=== PATIENT | male | born 1950 | race Caucasian/White ===

== ENCOUNTER 2019-01-17 16:29 | Inpatient (IN) | payer BC, MEDICARE ==
--- NOTE | 2019-01-17 16:54 | ED ---
General Adult HPI - General Chief complaint: Shortness of Breath Stated complaint: TAMARA, INFECTION LEFT LUNG Time Seen by Provider: 01/17/19 16:31 Source: patient, RN notes reviewed, old records reviewed Mode of arrival: ambulatory Limitations: no limitations - History of Present Illness Initial comments: 68-year-old male presents for evaluation of cough, dyspnea, fatigue. Patient has past medical history of diabetes, otherwise no respiratory issues, no coronary artery disease. The patient presenting from an outside hospital with concern for pneumonia and pleural effusion. Patient states he has not been feeling well for approximately one month. His has worsened over the past one week. He was seen at an outside hospital and had chest x-ray showing effusion and subsequently had a CAT scan, these results are not available at the time of my initial evaluation. Denies central chest pain. Denies lower extremity edema. He does report a productive cough. No fever or chills. No vomiting. - Related Data Home Medications Medication Instructions Recorded Confirmed Aspirin EC [Ecotrin Low Dose] 81 mg PO DAILY 01/17/19 01/17/19 FLUoxetine HCL [PROzac] 20 mg PO DAILY 01/17/19 01/17/19 Hydrochlorothiazide 25 mg PO DAILY 01/17/19 01/17/19 Lisinopril 40 mg PO DAILY 01/17/19 01/17/19 amLODIPine [Norvasc] 10 mg PO DAILY 01/17/19 01/17/19 metFORMIN HCL 1,000 mg PO BID 01/17/19 01/17/19 Allergies Allergy/AdvReac Type Severity Reaction Status Date / Time chlorzoxazone Allergy Unknown Verified 01/17/19 17:01 [From [facility]] Review of Systems ROS Statement: Those systems with pertinent positive or pertinent negative responses have been documented in the HPI. ROS Other: All systems not noted in ROS Statement are negative. Past Medical History Past Medical History: No Reported History History of Any Multi-Drug Resistant Organisms: None Reported Past Surgical History: No Surgical Hx Reported Past Psychological History: No Psychological Hx Reported Smoking Status: Never smoker Past Alcohol Use History: None Reported Past Drug Use History: None Reported General Exam Limitations: no limitations General appearance: alert, in no apparent distress Head exam: Present: atraumatic, normocephalic Eye exam: Present: normal appearance, PERRL Neck exam: Present: normal inspection. Absent: tenderness, meningismus Respiratory exam: Present: rhonchi, decreased breath sounds (No significant air movement on the left.). Absent: respiratory distress, wheezes Cardiovascular Exam: Present: regular rate, normal rhythm GI/Abdominal exam: Present: soft. Absent: distended, tenderness, guarding Extremities exam: Present: normal capillary refill. Absent: pedal edema, calf tenderness Neurological exam: Present: alert, oriented X3, CN II-XII intact. Absent: motor sensory deficit Psychiatric exam: Present: normal affect, normal mood Skin exam: Present: warm, dry, intact. Absent: cyanosis, diaphoretic Course Vital Signs 01/17/19 01/17/19 16:35 17:29 Temperature 98.4 F Pulse Rate 102 H Respiratory 18 18 Rate Blood Pressure 148/75 O2 Sat by Pulse 96 Oximetry - Reevaluation(s) Reevaluation #1: 01/17/19 17:48 Records will be obtained from [facility] including recent computed tomography scan chest. EKG Findings - EKG Comments: EKG Findings:: Sinus tachycardia, left atrial enlargement, right bundle branch block, left anterior fascicular block, rate of 109, NM interval 152, QRS duration 142, QTC [address] segment elevation. Medical Decision Making - Medical Decision Making 68 male presenting with dyspnea, cough, fatigue been ongoing for approximately one month, maybe longer. Sent from [facility] for evaluation of large left- sided pleural effusion. X-ray reviewed, does show pneumonia with adjacent effusion and concern for abscess. CT was performed today, these results will be obtained. Patient has leukocytosis with a white blood cell count 27,000, hemoglobin is 10, he is reactive platelets at 692. His electrolyte abnormal ities including hyponatremia and hyperglycemia. He started on IV fluids, initiated on IV antibiotics. He will be admitted with pulmonology on consult. - Lab Data Result diagrams: 01/17/19 17:00 01/17/19 17:00 Lab Results 01/17/19 01/17/19 01/17/19 Range/Units 17:00 17:00 17:00 WBC 27.9 H (3.8-10.6) k/uL RBC 3.36 L (4.30-5.90) m/uL Hgb 10.1 L (13.0-17.5) gm/dL Hct 32.0 L (39.0-53.0) % MCV 95.1 (80.0-100.0) fL MCH 30.0 (25.0-35.0) pg MCHC 31.6 (31.0-37.0) g/dL RDW 14.3 (11.5-15.5) % Plt Count 692 H (150-450) k/uL Neutrophils % (Manual) 90 % Band Neutrophils % 2 % Lymphocytes % (Manual) 5 % Monocytes % (Manual) 3 % Neutrophils # (Manual) 25.60 H (1.3-7.7) k/uL Lymphocytes # (Manual) 1.40 (1.0-4.8) k/uL Monocytes # (Manual) 0.84 (0-1.0) k/uL Nucleated RBCs 0 (0-0) /100 WBC Manual Slide Review Performed RBC Morphology Normal PT (9.0-12.0) sec INR (<1.2) APTT (22.0-30.0) sec Sodium 129 L (137-145) mmol/L Potassium 3.5 (3.5-5.1) mmol/L Chloride 88 L (98-107) mmol/L Carbon Dioxide 26 (22-30) mmol/L Anion Gap 15 mmol/L BUN 32 H (9-20) mg/dL Creatinine 0.91 (0.66-1.25) mg/dL Est GFR (CKD-EPI)AfAm >90 (>60 ml/min/1.73 sqM) Est GFR (CKD-EPI)NonAf 88 (>60 ml/min/1.73 sqM) Glucose 549 H* (74-99) mg/dL Calcium 8.4 (8.4-10.2) mg/dL Magnesium 1.4 L (1.6-2.3) mg/dL Total Bilirubin 0.3 (0.2-1.3) mg/dL AST 22 (17-59) U/L ALT 27 (21-72) U/L Alkaline Phosphatase 297 H (38-126) U/L Troponin I (0.000-0.034) ng/mL NT-Pro-B Natriuret Pep 901 pg/mL Total Protein 5.6 L (6.3-8.2) g/dL Albumin 2.7 L (3.5-5.0) g/dL 01/17/19 01/17/19 Range/Units 17:00 17:00 WBC (3.8-10.6) k/uL RBC (4.30-5.90) m/uL Hgb (13.0-17.5) gm/dL Hct (39.0-53.0) % MCV (80.0-100.0) fL MCH (25.0-35.0) pg MCHC (31.0-37.0) g/dL RDW (11.5-15.5) % Plt Count (150-450) k/uL Neutrophils % (Manual) % Band Neutrophils % % Lymphocytes % (Manual) % Monocytes % (Manual) % Neutrophils # (Manual) (1.3-7.7) k/uL Lymphocytes # (Manual) (1.0-4.8) k/uL Monocytes # (Manual) (0-1.0) k/uL Nucleated RBCs (0-0) /100 WBC Manual Slide Review RBC Morphology PT 9.9 (9.0-12.0) sec INR 0.9 (<1.2) APTT 24.6 (22.0-30.0) sec Sodium (137-145) mmol/L Potassium (3.5-5.1) mmol/L Chloride (98-107) mmol/L Carbon Dioxide (22-30) mmol/L Anion Gap mmol/L BUN (9-20) mg/dL Creatinine (0.66-1.25) mg/dL Est GFR (CKD-EPI)AfAm (>60 ml/min/1.73 sqM) Est GFR (CKD-EPI)NonAf (>60 ml/min/1.73 sqM) Glucose (74-99) mg/dL Calcium (8.4-10.2) mg/dL Magnesium (1.6-2.3) mg/dL Total Bilirubin (0.2-1.3) mg/dL AST (17-59) U/L ALT (21-72) U/L Alkaline Phosphatase (38-126) U/L Troponin I <0.012 (0.000-0.034) ng/mL NT-Pro-B Natriuret Pep pg/mL Total Protein (6.3-8.2) g/dL Albumin (3.5-5.0) g/dL Critical Care Time Critical Care Time: Yes Total Critical Care Time: 35 Disposition Clinical Impression: Pleural effusion, CAP (community acquired pneumonia) Disposition: ADMITTED IP TO [facility] Condition: Stable Is patient prescribed a controlled substance at d/c from ED?: No Referrals: Ayanna Chan MD [Primary Care Provider] - 1-2 days Decision to Admit Reason: Admit from EC Decision Date: 01/17/19 Decision Time: 18:42
--- NOTE | 2019-01-17 17:17 | XR ---
EXAMINATION TYPE: XR chest 2V DATE OF EXAM: 01/17/2019 COMPARISON: NONE HISTORY: Short of breath TECHNIQUE: Frontal and lateral views of the chest are obtained. FINDINGS: There is left pleural effusion. There is fluid level in the left upper lung field. Right l sonu is clear. There are chest leads. There is no heart failure. IMPRESSION: Large left pleural effusion. Fluid level could relate to lung abscess. No heart failure seen. There is probably left pulmonary consolidation.
[2019-01-17 17:29] LABS: HGB 10.1 gm/dL (13.0-17.5); MCHC 31.6 g/dL (31.0-37.0); MCV 95.1 fL (80.0-100.0); Mean Platelet Volume 7.2; Platelet Count 692 k/uL (150-450); RBC 3.36 m/uL (4.30-5.90); RDW 14.3 % (11.5-15.5); WBC 27.9 k/uL (3.8-10.6)
[2019-01-17] MEDS ORDERED: AZITHROMYCIN 500 MG in SODIUM CHLORIDE 0.9% 250 ML IVPB STA (17:43)
[2019-01-17] MEDS ORDERED: cefTRIAXone IN SWFI 1,000 MG/10 ML SYRINGE IVP STA (17:43)
[2019-01-17 17:44] LABS: ALT 27 U/L (21-72); AST 22 U/L (17-59); African American GFR (CKD) >90 (>60 ml/min/1.73 sqM); Albumin 2.7 g/dL (3.5-5.0); Alkaline Phosphatase 297 U/L (38-126); Anion Gap 15 mmol/L; Blood Urea Nitrogen 32 mg/dL (9-20); Calcium 8.4 mg/dL (8.4-10.2); Carbon Dioxide 26 mmol/L (22-30); Chloride 88 mmol/L (98-107); Magnesium 1.4 mg/dL (1.6-2.3); Potassium 3.5 mmol/L (3.5-5.1); Sodium 129 mmol/L (137-145); Total Bilirubin 0.3 mg/dL (0.2-1.3); Total Protein 5.6 g/dL (6.3-8.2)
[2019-01-17] MEDS ORDERED: VANCOMYCIN IV PER PHARMACY 1 EACH MISC MISCELLANE PRN (17:45)
[2019-01-17 17:53] LABS: INR 0.9 (<1.2); Partial Thromboplastin Time 24.6 sec (22.0-30.0); Prothrombin Time 9.9 sec (9.0-12.0)
[2019-01-17 17:56] LABS: Glucose 549 mg/dL (74-99)
[2019-01-17 18:00] LABS: Band Neutrophils % 2 %; Monocytes # (M) 0.84 k/uL (0-1.0); Neutrophils % (M) 90 %; Nucleated Red Blood Cells 0 /100 WBC (0-0); Total Cells Counted 100
[2019-01-17] MEDS ORDERED: VANCOMYCIN 1,250 MG in SODIUM CHLORIDE 0.9% 250 ML IVPB ONE (18:00)
[2019-01-17] MEDS ORDERED: SODIUM CHLORIDE 0.9% 500 ML 500 ML IV ONE (18:26)
[2019-01-17] MEDS ORDERED: INSULIN REGULAR 100 UNIT/ML VIAL IV ONE (18:27)
[2019-01-17] MEDS: SODIUM CHLORIDE 0.9% 1,000 ML IV SCH (18:31)
[2019-01-17] MEDS ORDERED: NALOXONE 0.4 MG/ML 1 ML VIAL IV PRN (18:39)
[2019-01-17 19:20] LABS: Glucose,Whole Blood 568 mg/dL (75-99)
[2019-01-17 20:42] LABS: Glucose,Whole Blood 500 mg/dL (75-99)
[2019-01-17] MEDS ORDERED: INSULIN REGULAR 100 UNIT in SODIUM CHLORIDE 0.9% 100 ML IV SCH (21:45)
[2019-01-17 22:36] LABS: Glucose,Whole Blood 498 mg/dL (75-99)
[2019-01-17 23:38] LABS: Glucose,Whole Blood 496 mg/dL (75-99)
[2019-01-18 00:11] LABS: Glucose,Whole Blood 432 mg/dL (75-99)
[2019-01-18 00:37] LABS: Glucose,Whole Blood 418 mg/dL (75-99)
[2019-01-18] MEDS: MAGNESIUM SULFATE-D5W PMX 1 GM in DEXTROSE/WATER 1 100ML.BAG IVPB SCH ×2 (00:38→02:21)
[2019-01-18 01:07] LABS: Glucose,Whole Blood 340 mg/dL (75-99)
[2019-01-18 01:44] LABS: ALT 21 U/L (21-72); AST 18 U/L (17-59); African American GFR (CKD) >90 (>60 ml/min/1.73 sqM); Albumin 2.3 g/dL (3.5-5.0); Alkaline Phosphatase 212 U/L (38-126); Anion Gap 9 mmol/L; Blood Urea Nitrogen 28 mg/dL (9-20); Calcium 7.9 mg/dL (8.4-10.2); Carbon Dioxide 29 mmol/L (22-30); Chloride 93 mmol/L (98-107); Glucose 323 mg/dL (74-99); MCH 29.8 pg (25.0-35.0); MCHC 31.6 g/dL (31.0-37.0); MCV 94.2 fL (80.0-100.0); Magnesium 1.7 mg/dL (1.6-2.3); Mean Platelet Volume 6.8; Platelet Count 598 k/uL (150-450); RBC 2.87 m/uL (4.30-5.90); RDW 14.3 % (11.5-15.5); Sodium 131 mmol/L (137-145); Total Bilirubin <0.1 mg/dL (0.2-1.3); Total Protein 4.8 g/dL (6.3-8.2); WBC 24.4 k/uL (3.8-10.6)
[2019-01-18 01:45] LABS: HGB 8.6 gm/dL (13.0-17.5)
[2019-01-18 01:57] LABS: Glucose,Whole Blood 309 mg/dL (75-99)
[2019-01-18 02:06] LABS: Lymphocytes # (M) 0.49 k/uL (1.0-4.8); Monocytes # (M) 0.73 k/uL (0-1.0); Neutrophils # (M) 23.18 k/uL (1.3-7.7); Neutrophils % (M) 95 %; Nucleated Red Blood Cells 0 /100 WBC (0-0); Total Cells Counted 100
[2019-01-18 02:21] LABS: Glucose,Whole Blood 271 mg/dL (75-99)
[2019-01-18 03:58] LABS: Glucose,Whole Blood 139 mg/dL (75-99)
[2019-01-18 04:51] LABS: Glucose,Whole Blood 125 mg/dL (75-99)
[2019-01-18 05:53] LABS: Glucose,Whole Blood 151 mg/dL (75-99)
[2019-01-18 07:02] LABS: Glucose,Whole Blood 230 mg/dL (75-99)
[2019-01-18] MEDS: LISINOPRIL 20 MG TAB PO SCH (07:18)
[2019-01-18] MEDS: amLODIPine 10 MG TAB PO SCH (07:18)
[2019-01-18] MEDS: FLUoxetine HCL 20 MG CAP PO SCH (07:18)
[2019-01-18] MEDS: ASPIRIN 81 MG PO SCH (07:18)
[2019-01-18] MEDS: INSULIN ASPART (NovoLOG) 100 UNIT/ML VIAL SQ SCH ×4 (07:20→21:07)
[2019-01-18] MEDS: SODIUM CHLORIDE 0.9% 1,000 ML IV SCH ×2 (07:24→21:11)
[2019-01-18] MEDS ORDERED: INSULIN ASPART (NovoLOG) 100 UNIT/ML VIAL SQ SCH ×2 (07:30)
[2019-01-18] MEDS: INSULIN DETEMIR (LEVEMIR) 100 UNIT/ML SYR SQ SCH (08:07)
[2019-01-18] MEDS: VANCOMYCIN 1,000 MG in SODIUM CHLORIDE 0.9% 250 ML IVPB SCH ×2 (10:34→22:31)
[2019-01-18 11:59] LABS: Glucose,Whole Blood 271 mg/dL (75-99)
[2019-01-18] MEDS ORDERED: PIPERACILLIN-TAZOBACTAM 3.375 GM in SODIUM CHLORIDE 0.9% 100 ML IVPB SCH (12:00)
--- NOTE | 2019-01-18 12:06 | XR ---
EXAMINATION TYPE: XR chest 1V portable DATE OF EXAM: 01/18/2019 COMPARISON: 7 12/22/2019 HISTORY: Difficulty breathing TECHNIQUE: Single frontal view of the chest is obtained. FINDINGS: Left-sided consolidation pleural effusion noted. Fluid level noted in the prior exam is ob scured likely related to increasing consolidation. Right lung clear. Heart size stable. Arthropathy o f the shoulders. IMPRESSION: 1. Large area of consolidation involving the left lung may been the basis of pleural effusion and con solidative pneumonia or compressive atelectasis. Endobronchial lesion or neoplasm not excluded. 2. Fluid level noted on the prior exam is not seen on today's exam and may be related opacification. As previously noted loculated pneumothorax or pulmonary abscess in the differential diagnosis.
[2019-01-18 13:18] LABS: Appearance,BF Cloudy; Color,BF Yellow
--- NOTE | 2019-01-18 13:42 | P.CNPUL ---
History of Present Illness Consult date: 01/18/19 Reason for consult: pneumonia History of present illness: A 68-year-old male patient who was transferred from [facility] of shortness of breath. The patient started approximately week ago to have pleuritic left-sided chest pain. He was also having increased cough and congestion and low-grade fever. He was seen by his primary care physician and apparently a chest x-ray was done and he was told to have pneumonia and was given oral erythromycin-based antibiotic. The patient's condition got worse. His appetite has been poor. He has been losing weight. He came in to [facility] emergency department with a chest x-ray was done that showed a left lung opacity and following that a CAT scan of the chest was done that showed a large loculated left-sided pleural effusion along with gas within the pleural space and the finding was very highly suspicious for empyema. The patient got transferred to us. I reviewed the CAT scan of the chest from [facility]. The findings is consistent with empyema. The patient's white cell count was 27.9 at time of admission. Sodium level was at 129. His sugar level was also elevated and the patient is diabetic. Is a lifetime nonsmoker. I performed a bedside thoracentesis and I drained approximately 6 50 mL of pus from the left pleural space. Subsequent chest x-ray showed no evidence of any pneumothorax. The patient tolerated the procedure well. The fluid that was seen on the earlier chest x-ray was removed. Fluid analysis still pending for now. The patient was started on a combination of Zosyn and vancomycin. We'll put an interventional radiology consultation for a pigtail catheter insertion the drained residual loculated pleural effusion on the CAT scan guidance. This will be done tomorrow. Family was updated. May need a thoracic surgery con sultation at a later stage depending on our success of breathing this empyema percutaneously. Review of Systems Constitutional: Reports fatigue, Reports fever, Reports weakness, Reports weight loss Eyes: denies as per HPI, denies blurred vision, denies bulging eye, denies decreased vision, denies diplopia, denies discharge, denies dry eye, denies irritation, denies itching, denies pain, denies photophobia, denies loss of peripheral vision, denies loss of vision, denies tunnel vision/blind spots Ears: deny: decreased hearing, ear discharge, earache, tinnitus Ears, nose, mouth and throat: Denies headache, Denies sore throat Cardiovascular: Reports decreased exercise tolerance, Reports dyspnea on exertion Respiratory: Reports cough, Reports dyspnea Gastrointestinal: Reports as per HPI Genitourinary: Reports as per HPI Musculoskeletal: Reports as per HPI Musculoskeletal: absent: ankle pain, ankle stiffness, ankle swelling, as per HPI, elbow pain, elbow stiffness, elbow swelling, foot pain, foot stiffness, foot swelling, hand pain, hand stiffness, hand swelling, hip pain, hip stiffness, hip swelling, knee pain, knee stiffness, knee swelling, shoulder pain, shoulder stiffness, shoulder swelling, wrist pain, wrist stiffness, wrist swelling Integumentary: Reports as per HPI Neurological: Reports as per HPI, Reports weakness Psychiatric: Reports as per HPI Endocrine: Reports as per HPI, Reports excessive sweating, Reports excessive thirst, Reports fatigue, Reports high blood sugars Hematologic/Lymphatic: Reports as per HPI Allergic/Immunologic: Reports allergic rhinitis Past Medical History Past Medical History: Diabetes Mellitus, GERD/Reflux, Hypertension History of Any Multi-Drug Resistant Organisms: None Reported Past Surgical History: No Surgical Hx Reported Additional Past Surgical History / Comment(s): 86 GI bleed from ulcer Past Psychological History: No Psychological Hx Reported Smoking Status: Never smoker Past Alcohol Use History: None Reported Past Drug Use History: None Reported - Past Family History Father Family Medical History: Cancer Mother Family Medical History: Cancer, Dementia Medications and Allergies Home Medications Medication Instructions Recorded Confirmed Type Aspirin EC [Ecotrin Low Dose] 81 mg PO DAILY 01/17/19 01/17/19 History FLUoxetine HCL [PROzac] 20 mg PO DAILY 01/17/19 01/17/19 History Hydrochlorothiazide 25 mg PO DAILY 01/17/19 01/17/19 History Lisinopril 40 mg PO DAILY 01/17/19 01/17/19 History amLODIPine [Norvasc] 10 mg PO DAILY 01/17/19 01/17/19 History metFORMIN HCL 1,000 mg PO BID 01/17/19 01/17/19 History Allergies Allergy/AdvReac Type Severity Reaction Status Date / Time chlorzoxazone Allergy Unknown Verified 01/17/19 17:01 [From [facility]] Physical Exam Vitals: Vital Signs Temp Pulse Pulse Pulse Resp BP BP 01/18/19 07:10 19 01/18/19 07:00 97.9 F 105 H 19 174/84 01/18/19 01:42 98.3 F 102 H 14 159/78 01/17/19 20:40 97.3 F L 105 H 20 169/83 01/17/19 19:35 106 H 01/17/19 19:24 100 20 163/82 01/17/19 17:29 18 01/17/19 16:35 98.4 F 102 H 18 148/75 Pulse Ox 01/18/19 07:10 01/18/19 07:00 95 01/18/19 01:42 94 L 01/17/19 20:40 90 L 01/17/19 19:35 01/17/19 19:24 97 01/17/19 17:29 01/17/19 16:35 96 Intake and Output 01/17/19 01/18/19 01/18/19 22:59 06:59 14:59 Intake Total 49.658 236 Output Total 250 775 Balance -250 -725.342 236 Intake: Intake, IV Titration 49.658 Amount Insulin Regular 100 unit 49.658 In Sodium Chloride 0.9% 100 ml @ Titrate IV .Q0M [facility] Rx#:[id number] Oral 236 Output: Urine 250 775 Other: Voiding Method Toilet Toilet Urinal Urinal # Voids 1 Weight 58.513 kg 56.1 kg 56.1 kg Gen. appearance, comfortable likely distress Head exam was generally normal. There was no scleral icterus or corneal arcus. Mucous membranes were moist. Neck was supple and without jugular venous distension, thyromegaly, or carotid bruits. Carotids were easily palpable bilaterally. There was no adenopathy. Lungs sounds are diminished in the left along with dullness to percussion Cardiac exam revealed the PMI to be normally situated and sized. The rhythm was regular and no extrasystoles were noted during several minutes of auscultation. The first and second heart sounds were normal and physiologic splitting of the second heart sound was noted. There were no murmurs, rubs, clicks, or gallops. Abdominal exam revealed normal bowel sounds. The abdomen was soft, non-tender, and without masses, organomegaly, or appreciable enlargement of the abdominal aorta. Examination of the extremities revealed easily palpable radial, femoral and pedal pulses. There was no cyanosis, clubbing or edema. Examination of the skin revealed no evidence of significant rashes, suspicious appearing nevi or other concerning lesions. Neurologically he is awake and alert and there is no focal neurological defici ts. Results - Laboratory Findings CBC and BMP: 01/18/19 01:21 01/18/19 01:21 PT/INR, D-dimer PT 9.9 sec (9.0-12.0) 01/17/19 17:00 INR 0.9 (<1.2) 01/17/19 17:00 Abnormal lab findings: Abnormal Labs 01/17/19 01/17/19 01/17/19 17:00 17:00 19:17 WBC 27.9 H RBC 3.36 L Hgb 10.1 L Hct 32.0 L Plt Count 692 H Neutrophils # (Manual) 25.60 H Lymphocytes # (Manual) Sodium 129 L Potassium Chloride 88 L BUN 32 H Glucose 549 H* POC Glucose (mg/dL) 568 H Calcium Magnesium 1.4 L Total Bilirubin Alkaline Phosphatase 297 H Total Protein 5.6 L Albumin 2.7 L 01/17/19 01/17/19 01/17/19 20:40 22:33 23:35 WBC RBC Hgb Hct Plt Count Neutrophils # (Manual) Lymphocytes # (Manual) Sodium Potassium Chloride BUN Glucose POC Glucose (mg/dL) 500 H 498 H 496 H Calcium Magnesium Total Bilirubin Alkaline Phosphatase Total Protein Albumin 01/18/19 01/18/19 01/18/19 00:02 00:32 01:01 WBC RBC Hgb Hct Plt Count Neutrophils # (Manual) Lymphocytes # (Manual) Sodium Potassium Chloride BUN Glucose POC Glucose (mg/dL) 432 H 418 H 340 H Calcium Magnesium Total Bilirubin Alkaline Phosphatase Total Protein Albumin 01/18/19 01/18/19 01/18/19 01:21 01:21 01:42 WBC 24.4 H RBC 2.87 L Hgb 8.6 L D Hct 27.0 L Plt Count 598 H Neutrophils # (Manual) 23.18 H Lymphocytes # (Manual) 0.49 L Sodium 131 L Potassium 3.0 L Chloride 93 L BUN 28 H Glucose 323 H POC Glucose (mg/dL) 309 H Calcium 7.9 L Magnesium Total Bilirubin <0.1 L Alkaline Phosphatase 212 H Total Protein 4.8 L Albumin 2.3 L 07/07/19 07/07/19 07/07/19 02:15 03:49 04:49 WBC RBC Hgb Hct Plt Count Neutrophils # (Manual) Lymphocytes # (Manual) Sodium Potassium Chloride BUN Glucose POC Glucose (mg/dL) 271 H 139 H 125 H Calcium Magnesium Total Bilirubin Alkaline Phosphatase Total Protein Albumin 01/18/19 01/18/19 01/18/19 05:50 06:23 06:51 WBC RBC Hgb Hct Plt Count Neutrophils # (Manual) Lymphocytes # (Manual) Sodium Potassium Chloride BUN Glucose POC Glucose (mg/dL) 151 H 230 H Calcium Magnesium Total Bilirubin Alkaline Phosphatase Total Protein 5.0 L Albumin 01/18/19 11:58 WBC RBC Hgb Hct Plt Count Neutrophils # (Manual) Lymphocytes # (Manual) Sodium Potassium Chloride BUN Glucose POC Glucose (mg/dL) 271 H Calcium Magnesium Total Bilirubin Alkaline Phosphatase Total Protein Albumin - Diagnostic Findings Chest x-ray: image reviewed Assessment and Plan Plan: 1 Empyema involving the left lung, post diagnostic and therapeutic thoracentesis with evacuation of 6 50 mL of pus from the left lung. Awaiting Gram stain and culture. 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 I think this needs to be followed up by another intervention which will be a pigtail catheter insertion by interventional radiology evacuated the residual loculated pockets of pleural fluid from the left lung. He may benefit from TPA administration to breakdown the loculations. He'll be covered with broad- spectrum antibiotics. Awaiting culture results. Consult ID. He may ultimately benefit from a thoracoscopic evaluation/decortication if the above-mentioned interventions fail to clear the empyema. Tighter blood sugar control. The pawel ent was placed on Levemir insulin 20 units along with ascites care coverage. Replace potassium level. Continue Zosyn and vancomycin. We'll continue to follow.
--- NOTE | 2019-01-18 13:44 | P.PCN ---
Date of Procedure: 01/18/19 Preoperative Diagnosis: Empyema Postoperative Diagnosis: Empyema Procedure(s) Performed: Thoracentesis Anesthesia: local Surgeon: Shayne Lui Estimated Blood Loss (ml): 0 Pathology: other Condition: stable Disposition: floor Operative Findings: A timeout was completed verifying correct patient and procedure and site. No ultrasound was used during the procedure. She was positioned and prepped and draped in the usual fashion. Lidocaine was applied to anesthetize the area. A thoracentesis catheter was inserted into the left pleural space and total of 6 50 mL of purulent material/pus brown in color viscus was drained from the left hemithorax without any major difficulties. The patient tolerated the procedure well. No blood loss. Follow-up chest x-ray shows no evidence of pneumothorax.
[2019-01-18] MEDS ORDERED: VANCOMYCIN 1,000 MG in SODIUM CHLORIDE 0.9% 250 ML IVPB SCH (14:00)
[2019-01-18 14:51] LABS: Nucleated Cells, Body Fluid 160000 /uL; RBC, Body Fluid 0 /uL
[2019-01-18] MEDS ORDERED: Potassium Replacement Protocol 1 EACH MISC MISCELLANE PRN (15:27)
[2019-01-18] MEDS: POTASSIUM CHLORIDE ER 20 MEQ TAB.ER PO SCH ×2 (16:00→16:56)
--- NOTE | 2019-01-18 16:03 | P.HPIM ---
History of Present Illness Chief Complaint: Shortness of breath This very pleasant 68-year-old gentleman with a past paresis significant for diabetes, hypertension is transferred from [facility] for further management and treatment of his shortness of breath due to possible empyema on the left side. The patient says that he's been having shortness of breath for the past 1 week. He went to his primary care doctor who did a chest x-ray and found that he's having pneumonia. He was put on Z-Brien. The plan was to get an a CAT scan as an outpatient Which was not done. Patient was worsening and was becoming more short of breath so he went to [facility] yesterday. He had a CT of the chest done which showed collapse of the left lower lobe large lesion on the left side measuring 17-7 cm with punctate and alejo undglass attenuation within the pleural-based fluid raising the possibility of possible empyema. Patient was transferred over here for further evaluation and management. At the time of my examination the patient already had thoracentesis done by pulmonology and 650 mL of pus was drained from the left pleural space. The specimen was sent for fluid analysis. Patient was started on Vanco and Zosy n. Interventional radiology was also consulted for a pigtail catheter insertion for drainage of the residual pleural effusion which will be done tomorrow. Patient at this time says that his breathing has improved and is able to take more deep breaths. He says he feels sore at the site of the chest tube insertion were otherwise does not have any chest pain, does not have any racing heart, he still coughing, no abdominal pain, no nausea and vomiting, or diarrhea constipation, no tingling numbness of his extremities, no itch or rash The workup in the ER showed temperature of 98.9 pulse 99 respiration 20 blood pressure 158/74. Labwork done yesterday showed WBC of 24.4 hemoglobin 8.6 platelets 598 sodium 131 potassium 3.0 B1 28 creatinine 0.88. Patient was thus admitted to the hospitalist service a further evaluation and management Review of Systems All systems: negative Past Medical History Past Medical History: Diabetes Mellitus, GERD/Reflux, Hypertension History of Any Multi-Drug Resistant Organisms: None Reported Past Surgical History: No Surgical Hx Reported Additional Past Surgical History / Comment(s): 86 GI bleed from ulcer Past Psychological History: No Psychological Hx Reported Smoking Status: Never smoker Past Alcohol Use History: None Reported Past Drug Use History: None Reported - Past Family History Father Family Medical History: Cancer Mother Family Medical History: Cancer, Dementia Medications and Allergies Home Medications Medication Instructions Recorded Confirmed Type Aspirin EC [Ecotrin Low Dose] 81 mg PO DAILY 01/17/19 01/17/19 History FLUoxetine HCL [PROzac] 20 mg PO DAILY 01/17/19 01/17/19 History Hydrochlorothiazide 25 mg PO DAILY 01/17/19 01/17/19 History Lisinopril 40 mg PO DAILY 01/17/19 01/17/19 History amLODIPine [Norvasc] 10 mg PO DAILY 01/17/19 01/17/19 History metFORMIN HCL 1,000 mg PO BID 01/17/19 01/17/19 History Allergies Allergy/AdvReac Type Severity Reaction Status Date / Time chlorzoxazone Allergy Unknown Verified 01/17/19 17:01 [From [facility]] Physical Exam Vitals: Vital Signs Temp Pulse Pulse Pulse Resp BP BP 01/18/19 14:28 98.9 F 99 20 158/74 01/18/19 07:10 19 01/18/19 07:00 97.9 F 105 H 19 174/84 01/18/19 01:42 98.3 F 102 H 14 159/78 01/17/19 20:40 97.3 F L 105 H 20 169/83 01/17/19 19:35 106 H 01/17/19 19:24 100 20 163/82 01/17/19 17:29 18 01/17/19 16:35 98.4 F 102 H 18 148/75 Pulse Ox 01/18/19 14:28 95 01/18/19 07:10 01/18/19 07:00 95 01/18/19 01:42 94 L 01/17/19 20:40 90 L 01/17/19 19:35 01/17/19 19:24 97 01/17/19 17:29 01/17/19 16:35 96 Intake and Output 01/18/19 01/18/19 01/18/19 06:59 14:59 22:59 Intake Total 49.658 236 Output Total 775 Balance -725.342 236 Intake: Intake, IV Titration 49.658 Amount Insulin Regular 100 unit 49.658 In Sodium Chloride 0.9% 100 ml @ Titrate IV .Q0M [facility] Rx#:[id number] Oral 236 Output: Urine 775 Other: Voiding Method Toilet Urinal # Voids 3 Weight 56.1 kg 56.1 kg On exam, alert and oriented x3. HEENT: Conjunctivae normal. eyes normal. NECK: No JVD. No thyroid enlargement. No LNs CARDIOVASCULAR: S1-S2 positive RESPIRATION: Patient has liver diminished breath sounds of the left side. He has a Band-Aid applied on the posterior part of the left lung status post thoracentesis. ABDOMEN: Soft, nontender . No guarding. no masses palpable. No ascites, No hepatosplenomegaly.Bowel sounds heard. LEGS: No edema. no swelling NERVOUS SYSTEM: Cranial N 2-12 grossly normal. Moves all 4 limbs. No focal deficits. No sensory deficit. No signs of cerebellar dysfucntion. Skin: no ulcer no rash Results CBC & Chem 7: 01/18/19 01:21 01/18/19 01:21 Labs: Abnormal Lab Results - Last 24 Hours (Table) 01/17/19 01/17/19 01/17/19 Range/Units 17:00 17:00 19:17 WBC 27.9 H (3.8-10.6) k/uL RBC 3.36 L (4.30-5.90) m/uL Hgb 10.1 L (13.0-17.5) gm/dL Hct 32.0 L (39.0-53.0) % Plt Count 692 H (150-450) k/uL Neutrophils # (Manual) 25.60 H (1.3-7.7) k/uL Lymphocytes # (Manual) (1.0-4.8) k/uL Sodium 129 L (137-145) mmol/L Potassium (3.5-5.1) mmol/L Chloride 88 L (98-107) mmol/L BUN 32 H (9-20) mg/dL Glucose 549 H* (74-99) mg/dL POC Glucose (mg/dL) 568 H (75-99) mg/dL Calcium (8.4-10.2) mg/dL Magnesium 1.4 L (1.6-2.3) mg/dL Total Bilirubin (0.2-1.3) mg/dL Alkaline Phosphatase 297 H (38-126) U/L Total Protein 5.6 L (6.3-8.2) g/dL Albumin 2.7 L (3.5-5.0) g/dL 01/17/19 01/17/19 01/17/19 Range/Units 20:40 22:33 23:35 WBC (3.8-10.6) k/uL RBC (4.30-5.90) m/uL Hgb (13.0-17.5) gm/dL Hct (39.0-53.0) % Plt Count (150-450) k/uL Neutrophils # (Manual) (1.3-7.7) k/uL Lymphocytes # (Manual) (1.0-4.8) k/uL Sodium (137-145) mmol/L Potassium (3.5-5.1) mmol/L Chloride (98-107) mmol/L BUN (9-20) mg/dL Glucose (74-99) mg/dL POC Glucose (mg/dL) 500 H 498 H 496 H (75-99) mg/dL Calcium (8.4-10.2) mg/dL Magnesium (1.6-2.3) mg/dL Total Bilirubin (0.2-1.3) mg/dL Alkaline Phosphatase (38-126) U/L Total Protein (6.3-8.2) g/dL Albumin (3.5-5.0) g/dL 01/18/19 01/18/19 01/18/19 Range/Units 00:02 00:32 01:01 WBC (3.8-10.6) k/uL RBC (4.30-5.90) m/uL Hgb (13.0-17.5) gm/dL Hct (39.0-53.0) % Plt Count (150-450) k/uL Neutrophils # (Manual) (1.3-7.7) k/uL Lymphocytes # (Manual) (1.0-4.8) k/uL Sodium (137-145) mmol/L Potassium (3.5-5.1) mmol/L Chloride (98-107) mmol/L BUN (9-20) mg/dL Glucose (74-99) mg/dL POC Glucose (mg/dL) 432 H 418 H 340 H (75-99) mg/dL Calcium (8.4-10.2) mg/dL Magnesium (1.6-2.3) mg/dL Total Bilirubin (0.2-1.3) mg/dL Alkaline Phosphatase (38-126) U/L Total Protein (6.3-8.2) g/dL Albumin (3.5-5.0) g/dL 01/18/19 01/18/19 01/18/19 Range/Units 01:21 01:21 01:42 WBC 24.4 H (3.8-10.6) k/uL RBC 2.87 L (4.30-5.90) m/uL Hgb 8.6 L D (13.0-17.5) gm/dL Hct 27.0 L (39.0-53.0) % Plt Count 598 H (150-450) k/uL Neutrophils # (Manual) 23.18 H (1.3-7.7) k/uL Lymphocytes # (Manual) 0.49 L (1.0-4.8) k/uL Sodium 131 L (137-145) mmol/L Potassium 3.0 L (3.5-5.1) mmol/L Chloride 93 L (98-107) mmol/L BUN 28 H (9-20) mg/dL Glucose 323 H (74-99) mg/dL POC Glucose (mg/dL) 309 H (75-99) mg/dL Calcium 7.9 L (8.4-10.2) mg/dL Magnesium (1.6-2.3) mg/dL Total Bilirubin <0.1 L (0.2-1.3) mg/dL Alkaline Phosphatase 212 H (38-126) U/L Total Protein 4.8 L (6.3-8.2) g/dL Albumin 2.3 L (3.5-5.0) g/dL 01/18/19 01/18/19 01/18/19 Range/Units 02:15 03:49 04:49 WBC (3.8-10.6) k/uL RBC (4.30-5.90) m/uL Hgb (13.0-17.5) gm/dL Hct (39.0-53.0) % Plt Count (150-450) k/uL Neutrophils # (Manual) (1.3-7.7) k/uL Lymphocytes # (Manual) (1.0-4.8) k/uL Sodium (137-145) mmol/L Potassium (3.5-5.1) mmol/L Chloride (98-107) mmol/L BUN (9-20) mg/dL Glucose (74-99) mg/dL POC Glucose (mg/dL) 271 H 139 H 125 H (75-99) mg/dL Calcium (8.4-10.2) mg/dL Magnesium (1.6-2.3) mg/dL Total Bilirubin (0.2-1.3) mg/dL Alkaline Phosphatase (38-126) U/L Total Protein (6.3-8.2) g/dL Albumin (3.5-5.0) g/dL 01/18/19 01/18/19 01/18/19 Range/Units 05:50 06:23 06:51 WBC (3.8-10.6) k/uL RBC (4.30-5.90) m/uL Hgb (13.0-17.5) gm/dL Hct (39.0-53.0) % Plt Count (150-450) k/uL Neutrophils # (Manual) (1.3-7.7) k/uL Lymphocytes # (Manual) (1.0-4.8) k/uL Sodium (137-145) mmol/L Potassium (3.5-5.1) mmol/L Chloride (98-107) mmol/L BUN (9-20) mg/dL Glucose (74-99) mg/dL POC Glucose (mg/dL) 151 H 230 H (75-99) mg/dL Calcium (8.4-10.2) mg/dL Magnesium (1.6-2.3) mg/dL Total Bilirubin (0.2-1.3) mg/dL Alkaline Phosphatase (38-126) U/L Total Protein 5.0 L (6.3-8.2) g/dL Albumin (3.5-5.0) g/dL 01/18/19 Range/Units 11:58 WBC (3.8-10.6) k/uL RBC (4.30-5.90) m/uL Hgb (13.0-17.5) gm/dL Hct (39.0-53.0) % Plt Count (150-450) k/uL Neutrophils # (Manual) (1.3-7.7) k/uL Lymphocytes # (Manual) (1.0-4.8) k/uL Sodium (137-145) mmol/L Potassium (3.5-5.1) mmol/L Chloride (98-107) mmol/L BUN (9-20) mg/dL Glucose (74-99) mg/dL POC Glucose (mg/dL) 271 H (75-99) mg/dL Calcium (8.4-10.2) mg/dL Magnesium (1.6-2.3) mg/dL Total Bilirubin (0.2-1.3) mg/dL Alkaline Phosphatase (38-126) U/L Total Protein (6.3-8.2) g/dL Albumin (3.5-5.0) g/dL Thrombosis Risk Factor Assmnt - Choose All That Apply Any of the Below Risk Factors Present?: No Other Risk Factors: Yes Each Risk Factor Represents 2 Points: Age 61-74 years Other congenital or acquired thrombophilia - If yes, enter type in comment: No Thrombosis Risk Factor Assessment Total Risk Factor Score: 2 Thrombosis Risk Factor Assessment Level: Low Risk Assessment and Plan Assessment: - Acute respiratory failure - Empyema of the left lung - Hyponatremia - Hypertension - Diabetes mellitus - Anemia - HypO kalemia Plan - We'll admit the patient to [facility] with telemetry - Patient will be continueD on vancomycin and Zosyn - We'll continue breathing treatments - We'll order for Tylenol for fever - Pulmonology is consulted. Appreciate the recommendations. Patient already had thoracentesis done with removal of 650 mL of pus from the left lung. - ID consulted for further antibiotic recommendations - We'll order for breathing treatments - We will continue rest of the patient's home medications - DVT and GI prophylaxis - We'll order for lab work in the morning - Expected length of stay more than 2 midnights - Patient is full code
[2019-01-18 16:26] LABS: Glucose,Whole Blood 265 mg/dL (75-99)
[2019-01-18 20:32] LABS: Glucose,Whole Blood 247 mg/dL (75-99)
[2019-01-18] MEDS: CEFEPIME 2 GM in SODIUM CHLORIDE 0.9% 100 ML IVPB SCH (21:07)
[2019-01-19 06:54] LABS: Glucose,Whole Blood 131 mg/dL (75-99)
--- NOTE | 2019-01-19 07:05 | P.CONS ---
History of Present Illness - Reason for Consult Consult date: 01/18/19 Left-sided empyema Requesting physician: James Diza - Chief Complaint Left-sided chest pain and cough 1 week - History of Present Illness Patient is 68-year-old male who initially presented to [facility] with chief complaints of increasing left-sided chest pain and cough patient's symptom has been going on for more than a week And he has been ev aluated by his primary care physician in outpatient setting which was suggestive of left-sided pneumonia the patient be treated with an oral antibiotic however the patient not very clear about the name of that antibiotic subsequently patient's symptom persisted but has slight worsening with pain on the left side of his chest more of a dull aching pain with some sharp characteristics worse with taking a deep breath intensity is about 5-6 out of 10 and no radiation patient also have a cough which has been mild to moderate intensity with occasional sputum production but no hemoptysis patient did have some chills denies high-grade fever with the symptoms the patient was evaluated at outside facility the patient had chest x-ray followed by CT of the chest that has been suggestive of left-sided loculated pleural fluid subsequently the patient be transferred to [facility] for further management patient has been evaluated by pulmonary is status post thoracocentesis on the left side with removal of 650 mL of purulent fluid which has been sent for cultures patient has been empirically started on vancomycin and Zosyn and infectious disease was consulted today for further recommendation regarding antibiotic therapy Review of Systems CONSTITUTIONAL: Positive for weakness. Low-grade Fever EYES: No complaint. ENT:No complaint. RESPIRATORY: As per history of present illness CARDIOVASCULAR: No complaint. GENITOURINARY: No complaint. GASTROINTESTINAL: No complaint. MUSCULOSKELETAL: No complaint. INTEGUMENTARY: No complaint. PSYCHOLOGICAL: No complaint. ENDOCRINE: No complaint. NEUROLOGIC: No complaint. Past Medical History Past Medical History: Diabetes Mellitus, GERD/Reflux, Hypertension History of Any Multi-Drug Resistant Organisms: None Reported Past Surgical History: No Surgical Hx Reported Additional Past Surgical History / Comment(s): 86 GI bleed from ulcer Past Psychological History: No Psychological Hx Reported Smoking Status: Never smoker Past Alcohol Use History: None Reported Past Drug Use History: None Reported - Past Family History Father Family Medical History: Cancer Mother Family Medical History: Cancer, Dementia Medications and Allergies Home Medications Medication Instructions Recorded Confirmed Type Aspirin EC [Ecotrin Low Dose] 81 mg PO DAILY 01/17/19 01/17/19 History FLUoxetine HCL [PROzac] 20 mg PO DAILY 01/17/19 01/17/19 History Hydrochlorothiazide 25 mg PO DAILY 01/17/19 01/17/19 History Lisinopril 40 mg PO DAILY 01/17/19 01/17/19 History amLODIPine [Norvasc] 10 mg PO DAILY 01/17/19 01/17/19 History metFORMIN HCL 1,000 mg PO BID 01/17/19 01/17/19 History Allergies Allergy/AdvReac Type Severity Reaction Status Date / Time chlorzoxazone Allergy Unknown Verified 01/17/19 17:01 [From [facility]] Physical Exam Vitals: Vital Signs Temp Pulse Pulse Pulse Resp BP BP 01/18/19 14:28 98.9 F 99 20 158/74 01/18/19 07:10 19 01/18/19 07:00 97.9 F 105 H 19 174/84 01/18/19 01:42 98.3 F 102 H 14 159/78 01/17/19 20:40 97.3 F L 105 H 20 169/83 01/17/19 19:35 106 H 01/17/19 19:24 100 20 163/82 01/17/19 17:29 18 Pulse Ox 01/18/19 14:28 95 01/18/19 07:10 01/18/19 07:00 95 01/18/19 01:42 94 L 01/17/19 20:40 90 L 01/17/19 19:35 01/17/19 19:24 97 01/17/19 17:29 Intake and Output 01/18/19 01/18/19 01/18/19 06:59 14:59 22:59 Intake Total 49.658 236 Output Total 775 Balance -725.342 236 Intake: Intake, IV Titration 49.658 Amount Insulin Regular 100 unit 49.658 In Sodium Chloride 0.9% 100 ml @ Titrate IV .Q0M [facility] Rx#:[id number] Oral 236 Output: Urine 775 Other: Voiding Method Toilet Urinal # Voids 3 Weight 56.1 kg 56.1 kg GENERAL DESCRIPTION: Elderly male lying in bed, no distress. No tachypnea or accessory muscle of respiration use. HEENT: Shows Pallor , no scleral icterus. Oral mucous membrane is dry. No pharyngeal erythema or thrush NECK: Trachea central, no thyromegaly. LUNGS: Unlabored breathing. Decreased breath sound at the base No wheeze or crackle. HEART: S1, S2, regular rate and rhythm. No loud murmur ABDOMEN: Soft, no tenderness , guarding or rigidity, no organomegaly EXTREMITIES: No edema of feet. SKIN: No rash, no masses palpable. NEUROLOGICAL: The patient is awake, alert, oriented x3, mood and affect normal Results CBC & Chem 7: 01/18/19 01:21 01/18/19 18:58 Labs: Abnormal Lab Results - Last 24 Hours (Table) 01/17/19 01/17/19 01/17/19 Range/Units 17:00 17:00 19:17 WBC 27.9 H (3.8-10.6) k/uL RBC 3.36 L (4.30-5.90) m/uL Hgb 10.1 L (13.0-17.5) gm/dL Hct 32.0 L (39.0-53.0) % Plt Count 692 H (150-450) k/uL Neutrophils # (Manual) 25.60 H (1.3-7.7) k/uL Lymphocytes # (Manual) (1.0-4.8) k/uL Sodium 129 L (137-145) mmol/L Potassium (3.5-5.1) mmol/L Chloride 88 L (98-107) mmol/L BUN 32 H (9-20) mg/dL Glucose 549 H* (74-99) mg/dL POC Glucose (mg/dL) 568 H (75-99) mg/dL Calcium (8.4-10.2) mg/dL Magnesium 1.4 L (1.6-2.3) mg/dL Total Bilirubin (0.2-1.3) mg/dL Alkaline Phosphatase 297 H (38-126) U/L Total Protein 5.6 L (6.3-8.2) g/dL Albumin 2.7 L (3.5-5.0) g/dL 01/17/19 01/17/19 01/17/19 Range/Units 20:40 22:33 23:35 WBC (3.8-10.6) k/uL RBC (4.30-5.90) m/uL Hgb (13.0-17.5) gm/dL Hct (39.0-53.0) % Plt Count (150-450) k/uL Neutrophils # (Manual) (1.3-7.7) k/uL Lymphocytes # (Manual) (1.0-4.8) k/uL Sodium (137-145) mmol/L Potassium (3.5-5.1) mmol/L Chloride (98-107) mmol/L BUN (9-20) mg/dL Glucose (74-99) mg/dL POC Glucose (mg/dL) 500 H 498 H 496 H (75-99) mg/dL Calcium (8.4-10.2) mg/dL Magnesium (1.6-2.3) mg/dL Total Bilirubin (0.2-1.3) mg/dL Alkaline Phosphatase (38-126) U/L Total Protein (6.3-8.2) g/dL Albumin (3.5-5.0) g/dL 01/18/19 01/18/19 01/18/19 Range/Units 00:02 00:32 01:01 WBC (3.8-10.6) k/uL RBC (4.30-5.90) m/uL Hgb (13.0-17.5) gm/dL Hct (39.0-53.0) % Plt Count (150-450) k/uL Neutrophils # (Manual) (1.3-7.7) k/uL Lymphocytes # (Manual) (1.0-4.8) k/uL Sodium (137-145) mmol/L Potassium (3.5-5.1) mmol/L Chloride (98-107) mmol/L BUN (9-20) mg/dL Glucose (74-99) mg/dL POC Glucose (mg/dL) 432 H 418 H 340 H (75-99) mg/dL Calcium (8.4-10.2) mg/dL Magnesium (1.6-2.3) mg/dL Total Bilirubin (0.2-1.3) mg/dL Alkaline Phosphatase (38-126) U/L Total Protein (6.3-8.2) g/dL Albumin (3.5-5.0) g/dL 01/18/19 01/18/19 01/18/19 Range/Units 01:21 01:21 01:42 WBC 24.4 H (3.8-10.6) k/uL RBC 2.87 L (4.30-5.90) m/uL Hgb 8.6 L D (13.0-17.5) gm/dL Hct 27.0 L (39.0-53.0) % Plt Count 598 H (150-450) k/uL Neutrophils # (Manual) 23.18 H (1.3-7.7) k/uL Lymphocytes # (Manual) 0.49 L (1.0-4.8) k/uL Sodium 131 L (137-145) mmol/L Potassium 3.0 L (3.5-5.1) mmol/L Chloride 93 L (98-107) mmol/L BUN 28 H (9-20) mg/dL Glucose 323 H (74-99) mg/dL POC Glucose (mg/dL) 309 H (75-99) mg/dL Calcium 7.9 L (8.4-10.2) mg/dL Magnesium (1.6-2.3) mg/dL Total Bilirubin <0.1 L (0.2-1.3) mg/dL Alkaline Phosphatase 212 H (38-126) U/L Total Protein 4.8 L (6.3-8.2) g/dL Albumin 2.3 L (3.5-5.0) g/dL 01/18/19 01/18/19 01/18/19 Range/Units 02:15 03:49 04:49 WBC (3.8-10.6) k/uL RBC (4.30-5.90) m/uL Hgb (13.0-17.5) gm/dL Hct (39.0-53.0) % Plt Count (150-450) k/uL Neutrophils # (Manual) (1.3-7.7) k/uL Lymphocytes # (Manual) (1.0-4.8) k/uL Sodium (137-145) mmol/L Potassium (3.5-5.1) mmol/L Chloride (98-107) mmol/L BUN (9-20) mg/dL Glucose (74-99) mg/dL POC Glucose (mg/dL) 271 H 139 H 125 H (75-99) mg/dL Calcium (8.4-10.2) mg/dL Magnesium (1.6-2.3) mg/dL Total Bilirubin (0.2-1.3) mg/dL Alkaline Phosphatase (38-126) U/L Total Protein (6.3-8.2) g/dL Albumin (3.5-5.0) g/dL 01/18/19 01/18/19 01/18/19 Range/Units 05:50 06:23 06:51 WBC (3.8-10.6) k/uL RBC (4.30-5.90) m/uL Hgb (13.0-17.5) gm/dL Hct (39.0-53.0) % Plt Count (150-450) k/uL Neutrophils # (Manual) (1.3-7.7) k/uL Lymphocytes # (Manual) (1.0-4.8) k/uL Sodium (137-145) mmol/L Potassium (3.5-5.1) mmol/L Chloride (98-107) mmol/L BUN (9-20) mg/dL Glucose (74-99) mg/dL POC Glucose (mg/dL) 151 H 230 H (75-99) mg/dL Calcium (8.4-10.2) mg/dL Magnesium (1.6-2.3) mg/dL Total Bilirubin (0.2-1.3) mg/dL Alkaline Phosphatase (38-126) U/L Total Protein 5.0 L (6.3-8.2) g/dL Albumin (3.5-5.0) g/dL 01/18/19 01/18/19 Range/Units 11:58 16:24 WBC (3.8-10.6) k/uL RBC (4.30-5.90) m/uL Hgb (13.0-17.5) gm/dL Hct (39.0-53.0) % Plt Count (150-450) k/uL Neutrophils # (Manual) (1.3-7.7) k/uL Lymphocytes # (Manual) (1.0-4.8) k/uL Sodium (137-145) mmol/L Potassium (3.5-5.1) mmol/L Chloride (98-107) mmol/L BUN (9-20) mg/dL Glucose (74-99) mg/dL POC Glucose (mg/dL) 271 H 265 H (75-99) mg/dL Calcium (8.4-10.2) mg/dL Magnesium (1.6-2.3) mg/dL Total Bilirubin (0.2-1.3) mg/dL Alkaline Phosphatase (38-126) U/L Total Protein (6.3-8.2) g/dL Albumin (3.5-5.0) g/dL Assessment and Plan Assessment: 1-patient being admitted to hospital with left-sided pneumonia with a parapneumonic effusion/empyema status post thoracocentesis with significant purulent fluid or fluid with the cultures currently pending, failing outpatient oral antibiotic therapy we will need to cover for resistant gram-positive as well as gram-negative pathogen while waiting for the cultures to finalize the patient may need Wyss procedure because of loculated pleural fluid Plan: 1-the patient will be treated with vancomycin pharmacy to dose target trough of 15 for watching his kidney function and vancomycin trough closely 2-discontinue Zosyn and cefepime 2 g every 12hr to cover for gram-negative pathogen 3-gentle IV fluid we will follow up on clinical condition and cultures to further adjust medication if needed Thank you for this consultation will follow this patient along with you Time with Patient: Greater than 30
[2019-01-19] MEDS: INSULIN ASPART (NovoLOG) 100 UNIT/ML VIAL SQ SCH ×4 (07:41→21:26)
[2019-01-19] MEDS: LISINOPRIL 20 MG TAB PO SCH (07:41)
[2019-01-19] MEDS: ASPIRIN 81 MG PO SCH (07:41)
[2019-01-19] MEDS: amLODIPine 10 MG TAB PO SCH (07:41)
[2019-01-19] MEDS: FLUoxetine HCL 20 MG CAP PO SCH (07:41)
[2019-01-19] MEDS: CEFEPIME 2 GM in SODIUM CHLORIDE 0.9% 100 ML IVPB SCH ×2 (07:42→21:25)
[2019-01-19] MEDS: INSULIN DETEMIR (LEVEMIR) 100 UNIT/ML SYR SQ SCH (08:58)
[2019-01-19 09:33] LABS: Basophils # (A) 0.1 k/uL (0-0.2); Basophils % (A) 0 %; Eosinophils # (A) 0.1 k/uL (0-0.7); Eosinophils % (A) 0 %; HCT 31.9 % (39.0-53.0); HGB 10.1 gm/dL (13.0-17.5); Hypochromasia Moderate; Lymphocytes # (A) 0.4 k/uL (1.0-4.8); Lymphocytes % (A) 2 %; MCH 30.1 pg (25.0-35.0); MCHC 31.7 g/dL (31.0-37.0); MCV 95.2 fL (80.0-100.0); Mean Platelet Volume 7.5; Monocytes # (A) 0.6 k/uL (0-1.0); Monocytes % (A) 2 %; Neutrophils # (A) 23.1 k/uL (1.3-7.7); Neutrophils % (A) 95 %; Platelet Count 715 k/uL (150-450); Poikilocytosis Slight; RBC 3.35 m/uL (4.30-5.90); RDW 14.1 % (11.5-15.5); WBC 24.4 k/uL (3.8-10.6)
[2019-01-19 09:48] LABS: African American GFR (CKD) >90 (>60 ml/min/1.73 sqM); Anion Gap 9 mmol/L; Blood Urea Nitrogen 23 mg/dL (9-20); Calcium 8.1 mg/dL (8.4-10.2); Carbon Dioxide 25 mmol/L (22-30); Chloride 100 mmol/L (98-107); Glucose 279 mg/dL (74-99); LDH 514 U/L (313-618); Magnesium 1.4 mg/dL (1.6-2.3); Potassium 3.4 mmol/L (3.5-5.1); Sodium 134 mmol/L (137-145); Total Protein 5.1 g/dL (6.3-8.2)
--- NOTE | 2019-01-19 10:31 | CT ---
EXAMINATION TYPE: CT chest tube insertion DATE OF EXAM: 01/19/2019 COMPARISON: 01/18/2019 HISTORY: Pneumonia, pleural effusion CT DLP: 748 mGycm The procedure is discussed with the patient, the risks, complications, benefits and alternatives, wer e discussed and any questions were answered. Informed consent was obtained. The patient is placed p adriano on the CT table, prepped and draped in the usual sterile fashion. Utilizing a 22-gauge Chiba needle access into the left pleural space was achieved and there is conver lily to an O.035 system. Serial dilation 8 Thai and placement 8 Thai drainage catheter. Repeat im aging demonstrated ideal placement catheter. Pathology confirmed adequate sample. All elements of m aximal barrier technique were utilized. The patient remained stable throughout the procedure with no immediate postprocedural complication. IMPRESSION: 1. Successful CT guided left chest tube insertion
[2019-01-19] MEDS: SODIUM CHLORIDE 0.9% 1,000 ML IV SCH ×2 (10:37→15:45)
[2019-01-19] MEDS: POTASSIUM CHLORIDE ER 20 MEQ TAB.ER PO SCH ×2 (11:19→12:10)
[2019-01-19] MEDS: VANCOMYCIN 1,000 MG in SODIUM CHLORIDE 0.9% 250 ML IVPB SCH ×2 (11:21→22:36)
[2019-01-19 11:41] LABS: Glucose,Whole Blood 228 mg/dL (75-99)
--- NOTE | 2019-01-19 12:19 | P.PN ---
Subjective 68-year-old male was admitted for Left-sided pneumonia but pneumonic effusion, empyema patient was really has a chest tube patient underwent thoracocentesis with removal of 6 50 mL of pus. Patient is presently on broad-spectrum antibiotics with vancomycin and cefepime ,cultures are pending. Patient is presently on 2 L of oxygen denied any chest pain shortness of breath. Constitutional: Denied any fatigue denied any fever. Cardio vascular: denied any chest pain, palpitations Gastrointestinal denied any nausea vomiting Pulmonary: Denied any shortness of breath cough Neurologic denied any new focal deficits All inpatient medications were reviewed and appropriate changes in these medications as dictated in the interval history and assessment and plan. Objective - Vital Signs Vital signs: Vital Signs Temp 98.0 F 01/19/19 06:52 Pulse 97 01/19/19 09:50 Resp 20 01/19/19 09:50 BP 142/94 01/19/19 09:50 Pulse Ox 92 L 01/19/19 09:50 Intake & Output 01/18/19 01/19/19 01/19/19 18:59 06:59 18:59 Intake Total 680 420 Balance 680 420 Weight 56.1 kg Intake: Oral 680 420 Other: Voiding Method Toilet Urinal Urinal # Voids 3 0 # Bowel Movements 2 - Exam PHYSICAL EXAMINATION: GENERAL: The patient is alert and oriented x3, not in any acute distress. Well developed, well nourished. HEENT: Pupils are round and equally reacting to light. EOMI. No scleral icterus. No conjunctival pallor. Normocephalic, atraumatic. No pharyngeal erythema. No thyromegaly. CARDIOVASCULAR: S1 and S2 present. No murmurs, rubs, or gallops. PULMONARY: Chest is clear to auscultation, no wheezing or crackles. patient has a left-sided chest tube with significant drainage from the chest tube since placement. ABDOMEN: Soft, nontender, nondistended, normoactive bowel sounds. No palpable organomegaly. MUSCULOSKELETAL: No joint swelling or deformity. EXTREMITIES: No cyanosis, clubbing, or pedal edema. NEUROLOGICAL: Gross neurological examination did not reveal any focal deficits. SKIN: No rashes. - Labs CBC & Chem 7: 01/19/19 08:56 01/19/19 08:56 Labs: Abnormal Lab Results - Last 24 Hours (Table) 01/18/19 01/18/19 01/18/19 Range/Units 06:23 16:24 18:58 WBC (3.8-10.6) k/uL RBC (4.30-5.90) m/uL Hgb (13.0-17.5) gm/dL Hct (39.0-53.0) % Plt Count (150-450) k/uL Neutrophils # (1.3-7.7) k/uL Lymphocytes # (1.0-4.8) k/uL Sodium (137-145) mmol/L Potassium 3.4 L (3.5-5.1) mmol/L BUN (9-20) mg/dL Glucose (74-99) mg/dL POC Glucose (mg/dL) 265 H (75-99) mg/dL Hemoglobin A1c 11.0 H (4.0-6.0) % Calcium (8.4-10.2) mg/dL Magnesium (1.6-2.3) mg/dL Total Protein (6.3-8.2) g/dL 01/18/19 01/19/19 01/19/19 Range/Units 20:30 06:52 08:56 WBC 24.4 H (3.8-10.6) k/uL RBC 3.35 L (4.30-5.90) m/uL Hgb 10.1 L (13.0-17.5) gm/dL Hct 31.9 L (39.0-53.0) % Plt Count 715 H (150-450) k/uL Neutrophils # 23.1 H (1.3-7.7) k/uL Lymphocytes # 0.4 L (1.0-4.8) k/uL Sodium (137-145) mmol/L Potassium (3.5-5.1) mmol/L BUN (9-20) mg/dL Glucose (74-99) mg/dL POC Glucose (mg/dL) 247 H 131 H (75-99) mg/dL Hemoglobin A1c (4.0-6.0) % Calcium (8.4-10.2) mg/dL Magnesium (1.6-2.3) mg/dL Total Protein (6.3-8.2) g/dL 01/19/19 01/19/19 Range/Units 08:56 11:40 WBC (3.8-10.6) k/uL RBC (4.30-5.90) m/uL Hgb (13.0-17.5) gm/dL Hct (39.0-53.0) % Plt Count (150-450) k/uL Neutrophils # (1.3-7.7) k/uL Lymphocytes # (1.0-4.8) k/uL Sodium 134 L (137-145) mmol/L Potassium 3.4 L (3.5-5.1) mmol/L BUN 23 H (9-20) mg/dL Glucose 279 H (74-99) mg/dL POC Glucose (mg/dL) 228 H (75-99) mg/dL Hemoglobin A1c (4.0-6.0) % Calcium 8.1 L (8.4-10.2) mg/dL Magnesium 1.4 L (1.6-2.3) mg/dL Total Protein 5.1 L (6.3-8.2) g/dL Microbiology - Last 24 Hours (Table) 01/18/19 11:30 Gram Stain - Preliminary Pleural Fluid Body Fluid Culture - Preliminary 01/17/19 17:00 Blood Culture - Preliminary Blood No Growth after 24 hours 01/18/19 11:30 Anaerobic Culture - Preliminary Pleural Fluid 01/18/19 11:30 Acid Fast Bacilli Culture - Preliminary Pleural Fluid 01/18/19 11:30 Fungal Culture - Preliminary Pleural Fluid Assessment and Plan Plan: -acute hypoxicrespiratory failure: Left-sided pneumonia andand parapneumonic effusion is contributing to that and patient is feeling better now patient has left sided chest tube as mentioned above -Empyema status post drainage of 6 50 mL of fluid from the left lung followed by chest tube placement with significant drainage today -hypovolemic hyponatremia improving continue with IV fluids -hypokalemia: Secondary to natriuresis and hypomagnesemia magnesium will bereplaced as well as potassium. -sepsis secondary to pneumonia parapneumonic effusion as mentioned above -hypertension - type 2 diabetes mellitus
[2019-01-19] MEDS: MAGNESIUM SULFATE-D5W PMX 1 GM in DEXTROSE/WATER 1 100ML.BAG IVPB SCH ×3 (13:42→17:38)
[2019-01-19 13:51] LABS: Total Protein, Body Fluid 2100 mg/dL
--- NOTE | 2019-01-19 14:25 | P.PN ---
Subjective Progress Note Date: 01/19/19 Principal diagnosis: Empyema involving the left lung post diagnostic and therapeutic thoracentesis, and placement of the pigtail catheter A 68-year-old male patient who was transferred from [facility] of shortness of breath. The patient started approximately week ago to have pleuritic left-sided chest pain. He was also having increased cough and congestion and low-grade fever. He was seen by his primary care physician and apparently a chest x-ray was done and he was told to have pneumonia and was given oral erythromycin-based antibiotic. The patient's condition got worse. His appetite has been poor. He has been losing weight. He came in to [facility] emergency department with a chest x-ray was done that showed a left lung opacity and following that a CAT scan of the chest was done that showed a large loculated left-sided pleural effusion along with gas within the pleural space and the finding was very highly suspicious for empyema. The patient got transferred to us. I reviewed the CAT scan of the chest from [facility]. The findings is consistent with empyema. The patient's white cell count was 27.9 at time of admission. Sodium level was at 129. His sugar level was also elevated and the patient is diabetic. Is a lifetime nonsmoker. I performed a bedside thoracentesis and I drained approximately 6 50 mL of pus from the left pleural space. Subsequent chest x-ray showed no evidence of any pneumothorax. The patient tolerated the procedure well. The fluid that was seen on the earlier chest x-ray was removed. Fluid analysis still pending for now. The patient was started on a combination of Zosyn and vancomycin. We'll put an interventional radiology consultation for a pigtail catheter insertion the drained residual loculated pleural effusion on the CAT scan guidance. This will be done tomorrow. Family was updated. May need a thoracic surgery consultation at a later stage depending on our success of breathing this empyema percutaneously. On 01/19/2019 patient seen in follow-up on medical surgical floor. He had a left posterior back pigtail chest tube inserted today by interventional radiology, and at the time of my evaluation patient has 120 mL of purulent blood-tinged drainage in the Pleur-evac. The Pleur-evac is to water seal, no air leak noted, pleural fluid cultures from yesterday's thoracentesis are pending at this time, preliminary Gram stain did not show any organisms after 24 hours. Patient is fairly comfortable, room air pulse ox is 92%, afebrile, hemodynamically stable, he sitting up in the recliner, lung sounds are diminished breath sounds over lower base. Cytology is pending. Patient is on a combination of Zosyn and vancomycin, Zosyn has been switched to cefepime per ID service recommendations. Awaiting results of the final cultures, will consult CT surgery Objective - Vital Signs Vital signs: Vital Signs Temp 98.0 F 01/19/19 06:52 Pulse 97 01/19/19 09:50 Resp 20 01/19/19 09:50 BP 142/94 01/19/19 09:50 Pulse Ox 92 L 01/19/19 09:50 Intake & Output 01/18/19 01/19/19 01/19/19 18:59 06:59 18:59 Intake Total 680 840 Balance 680 840 Weight 56.1 kg Intake: Oral 680 840 Other: Voiding Method Toilet Urinal Urinal # Voids 3 0 1 # Bowel Movements 2 1 - Exam GENERAL EXAM: Alert, pleasant 68-year-old white male, room air pulse ox of 92%, comfortable in no apparent distress. HEAD: Normocephalic/atraumatic. EYES: Normal reaction of pupils, equal size. Conjunctiva pink, sclera white. NOSE: Clear with pink turbinates. THROAT: No erythema or exudates. NECK: No masses, no JVD, no thyroid enlargement, no adenopathy. CHEST: No chest wall deformity. Symmetrical expansion. left posterior chest pigtail chest tube is present connected to a Pleur-evac, with 120 mL of purulent blood-tinged material in the Pleur-evac, which is to water seal, with no evidence of air leak LUNGS: Equal air entry with diminished breath sounds over left lower base CVS: Regular rate and rhythm, normal S1 and S2, no gallops, no murmurs, no rubs ABDOMEN: Soft, nontender. No hepatosplenomegaly, normal bowel sounds, no guarding or rigidity. EXTREMITIES: No clubbing, no edema, no cyanosis, 2+ pulses and upper and lower extremities. MUSCULOSKELETAL: Muscle strength and tone normal. SPINE: No scoliosis or deformity SKIN: No rashes CENTRAL NERVOUS SYSTEM: Alert and oriented -3. No focal deficits, tone is normal in all 4 extremities. PSYCHIATRIC: Alert and oriented -3. Appropriate affect. Intact judgment and insight. - Labs CBC & Chem 7: 01/19/19 08:56 01/19/19 08:56 Labs: Abnormal Lab Results - Last 24 Hours (Table) 01/18/19 01/18/19 01/18/19 Range/Units 06:23 16:24 18:58 WBC (3.8-10.6) k/uL RBC (4.30-5.90) m/uL Hgb (13.0-17.5) gm/dL Hct (39.0-53.0) % Plt Count (150-450) k/uL Neutrophils # (1.3-7.7) k/uL Lymphocytes # (1.0-4.8) k/uL Sodium (137-145) mmol/L Potassium 3.4 L (3.5-5.1) mmol/L BUN (9-20) mg/dL Glucose (74-99) mg/dL POC Glucose (mg/dL) 265 H (75-99) mg/dL Hemoglobin A1c 11.0 H (4.0-6.0) % Calcium (8.4-10.2) mg/dL Magnesium (1.6-2.3) mg/dL Total Protein (6.3-8.2) g/dL 01/18/19 01/19/19 01/19/19 Range/Units 20:30 06:52 08:56 WBC 24.4 H (3.8-10.6) k/uL RBC 3.35 L (4.30-5.90) m/uL Hgb 10.1 L (13.0-17.5) gm/dL Hct 31.9 L (39.0-53.0) % Plt Count 715 H (150-450) k/uL Neutrophils # 23.1 H (1.3-7.7) k/uL Lymphocytes # 0.4 L (1.0-4.8) k/uL Sodium (137-145) mmol/L Potassium (3.5-5.1) mmol/L BUN (9-20) mg/dL Glucose (74-99) mg/dL POC Glucose (mg/dL) 247 H 131 H (75-99) mg/dL Hemoglobin A1c (4.0-6.0) % Calcium (8.4-10.2) mg/dL Magnesium (1.6-2.3) mg/dL Total Protein (6.3-8.2) g/dL 01/19/19 01/19/19 Range/Units 08:56 11:40 WBC (3.8-10.6) k/uL RBC (4.30-5.90) m/uL Hgb (13.0-17.5) gm/dL Hct (39.0-53.0) % Plt Count (150-450) k/uL Neutrophils # (1.3-7.7) k/uL Lymphocytes # (1.0-4.8) k/uL Sodium 134 L (137-145) mmol/L Potassium 3.4 L (3.5-5.1) mmol/L BUN 23 H (9-20) mg/dL Glucose 279 H (74-99) mg/dL POC Glucose (mg/dL) 228 H (75-99) mg/dL Hemoglobin A1c (4.0-6.0) % Calcium 8.1 L (8.4-10.2) mg/dL Magnesium 1.4 L (1.6-2.3) mg/dL Total Protein 5.1 L (6.3-8.2) g/dL Microbiology - Last 24 Hours (Table) 01/18/19 11:30 Gram Stain - Preliminary Pleural Fluid Body Fluid Culture - Preliminary 01/17/19 17:00 Blood Culture - Preliminary Blood No Growth after 24 hours 01/18/19 11:30 Anaerobic Culture - Preliminary Pleural Fluid 01/18/19 11:30 Acid Fast Bacilli Culture - Preliminary Pleural Fluid 01/18/19 11:30 Fungal Culture - Preliminary Pleural Fluid Assessment and Plan Plan: 1 Empyema involving the left lung, post diagnostic and therapeutic thoracentesis with evacuation of 6 50 mL of pus from the left lung. Awaiting Gram stain and culture. The patient is covered with broad-spectrum antibiotics. 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 critical patient is doing well, no complaints of shortness of breath, no chest pain, no cough or congestion. No hemoptysis, but it sounds are stable. I performed a history & physical examination of the patient and discussed their management with my nurse practitioner, Nicole Wang. I reviewed the nurse practitioner's note and agree with the documented findings and plan of care. Lung sounds are positive for diminished breath sounds over left lower base. The findings and the impression was discussed with the patient. I attest to the documentation by the nurse practitioner. Time with Patient: Less than 30
[2019-01-19 15:01] LABS: Color,BF Yellow
[2019-01-19 15:02] LABS: Appearance,BF Cloudy; RBC, Body Fluid 16500 /uL
[2019-01-19 15:28] LABS: Nucleated Cells, Body Fluid 183500 /uL
--- NOTE | 2019-01-19 15:54 | P.GSCN ---
History of Present Illness Consult date: 01/19/19 Reason for Consult: Left empyema Requesting physician: Daphney Heck History of present illness: This is 68-year-old gentleman who is followed by Dr. Chan. The patient has past medical history significant for uncontrolled diabetes mellitus type 2, hypertension, remote history of pneumonia 1 year ago, is a lifetime nonsmoker and depression. The patient has had complaints of a nonproductive cough left- sided chest pain progressive shortness of breath, nausea and decreased appetite and an overall feeling of lethargy for the past 1-2 weeks. The patient denies any complaints of vomiting, diarrhea, constipation, hemoptysis, recent trauma or syncope. He presented to his primary care office with the above-mentioned complaints and he reports a chest x-ray was completed. The chest x-ray is unavailable for review but the patient reports that he was told that he has pneumonia and was started on oral antibiotic treatment and was referred for a computed tomography scan of his chest for further evaluation. Despite the antibiotic treatment history symptoms progressed and he presented to the emergency department at [facility]. A computed tomography scan of his chest was completed which apparently showed a loculated left pleural effusion suspicious for empyema. He was subsequently transferred to [facility] for further workup and evaluation. On admission a 12-lead EKG was completed which showed sinus tachycardia with a right bundle branch block heart rate 109. A chest x-ray was completed which demonstrated a large left pleural effusion. Due to the patient's presenting symptoms and chest x-ray results Dr. Lui from pulmonary medicine was consulted for further rosalva luation and treatment recommendations. Subsequently yesterday 01/18/2018 the patient underwent a thoracentesis performed by Dr. Lui with 650 mL of purulent fluid drained consistent with empyema. Today 01/19/2018 the patient underwent a CT-guided basement of a pigtail catheter performed by interventional radiology. The pigtail catheter is connected to an Dovray Pleur-evac system on continuous wall suction draining purulent sanguinous colored drainage with 300 mL output since the pigtail catheter was placed. Due to the empyema Dr. Dejan Sanchez from cardiothoracic surgery was asked to evaluate the patient and give further treatment recommendations. Review of Systems A 14 point review systems was completed was negative except as mentioned in HPI. Past Medical History Past Medical History: Diabetes Mellitus, GERD/Reflux, Hypertension, Pneumonia History of Any Multi-Drug Resistant Organisms: None Reported Past Surgical History: Hernia Repair (Bilateral inguinal) Additional Past Surgical History / Comment(s): 1983 GI bleed from ulcer Past Psychological History: Depression Smoking Status: Never smoker Past Alcohol Use History: None Reported Past Drug Use History: None Reported - Past Family History Father Family Medical History: Cancer Mother Family Medical History: Cancer, Dementia Medications and Allergies Home Medications Medication Instructions Recorded Confirmed Type Aspirin EC [Ecotrin Low Dose] 81 mg PO DAILY 01/17/19 01/17/19 History FLUoxetine HCL [PROzac] 20 mg PO DAILY 01/17/19 01/17/19 History Hydrochlorothiazide 25 mg PO DAILY 01/17/19 01/17/19 History Lisinopril 40 mg PO DAILY 01/17/19 01/17/19 History amLODIPine [Norvasc] 10 mg PO DAILY 01/17/19 01/17/19 History metFORMIN HCL 1,000 mg PO BID 01/17/19 01/17/19 History Allergies Allergy/AdvReac Type Severity Reaction Status Date / Time chlorzoxazone Allergy Unknown Verified 01/17/19 17:01 [From [facility]] Surgical - Exam Vital Signs Temp Pulse Resp BP Pulse Ox 98.4 F 102 H 18 148/75 96 01/17/19 16:35 01/17/19 16:35 01/17/19 16:35 01/17/19 16:35 01/17/19 16:35 - General well developed, well nourished, no distress, no pain, cachectic - Eyes No scleral icterus PERRL, normal ocular movement - ENT normal pinna, normal nares, normal mucosa, no hearing loss, no congestion, poor senior care - Neck No thyroidomegaly, neck is supple. no masses, no bruits, trachea midline, no venous distension - Respiratory Lungs sounds essentially clear throughout, diminished to his left lower lobe with few scattered crackles. Respirations are symmetrical and nonlabored. Left pleural pigtail catheter in place and secured. No air leak is present. Draining purulent sanguinous drainage. - Cardiovascular Regular rhythm and tachycardic rate. S1 and S2 present, negative for S3, gallop or murmur. No edema present. - Abdomen Abdomen is soft, nontender and nondistended. Active bowel sounds all 4 abdominal quadrants. No guarding or rigidity. No organomegaly. - Genitourinary Deferred - Rectum Deferred - Integumentary No rash or abnormal pigmentation is present. Skin is warm and dry. No clubbing or cyanosis is present. - Neurologic Awake, alert and oriented 3. No focal neurological deficits - Musculoskeletal Generalized weakness. normal gait, normal posture - Psychiatric oriented to time, oriented to person, oriented to place, speech is normal, memory intact Results - Labs 01/19/19 08:56 01/19/19 13:13 Abnormal Lab Results - Last 24 Hours (Table) 01/18/19 01/18/19 01/18/19 Range/Units 06:23 16:24 18:58 WBC (3.8-10.6) k/uL RBC (4.30-5.90) m/uL Hgb (13.0-17.5) gm/dL Hct (39.0-53.0) % Plt Count (150-450) k/uL Neutrophils # (1.3-7.7) k/uL Lymphocytes # (1.0-4.8) k/uL Sodium (137-145) mmol/L Potassium 3.4 L (3.5-5.1) mmol/L BUN (9-20) mg/dL Glucose (74-99) mg/dL POC Glucose (mg/dL) 265 H (75-99) mg/dL Hemoglobin A1c 11.0 H (4.0-6.0) % Calcium (8.4-10.2) mg/dL Magnesium (1.6-2.3) mg/dL Total Protein (6.3-8.2) g/dL 01/18/19 01/19/19 01/19/19 Range/Units 20:30 06:52 08:56 WBC 24.4 H (3.8-10.6) k/uL RBC 3.35 L (4.30-5.90) m/uL Hgb 10.1 L (13.0-17.5) gm/dL Hct 31.9 L (39.0-53.0) % Plt Count 715 H (150-450) k/uL Neutrophils # 23.1 H (1.3-7.7) k/uL Lymphocytes # 0.4 L (1.0-4.8) k/uL Sodium (137-145) mmol/L Potassium (3.5-5.1) mmol/L BUN (9-20) mg/dL Glucose (74-99) mg/dL POC Glucose (mg/dL) 247 H 131 H (75-99) mg/dL Hemoglobin A1c (4.0-6.0) % Calcium (8.4-10.2) mg/dL Magnesium (1.6-2.3) mg/dL Total Protein (6.3-8.2) g/dL 01/19/19 01/19/19 Range/Units 08:56 11:40 WBC (3.8-10.6) k/uL RBC (4.30-5.90) m/uL Hgb (13.0-17.5) gm/dL Hct (39.0-53.0) % Plt Count (150-450) k/uL Neutrophils # (1.3-7.7) k/uL Lymphocytes # (1.0-4.8) k/uL Sodium 134 L (137-145) mmol/L Potassium 3.4 L (3.5-5.1) mmol/L BUN 23 H (9-20) mg/dL Glucose 279 H (74-99) mg/dL POC Glucose (mg/dL) 228 H (75-99) mg/dL Hemoglobin A1c (4.0-6.0) % Calcium 8.1 L (8.4-10.2) mg/dL Magnesium 1.4 L (1.6-2.3) mg/dL Total Protein 5.1 L (6.3-8.2) g/dL Microbiology - Last 24 Hours (Table) 01/18/19 11:30 Gram Stain - Preliminary Pleural Fluid Body Fluid Culture - Preliminary 01/17/19 17:00 Blood Culture - Preliminary Blood No Growth after 24 hours 01/18/19 11:30 Anaerobic Culture - Preliminary Pleural Fluid 01/18/19 11:30 Acid Fast Bacilli Culture - Preliminary Pleural Fluid 01/18/19 11:30 Fungal Culture - Preliminary Pleural Fluid Diabetes panel 01/18/19 01/18/19 01/19/19 Range/Units 06:23 18:58 08:56 Sodium 134 L (137-145) mmol/L Potassium 3.4 L 3.4 L (3.5-5.1) mmol/L Chloride 100 (98-107) mmol/L Carbon Dioxide 25 (22-30) mmol/L BUN 23 H (9-20) mg/dL Creatinine 0.94 (0.66-1.25) mg/dL Glucose 279 H (74-99) mg/dL Hemoglobin A1c 11.0 H (4.0-6.0) % Calcium 8.1 L (8.4-10.2) mg/dL Total Protein 5.1 L (6.3-8.2) g/dL Calcium panel 01/19/19 Range/Units 08:56 Calcium 8.1 L (8.4-10.2) mg/dL Pituitary panel 01/18/19 01/19/19 Range/Units 18:58 08:56 Sodium 134 L (137-145) mmol/L Potassium 3.4 L 3.4 L (3.5-5.1) mmol/L Chloride 100 (98-107) mmol/L Carbon Dioxide 25 (22-30) mmol/L BUN 23 H (9-20) mg/dL Creatinine 0.94 (0.66-1.25) mg/dL Glucose 279 H (74-99) mg/dL Calcium 8.1 L (8.4-10.2) mg/dL Adrenal panel 01/18/19 01/19/19 Range/Units 18:58 08:56 Sodium 134 L (137-145) mmol/L Potassium 3.4 L 3.4 L (3.5-5.1) mmol/L Chloride 100 (98-107) mmol/L Carbon Dioxide 25 (22-30) mmol/L BUN 23 H (9-20) mg/dL Creatinine 0.94 (0.66-1.25) mg/dL Glucose 279 H (74-99) mg/dL Calcium 8.1 L (8.4-10.2) mg/dL Total Protein 5.1 L (6.3-8.2) g/dL - Imaging Chest x-ray: report reviewed, image reviewed Assessment and Plan Assessment: 1. Empyema involving the left lung, status post left chest pigtail catheter placement 2. Dyspnea to empyema 3. History of hypertension 4. Diabetes mellitus type 2 5. History of depression Plan: The patient was seen and examined. His chart and diagnostics were reviewed. This case was discussed with Dr. Dejan Sanchez from cardiothoracic surgery. At this time we recommend instilling alteplase 10 mg/100 mL per his left pleural pigtail catheter starting tomorrow. We will repeat a CAT scan of his chest on for further evaluation. If there is no improvement recommendations for possible left video-assisted thorascopic procedure/possible thoracotomy with decortication may be warranted. We will order in incentive spirometry and encourage use every hour while awake. Keep his left pleural pigtail catheter to low continuous wall suction -20 cm H2O. Medical management per primary care service recommendations. Antibiotic management per infectious disease recommendations. Pleural fluid cytology remains pending. Thank you Dr. Heck for this consult and we look forward to working with him in the care of your patient. Time with Patient: Greater than 30
[2019-01-19 16:47] LABS: Glucose,Whole Blood 313 mg/dL (75-99)
--- NOTE | 2019-01-19 19:39 | PN ---
PROGRESS NOTE DATE OF SERVICE: 01/19/2019. REASON FOR FOLLOWUP: Empyema. INTERVAL HISTORY: The patient is currently afebrile. Patient is status post chest tube placement by intervention Radiology. Patient tolerated the procedure. The patient currently denies having any worsening chest pain. Did have significantly secretions through the chest tube. Breathing is currently comfortably. No nausea, vomiting. No abdominal pain or any diarrhea. PHYSICAL EXAMINATION: Blood pressure 132/76, pulse of 87, temperature 98.2. He is 91% on room air. General description is an elderly male, up in the bed in no distress. Respiratory system: Unlabored breathing, decreased breath sounds at the bases. No wheeze. HEART: S1, S2. Regular rate and rhythm. ABDOMEN: Soft, no tenderness. EXTREMITIES: No edema of the feet. LABS: Hemoglobin 10.1, white count 24.4, BUN of 23, creatinine 0.94. Cultures currently pending. DIAGNOSTIC IMPRESSION AND PLAN: Patient with left-sided pneumonia with empyema status post chest tube placement. Currently waiting for the culture to finalize. Keep the patient on vancomycin and cefepime adjusting antibiotic further based on culture report. Patient likely need a PICC line for outpatient IV antibiotic therapy in view of extensive infection. Continue supportive care. MMODL / IJN: [id number] /
[2019-01-19 19:47] LABS: Total Protein, Body Fluid 3100 mg/dL
[2019-01-19 21:25] LABS: Glucose,Whole Blood 266 mg/dL (75-99)
[2019-01-19] MEDS ORDERED: POTASSIUM CHLORIDE ER 20 MEQ TAB.ER PO STA (22:22)
[2019-01-20] MEDS: CEFEPIME 2 GM in SODIUM CHLORIDE 0.9% 100 ML IVPB SCH ×2 (07:15→20:25)
[2019-01-20 07:42] LABS: Glucose,Whole Blood 363 mg/dL (75-99)
--- NOTE | 2019-01-20 08:00 | XR ---
EXAMINATION TYPE: XR chest 1V portable DATE OF EXAM: 01/20/2019 COMPARISON: 01/18/2019 HISTORY: Empyema TECHNIQUE: Single frontal view of the chest is obtained. FINDINGS: Pleural-parenchymal changes on the left are stable. Chest tube is noted. Right lung demons trates no significant consolidation. Calcified granuloma right upper lobe suspected. Heart size stabl e. IMPRESSION: Left-sided consolidation and pleural effusion are stable.
[2019-01-20] MEDS: ASPIRIN 81 MG PO SCH (08:38)
[2019-01-20] MEDS: LISINOPRIL 20 MG TAB PO SCH (08:38)
[2019-01-20] MEDS: ENOXAPARIN 40 MG/0.4 ML SYRINGE SQ SCH (08:39)
[2019-01-20] MEDS: INSULIN DETEMIR (LEVEMIR) 100 UNIT/ML SYR SQ SCH (08:39)
[2019-01-20] MEDS: INSULIN ASPART (NovoLOG) 100 UNIT/ML VIAL SQ SCH ×4 (08:39→21:58)
[2019-01-20] MEDS: amLODIPine 10 MG TAB PO SCH (08:39)
[2019-01-20] MEDS: FLUoxetine HCL 20 MG CAP PO SCH (08:39)
[2019-01-20] MEDS ORDERED: VANCOMYCIN TROUGH DUE 1 EACH MISC MISCELLANE ONE (09:00)
[2019-01-20] MEDS ORDERED: ALTEPLASE 10 MG in SODIUM CHLORIDE 0.9% 100 ML IRRIGATION ONE (09:00)
[2019-01-20] MEDS: VANCOMYCIN 1,000 MG in SODIUM CHLORIDE 0.9% 250 ML IVPB SCH ×2 (09:34→21:58)
[2019-01-20 09:38] LABS: HGB 8.8 gm/dL (13.0-17.5); Hypochromasia Moderate; MCH 29.6 pg (25.0-35.0); MCHC 31.3 g/dL (31.0-37.0); MCV 94.4 fL (80.0-100.0); Mean Platelet Volume 7.7; Platelet Count 653 k/uL (150-450); Poikilocytosis Slight; RBC 2.96 m/uL (4.30-5.90); RDW 14.1 % (11.5-15.5); WBC 20.5 k/uL (3.8-10.6)
[2019-01-20 09:56] LABS: African American GFR (CKD) >90 (>60 ml/min/1.73 sqM); Anion Gap 8 mmol/L; Blood Urea Nitrogen 21 mg/dL (9-20); Calcium 7.9 mg/dL (8.4-10.2); Carbon Dioxide 22 mmol/L (22-30); Chloride 103 mmol/L (98-107); Glucose 329 mg/dL (74-99); Magnesium 1.6 mg/dL (1.6-2.3); Potassium 3.7 mmol/L (3.5-5.1); Sodium 133 mmol/L (137-145)
[2019-01-20 11:30] LABS: Glucose,Whole Blood 322 mg/dL (75-99)
--- NOTE | 2019-01-20 13:25 | P.PN ---
Subjective Progress Note Date: 01/20/19 Principal diagnosis: Left-sided empyema, dyspnea secondary to empyema. Previous medical history of uncontrolled type diet 2 diabetes mellitus, hypertension, pneumonia, depression, GERD, GI bleed. POD #1 left-sided pigtail catheter placement by interventional radiology The patient is currently sitting up in the chair in no acute distress. Does state that he feels much better since having fluid removed. Denies shortness of breath, states he has minimal pain which is controlled on current medication regimen. Pigtail catheter placed yesterday, 700 mL total output in the atrium. No new complaints. Objective - Vital Signs Vital signs: Vital Signs Temp 97.8 F 01/20/19 07:10 Pulse 101 H 01/20/19 10:54 Resp 20 01/20/19 10:54 BP 176/86 01/20/19 07:10 Pulse Ox 94 L 01/20/19 07:10 Intake & Output 01/19/19 01/20/19 01/20/19 18:59 06:59 18:59 Intake Total 1314 Output Total 715 295 90 Balance 599 -295 -90 Intake: Oral 1314 Output: Chest Tube Drainage 440 295 Left Pleural/Mediastinal 440 295 Urine 275 Stool 90 Other: Voiding Method Urinal Toilet Bedpan Urinal # Voids 1 2 # Bowel Movements 1 1 - Constitutional General appearance: Present: cooperative, no acute distress - Respiratory Details: Lungs sounds diminished bilaterally, left greater than right. Respirations even, nonlabored. Currently on room air with oxygen saturation 94%. Able to achieve 1000 mL on his incentive spirometry. Left pleural pigtail catheter present, connected to atrium, 195 mL cloudy fluid drained overnight, 700 mL total in atrium since pigtail placement. - Cardiovascular Details: S1, S2 present. Regular rate and rhythm. Palpable peripheral pulses bilaterally. No edema present. No calf pain or tenderness noted. - Gastrointestinal Gastrointestinal Comment(s): Abdomen soft, nontender, nondistended. Active bowel sounds present 4 quadrant s. Tolerating diet. - Genitourinary Genitourinary Comment(s): Continues to void clear, yellow urine. - Integumentary Integumentary Comment(s): Skin is warm and dry with evidence of good perfusion. Pigtail catheter site covered with dry intact dressing. - Neurologic Neurologic: Present: CNII-XII intact - Musculoskeletal Musculoskeletal: Present: gait normal, strength equal bilaterally - Psychiatric Psychiatric: Present: A&O x's 3, appropriate affect, intact judgment & insight - Allied health notes Allied health notes reviewed: nursing - Labs CBC & Chem 7: 01/20/19 09:17 01/20/19 09:17 Labs: Abnormal Lab Results - Last 24 Hours (Table) 01/19/19 01/19/19 01/20/19 Range/Units 16:45 21:21 07:40 WBC (3.8-10.6) k/uL RBC (4.30-5.90) m/uL Hgb (13.0-17.5) gm/dL Hct (39.0-53.0) % Plt Count (150-450) k/uL Sodium (137-145) mmol/L BUN (9-20) mg/dL Glucose (74-99) mg/dL POC Glucose (mg/dL) 313 H 266 H 363 H (75-99) mg/dL Calcium (8.4-10.2) mg/dL 01/20/19 01/20/19 01/20/19 Range/Units 09:17 09:17 11:29 WBC 20.5 H (3.8-10.6) k/uL RBC 2.96 L (4.30-5.90) m/uL Hgb 8.8 L (13.0-17.5) gm/dL Hct 28.0 L (39.0-53.0) % Plt Count 653 H (150-450) k/uL Sodium 133 L (137-145) mmol/L BUN 21 H (9-20) mg/dL Glucose 329 H (74-99) mg/dL POC Glucose (mg/dL) 322 H (75-99) mg/dL Calcium 7.9 L (8.4-10.2) mg/dL Microbiology - Last 24 Hours (Table) 01/18/19 11:30 Gram Stain - Preliminary Pleural Fluid Body Fluid Culture - Preliminary Alpha Hemolytic Streptococcus 01/19/19 10:05 Gram Stain - Preliminary Pleural Fluid Body Fluid Culture - Preliminary 01/17/19 17:00 Blood Culture - Preliminary Blood No Growth after 48 hours 01/18/19 11:30 Acid Fast Bacilli Smear - Final Pleural Fluid Acid Fast Bacilli Culture - Preliminary 01/19/19 10:05 Anaerobic Culture - Preliminary Pleural Fluid - Imaging and Cardiology Chest x-ray: report reviewed, image reviewed Assessment and Plan Assessment: 1. Empyema involving the left lung, status post left chest pigtail catheter placement 2. Dyspnea to empyema 3. History of hypertension 4. Diabetes mellitus type 2 5. History of depression Plan: 1. Alteplase instilled to 2 pigtail catheter today, clamped for 1 hour. Will monitor output. 2. Will repeat computed tomography scan of the chest on . If no improvement recommendations will be made for possible left video-assisted thoracoscopic procedure/possible thoracotomy with decortication. 3. Encourage incentive spirometry use 10 times every hour while awake. 4. Increase activity, ambulate as tolerated. 5. Pain control with current medication regimen 6. Medical management of other comorbid conditions per primary care service. 7. Antibiotic management per infectious disease. 8. More recommendations to follow. Time with Patient: Greater than 30
--- NOTE | 2019-01-20 13:54 | P.PN ---
Subjective Progress Note Date: 01/20/19 Principal diagnosis: Empyema involving the left lung post diagnostic and therapeutic thoracentesis, and placement of the pigtail catheter A 68-year-old male patient who was transferred from [facility] of shortness of breath. The patient started approximately week ago to have pleuritic left-sided chest pain. He was also having increased cough and congestion and low-grade fever. He was seen by his primary care physician and apparently a chest x-ray was done and he was told to have pneumonia and was given oral erythromycin-based antibiotic. The patient's condition got worse. His appetite has been poor. He has been losing weight. He came in to [facility] emergency department with a chest x-ray was done that showed a left lung opacity and following that a CAT scan of the chest was done that showed a large loculated left-sided pleural effusion along with gas within the pleural space and the finding was very highly suspicious for empyema. The patient got transferred to us. I reviewed the CAT scan of the chest from [facility]. The findings is consistent with empyema. The patient's white cell count was 27.9 at time of admission. Sodium level was at 129. His sugar level was also elevated and the patient is diabetic. Is a lifetime nonsmoker. I performed a bedside thoracentesis and I drained approximately 6 50 mL of pus from the left pleural space. Subsequent chest x-ray showed no evidence of any pneumothorax. The patient tolerated the procedure well. The fluid that was seen on the earlier chest x-ray was removed. Fluid analysis still pending for now. The patient was started on a combination of Zosyn and vancomycin. We'll put an interventional radiology consultation for a pigtail catheter insertion the drained residual loculated pleural effusion on the CAT scan guidance. This will be done tomorrow. Family was updated. May need a thoracic surgery consultation at a later stage depending on our success of breathing this empyema percutaneously. On 01/19/2019 patient seen in follow-up on medical surgical floor. He had a left posterior back pigtail chest tube inserted today by interventional radiology, and at the time of my evaluation patient has 120 mL of purulent blood-tinged drainage in the Pleur-evac. The Pleur-evac is to water seal, no air leak noted, pleural fluid cultures from yesterday's thoracentesis are pending at this time, preliminary Gram stain did not show any organisms after 24 hours. Patient is fairly comfortable, room air pulse ox is 92%, afebrile, hemodynamically stable, he sitting up in the recliner, lung sounds are diminished breath sounds over lower base. Cytology is pending. Patient is on a combination of Zosyn and vancomycin, Zosyn has been switched to cefepime per ID service recommendations. Awaiting results of the final cultures, will consult CT surgery On 01/20/2019 patient seen in follow-up on medical surgical floor. He sitting up in the recliner, in no acute distress, and it has been a total of 650 mL of purulent material in the Pleur-evac system insertion of the left-sided pigtail chest tube. Pleur-evac is to water seal, no evidence of air leak, today's chest x-ray has been reviewed showing left-sided consolidation and pleural effusion appears to be stable in appearance. Diminished breath sounds over left lower base, sodium is 133, potassium is 3.7, chloride is 103, CO2 is 22, BUN is 21 creatinine 0.90. C. diff was negative. Pleural fluid analysis showed exudative fluid, and pleural fluid cultures are positive for alphahemolytic streptococcus Objective - Vital Signs Vital signs: Vital Signs Temp 97.8 F 01/20/19 07:10 Pulse 101 H 01/20/19 10:54 Resp 20 01/20/19 10:54 BP 176/86 01/20/19 07:10 Pulse Ox 94 L 01/20/19 07:10 Intake & Output 01/19/19 01/20/19 01/20/19 18:59 06:59 18:59 Intake Total 1314 Output Total 715 295 90 Balance 599 -295 -90 Intake: Oral 1314 Output: Chest Tube Drainage 440 295 Left Pleural/Mediastinal 440 295 Urine 275 Stool 90 Other: Voiding Method Urinal Toilet Bedpan Urinal # Voids 1 2 # Bowel Movements 1 1 - Exam GENERAL EXAM: Alert, pleasant 68-year-old white male, room air pulse ox of 94%, comfortable in no apparent distress. HEAD: Normocephalic/atraumatic. EYES: Normal reaction of pupils, equal size. Conjunctiva pink, sclera white. NOSE: Clear with pink turbinates. THROAT: No erythema or exudates. NECK: No masses, no JVD, no thyroid enlargement, no adenopathy. CHEST: No chest wall deformity. Symmetrical expansion. left posterior chest pigtail chest tube is present connected to a Pleur-evac, with 650 mL of purulent blood-tinged material in the Pleur-evac, which is to water seal, with no evidence of air leak LUNGS: Equal air entry with diminished breath sounds over left lower base CVS: Regular rate and rhythm, normal S1 and S2, no gallops, no murmurs, no rubs ABDOMEN: Soft, nontender. No hepatosplenomegaly, normal bowel sounds, no guarding or rigidity. EXTREMITIES: No clubbing, no edema, no cyanosis, 2+ pulses and upper and lower extremities. MUSCULOSKELETAL: Muscle strength and tone normal. SPINE: No scoliosis or deformity SKIN: No rashes CENTRAL NERVOUS SYSTEM: Alert and oriented -3. No focal deficits, tone is normal in all 4 extremities. PSYCHIATRIC: Alert and oriented -3. Appropriate affect. Intact judgment and insight. - Labs CBC & Chem 7: 01/20/19 09:17 01/20/19 09:17 Labs: Abnormal Lab Results - Last 24 Hours (Table) 01/19/19 01/19/19 01/20/19 Range/Units 16:45 21:21 07:40 WBC (3.8-10.6) k/uL RBC (4.30-5.90) m/uL Hgb (13.0-17.5) gm/dL Hct (39.0-53.0) % Plt Count (150-450) k/uL Sodium (137-145) mmol/L BUN (9-20) mg/dL Glucose (74-99) mg/dL POC Glucose (mg/dL) 313 H 266 H 363 H (75-99) mg/dL Calcium (8.4-10.2) mg/dL 01/20/19 01/20/19 01/20/19 Range/Units 09:17 09:17 11:29 WBC 20.5 H (3.8-10.6) k/uL RBC 2.96 L (4.30-5.90) m/uL Hgb 8.8 L (13.0-17.5) gm/dL Hct 28.0 L (39.0-53.0) % Plt Count 653 H (150-450) k/uL Sodium 133 L (137-145) mmol/L BUN 21 H (9-20) mg/dL Glucose 329 H (74-99) mg/dL POC Glucose (mg/dL) 322 H (75-99) mg/dL Calcium 7.9 L (8.4-10.2) mg/dL Microbiology - Last 24 Hours (Table) 01/18/19 11:30 Gram Stain - Preliminary Pleural Fluid Body Fluid Culture - Preliminary Alpha Hemolytic Streptococcus 01/19/19 10:05 Gram Stain - Preliminary Pleural Fluid Body Fluid Culture - Preliminary 01/17/19 17:00 Blood Culture - Preliminary Blood No Growth after 48 hours 01/18/19 11:30 Acid Fast Bacilli Smear - Final Pleural Fluid Acid Fast Bacilli Culture - Preliminary 01/19/19 10:05 Anaerobic Culture - Preliminary Pleural Fluid Assessment and Plan Plan: 1 Empyema involving the left lung, post diagnostic and therapeutic thoracentesis with evacuation of 650 mL of pus from the left lung. Awaiting Gra m stain and culture. The patient is covered with broad-spectrum antibiotics. On 01/19/2019 patient data left-sided pigtail catheter put in, with additional drainage of purulent blood-tinged material, pleural fluid cultures are positive for alphahemolytic streptococcus 2 shortness of breath secondary to above, improved 3 fever secondary to above, resolved 4 mild hyponatremia, likely infection-induced SIADH, improved 5 normocytic anemia 6 diabetes mellitus with infection-induced hyperglycemia 7 hypokalemia 8 hypertension Plan: Continue current medical treatment, CT surgery is following, and is planning on alteplase infusion in the left pigtail chest tube. Chest x-ray has been revi ewed, showing stable left sided consolidation and pleural effusion. Patient is afebrile, hemodynamically stable, encourage deep breathing and coughing, incentive spirometry use. I performed a history & physical examination of the patient and discussed their management with my nurse practitioner, Nicole Wang. I reviewed the nurse practitioner's note and agree with the documented findings and plan of care. Lung sounds are positive for diminished breath sounds over left lower base. The findings and the impression was discussed with the patient. I attest to the documentation by the nurse practitioner. Time with Patient: Less than 30
--- NOTE | 2019-01-20 14:53 | P.PN ---
Subjective 68-year-old male was admitted for Left-sided pneumonia but pneumonic effusion, empyema patient was really has a chest tube patient underwent thoracocentesis with removal of 6 50 mL of pus. Patient is presently on broad-spectrum antibiotics with vancomycin and cefepime ,cultures are pending. Patient is presently on 2 L of oxygen denied any chest pain shortness of breath. 01/20/2019 Patient still has intermittent drainage from the chest tube patient blood sugars are significantly high increasing the dose of insulin. Continue antibiotic continue chest tube drainage patient received alteplase as well. Pleural fluid cultures are positive for alpha hemolytic streptococci. Infectious disease is managing antibiotics and patient is presently on vancomycin and cefepime probably can be tapered it down to Rocephin Constitutional: Denied any fatigue denied any fever. Cardio vascular: denied any chest pain, palpitations Gastrointestinal denied any nausea vomiting Pulmonary: Denied any shortness of breath cough Neurologic denied any new focal deficits All inpatient medications were reviewed and appropriate changes in these medications as dictated in the interval history and assessment and plan. Objective - Vital Signs Vital signs: Vital Signs Temp 98 F 01/20/19 14:02 Pulse 92 01/20/19 14:02 Resp 16 01/20/19 14:02 BP 133/75 01/20/19 14:02 Pulse Ox 97 01/20/19 14:02 Intake & Output 01/19/19 01/20/19 01/20/19 18:59 06:59 18:59 Intake Total 1314 Output Total 715 295 90 Balance 599 -295 -90 Intake: Oral 1314 Output: Chest Tube Drainage 440 295 Left Pleural/Mediastinal 440 295 Urine 275 Stool 90 Other: Voiding Method Urinal Toilet Bedpan Urinal # Voids 1 2 # Bowel Movements 1 1 - Exam PHYSICAL EXAMINATION: GENERAL: The patient is alert and oriented x3, not in any acute distress. Well developed, well nourished. HEENT: Pupils are round and equally reacting to light. EOMI. No scleral icterus. No conjunctival pallor. Normocephalic, atraumatic. No pharyngeal erythema. No thyromegaly. CARDIOVASCULAR: S1 and S2 present. No murmurs, rubs, or gallops. PULMONARY: Chest is clear to auscultation, no wheezing or crackles. patient has a left-sided chest tube with significant drainage from the chest tube since placement. ABDOMEN: Soft, nontender, nondistended, normoactive bowel sounds. No palpable organomegaly. MUSCULOSKELETAL: No joint swelling or deformity. EXTREMITIES: No cyanosis, clubbing, or pedal edema. NEUROLOGICAL: Gross neurological examination did not reveal any focal deficits. SKIN: No rashes. - Labs CBC & Chem 7: 01/20/19 09:17 01/20/19 09:17 Labs: Abnormal Lab Results - Last 24 Hours (Table) 01/19/19 01/19/19 01/20/19 Range/Units 16:45 21:21 07:40 WBC (3.8-10.6) k/uL RBC (4.30-5.90) m/uL Hgb (13.0-17.5) gm/dL Hct (39.0-53.0) % Plt Count (150-450) k/uL Sodium (137-145) mmol/L BUN (9-20) mg/dL Glucose (74-99) mg/dL POC Glucose (mg/dL) 313 H 266 H 363 H (75-99) mg/dL Calcium (8.4-10.2) mg/dL 01/20/19 01/20/19 01/20/19 Range/Units 09:17 09:17 11:29 WBC 20.5 H (3.8-10.6) k/uL RBC 2.96 L (4.30-5.90) m/uL Hgb 8.8 L (13.0-17.5) gm/dL Hct 28.0 L (39.0-53.0) % Plt Count 653 H (150-450) k/uL Sodium 133 L (137-145) mmol/L BUN 21 H (9-20) mg/dL Glucose 329 H (74-99) mg/dL POC Glucose (mg/dL) 322 H (75-99) mg/dL Calcium 7.9 L (8.4-10.2) mg/dL Microbiology - Last 24 Hours (Table) 01/18/19 11:30 Gram Stain - Preliminary Pleural Fluid Body Fluid Culture - Preliminary Alpha Hemolytic Streptococcus 01/19/19 10:05 Gram Stain - Preliminary Pleural Fluid Body Fluid Culture - Preliminary 01/17/19 17:00 Blood Culture - Preliminary Blood No Growth after 48 hours 01/18/19 11:30 Acid Fast Bacilli Smear - Final Pleural Fluid Acid Fast Bacilli Culture - Preliminary 01/19/19 10:05 Anaerobic Culture - Preliminary Pleural Fluid Assessment and Plan Plan: -acute hypoxicrespiratory failure: Left-sided pneumonia andand parapneumonic effusion is contributing to that and patient is feeling better now patient has left sided chest tube as mentioned above -Empyema status post drainage of 6 50 mL of fluid from the left lung followed by chest tube placement with significant drainage today patient has all primary hemolytic strep ataxia patient is on cefepime and vancomycin can probably taper down to ceftriaxone 2 g daily will discuss with infectious disease -hypovolemic hyponatremia improving continue with IV fluids -hypokalemia: Secondary to natriuresis and hypomagnesemia will be replaced as needed -sepsis secondary to pneumonia parapneumonic effusion as mentioned above -hypertension - type 2 diabetes mellitus: Uncontrolled elevated blood sugars decreasing the dose of long-acting insulin to 28 units
[2019-01-20] MEDS: SODIUM CHLORIDE 0.9% 1,000 ML IV SCH (16:36)
[2019-01-20 17:01] LABS: Glucose,Whole Blood 209 mg/dL (75-99)
[2019-01-20 21:31] LABS: Glucose,Whole Blood 148 mg/dL (75-99)
--- NOTE | 2019-01-20 23:46 | PN ---
PROGRESS NOTE DATE OF SERVICE: 01/20/2019 REASON FOR FOLLOWUP: Left-sided pneumonia and empyema. INTERVAL HISTORY: The patient is currently afebrile. The patient has been breathing comfortably. The patient denies having any chest pain, shortness of breath or cough. No nausea, vomiting. No abdominal pain. No diarrhea. PHYSICAL EXAMINATION: Blood pressure 133/75 with a pulse of 92, temperature 98. He is 97% on room air. General description is an elderly male up in the bed in no distress. RESPIRATORY SYSTEM: Unlabored breathing with decreased breath sounds at the base. No wheeze. HEART: S1, S2. Regular rate and rhythm. ABDOMEN: Soft. No tenderness. LABS: The pleural fluid culture is currently showing alpha hemolytic streptococcus. DIAGNOSTIC IMPRESSION AND PLAN: Patient with left-sided pneumonia with parapneumonic effusion/empyema. The patient at this time is covered with cefepime and vancomycin; to continue while waiting for the culture to finalize. Continue supportive care. MMODL / IJN: [id number] /
[2019-01-21] MEDS: SODIUM CHLORIDE 0.9% 1,000 ML IV SCH ×2 (03:55→20:18)
[2019-01-21 06:52] LABS: Glucose,Whole Blood 160 mg/dL (75-99)
[2019-01-21] MEDS: INSULIN ASPART (NovoLOG) 100 UNIT/ML VIAL SQ SCH ×4 (07:10→20:09)
[2019-01-21] MEDS ORDERED: ALTEPLASE 10 MG in SODIUM CHLORIDE 0.9% 100 ML IRRIGATION ONE (07:37)
--- NOTE | 2019-01-21 07:58 | XR ---
EXAMINATION TYPE: XR chest 2V DATE OF EXAM: 01/21/2019 COMPARISON: 01/30/2018 TECHNIQUE: PA and lateral views submitted. HISTORY: Empyema FINDINGS: Diffuse pleural-parenchymal changes are noted with suspected hydropneumothorax on the left. Chest tub e noted in position. Small right effusion and basilar consolidation noted. Underlying COPD noted. Hea rt size stable. IMPRESSION: 1. There is now a fluid air level on the left suggestive hydropneumothorax. Chest tube is noted in po sition. 2. Small right pleural effusion
--- NOTE | 2019-01-21 08:01 | P.PN ---
Subjective Progress Note Date: 01/21/19 Principal diagnosis: Left-sided empyema, dyspnea secondary to empyema. Previous medical history of uncontrolled type diet 2 diabetes mellitus, hypertension, pneumonia, depression, GERD, GI bleed. POD #2 left-sided pigtail catheter placement by interventional radiology The patient is currently sitting up in the chair in no acute distress. Does state that he feels much better. Denies shortness of breath, states he has minimal pain which is controlled on current medication regimen. Pigtail catheter placed with first dose of alteplase instilled yesterday. No new complaints. Objective - Vital Signs Vital signs: Vital Signs Temp 98.3 F 01/21/19 07:05 Pulse 101 H 01/21/19 07:05 Resp 18 01/21/19 07:05 BP 163/86 01/21/19 07:05 Pulse Ox 95 01/21/19 07:05 Intake & Output 01/20/19 01/21/19 01/21/19 18:59 06:59 18:59 Output Total 90 1100 175 Balance -90 -1100 -175 Output: Chest Tube Drainage 100 Left Pleural/Mediastinal 100 Urine 1000 175 Stool 90 Other: Voiding Method Toilet Toilet Bedpan Urinal Urinal # Voids 1 # Bowel Movements 1 - Constitutional General appearance: Present: cooperative, no acute distress - Respiratory Details: Lungs sounds diminished bilaterally, left greater than right. Respirations even, nonlabored. Currently on room air with oxygen saturation 100%. Able to achieve 1000 mL on his incentive spirometry. Left pleural pigtail catheter present, connected to atrium, 100 mL cloudy fluid drained overnight, 500 mL drainage in the last 24 hours. - Cardiovascular Details: S1, S2 present. Regular rate and rhythm. Palpable peripheral pulses bilaterally. No edema present. No calf pain or tenderness noted. - Gastrointestinal Gastrointestinal Comment(s): Abdomen soft, nontender, nondistended. Active bowel sounds present 4 quadrants. Tolerating diet. - Genitourinary Genitourinary Comment(s): Continues to void clear, yellow urine. - Integumentary Integumentary Comment(s): Skin is warm and dry with evidence of good perfusion. Pigtail catheter site covered with dry intact dressing. - Neurologic Neurologic: Present: CNII-XII intact - Musculoskeletal Musculoskeletal: Present: gait normal, strength equal bilaterally - Psychiatric Psychiatric: Present: A&O x's 3, appropriate affect, intact judgment & insight - Allied health notes Allied health notes reviewed: nursing - Labs CBC & Chem 7: 01/20/19 09:17 01/20/19 09:17 Labs: Abnormal Lab Results - Last 24 Hours (Table) 01/20/19 01/20/19 01/20/19 Range/Units 09:17 09:17 11:29 WBC 20.5 H (3.8-10.6) k/uL RBC 2.96 L (4.30-5.90) m/uL Hgb 8.8 L (13.0-17.5) gm/dL Hct 28.0 L (39.0-53.0) % Plt Count 653 H (150-450) k/uL Sodium 133 L (137-145) mmol/L BUN 21 H (9-20) mg/dL Glucose 329 H (74-99) mg/dL POC Glucose (mg/dL) 322 H (75-99) mg/dL Calcium 7.9 L (8.4-10.2) mg/dL 01/20/19 01/20/19 01/21/19 Range/Units 16:59 21:30 06:49 WBC (3.8-10.6) k/uL RBC (4.30-5.90) m/uL Hgb (13.0-17.5) gm/dL Hct (39.0-53.0) % Plt Count (150-450) k/uL Sodium (137-145) mmol/L BUN (9-20) mg/dL Glucose (74-99) mg/dL POC Glucose (mg/dL) 209 H 148 H 160 H (75-99) mg/dL Calcium (8.4-10.2) mg/dL Microbiology - Last 24 Hours (Table) 01/17/19 17:00 Blood Culture - Preliminary Blood No Growth after 72 hours 01/18/19 11:30 Anaerobic Culture - Preliminary Pleural Fluid 01/18/19 11:30 Gram Stain - Preliminary Pleural Fluid Body Fluid Culture - Preliminary Alpha Hemolytic Streptococcus 01/19/19 10:05 Gram Stain - Preliminary Pleural Fluid Body Fluid Culture - Preliminary - Imaging and Cardiology Chest x-ray: image reviewed Assessment and Plan Assessment: 1. Empyema involving the left lung, status post left chest pigtail catheter placement 2. Dyspnea to empyema 3. History of hypertension 4. Diabetes mellitus type 2, uncontrolled with HgbA1c 11% 5. History of depression Plan: 1. Alteplase to be instilled to pigtail catheter again today, clamped for 1 hour. Will monitor output. 2. Will repeat computed tomography scan of the chest on . If no improvement recommendations will be made for possible left video-assisted th oracoscopic procedure/possible thoracotomy with decortication. 3. Encourage incentive spirometry use 10 times every hour while awake. 4. Increase activity, ambulate as tolerated. 5. Pain control with current medication regimen 6. Medical management of other comorbid conditions per primary care service. 7. Antibiotic management per infectious disease. 8. More recommendations to follow. Time with Patient: Greater than 30
[2019-01-21] MEDS: ENOXAPARIN 40 MG/0.4 ML SYRINGE SQ SCH (08:33)
[2019-01-21] MEDS: CEFEPIME 2 GM in SODIUM CHLORIDE 0.9% 100 ML IVPB SCH ×2 (08:33→20:09)
[2019-01-21] MEDS: INSULIN DETEMIR (LEVEMIR) 100 UNIT/ML SYR SQ SCH (08:33)
[2019-01-21] MEDS: FLUoxetine HCL 20 MG CAP PO SCH (08:33)
[2019-01-21] MEDS: LISINOPRIL 20 MG TAB PO SCH (08:33)
[2019-01-21] MEDS: amLODIPine 10 MG TAB PO SCH (08:33)
[2019-01-21] MEDS: ASPIRIN 81 MG PO SCH (08:33)
[2019-01-21 09:03] LABS: Basophils % (A) 0 %; Eosinophils # (A) 0.1 k/uL (0-0.7); Eosinophils % (A) 0 %; HCT 30.5 % (39.0-53.0); HGB 9.4 gm/dL (13.0-17.5); Hypochromasia Slight; Lymphocytes # (A) 0.6 k/uL (1.0-4.8); Lymphocytes % (A) 3 %; MCH 29.5 pg (25.0-35.0); MCHC 30.9 g/dL (31.0-37.0); MCV 95.5 fL (80.0-100.0); Mean Platelet Volume 7.1; Monocytes # (A) 0.6 k/uL (0-1.0); Monocytes % (A) 3 %; Neutrophils # (A) 19.8 k/uL (1.3-7.7); Neutrophils % (A) 93 %; Platelet Count 775 k/uL (150-450); RBC 3.19 m/uL (4.30-5.90); RDW 14.5 % (11.5-15.5); WBC 21.4 k/uL (3.8-10.6)
[2019-01-21 09:19] LABS: African American GFR (CKD) >90 (>60 ml/min/1.73 sqM); Anion Gap 11 mmol/L; Blood Urea Nitrogen 18 mg/dL (9-20); Calcium 7.8 mg/dL (8.4-10.2); Carbon Dioxide 19 mmol/L (22-30); Chloride 104 mmol/L (98-107); Glucose 184 mg/dL (74-99); Magnesium 1.5 mg/dL (1.6-2.3); Potassium 3.8 mmol/L (3.5-5.1); Sodium 134 mmol/L (137-145)
[2019-01-21] MEDS ORDERED: Magnesium Replacement Protocol 1 EACH MISC MISCELLANE PRN (09:51)
[2019-01-21] MEDS ORDERED: POTASSIUM CHLORIDE ER 20 MEQ TAB.ER PO ONE (10:00)
[2019-01-21 11:15] LABS: Glucose,Whole Blood 332 mg/dL (75-99)
[2019-01-21 11:19] LABS: Glucose,Whole Blood 336 mg/dL (75-99)
[2019-01-21] MEDS: VANCOMYCIN 1,000 MG in SODIUM CHLORIDE 0.9% 250 ML IVPB SCH ×2 (11:27→23:01)
--- NOTE | 2019-01-21 11:46 | P.PN ---
Subjective Progress Note Date: 01/21/19 Principal diagnosis: Empyema involving the left lung post diagnostic and therapeutic thoracentesis, and placement of the pigtail catheter A 68-year-old male patient who was transferred from [facility] of shortness of breath. The patient started approximately week ago to have pleuritic left-sided chest pain. He was also having increased cough and congestion and low-grade fever. He was seen by his primary care physician and apparently a chest x-ray was done and he was told to have pneumonia and was given oral erythromycin-based antibiotic. The patient's condition got worse. His appetite has been poor. He has been losing weight. He came in to [facility] emergency department with a chest x-ray was done that showed a left lung opacity and following that a CAT scan of the chest was done that showed a large loculated left-sided pleural effusion along with gas within the pleural space and the finding was very highly suspicious for empyema. The patient got transferred to us. I reviewed the CAT scan of the chest from [facility]. The findings is consistent with empyema. The patient's white cell count was 27.9 at time of admission. Sodium level was at 129. His sugar level was also elevated and the patient is diabetic. Is a lifetime nonsmoker. I performed a bedside thoracentesis and I drained approximately 6 50 mL of pus from the left pleural space. Subsequent chest x-ray showed no evidence of any pneumothorax. The patient tolerated the procedure well. The fluid that was seen on the earlier chest x-ray was removed. Fluid analysis still pending for now. The patient was started on a combination of Zosyn and vancomycin. We'll put an interventional radiology consultation for a pigtail catheter insertion the drained residual loculated pleural effusion on the CAT scan guidance. This will be done tomorrow. Family was updated. May need a thoracic surgery consultation at a later stage depending on our success of breathing this empyema percutaneously. On 01/19/2019 patient seen in follow-up on medical surgical floor. He had a left posterior back pigtail chest tube inserted today by interventional radiology, and at the time of my evaluation patient has 120 mL of purulent blood-tinged drainage in the Pleur-evac. The Pleur-evac is to water seal, no air leak noted, pleural fluid cultures from yesterday's thoracentesis are pending at this time, preliminary Gram stain did not show any organisms after 24 hours. Patient is fairly comfortable, room air pulse ox is 92%, afebrile, hemodynamically stable, he sitting up in the recliner, lung sounds are diminished breath sounds over lower base. Cytology is pending. Patient is on a combination of Zosyn and vancomycin, Zosyn has been switched to cefepime per ID service recommendations. Awaiting results of the final cultures, will consult CT surgery On 01/20/2019 patient seen in follow-up on medical surgical floor. He sitting up in the recliner, in no acute distress, and it has been a total of 650 mL of purulent material in the Pleur-evac system insertion of the left-sided pigtail chest tube. Pleur-evac is to water seal, no evidence of air leak, today's chest x-ray has been reviewed showing left-sided consolidation and pleural effusion appears to be stable in appearance. Diminished breath sounds over left lower base, sodium is 133, potassium is 3.7, chloride is 103, CO2 is 22, BUN is 21 creatinine 0.90. C. diff was negative. Pleural fluid analysis showed exudative fluid, and pleural fluid cultures are positive for alphahemolytic streptococcus. On 01/21/2019 patient seen in follow-up on medical surgical floor. She is resting in the recliner, in no acute distress, there has been additional 500 mL of purulent material from the left-sided pigtail chest tube catheter over the last 24 hours, 100 mL after TPA infusion yesterday, patient will receive another TPA infusion per CT surgery, today's chest x-ray has been reviewed showing fluid air level on the left suggestive of hydropneumothorax and small right pleural effusion. Antibiotic coverage in the form of cefepime and vancomycin, with pleural fluid cultures positive for alphahemolytic streptococcus. His labs have been reviewed showing white blood cell count of 21.4, hemoglobin of 9.4, sodium of 134, potassium is 3.8, chloride is 104, CO2 is 19, B1 of 18 creatinine 0.85. Vital signs are stable, room air pulse ox is 95%, patient is afebrile. Denies any pain, or shortness of breath, his been ambulating, working on his incentive spirometer, chewing 1750 on the today. Objective - Vital Signs Vital signs: Vital Signs Temp 98.3 F 01/21/19 07:05 Pulse 101 H 01/21/19 08:10 Resp 18 01/21/19 08:10 BP 163/86 01/21/19 07:05 Pulse Ox 95 01/21/19 07:05 Intake & Output 01/20/19 01/21/19 01/21/19 18:59 06:59 18:59 Intake Total 500 Output Total 90 1100 295 Balance -90 -1100 205 Weight 56.1 kg Intake: Oral 500 Output: Chest Tube Drainage 100 120 Left Pleural/Mediastinal 100 120 Urine 1000 175 Stool 90 Other: Voiding Method Toilet Toilet Toilet Bedpan Urinal Urinal Urinal # Voids 1 # Bowel Movements 1 - Exam GENERAL EXAM: Alert, pleasant 68-year-old white male, room air pulse ox of 94%, comfortable in no apparent distress. HEAD: Normocephalic/atraumatic. EYES: Normal reaction of pupils, equal size. Conjunctiva pink, sclera white. NOSE: Clear with pink turbinates. THROAT: No erythema or exudates. NECK: No masses, no JVD, no thyroid enlargement, no adenopathy. CHEST: No chest wall deformity. Symmetrical expansion. left posterior chest pigtail chest tube is present connected to a Pleur-evac, with 650 mL of purulent blood-tinged material in the Pleur-evac, which is to water seal, with no evidence of air leak LUNGS: Equal air entry with diminished breath sounds over left lower base CVS: Regular rate and rhythm, normal S1 and S2, no gallops, no murmurs, no rubs ABDOMEN: Soft, nontender. No hepatosplenomegaly, normal bowel sounds, no guarding or rigidity. EXTREMITIES: No clubbing, no edema, no cyanosis, 2+ pulses and upper and lower extremities. MUSCULOSKELETAL: Muscle strength and tone normal. SPINE: No scoliosis or deformity SKIN: No rashes CENTRAL NERVOUS SYSTEM: Alert and oriented -3. No focal deficits, tone is normal in all 4 extremities. PSYCHIATRIC: Alert and oriented -3. Appropriate affect. Intact judgment and insight. - Labs CBC & Chem 7: 01/21/19 07:20 01/21/19 07:20 Labs: Abnormal Lab Results - Last 24 Hours (Table) 01/20/19 01/20/19 01/21/19 Range/Units 16:59 21:30 06:49 WBC (3.8-10.6) k/uL RBC (4.30-5.90) m/uL Hgb (13.0-17.5) gm/dL Hct (39.0-53.0) % MCHC (31.0-37.0) g/dL Plt Count (150-450) k/uL Neutrophils # (1.3-7.7) k/uL Lymphocytes # (1.0-4.8) k/uL Sodium (137-145) mmol/L Carbon Dioxide (22-30) mmol/L Glucose (74-99) mg/dL POC Glucose (mg/dL) 209 H 148 H 160 H (75-99) mg/dL Calcium (8.4-10.2) mg/dL Magnesium (1.6-2.3) mg/dL 01/21/19 01/21/19 01/21/19 Range/Units 07:20 07:20 11:12 WBC 21.4 H (3.8-10.6) k/uL RBC 3.19 L (4.30-5.90) m/uL Hgb 9.4 L (13.0-17.5) gm/dL Hct 30.5 L (39.0-53.0) % MCHC 30.9 L (31.0-37.0) g/dL Plt Count 775 H (150-450) k/uL Neutrophils # 19.8 H (1.3-7.7) k/uL Lymphocytes # 0.6 L (1.0-4.8) k/uL Sodium 134 L (137-145) mmol/L Carbon Dioxide 19 L (22-30) mmol/L Glucose 184 H (74-99) mg/dL POC Glucose (mg/dL) 332 H (75-99) mg/dL Calcium 7.8 L (8.4-10.2) mg/dL Magnesium 1.5 L (1.6-2.3) mg/dL 01/21/19 Range/Units 11:16 WBC (3.8-10.6) k/uL RBC (4.30-5.90) m/uL Hgb (13.0-17.5) gm/dL Hct (39.0-53.0) % MCHC (31.0-37.0) g/dL Plt Count (150-450) k/uL Neutrophils # (1.3-7.7) k/uL Lymphocytes # (1.0-4.8) k/uL Sodium (137-145) mmol/L Carbon Dioxide (22-30) mmol/L Glucose (74-99) mg/dL POC Glucose (mg/dL) 336 H (75-99) mg/dL Calcium (8.4-10.2) mg/dL Magnesium (1.6-2.3) mg/dL Microbiology - Last 24 Hours (Table) 01/19/19 10:05 Gram Stain - Preliminary Pleural Fluid Body Fluid Culture - Preliminary 01/18/19 11:30 Gram Stain - Final Pleural Fluid Body Fluid Culture - Final Alpha Hemolytic Streptococcus 01/17/19 17:00 Blood Culture - Preliminary Blood No Growth after 72 hours 01/18/19 11:30 Anaerobic Culture - Preliminary Pleural Fluid Assessment and Plan Plan: 1 Empyema involving the left lung, post diagnostic and therapeutic thoracentesis with evacuation of 650 mL of pus from the left lung. Awaiting Gram stain and culture. The patient is covered with broad-spectrum antibiotics. On 01/19/2019 patient data left-sided pigtail catheter put in, with additional drainage of purulent blood-tinged material, pleural fluid cultures are positive for alphahemolytic streptococcus 2 shortness of breath secondary to above, improved 3 fever secondary to above, resolved 4 mild hyponatremia, likely infection-induced SIADH, improved 5 normocytic anemia 6 diabetes mellitus with infection-induced hyperglycemia 7 hypokalemia 8 hypertension Plan: Today's chest x-ray has been reviewed, showing air-fluid level on the left consistent with hydropneumothorax, left sided pigtail chest tube catheter is draining purulent material, and patient will be giving another dose of alteplase infusion. We'll continue to follow with CT surgery, and there is a possibility patient may need surgical intervention. Continue with the same antibiotics, he is on combination of cefepime and vancomycin, continue encouraging deep b reathing and coughing, ambulation. I performed a history & physical examination of the patient and discussed their management with my nurse practitioner, Nicole Wang. I reviewed the nurse practitioner's note and agree with the documented findings and plan of care. Lung sounds are positive for diminished breath sounds over left lower base. The findings and the impression was discussed with the patient. I attest to the documentation by the nurse practitioner. Time with Patient: Less than 30
[2019-01-21] MEDS ORDERED: BACLOFEN 10 MG TAB PO PRN (14:10)
[2019-01-21] MEDS: ACETAMINOPHEN TAB 325 MG TAB PO PRN ×2 (14:18→21:00)
[2019-01-21] MEDS: MAGNESIUM SULFATE-D5W PMX 1 GM in DEXTROSE/WATER 1 100ML.BAG IVPB SCH ×2 (14:23→15:35)
[2019-01-21 16:22] LABS: Glucose,Whole Blood 285 mg/dL (75-99)
--- NOTE | 2019-01-21 17:29 | PN ---
PROGRESS NOTE DATE OF SERVICE: 01/21/2019. REASON FOR FOLLOWUP: Left-sided pneumonia and empyema. INTERVAL HISTORY: The patient is currently afebrile. Patient has been breathing comfortably. Denies having any worsening left-sided chest pain. Minimal cough. No nausea, no vomiting. No abdominal pain or any diarrhea. PHYSICAL EXAMINATION: Blood pressure 163/86, pulse of 101, temperature 98.3. He is 95% on room air. General description is an elderly male up in the bed in no distress. Respiratory system: Unlabored breathing, decreased breath sounds in the left base. No wheeze. Heart S1, S2. Regular rate and rhythm. Abdomen soft, no tenderness. LABS: Hemoglobin 9.4, white count 1.4, BUN of 18, creatinine 0.85. Culture currently showing also hemolytic strep. DIAGNOSTIC IMPRESSION AND PLAN: Patient with left-sided pneumonia with empyema status post chest tube placement. Still have elevated white count. Currently the patient is covered with cefepime and Vancomycin to continue while waiting for the culture to finalize. CT surgeries on the case. Follow the recommendation as per VATS procedure and continue supportive care. MMODL / IJN: [id number] /
[2019-01-21 20:00] LABS: Glucose,Whole Blood 328 mg/dL (75-99)
--- NOTE | 2019-01-21 21:27 | P.PN ---
Subjective Progress Note Date: 01/21/19 Principal diagnosis: This is a 68 year old man that was admitted for left-sided pneumonia, pleural effusion and empyema that had recently undergone a chest tube placement of the left side. A total of 500ml has drained from last night. Will continue to monitor closely. Cultures of the pleural fluid grew positive for alpha hemolytic streptococci. Infectious disease is following along with the care of the patient and managing antibiotics at this time. Patient has been up and walking often around the unit. Patient appears in no acute distress at this time. Patient denies any chest pain or fevers at this time and also made mention that his shortness of breath has improved since the placement of the chest tube. Objective - Vital Signs Vital signs: Vital Signs Temp 98.6 F 01/21/19 19:04 Pulse 102 H 01/21/19 19:04 Resp 16 01/21/19 19:04 BP 141/65 01/21/19 19:04 Pulse Ox 94 L 01/21/19 19:04 Intake & Output 01/21/19 01/21/19 01/22/19 06:59 18:59 06:59 Intake Total 900 Output Total 1100 770 Balance -1100 130 Weight 56.1 kg Intake: Oral 900 Output: Chest Tube Drainage 100 320 Left Pleural/Mediastinal 100 320 Urine 1000 450 Other: Voiding Method Toilet Toilet Urinal Urinal # Voids 1 1 1 # Bowel Movements 1 - Exam On exam, the patient is alert and oriented and appears in no acute distress. Vital signs are stable and patient had just finished walking around the unit and is sitting in his recliner. Heent: conjunctivae normal, EOMs intact Neck: supple, no lymph nodes noted, no JVD noted Cardiovascular: S1, S2 heard, RRR Respiratory: breath sounds diminished of the left side, otherwise clear upon auscultation Abdomen: soft, non-tender, no masses noted Legs: no swelling or edema noted Nervous system: no new focal deficits, gait is steady Skin: dry, no rashes or lesions noted. Wound dressing and chest tube noted on the left side of the upper back that is dry and intact Labs: As noted above Assessment: acute hypoxic respiratory failure: left side pneumonia and pleural effusion, contributing factor to patient feeling better is that a chest tube was placed on the left as mentioned previously. Empyema status post drainage of 650mL of fluid from the left lung followed by chest tube placement. Patient has alpha hemolytic streptococci grown on the pleural fluid culture. Currently on broad coverage with cefepime and Vancomycin as infectious disease if following. May taper down to Ceftriaxone 2 grams daily. To be discussed with infectious disease. Hypovolemic hyponatremia that is improving and will continue IV hydration hypokalemia secondary to natriuresis and hypomagnesemia is being replaced as needed sepsis secondary to pneumnnia parapneumonic effusion as mentioned above hypertension Type 2 Diabetes mellitus, uncontrolled hyperglycemia, recently decreased the dosage of 28 Units of long-acting insulin. Will continue to monitor blood glucose closely. Recommendations and Discussion: Recommend continuing current medications and symptomatic management. Will continue to encourage incentive spirometer use and ambulating as tolerated. Will continue to monitor closely. Will continue to monitor lab values and vitals. Continue to monitor blood sugars and treat accordingly as they are continuing to be elevated. Further instructions to follow. Prognosis is guarded at this time. Patient was to receive another dose of alteplace in the chest tube this af ternoon. Awaiting cardiothoracic report. - Constitutional General appearance: Present: no acute distress, thin - Labs CBC & Chem 7: 01/21/19 07:20 01/21/19 07:20 Labs: Abnormal Lab Results - Last 24 Hours (Table) 01/20/19 01/21/19 01/21/19 Range/Units 21:30 06:49 07:20 WBC 21.4 H (3.8-10.6) k/uL RBC 3.19 L (4.30-5.90) m/uL Hgb 9.4 L (13.0-17.5) gm/dL Hct 30.5 L (39.0-53.0) % MCHC 30.9 L (31.0-37.0) g/dL Plt Count 775 H (150-450) k/uL Neutrophils # 19.8 H (1.3-7.7) k/uL Lymphocytes # 0.6 L (1.0-4.8) k/uL Sodium (137-145) mmol/L Carbon Dioxide (22-30) mmol/L Glucose (74-99) mg/dL POC Glucose (mg/dL) 148 H 160 H (75-99) mg/dL Calcium (8.4-10.2) mg/dL Magnesium (1.6-2.3) mg/dL 01/21/19 01/21/19 01/21/19 Range/Units 07:20 11:12 11:16 WBC (3.8-10.6) k/uL RBC (4.30-5.90) m/uL Hgb (13.0-17.5) gm/dL Hct (39.0-53.0) % MCHC (31.0-37.0) g/dL Plt Count (150-450) k/uL Neutrophils # (1.3-7.7) k/uL Lymphocytes # (1.0-4.8) k/uL Sodium 134 L (137-145) mmol/L Carbon Dioxide 19 L (22-30) mmol/L Glucose 184 H (74-99) mg/dL POC Glucose (mg/dL) 332 H 336 H (75-99) mg/dL Calcium 7.8 L (8.4-10.2) mg/dL Magnesium 1.5 L (1.6-2.3) mg/dL 01/21/19 01/21/19 Range/Units 16:20 19:59 WBC (3.8-10.6) k/uL RBC (4.30-5.90) m/uL Hgb (13.0-17.5) gm/dL Hct (39.0-53.0) % MCHC (31.0-37.0) g/dL Plt Count (150-450) k/uL Neutrophils # (1.3-7.7) k/uL Lymphocytes # (1.0-4.8) k/uL Sodium (137-145) mmol/L Carbon Dioxide (22-30) mmol/L Glucose (74-99) mg/dL POC Glucose (mg/dL) 285 H 328 H (75-99) mg/dL Calcium (8.4-10.2) mg/dL Magnesium (1.6-2.3) mg/dL Microbiology - Last 24 Hours (Table) 01/17/19 17:00 Blood Culture - Preliminary Blood No Growth after 96 hours 01/19/19 10:05 Gram Stain - Preliminary Pleural Fluid Body Fluid Culture - Preliminary 01/18/19 11:30 Gram Stain - Final Pleural Fluid Body Fluid Culture - Final Alpha Hemolytic Streptococcus
[2019-01-22 02:28] LABS: Glucose,Whole Blood 192 mg/dL (75-99)
[2019-01-22] MEDS ORDERED: SODIUM CHLORIDE 0.9% 1,000 ML IV ONE (02:39)
[2019-01-22] MEDS: ACETAMINOPHEN TAB 325 MG TAB PO PRN (03:04)
--- NOTE | 2019-01-22 03:27 | XR ---
EXAM: XR Chest, 1 View CLINICAL HISTORY: increased fatigue TECHNIQUE: Frontal view of the chest. COMPARISON: Yesterday FINDINGS: Lungs: Left mediastinal contour is obscured by moderate to large amount of airspace opacities in left lung. Pleural space: moderate to large left pleural effusion. Suspect persistent hydropneumothorax. Persistent small right pleural effusion. Heart: Unremarkable. No cardiomegaly. Mediastinum: Unremarkable. Bones/joints: Unremarkable. Tubes, lines and devices: Left lower approaching chest catheter projects over left hilar region. IMPRESSION: 1. Moderate to large left pleural effusion. Suspect persistent hydropneumothorax. 2. Left mediastinal contour is obscured by moderate to large amount of airspace opacities in left lung. 3. Persistent small right pleural effusion.
[2019-01-22 04:00] LABS: Basophils # (A) 0.1 k/uL (0-0.2); Basophils % (A) 0 %; Eosinophils # (A) 0.1 k/uL (0-0.7); Eosinophils % (A) 0 %; Hypochromasia Moderate; Lymphocytes % (A) 2 %; MCH 29.2 pg (25.0-35.0); MCV 97.1 fL (80.0-100.0); Monocytes % (A) 2 %; Neutrophils # (A) 39.8 k/uL (1.3-7.7); Neutrophils % (A) 95 %; Platelet Count 904 k/uL (150-450); RBC 1.72 m/uL (4.30-5.90); RDW 14.7 % (11.5-15.5); WBC 42.1 k/uL (3.8-10.6)
[2019-01-22 04:13] LABS: HCT 16.7 % (39.0-53.0)
[2019-01-22 04:19] LABS: African American GFR (CKD) >90 (>60 ml/min/1.73 sqM); Anion Gap 7 mmol/L; Blood Urea Nitrogen 29 mg/dL (9-20); Calcium 7.3 mg/dL (8.4-10.2); Carbon Dioxide 18 mmol/L (22-30); Chloride 106 mmol/L (98-107); Glucose 188 mg/dL (74-99); Potassium 4.2 mmol/L (3.5-5.1); Sodium 131 mmol/L (137-145)
[2019-01-22 05:32] LABS: Glucose,Whole Blood 264 mg/dL (75-99)
[2019-01-22 05:55] LABS: Amorphous Sediment,Urine Moderate /hpf; Appearance,Urine Turbid (Clear); Bilirubin,Urine Negative (Negative); Blood,Urine Negative (Negative); Color,Urine Yellow; Glucose,Urine (UA) 1+ (Negative); Ketones,Urine 1+ (Negative); Leukocyte Esterase,Urine Negative (Negative); Nitrite,Urine Negative (Negative); Protein,Urine 3+ (Negative); Specific Gravity,Urine 1.026 (1.001-1.035); Urobilinogen,Urine <2.0 mg/dL (<2.0)
[2019-01-22] MEDS ORDERED: SODIUM CHLORIDE 0.9% 2,000 ML IV ONE (10:04)
--- NOTE | 2019-01-22 11:39 | P.PN ---
Subjective Progress Note Date: 01/22/19 Principal diagnosis: Left-sided empyema, dyspnea secondary to empyema. History of uncontrolled type diet 2 diabetes mellitus, hypertension, pneumonia, depression, GERD, and GI ble ed. POD #3 left-sided pigtail catheter placement by interventional radiology Acute blood loss anemia, unexpected The is currently laying in bed in the intensive care unit. He is in no acute distress. He was transferred to the intensive care unit early this morning due to his lab results with a hemoglobin 5.0 and WBC count 42.1. He remains hemodynamically stable and is on no inotropic or pressor support. Left pleural pigtail catheter remains in place to always his Pleur-evac system on waterseal. Draining thin serosanguineous/purulent colored drainage. Alteplase 10 mg/100 mL normal saline instilled through the pigtail catheter yesterday. No air leak is present. 530 mL output in the last 8 hours, 1.4 L output in the last 24 hours. Oxygen saturation are 98% on 4 L nasal cannula. Achieving 500 mL on his incentive spirometry. He denies any complaints of pain or shortness of breath this time. Objective - Vital Signs Vital signs: Vital Signs Temp 97.5 F L 01/22/19 11:00 Pulse 90 01/22/19 11:00 Resp 18 01/22/19 11:00 BP 129/64 01/22/19 11:00 Pulse Ox 100 01/22/19 11:00 Intake & Output 01/21/19 01/22/19 01/22/19 18:59 06:59 18:59 Intake Total 868 871 1857 Output Total 770 1165 125 Balance 130 -1015 2175 Weight 56.1 kg 65.2 kg Intake: IV 150 2300 Sodium Chloride 0.9% 1, 150 300 000 ml @ 75 mls/hr IV . [id number] [facility] Rx#:[id number] Sodium Chloride 0.9% 2, 2000 000 ml @ 999 mls/hr IV . Q2H1M [facility] Rx#:[id number] Oral 900 Blood Product 0 Rc As-1 Unit 0 [id number] Output: Chest Tube Drainage 320 1110 100 Left Pleural/Mediastinal 320 1110 100 Urine 450 55 25 Other: Voiding Method Toilet Indwelling Catheter Urinal # Voids 1 2 - Constitutional Constitutional Comment(s): Cachectic and pale General appearance: Present: cooperative, no acute distress - Respiratory Details: Lung sounds are diminished to his left lobes and to his right lower lobe. Respirations are symmetrical and nonlabored. Oxygen saturation are 98% on 4 L nasal cannula. Poor effort on his incentive spirometry is achieving 500 mL. Left pleural pigtail catheter remains in place to bedside [place] Pleur-evac system. Maintain on waterseal, no air leak is present. Draining cloudy serosanguineous colored drainage with 500 mL output in the last 8 hours, 1.4 L o utput in the last 24 hours. - Cardiovascular Details: Regular rhythm and rate. S1 and S2 present, negative for S3, gallop or murmur. No edema present. Knee-high sequential compression devices in place to his bilateral lower extremities. - Gastrointestinal Gastrointestinal Comment(s): Abdomen is soft, nontender and nondistended. Active bowel sounds to all 4 abdominal quadrants. No guarding or rigidity. No organomegaly. - Genitourinary Genitourinary Comment(s): Kaur catheter for accurate I&O. Draining clear yellow urine. - Integumentary Integumentary Comment(s): Skin is warm and dry. No clubbing or cyanosis is present. Left pleural pigtail catheter site with dressing clean, dry and in place. Integumentary: Present: pale - Neurologic Neurologic: Present: CNII-XII intact - Musculoskeletal Musculoskeletal: Present: generalized weakness, strength equal bilaterally - Psychiatric Psychiatric: Present: A&O x's 3, appropriate affect, intact judgment & insight - Allied health notes Allied health notes reviewed: nursing - Labs CBC & Chem 7: 01/22/19 03:11 01/22/19 03:11 Labs: Abnormal Lab Results - Last 24 Hours (Table) 01/21/19 01/21/19 01/22/19 Range/Units 16:20 19:59 02:26 WBC (3.8-10.6) k/uL RBC (4.30-5.90) m/uL Hgb (13.0-17.5) gm/dL Hct (39.0-53.0) % MCHC (31.0-37.0) g/dL Plt Count (150-450) k/uL Neutrophils # (1.3-7.7) k/uL Sodium (137-145) mmol/L Carbon Dioxide (22-30) mmol/L BUN (9-20) mg/dL Glucose (74-99) mg/dL POC Glucose (mg/dL) 285 H 328 H 192 H (75-99) mg/dL Plasma Lactic Acid Remi (0.7-2.0) mmol/L Calcium (8.4-10.2) mg/dL Urine Protein (Negative) Urine Glucose (UA) (Negative) Urine Ketones (Negative) Amorphous Sediment (None) /hpf Crossmatch 01/22/19 01/22/19 01/22/19 Range/Units 03:11 03:11 03:11 WBC 42.1 H (3.8-10.6) k/uL RBC 1.72 L (4.30-5.90) m/uL Hgb 5.0 L* D (13.0-17.5) gm/dL Hct 16.7 L* (39.0-53.0) % MCHC 30.0 L (31.0-37.0) g/dL Plt Count 904 H (150-450) k/uL Neutrophils # 39.8 H (1.3-7.7) k/uL Sodium 131 L (137-145) mmol/L Carbon Dioxide 18 L (22-30) mmol/L BUN 29 H (9-20) mg/dL Glucose 188 H (74-99) mg/dL POC Glucose (mg/dL) (75-99) mg/dL Plasma Lactic Acid Remi 2.5 H* (0.7-2.0) mmol/L Calcium 7.3 L (8.4-10.2) mg/dL Urine Protein (Negative) Urine Glucose (UA) (Negative) Urine Ketones (Negative) Amorphous Sediment (None) /hpf Crossmatch 01/22/19 01/22/19 01/22/19 Range/Units 05:22 05:30 05:34 WBC (3.8-10.6) k/uL RBC (4.30-5.90) m/uL Hgb (13.0-17.5) gm/dL Hct (39.0-53.0) % MCHC (31.0-37.0) g/dL Plt Count (150-450) k/uL Neutrophils # (1.3-7.7) k/uL Sodium (137-145) mmol/L Carbon Dioxide (22-30) mmol/L BUN (9-20) mg/dL Glucose (74-99) mg/dL POC Glucose (mg/dL) 264 H (75-99) mg/dL Plasma Lactic Acid Remi (0.7-2.0) mmol/L Calcium (8.4-10.2) mg/dL Urine Protein 3+ H (Negative) Urine Glucose (UA) 1+ H (Negative) Urine Ketones 1+ H (Negative) Amorphous Sediment Moderate H (None) /hpf Crossmatch See Detail 01/22/19 Range/Units 07:48 WBC (3.8-10.6) k/uL RBC (4.30-5.90) m/uL Hgb (13.0-17.5) gm/dL Hct (39.0-53.0) % MCHC (31.0-37.0) g/dL Plt Count (150-450) k/uL Neutrophils # (1.3-7.7) k/uL Sodium (137-145) mmol/L Carbon Dioxide (22-30) mmol/L BUN (9-20) mg/dL Glucose (74-99) mg/dL POC Glucose (mg/dL) (75-99) mg/dL Plasma Lactic Acid Remi 3.1 H* (0.7-2.0) mmol/L Calcium (8.4-10.2) mg/dL Urine Protein (Negative) Urine Glucose (UA) (Negative) Urine Ketones (Negative) Amorphous Sediment (None) /hpf Crossmatch Microbiology - Last 24 Hours (Table) 01/19/19 10:05 Gram Stain - Preliminary Pleural Fluid Body Fluid Culture - Preliminary Alpha Hemolytic Streptococcus 01/17/19 17:00 Blood Culture - Preliminary Blood No Growth after 96 hours 01/18/19 11:30 Gram Stain - Final Pleural Fluid Body Fluid Culture - Final Alpha Hemolytic Streptococcus - Imaging and Cardiology Chest x-ray: report reviewed, image reviewed CT scan - chest: image reviewed Assessment and Plan Assessment: 1. Empyema involving the left lung, status post left chest pigtail catheter placement 2. Dyspnea to empyema 3. History of hypertension 4. Diabetes mellitus type 2 5. History of depression 6. Acute blood loss anemia, unexpected Plan: 1. No Alteplase to be instilled to pigtail catheter today. Continue to monitor and document output from his left pleural pigtail catheter. 2. Will repeat computed tomography scan of the chest this morning. 3. Encourage incentive spirometry use 10 times every hour while awake. 4. Increase activity, ambulate as tolerated. 5. Pain control with current medication regimen 6. Medical management of other comorbid conditions per primary care service. 7. Antibiotic management per infectious disease. Pleural fluid Gram stain positive for alpha hemolytic streptococcus 8. The patient will be scheduled for a left video-assisted thoracoscopic surgery/possible left thoracotomy with decortication for tomorrow 01/23/2019 to be performed by Dr. Herrera. 9. Nothing by mouth after midnight. 10. More recommendations to follow based on patient's clinical course. Time with Patient: Greater than 30
[2019-01-22] MEDS: amLODIPine 10 MG TAB PO SCH (11:57)
[2019-01-22] MEDS: INSULIN ASPART (NovoLOG) 100 UNIT/ML VIAL SQ SCH ×4 (11:57→21:23)
[2019-01-22] MEDS: ASPIRIN 81 MG PO SCH (11:57)
[2019-01-22] MEDS: ENOXAPARIN 40 MG/0.4 ML SYRINGE SQ SCH (11:58)
[2019-01-22] MEDS: LISINOPRIL 20 MG TAB PO SCH (11:58)
[2019-01-22] MEDS: FLUoxetine HCL 20 MG CAP PO SCH (11:58)
[2019-01-22] MEDS: SODIUM CHLORIDE 0.9% 1,000 ML IV SCH ×3 (12:05→22:03)
[2019-01-22] MEDS: CEFEPIME 2 GM in SODIUM CHLORIDE 0.9% 100 ML IVPB SCH ×2 (12:06→21:23)
[2019-01-22 12:12] LABS: Glucose,Whole Blood 322 mg/dL (75-99)
[2019-01-22] MEDS: INSULIN DETEMIR (LEVEMIR) 100 UNIT/ML SYR SQ SCH (12:28)
[2019-01-22] MEDS: VANCOMYCIN 1,000 MG in SODIUM CHLORIDE 0.9% 250 ML IVPB SCH ×2 (12:29→22:02)
--- NOTE | 2019-01-22 12:38 | CT ---
EXAMINATION TYPE: CT chest wo con DATE OF EXAM: 01/22/2019 COMPARISON: 01/19/2019 HISTORY: Chest tube, left empyema CT DLP: 285.9 mGycm, Automated exposure control for dose reduction was used. CONTRAST: Performed injected with 0 mL of Isovue 300. TECHNIQUE: Axial images were obtained at 5 mm thick sections. Reconstructed images are reviewed on [employer] computer in the coronal plane. FINDINGS: Portion of the thyroid visualized is normal. There is a large loculated collection with scattered tiny amounts of air are present which can be com patible with the patient's reported empyema. There is some greater increased density adjacent to the catheter. Small amounts of air adjacent to the posterior catheter within the chest. Air-fluid level i s collapsed over the interval. Small pneumothorax or air within the empyema may be present. Minimal f luid is present on the right. There are small pericardial effusion may be present. Coronary artery ca lcification is noted Scattered shotty lymphadenopathy with cysts within the mediastinum. Largest transverse dimension lymp h nodes near the level of the huyen are enlarged at 1.2 cm. Right peribronchial node may be prominen t measuring 1.1 cm. The ascending aorta diameter at the level of the main pulmonary artery is 3.3 cm. The main pulmonary artery diameter at the bifurcation is 2.[address] sections are obtained through the upper abdomen. Abdomen is essentially unremarkable. This is somewhat limited in evaluation. IMPRESSIONS: 1. There appears to be loculated empyema with a couple of air-fluid levels present. Small pneumothora x is not entirely excluded. 2. Posterior left chest catheter this is within an area of increased density which can be compatible with the patient's reported empyema. 3. Couple of enlarged lymph nodes within the mediastinum visualized.
--- NOTE | 2019-01-22 12:43 | P.PN ---
Subjective Progress Note Date: 01/22/19 Principal diagnosis: Acute empyema Patient was reevaluated today on 01/22/2019, he initially presented with left- sided empyema and he was a transfer from [facility]. Patient had a left-sided pigtail catheter placed by interventional radiology and this is his postoperative day #3. Patient was receiving thrombolytic therapy by thoracic surgery, however last night, the patient developed worsening bleeding into the chest tube, and significant fluid collection in the left pleural space with a left sided hydropneumothorax. His hemoglobin dropped down to 5.0 this morning, and the patient is receiving 2 units of packed RBCs at present. He was transferred to the ICU, thoracic surgery evaluated the patient on consultation, and I believe the patient will be scheduled for decortication/VATS of his empyema in the next 24 hours. In the meantime we'll try to transfer the patient, stabilize him from the medical perspective, and hopefully optimize for surgical intervention in the next 24 hours. In the meantime the patient remains on antibiotics, continues to have leukocytosis with WBC count of 42.1. Patient is relatively asymptomatic otherwise. He was diaphoretic, hypotensive early this morning, received fluid boluses earlier today. Patient denies being short of breath. Objective - Vital Signs Vital signs: Vital Signs Temp 97.5 F L 01/22/19 12:21 Pulse 92 01/22/19 12:21 Resp 21 01/22/19 12:21 BP 146/71 01/22/19 12:21 Pulse Ox 97 01/22/19 12:21 Intake & Output 01/21/19 01/22/19 01/22/19 18:59 06:59 18:59 Intake Total 596 513 2278 Output Total 770 1165 125 Balance 130 -1015 2485 Weight 56.1 kg 65.2 kg Intake: IV 150 2300 Sodium Chloride 0.9% 1, 150 300 000 ml @ 75 mls/hr IV . [id number] [facility] Rx#:[id number] Sodium Chloride 0.9% 2, 2000 000 ml @ 999 mls/hr IV . Q2H1M [facility] Rx#:[id number] Oral 900 Blood Product 310 Rc As-1 Unit 310 [id number] Rc As-1 Unit 0 [id number] Output: Chest Tube Drainage 320 1110 100 Left Pleural/Mediastinal 320 1110 100 Urine 450 55 25 Other: Voiding Method Toilet Indwelling Catheter Urinal # Voids 1 2 - Exam GENERAL EXAM: Alert, pleasant 68-year-old white male, on 4 L nasal cannula. EYES: PERRLA, EOMI, no icterus. Pale conjunctivas NOSE: Clear with pink turbinates. THROAT: No erythema or exudates. NECK: No masses, no JVD, no thyroid enlargement, no adenopathy. CHEST: No chest wall deformity. Symmetrical expansion. left posterior chest pigtail chest tube is present connected to a Pleur-evac, serosanguineous drainage noted in the pleural VAC. LUNGS: Right side is clear, diminished breath sounds and dullness on the left side. CVS: Regular rate and rhythm, normal S1 and S2, no gallops, no murmurs, no rubs ABDOMEN: Soft, nontender. No hepatosplenomegaly, normal bowel sounds, no guarding or rigidity. EXTREMITIES: No clubbing, no edema, no cyanosis, 2+ pulses and upper and lower extremities. MUSCULOSKELETAL: Muscle strength and tone normal. SPINE: No scoliosis or deformity SKIN: No rashes CENTRAL NERVOUS SYSTEM: Alert and oriented -3. No focal deficits, tone is normal in all 4 extremities. PSYCHIATRIC: Alert and oriented -3. Appropriate affect. Intact judgment and insight. - Labs CBC & Chem 7: 01/22/19 03:11 01/22/19 03:11 Labs: Abnormal Lab Results - Last 24 Hours (Table) 01/21/19 01/21/19 01/22/19 Range/Units 16:20 19:59 02:26 WBC (3.8-10.6) k/uL RBC (4.30-5.90) m/uL Hgb (13.0-17.5) gm/dL Hct (39.0-53.0) % MCHC (31.0-37.0) g/dL Plt Count (150-450) k/uL Neutrophils # (1.3-7.7) k/uL Sodium (137-145) mmol/L Carbon Dioxide (22-30) mmol/L BUN (9-20) mg/dL Glucose (74-99) mg/dL POC Glucose (mg/dL) 285 H 328 H 192 H (75-99) mg/dL Plasma Lactic Acid Remi (0.7-2.0) mmol/L Calcium (8.4-10.2) mg/dL Urine Protein (Negative) Urine Glucose (UA) (Negative) Urine Ketones (Negative) Amorphous Sediment (None) /hpf Crossmatch 01/22/19 01/22/19 01/22/19 Range/Units 03:11 03:11 03:11 WBC 42.1 H (3.8-10.6) k/uL RBC 1.72 L (4.30-5.90) m/uL Hgb 5.0 L* D (13.0-17.5) gm/dL Hct 16.7 L* (39.0-53.0) % MCHC 30.0 L (31.0-37.0) g/dL Plt Count 904 H (150-450) k/uL Neutrophils # 39.8 H (1.3-7.7) k/uL Sodium 131 L (137-145) mmol/L Carbon Dioxide 18 L (22-30) mmol/L BUN 29 H (9-20) mg/dL Glucose 188 H (74-99) mg/dL POC Glucose (mg/dL) (75-99) mg/dL Plasma Lactic Acid Remi 2.5 H* (0.7-2.0) mmol/L Calcium 7.3 L (8.4-10.2) mg/dL Urine Protein (Negative) Urine Glucose (UA) (Negative) Urine Ketones (Negative) Amorphous Sediment (None) /hpf Crossmatch 01/22/19 01/22/19 01/22/19 Range/Units 05:22 05:30 05:34 WBC (3.8-10.6) k/uL RBC (4.30-5.90) m/uL Hgb (13.0-17.5) gm/dL Hct (39.0-53.0) % MCHC (31.0-37.0) g/dL Plt Count (150-450) k/uL Neutrophils # (1.3-7.7) k/uL Sodium (137-145) mmol/L Carbon Dioxide (22-30) mmol/L BUN (9-20) mg/dL Glucose (74-99) mg/dL POC Glucose (mg/dL) 264 H (75-99) mg/dL Plasma Lactic Acid Remi (0.7-2.0) mmol/L Calcium (8.4-10.2) mg/dL Urine Protein 3+ H (Negative) Urine Glucose (UA) 1+ H (Negative) Urine Ketones 1+ H (Negative) Amorphous Sediment Moderate H (None) /hpf Crossmatch See Detail 01/22/19 01/22/19 Range/Units 07:48 12:10 WBC (3.8-10.6) k/uL RBC (4.30-5.90) m/uL Hgb (13.0-17.5) gm/dL Hct (39.0-53.0) % MCHC (31.0-37.0) g/dL Plt Count (150-450) k/uL Neutrophils # (1.3-7.7) k/uL Sodium (137-145) mmol/L Carbon Dioxide (22-30) mmol/L BUN (9-20) mg/dL Glucose (74-99) mg/dL POC Glucose (mg/dL) 322 H (75-99) mg/dL Plasma Lactic Acid Remi 3.1 H* (0.7-2.0) mmol/L Calcium (8.4-10.2) mg/dL Urine Protein (Negative) Urine Glucose (UA) (Negative) Urine Ketones (Negative) Amorphous Sediment (None) /hpf Crossmatch Microbiology - Last 24 Hours (Table) 01/18/19 11:30 Anaerobic Culture - Final Pleural Fluid 01/19/19 10:05 Gram Stain - Preliminary Pleural Fluid Body Fluid Culture - Preliminary Alpha Hemolytic Streptococcus 01/17/19 17:00 Blood Culture - Preliminary Blood No Growth after 96 hours 01/18/19 11:30 Gram Stain - Final Pleural Fluid Body Fluid Culture - Final Alpha Hemolytic Streptococcus Assessment and Plan Assessment: Impression: 1 left-sided empyema 2 left sided hydropneumothorax 3 left sided hemothorax 4 multiple comorbidities including hypertension, diabetes, electrolytes imbalance with hypokalemia, and worsening anemia secondary to hemothorax and blood loss in the left pleural space. Recommendation: Continue present course of antibiotics, bronchodilators, oxygen, transfuse patient with at least 2 units of packed RBCs now, clearly the patient will require surgical intervention/decortication in the next 24 hours. He was seen by thoracic surgery, and her labs are in progress. Prognosis is extremely poor and guarded. Time with Patient: Less than 30
[2019-01-22 16:09] LABS: HCT 23.7 % (39.0-53.0); Hypochromasia Slight; MCH 29.5 pg (25.0-35.0); MCHC 31.7 g/dL (31.0-37.0); MCV 92.9 fL (80.0-100.0); Mean Platelet Volume 7.2; Platelet Count 680 k/uL (150-450); Poikilocytosis Slight; RBC 2.55 m/uL (4.30-5.90); RDW 15.8 % (11.5-15.5)
[2019-01-22 16:10] LABS: HGB 7.5 gm/dL (13.0-17.5)
--- NOTE | 2019-01-22 16:22 | PN ---
PROGRESS NOTE DATE OF SERVICE: 01/22/2019. REASON FOR FOLLOWUP: Left-sided pneumonia and empyema. INTERVAL HISTORY: The patient is currently afebrile. The patient will be transferred down to the ICU because of worsening shortness of breath, some hypoxemia. The patient did not have any fever and is hemodynamically stable, not requiring any pressor support. No nausea, vomiting or any diarrhea reported. PHYSICAL EXAMINATION: Blood pressure is 154/80 with a pulse of 92, temperature 96.1. He is 96% on 2 L nasal cannula. General description is an elderly male lying in bed in no distress. RESPIRATORY SYSTEM: Unlabored breathing with coarse breath sounds in the bases. No wheeze. HEART: S1, S2. Regular rate and rhythm. ABDOMEN: Soft. No tenderness. LABS: Hemoglobin is down to 5, white count 42.1 with a BUN of 29, creatinine 0.97. UA has been negative. The pleural fluid culture has grown alpha hemolytic streptococcus. DIAGNOSTIC IMPRESSION AND PLAN: Patient with left-sided pneumonia with a parapneumonic effusion, status post chest tube placement, now with worsening of his clinical condition. Patient for possible VATS procedure tomorrow. He is broadly covered with vancomycin to continue while waiting for his condition to stabilize. Family at the bedside. Their questions were answered. Continue with supportive care. MMODL / IJN: [id number] /
[2019-01-22 18:16] LABS: Glucose,Whole Blood 319 mg/dL (75-99)
--- NOTE | 2019-01-22 19:41 | P.PN ---
Subjective Progress Note Date: 01/22/19 Principal diagnosis: This is a 68 year old man that was admitted for left-sided pneumonia, pleural effusion and empyema that had recently undergone a chest tube placement of the left side. A total of 500ml has drained from last night. Will continue to monitor closely. Cultures of the pleural fluid grew positive for alpha hemolytic streptococci. Infectious disease is following along with the care of the patient and managing antibiotics at this time. Patient has been up and walking often around the unit. Patient appears in no acute distress at this time. Patient denies any chest pain or fevers at this time and also made mention that his shortness of breath has improved since the placement of the chest tube. Early this am patient was moved to the ICU to be closely monitored as he was draining a large amount of blood from the left side chest tube and had a critical value hemoglobin level of 5. Patient states that he felt better yesterday but later in the evening felt fatigued and not up to walking. Vitals were stable but started becoming hypotensive in the low 90's systolic. Patient was then transferred to the ICU and will likely be going for surgery on 01/23/19. Patient's blood sugars continue to be elevated and will continue to cover per protocol. Patient is scheduled to be NPO after midnight, but he states that he hasn't been that hungry today. Patient is lying in the bed with a bear hugger on to maintain his temperature. Patient is still currently on broad spectrum antibiotics per infectious disease and being followed closely. Patient was awaiting for 2 units of PRBC to be transfused as there were antibodies present per the lab. Patient denies any shortness of breath, chest pain, or palpitations, just states that he feels tired. A chest xray was done showing a moderate to large pleural effusion with left hydropneumothorax with a small right side pleural effusion. CT scan of the chest showed loculated empyema with a couple of air-fluid levels present, small pneumothorax is not excluded, chest catheter is within area of increased density consistent with the empyema, and a couple of enlarged lymph nodes within the mediastinum. Objective - Vital Signs Vital signs: Vital Signs Temp 98.0 F 01/22/19 18:55 Pulse 85 01/22/19 19:00 Resp 22 01/22/19 19:00 BP 136/71 01/22/19 19:00 Pulse Ox 98 01/22/19 19:00 Intake & Output 01/22/19 01/22/19 01/23/19 06:59 18:59 06:59 Intake Total 150 3905 Output Total 1165 2145 Balance -1015 1760 Weight 65.2 kg Intake: IV 150 2975 Sodium Chloride 0.9% 1, 150 975 000 ml @ 75 mls/hr IV . [id number] [facility] Rx#:[id number] Sodium Chloride 0.9% 2, 2000 000 ml @ 999 mls/hr IV . Q2H1M [facility] Rx#:[id number] Blood Product 930 Rc As-1 Unit 310 [id number] Rc As-1 Unit 310 [id number] Rc Pheresis 2 As3 Unit 310 [id number] Output: Chest Tube Drainage 1110 1900 Left Pleural/Mediastinal 1110 1900 Urine 55 245 Other: Voiding Method Indwelling Catheter Indwelling Catheter # Voids 2 - Exam On exam, the patient is alert and oriented and appears in no acute distress. Patient is lethargic, but easily arousable. Vital signs are stable. Heent: conjunctivae normal, EOMs intact Neck: supple, no lymph nodes noted, no JVD noted Cardiovascular: S1, S2 heard, RRR Respiratory: breath sounds diminished of the left side more so than the right, otherwise clear upon auscultation Abdomen: soft, non-tender, no masses noted Legs: no swelling or edema noted Nervous system: no new focal deficits Skin: dry, no rashes or lesions noted. Wound dressing and chest tube noted on the left side of the upper back remains dry and intact Labs: As noted below Assessment: acute anemia blood loss most likely from fluid collection in the left lung. Increased amount of output of the chest tube. Will continue to monitor closely. Currently transfusing 2 units of PRBC for a hemoglobin of 5 this morning. acute hypoxic respiratory failure: left side pneumonia and pleural effusion with hydropneumothorax noted Empyema status post drainage of 650mL of fluid from the left lung followed by chest tube placement. Patient has alpha hemolytic streptococci grown on the pleural fluid culture. Currently on broad coverage with cefepime and Vancomycin as infectious disease if following. Will continue on broad spectrum antibiotics at this time. May eventually taper down to Ceftriaxone 2 grams daily. To be discussed with infectious disease. Hypovolemic hyponatremia that is improving and will continue IV hydration hypokalemia secondary to natriuresis and hypomagnesemia is being replaced as needed sepsis secondary to pneumonia parapneumonic effusion as mentioned above hypertension acute hypotension due to hypovolemic state this am. Closely monitoring and not currently requiring any pressors at this time. Type 2 Diabetes mellitus, uncontrolled hyperglycemia, recently decreased the dosage of 28 Units of long-acting insulin. Will continue to monitor blood glucose closely. Recommendations and Discussion: Recommend continuing current medications and symptomatic management. Will continue to encourage incentive spirometer use and ambulating as tolerated. Will continue to monitor closely. Will continue to monitor lab values and vitals. Will watch repeat labs in the morning. Continue to monitor blood sugars and treat accordingly as they are continuing to be elevated. Further instructions to follow. Prognosis is poor and extremely guarded at this time. Cardiovascular surgery tentatively scheduling a possible left thoracotomy with decortication that will be done by Dr. Herrera. Further recommendations to follow. - Constitutional General appearance: Present: mild distress - Labs CBC & Chem 7: 01/22/19 15:48 01/22/19 03:11 Labs: Abnormal Lab Results - Last 24 Hours (Table) 01/21/19 01/22/19 01/22/19 Range/Units 19:59 02:26 03:11 WBC 42.1 H (3.8-10.6) k/uL RBC 1.72 L (4.30-5.90) m/uL Hgb 5.0 L* D (13.0-17.5) gm/dL Hct 16.7 L* (39.0-53.0) % MCHC 30.0 L (31.0-37.0) g/dL RDW (11.5-15.5) % Plt Count 904 H (150-450) k/uL Neutrophils # 39.8 H (1.3-7.7) k/uL Sodium (137-145) mmol/L Carbon Dioxide (22-30) mmol/L BUN (9-20) mg/dL Glucose (74-99) mg/dL POC Glucose (mg/dL) 328 H 192 H (75-99) mg/dL Plasma Lactic Acid Remi (0.7-2.0) mmol/L Calcium (8.4-10.2) mg/dL Urine Protein (Negative) Urine Glucose (UA) (Negative) Urine Ketones (Negative) Amorphous Sediment (None) /hpf Crossmatch 01/22/19 01/22/19 01/22/19 Range/Units 03:11 03:11 05:22 WBC (3.8-10.6) k/uL RBC (4.30-5.90) m/uL Hgb (13.0-17.5) gm/dL Hct (39.0-53.0) % MCHC (31.0-37.0) g/dL RDW (11.5-15.5) % Plt Count (150-450) k/uL Neutrophils # (1.3-7.7) k/uL Sodium 131 L (137-145) mmol/L Carbon Dioxide 18 L (22-30) mmol/L BUN 29 H (9-20) mg/dL Glucose 188 H (74-99) mg/dL POC Glucose (mg/dL) (75-99) mg/dL Plasma Lactic Acid Remi 2.5 H* (0.7-2.0) mmol/L Calcium 7.3 L (8.4-10.2) mg/dL Urine Protein (Negative) Urine Glucose (UA) (Negative) Urine Ketones (Negative) Amorphous Sediment (None) /hpf Crossmatch See Detail 01/22/19 01/22/19 01/22/19 Range/Units 05:30 05:34 07:48 WBC (3.8-10.6) k/uL RBC (4.30-5.90) m/uL Hgb (13.0-17.5) gm/dL Hct (39.0-53.0) % MCHC (31.0-37.0) g/dL RDW (11.5-15.5) % Plt Count (150-450) k/uL Neutrophils # (1.3-7.7) k/uL Sodium (137-145) mmol/L Carbon Dioxide (22-30) mmol/L BUN (9-20) mg/dL Glucose (74-99) mg/dL POC Glucose (mg/dL) 264 H (75-99) mg/dL Plasma Lactic Acid Remi 3.1 H* (0.7-2.0) mmol/L Calcium (8.4-10.2) mg/dL Urine Protein 3+ H (Negative) Urine Glucose (UA) 1+ H (Negative) Urine Ketones 1+ H (Negative) Amorphous Sediment Moderate H (None) /hpf Crossmatch 01/22/19 01/22/19 01/22/19 Range/Units 12:10 15:48 18:14 WBC 45.0 H (3.8-10.6) k/uL RBC 2.55 L (4.30-5.90) m/uL Hgb 7.5 L D (13.0-17.5) gm/dL Hct 23.7 L (39.0-53.0) % MCHC (31.0-37.0) g/dL RDW 15.8 H (11.5-15.5) % Plt Count 680 H (150-450) k/uL Neutrophils # (1.3-7.7) k/uL Sodium (137-145) mmol/L Carbon Dioxide (22-30) mmol/L BUN (9-20) mg/dL Glucose (74-99) mg/dL POC Glucose (mg/dL) 322 H 319 H (75-99) mg/dL Plasma Lactic Acid Remi (0.7-2.0) mmol/L Calcium (8.4-10.2) mg/dL Urine Protein (Negative) Urine Glucose (UA) (Negative) Urine Ketones (Negative) Amorphous Sediment (None) /hpf Crossmatch Microbiology - Last 24 Hours (Table) 01/19/19 10:05 Anaerobic Culture - Preliminary Pleural Fluid 01/18/19 11:30 Anaerobic Culture - Final Pleural Fluid 01/19/19 10:05 Gram Stain - Preliminary Pleural Fluid Body Fluid Culture - Preliminary Alpha Hemolytic Streptococcus 01/17/19 17:00 Blood Culture - Preliminary Blood No Growth after 96 hours
[2019-01-22 21:15] LABS: Glucose,Whole Blood 161 mg/dL (75-99)
[2019-01-22 21:20] LABS: HCT 24.5 % (39.0-53.0); MCH 29.5 pg (25.0-35.0); MCHC 32.6 g/dL (31.0-37.0); MCV 90.6 fL (80.0-100.0); Mean Platelet Volume 7.3; Platelet Count 671 k/uL (150-450); Poikilocytosis Slight; RDW 15.6 % (11.5-15.5); WBC 39.8 k/uL (3.8-10.6)
[2019-01-22 22:05] LABS: Partial Thromboplastin Time 25.2 sec (22.0-30.0)
[2019-01-23] MEDS: ACETAMINOPHEN TAB 325 MG TAB PO PRN (05:01)
[2019-01-23 05:09] LABS: HCT 22.4 % (39.0-53.0); HGB 7.5 gm/dL (13.0-17.5); Hypochromasia Slight; MCH 29.9 pg (25.0-35.0); MCHC 33.3 g/dL (31.0-37.0); MCV 89.7 fL (80.0-100.0); Mean Platelet Volume 7.4; Platelet Count 732 k/uL (150-450); Poikilocytosis Slight; RDW 15.9 % (11.5-15.5); WBC 33.3 k/uL (3.8-10.6)
[2019-01-23 05:21] LABS: Potassium 4.1 mmol/L (3.5-5.1)
[2019-01-23 06:03] LABS: Band Neutrophils % 5 %; Metamyelocytes # (M) 0.33 k/uL (0); Metamyelocytes % 1 %; Monocytes # (M) 0.33 k/uL (0-1.0); Myelocytes # (M) 0.33 k/uL (0); Myelocytes % 1 %; Neutrophils % (M) 89 %; Nucleated Red Blood Cells 0 /100 WBC (0-0); Total Cells Counted 200
[2019-01-23 06:04] LABS: Anisocytosis (M) Present; Polychromasia Present
[2019-01-23 06:05] LABS: Large Platelets Present
[2019-01-23 06:31] LABS: Glucose,Whole Blood 182 mg/dL (75-99)
[2019-01-23] MEDS: INSULIN ASPART (NovoLOG) 100 UNIT/ML VIAL SQ SCH ×4 (06:54→22:02)
[2019-01-23] MEDS: traMADol 50 MG TAB PO PRN (06:55)
[2019-01-23] MEDS: INSULIN DETEMIR (LEVEMIR) 100 UNIT/ML SYR SQ SCH (07:35)
[2019-01-23 07:38] LABS: Glucose,Whole Blood 175 mg/dL (75-99)
--- NOTE | 2019-01-23 07:47 | XR ---
EXAMINATION TYPE: XR chest 1V portable DATE OF EXAM: 01/23/2019 COMPARISON: 01/22/2019 HISTORY: Empyema TECHNIQUE: Single frontal view of the chest is obtained. FINDINGS: There is near complete opacification left hemithorax. Chest tube is seen. Right lung is cl ear. Heart size is obscured. Air-fluid level again noted likely representing a component of loculated hydropneumothorax. IMPRESSION: Near complete opacification left hemithorax likely representing a combination of pleural fluid or empyema hydropneumothorax. Mucous plug, hilar mass, or endobronchial lesion not excluded
[2019-01-23] MEDS: ASPIRIN 81 MG PO SCH (08:42)
[2019-01-23] MEDS: LISINOPRIL 20 MG TAB PO SCH (08:42)
[2019-01-23] MEDS: ENOXAPARIN 40 MG/0.4 ML SYRINGE SQ SCH (08:42)
[2019-01-23] MEDS: FLUoxetine HCL 20 MG CAP PO SCH (08:42)
[2019-01-23] MEDS: amLODIPine 10 MG TAB PO SCH (08:42)
[2019-01-23] MEDS: PANTOPRAZOLE 40 MG/10 ML VIAL IVP SCH (08:42)
[2019-01-23] MEDS: CEFEPIME 2 GM in SODIUM CHLORIDE 0.9% 100 ML IVPB SCH ×2 (08:45→22:16)
[2019-01-23] MEDS ORDERED: VANCOMYCIN TROUGH DUE 1 EACH MISC MISCELLANE ONE (09:00)
--- NOTE | 2019-01-23 09:50 | P.PN ---
Subjective Progress Note Date: 01/23/19 Principal diagnosis: Left-sided empyema with hydropneumothorax, parapneumonic effusion, dyspnea secondary to empyema. Previous medical history of uncontrolled type diet 2 diabetes mellitus, hypertension, pneumonia, depression, GERD, GI bleed. POD #4 left-sided pigtail catheter placement by interventional radiology Acute blood loss anemia, unexpected Sepsis with lactic acidosis, unexpected The patient is currently laying in bed in the intensive care unit. Denies shortness of breath, states he has pain all over which is uncontrolled on current medication regimen. Pigtail catheter in place, draining bloody fluid. Anticipating surgery this afternoon. Objective - Vital Signs Vital signs: Vital Signs Temp 97 F L 01/23/19 08:00 Pulse 93 01/23/19 09:00 Resp 21 01/23/19 09:00 BP 109/68 01/23/19 09:00 Pulse Ox 100 01/23/19 09:00 Intake & Output 01/22/19 01/23/19 01/23/19 18:59 06:59 18:59 Intake Total 3905 1175 325 Output Total 2145 770 45 Balance 1760 405 280 Weight 68.3 kg Intake: IV 2975 1175 325 Cefepime 2 gm In Sodium 100 100 Chloride 0.9% 100 ml @ 200 mls/hr IVPB Q12HR [facility] Rx#:[id number] Sodium Chloride 0.9% 1, 975 825 225 000 ml @ 75 mls/hr IV . [id number] [facility] Rx#:[id number] Sodium Chloride 0.9% 2, 2000 000 ml @ 999 mls/hr IV . Q2H1M [facility] Rx#:[id number] Vancomycin 1,000 mg In 250 Sodium Chloride 0.9% 250 ml @ 125 mls/hr IVPB Q12H [facility] Rx#:[id number] Blood Product 930 Rc As-1 Unit 310 [id number] Rc As-1 Unit 310 [id number] Rc Pheresis 2 As3 Unit 310 [id number] Output: Chest Tube Drainage 1900 300 0 Left Pleural/Mediastinal 1900 300 0 Urine 245 470 45 Other: Voiding Method Indwelling Catheter Indwelling Catheter Indwelling Catheter - Constitutional General appearance: Present: cooperative, no acute distress - Respiratory Details: Lungs sounds diminished bilaterally, left greater than right. Respirations even, nonlabored. Currently on 3 L nasal cannula with oxygen saturation 98%. Able to achieve 500 mL on his incentive spirometry. Left pleural pigtail catheter present, connected to atrium, 200 mL bloody fluid drained overnight, 2200 mL drainage in the last 24 hours. - Cardiovascular Details: S1, S2 present. Regular rate and rhythm, sinus rhythm to sinus tach on telemetry. Palpable peripheral pulses bilaterally. No edema present. No calf pain or tenderness noted. SCDs present. - Gastrointestinal Gastrointestinal Comment(s): Abdomen soft, nontender, nondistended. Active bowel sounds present 4 quadrants. Currently nothing by mouth for surgery this afternoon. - Genitourinary Genitourinary Comment(s): Kaur present draining clear, yellow urine. Output 30-85 mL/h overnight. - Integumentary Integumentary Comment(s): Skin is warm and dry with evidence of good perfusion. Pigtail catheter site covered with dry intact dressing. - Neurologic Neurologic: Present: CNII-XII intact - Musculoskeletal Musculoskeletal: Present: generalized weakness, strength equal bilaterally - Psychiatric Psychiatric: Present: A&O x's 3 - Allied health notes Allied health notes reviewed: nursing - Labs CBC & Chem 7: 01/23/19 04:41 01/23/19 04:41 Labs: Abnormal Lab Results - Last 24 Hours (Table) 01/22/19 01/22/19 01/22/19 Range/Units 05:22 07:48 12:10 WBC (3.8-10.6) k/uL RBC (4.30-5.90) m/uL Hgb (13.0-17.5) gm/dL Hct (39.0-53.0) % RDW (11.5-15.5) % Plt Count (150-450) k/uL Neutrophils # (Manual) (1.3-7.7) k/uL Metamyelocytes # (Man) (0) k/uL Myelocytes # (Manual) (0) k/uL Sodium (137-145) mmol/L Chloride (98-107) mmol/L Carbon Dioxide (22-30) mmol/L BUN (9-20) mg/dL Creatinine (0.66-1.25) mg/dL Glucose (74-99) mg/dL POC Glucose (mg/dL) 322 H (75-99) mg/dL Plasma Lactic Acid Remi 3.1 H* (0.7-2.0) mmol/L Calcium (8.4-10.2) mg/dL Crossmatch See Detail 01/22/19 01/22/19 01/22/19 Range/Units 15:48 18:14 21:00 WBC 45.0 H 39.8 H (3.8-10.6) k/uL RBC 2.55 L 2.70 L (4.30-5.90) m/uL Hgb 7.5 L D 8.0 L (13.0-17.5) gm/dL Hct 23.7 L 24.5 L (39.0-53.0) % RDW 15.8 H 15.6 H (11.5-15.5) % Plt Count 680 H 671 H (150-450) k/uL Neutrophils # (Manual) (1.3-7.7) k/uL Metamyelocytes # (Man) (0) k/uL Myelocytes # (Manual) (0) k/uL Sodium (137-145) mmol/L Chloride (98-107) mmol/L Carbon Dioxide (22-30) mmol/L BUN (9-20) mg/dL Creatinine (0.66-1.25) mg/dL Glucose (74-99) mg/dL POC Glucose (mg/dL) 319 H (75-99) mg/dL Plasma Lactic Acid Remi (0.7-2.0) mmol/L Calcium (8.4-10.2) mg/dL Crossmatch 01/22/19 01/23/19 01/23/19 Range/Units 21:14 04:41 04:41 WBC 33.3 H (3.8-10.6) k/uL RBC 2.50 L (4.30-5.90) m/uL Hgb 7.5 L (13.0-17.5) gm/dL Hct 22.4 L (39.0-53.0) % RDW 15.9 H (11.5-15.5) % Plt Count 732 H (150-450) k/uL Neutrophils # (Manual) 31.30 H (1.3-7.7) k/uL Metamyelocytes # (Man) 0.33 H (0) k/uL Myelocytes # (Manual) 0.33 H (0) k/uL Sodium 135 L (137-145) mmol/L Chloride 112 H (98-107) mmol/L Carbon Dioxide 16 L (22-30) mmol/L BUN 39 H (9-20) mg/dL Creatinine 1.29 H (0.66-1.25) mg/dL Glucose 116 H (74-99) mg/dL POC Glucose (mg/dL) 161 H (75-99) mg/dL Plasma Lactic Acid Remi (0.7-2.0) mmol/L Calcium 7.0 L (8.4-10.2) mg/dL Crossmatch 01/23/19 01/23/19 Range/Units 06:30 07:37 WBC (3.8-10.6) k/uL RBC (4.30-5.90) m/uL Hgb (13.0-17.5) gm/dL Hct (39.0-53.0) % RDW (11.5-15.5) % Plt Count (150-450) k/uL Neutrophils # (Manual) (1.3-7.7) k/uL Metamyelocytes # (Man) (0) k/uL Myelocytes # (Manual) (0) k/uL Sodium (137-145) mmol/L Chloride (98-107) mmol/L Carbon Dioxide (22-30) mmol/L BUN (9-20) mg/dL Creatinine (0.66-1.25) mg/dL Glucose (74-99) mg/dL POC Glucose (mg/dL) 182 H 175 H (75-99) mg/dL Plasma Lactic Acid Remi (0.7-2.0) mmol/L Calcium (8.4-10.2) mg/dL Crossmatch Microbiology - Last 24 Hours (Table) 01/17/19 17:00 Blood Culture - Preliminary Blood No Growth after 120 hours 01/19/19 10:05 Anaerobic Culture - Preliminary Pleural Fluid 01/18/19 11:30 Anaerobic Culture - Final Pleural Fluid 01/19/19 10:05 Gram Stain - Preliminary Pleural Fluid Body Fluid Culture - Preliminary Alpha Hemolytic Streptococcus - Imaging and Cardiology Chest x-ray: report reviewed, image reviewed Assessment and Plan Assessment: 1. Empyema involving the left lung with hydropneumothorax, parapneumonic effusion, status post left chest pigtail catheter placement 2. Dyspnea to empyema 3. History of hypertension 4. Diabetes mellitus type 2, uncontrolled with HgbA1c 11% 5. History of depression 6. Acute blood loss anemia 7. Sepsis with lactic acidosis Plan: 1. Patient will go to the OR today for left sided thoracotomy with washout and decortication. 2. Keep patient nothing by mouth 3. Encourage incentive spirometry use 10 times every hour while awake. 4. Increase activity as tolerated. 5. Pain control with current medication regimen 6. Medical management of other comorbid conditions per primary care service. Blood transfusion per primary care service. 7. Antibiotic management per infectious disease, pleural fluid positive for alpha hemolytic strep. 8. More recommendations to follow. Time with Patient: Greater than 30
[2019-01-23] MEDS ORDERED: VANCOMYCIN IV PER PHARMACY 1 EACH MISC MISCELLANE PRN (10:21)
--- NOTE | 2019-01-23 11:51 | P.PN ---
Subjective Progress Note Date: 01/23/19 Principal diagnosis: Acute empyema Patient was reevaluated today on 01/22/2019, he initially presented with left- sided empyema and he was a transfer from [facility]. Patient had a left-sided pigtail catheter placed by interventional radiology and this is his postoperative day #3. Patient was receiving thrombolytic therapy by thoracic surgery, however last night, the patient developed worsening bleeding into the chest tube, and significant fluid collection in the left pleural space with a left sided hydropneumothorax. His hemoglobin dropped down to 5.0 this morning, and the patient is receiving 2 units of packed RBCs at present. He was transferred to the ICU, thoracic surgery evaluated the patient on consultation, and I believe the patient will be scheduled for decortication/VATS of his empyema in the next 24 hours. In the meantime we'll try to transfer the patient, stabilize him from the medical perspective, and hopefully optimize for surgical intervention in the next 24 hours. In the meantime the patient remains on antibiotics, continues to have leukocytosis with WBC count of 42.1. Patient is relatively asymptomatic otherwise. He was diaphoretic, hypotensive early this morning, received fluid boluses earlier today. Patient denies being short of breath. Patient was reevaluated today on 01/23/2019, patient remains in the intensive care unit, received a total of 3 units of packed RBCs for what seemed to be a hemothorax, patient is scheduled to undergo decortication/VATS today. Presently the patient is hemodynamically stable, looks chronically frail and ill, and in no distress at present. He is on few liters nasal cannula. Pigtail catheter remaining in place, draining basically bloody fluid. Patient is postoperative day #4, left-sided pigtail catheter placement by interventional radiology. WBC count today is up to 33.3 hemoglobin is 7.5. Elective lites are normal bicarb is 16, BUN is 39 creatinine is 1.29. Patient is about to receive fluid boluses and he is about to have increase his maintenance IV fluid to 100 mL/h Objective - Vital Signs Vital signs: Vital Signs Temp 97 F L 01/23/19 08:00 Pulse 97 01/23/19 10:00 Resp 22 01/23/19 10:00 BP 132/71 01/23/19 10:00 Pulse Ox 92 L 01/23/19 10:00 Intake & Output 01/22/19 01/23/19 01/23/19 18:59 06:59 18:59 Intake Total 3905 1175 400 Output Total 2145 770 60 Balance 1760 405 340 Weight 68.3 kg Intake: IV 2975 1175 400 Cefepime 2 gm In Sodium 100 100 Chloride 0.9% 100 ml @ 200 mls/hr IVPB Q12HR [facility] Rx#:[id number] Sodium Chloride 0.9% 1, 975 825 300 000 ml @ 75 mls/hr IV . [id number] [facility] Rx#:[id number] Sodium Chloride 0.9% 2, 2000 000 ml @ 999 mls/hr IV . Q2H1M [facility] Rx#:[id number] Vancomycin 1,000 mg In 250 Sodium Chloride 0.9% 250 ml @ 125 mls/hr IVPB Q12H [facility] Rx#:[id number] Blood Product 930 Rc As-1 Unit 310 [id number] Rc As-1 Unit 310 [id number] Rc Pheresis 2 As3 Unit 310 [id number] Output: Chest Tube Drainage 1900 300 0 Left Pleural/Mediastinal 1900 300 0 Urine 245 470 60 Other: Voiding Method Indwelling Catheter Indwelling Catheter Indwelling Catheter - Exam GENERAL EXAM: Alert, pleasant 68-year-old white male, on 4 L nasal cannula. EYES: PERRLA, EOMI, no icterus. Pale conjunctivas NOSE: Clear with pink turbinates. THROAT: No erythema or exudates. NECK: No masses, no JVD, no thyroid enlargement, no adenopathy. CHEST: No chest wall deformity. Symmetrical expansion. left posterior chest pigtail chest tube is present connected to a Pleur-evac, serosanguineous drainage noted in the pleural VAC. LUNGS: Right side is clear, diminished breath sounds and dullness on the left side. Left-sided pigtail catheter noted connected to Pleur-evac, bloody fluid noted. CVS: Regular rate and rhythm, normal S1 and S2, no gallops, no murmurs, no rubs ABDOMEN: Soft, nontender. No hepatosplenomegaly, normal bowel sounds, no guarding or rigidity. EXTREMITIES: No clubbing, no edema, no cyanosis, 2+ pulses and upper and lower extremities. MUSCULOSKELETAL: Muscle strength and tone normal. SPINE: No scoliosis or deformity SKIN: No rashes CENTRAL NERVOUS SYSTEM: Alert and oriented -3. No focal deficits, tone is normal in all 4 extremities. PSYCHIATRIC: Alert and oriented -3. Appropriate affect. Intact judgment and insight. - Labs CBC & Chem 7: 01/23/19 04:41 01/23/19 04:41 Labs: Abnormal Lab Results - Last 24 Hours (Table) 01/22/19 01/22/19 01/22/19 Range/Units 05:22 12:10 15:48 WBC 45.0 H (3.8-10.6) k/uL RBC 2.55 L (4.30-5.90) m/uL Hgb 7.5 L D (13.0-17.5) gm/dL Hct 23.7 L (39.0-53.0) % RDW 15.8 H (11.5-15.5) % Plt Count 680 H (150-450) k/uL Neutrophils # (Manual) (1.3-7.7) k/uL Metamyelocytes # (Man) (0) k/uL Myelocytes # (Manual) (0) k/uL Sodium (137-145) mmol/L Chloride (98-107) mmol/L Carbon Dioxide (22-30) mmol/L BUN (9-20) mg/dL Creatinine (0.66-1.25) mg/dL Glucose (74-99) mg/dL POC Glucose (mg/dL) 322 H (75-99) mg/dL Calcium (8.4-10.2) mg/dL Crossmatch See Detail 01/22/19 01/22/19 01/22/19 Range/Units 18:14 21:00 21:14 WBC 39.8 H (3.8-10.6) k/uL RBC 2.70 L (4.30-5.90) m/uL Hgb 8.0 L (13.0-17.5) gm/dL Hct 24.5 L (39.0-53.0) % RDW 15.6 H (11.5-15.5) % Plt Count 671 H (150-450) k/uL Neutrophils # (Manual) (1.3-7.7) k/uL Metamyelocytes # (Man) (0) k/uL Myelocytes # (Manual) (0) k/uL Sodium (137-145) mmol/L Chloride (98-107) mmol/L Carbon Dioxide (22-30) mmol/L BUN (9-20) mg/dL Creatinine (0.66-1.25) mg/dL Glucose (74-99) mg/dL POC Glucose (mg/dL) 319 H 161 H (75-99) mg/dL Calcium (8.4-10.2) mg/dL Crossmatch 01/23/19 01/23/19 01/23/19 Range/Units 04:41 04:41 06:30 WBC 33.3 H (3.8-10.6) k/uL RBC 2.50 L (4.30-5.90) m/uL Hgb 7.5 L (13.0-17.5) gm/dL Hct 22.4 L (39.0-53.0) % RDW 15.9 H (11.5-15.5) % Plt Count 732 H (150-450) k/uL Neutrophils # (Manual) 31.30 H (1.3-7.7) k/uL Metamyelocytes # (Man) 0.33 H (0) k/uL Myelocytes # (Manual) 0.33 H (0) k/uL Sodium 135 L (137-145) mmol/L Chloride 112 H (98-107) mmol/L Carbon Dioxide 16 L (22-30) mmol/L BUN 39 H (9-20) mg/dL Creatinine 1.29 H (0.66-1.25) mg/dL Glucose 116 H (74-99) mg/dL POC Glucose (mg/dL) 182 H (75-99) mg/dL Calcium 7.0 L (8.4-10.2) mg/dL Crossmatch 01/23/19 Range/Units 07:37 WBC (3.8-10.6) k/uL RBC (4.30-5.90) m/uL Hgb (13.0-17.5) gm/dL Hct (39.0-53.0) % RDW (11.5-15.5) % Plt Count (150-450) k/uL Neutrophils # (Manual) (1.3-7.7) k/uL Metamyelocytes # (Man) (0) k/uL Myelocytes # (Manual) (0) k/uL Sodium (137-145) mmol/L Chloride (98-107) mmol/L Carbon Dioxide (22-30) mmol/L BUN (9-20) mg/dL Creatinine (0.66-1.25) mg/dL Glucose (74-99) mg/dL POC Glucose (mg/dL) 175 H (75-99) mg/dL Calcium (8.4-10.2) mg/dL Crossmatch Microbiology - Last 24 Hours (Table) 01/17/19 17:00 Blood Culture - Preliminary Blood No Growth after 120 hours 01/19/19 10:05 Anaerobic Culture - Preliminary Pleural Fluid 01/18/19 11:30 Anaerobic Culture - Final Pleural Fluid 01/19/19 10:05 Gram Stain - Preliminary Pleural Fluid Body Fluid Culture - Preliminary Alpha Hemolytic Streptococcus Assessment and Plan Assessment: Impression: 1 left-sided empyema, secondary to alpha hemolytic streptococcus. Remains on antibiotics as per infectious disease on the case. 2 left sided hydropneumothorax 3 left sided hemothorax 4 acute sepsis secondary to empyema is strongly suspected 5 acute blood loss secondary to hemothorax requiring 3 units of packed RBCs so far. 6 multiple comorbidities including hypertension, diabetes, electrolytes imbalance with hypokalemia, and worsening anemia secondary to hemothorax and blood loss in the left pleural space. Recommendation: Continue present course of antibiotics, bronchodilators, oxygen, anticipating a VATS and decortication this afternoon. Patient remains nothing by mouth for now, his pleural effusion fluid is positive for alpha hemolytic strep. Time with Patient: Less than 30
[2019-01-23 12:08] LABS: Glucose,Whole Blood 133 mg/dL (75-99)
[2019-01-23] MEDS: SODIUM CHLORIDE 0.9% 1,000 ML IV SCH ×2 (12:26→21:47)
[2019-01-23] MEDS ORDERED: BUPIVACAINE (PF) 0.5% 30 ML VIAL SQ ONE (12:41)
[2019-01-23] MEDS ORDERED: MIDAZOLAM 2 MG/2 ML VIAL ONE (14:06)
[2019-01-23] MEDS ORDERED: PROPOFOL 10 MG/ML 20 ML VIAL IV ONE (14:06)
[2019-01-23] MEDS ORDERED: fentaNYL (PF) 50 MCG/ML 2 ML AMP ONE (14:06)
[2019-01-23] MEDS ORDERED: PHENYLEPHRINE-0.9% NACL SYG 1 MG/10 ML SYRINGE ONE (14:06)
[2019-01-23] MEDS ORDERED: HYDROmorphone (PF) 1 MG/ML ONE (14:06)
[2019-01-23] MEDS ORDERED: ALBUMIN HUMAN 5% (12.5gm) 250 ML BOTTLE IVPB ONE (14:06)
[2019-01-23] MEDS ORDERED: ROCURONIUM BROMIDE 10 MG/ML 10 ML VIAL IV ONE (14:06)
[2019-01-23] MEDS ORDERED: SUCCINYLCHOLINE CHLORIDE 100 MG/5 ML SYR IV ONE (14:06)
[2019-01-23] MEDS ORDERED: SODIUM CHLORIDE 0.9% 1,000 ML IV ONE ×3 (14:19→15:11)
--- NOTE | 2019-01-23 14:21 | PN ---
PROGRESS NOTE DATE OF SERVICE: 01/23/2019 REASON FOR FOLLOWUP: Left-sided pneumonia and empyema. INTERVAL HISTORY: The patient is currently afebrile. The patient is breathing comfortably. Denies having any worsening chest pain. No nausea or vomiting. No abdominal pain or any diarrhea. Patient is scheduled for a VATS procedure this afternoon and is on his way to the OR. PHYSICAL EXAMINATION: On examination, blood pressure 124/69 with the pulse of 98, temperature 97. He is 92% on 3 L nasal cannula. General description is an elderly male lying in bed in no distress. RESPIRATORY SYSTEM: Unlabored breathing with decreased breath sounds at the bases. HEART: S1, S2. Regular rate and rhythm. ABDOMEN: Soft, no tenderness. EXTREMITIES: No edema of the feet. LABS: Hemoglobin 7.5, white count 33.3 with a BUN of 39, creatinine is 1.1. Vancomycin trough has been on the high side of 28.2. The cultures have been primarily alpha hemolytic streptococcus. DIAGNOSTIC IMPRESSION AND PLAN: Patient with left-sided pneumonia with minimal effusion and empyema, status post chest tube placement, now scheduled to go for a thoracotomy procedure and deep cultures as no methicillin-resistant Staphylococcus aureus has been grown and Vanco trough has been high side. We will discontinue the vancomycin to decrease the risk of nephrotoxicity and continue to monitor his cultures especially done in the operating room closely. Adjusting antibiotic further if needed. MMODL / IJN: [id number] /
[2019-01-23] MEDS ORDERED: SODIUM CHLORIDE 0.9% 50 ML with ceFAZolin 1,000 MG IV ONE ×2 (15:01)
--- NOTE | 2019-01-23 15:44 | P.PN ---
Subjective Progress Note Date: 01/23/19 Principal diagnosis: This is a 68 year old man that was admitted for left-sided pneumonia, pleural effusion and empyema that had recently undergone a chest tube placement of the left side. A total of 500ml has drained from last night. Will continue to monitor closely. Cultures of the pleural fluid grew positive for alpha hemolytic streptococci. Infectious disease is following along with the care of the patient and managing antibiotics at this time. Patient has been up and walking often around the unit. Patient appears in no acute distress at this time. Patient denies any chest pain or fevers at this time and also made mention that his shortness of breath has improved since the placement of the chest tube. Early this am patient was moved to the ICU to be closely monitored as he was draining a large amount of blood from the left side chest tube and had a critical value hemoglobin level of 5. Patient states that he felt better yesterday but later in the evening felt fatigued and not up to walking. Vitals were stable but started becoming hypotensive in the low 90's systolic. Patient was then transferred to the ICU and will likely be going for surgery on 01/23/19. Patient's blood sugars continue to be elevated and will continue to cover per protocol. Patient is scheduled to be NPO after midnight, but he states that he hasn't been that hungry today. Patient is lying in the bed with a bear hugger on to maintain his temperature. Patient is still currently on broad spectrum antibiotics per infectious disease and being followed closely. Patient was awaiting for 2 units of PRBC to be transfused as there were antibodies present per the lab. Patient denies any shortness of breath, chest pain, or palpitations, just states that he feels tired. A chest xray was done showing a moderate to large pleural effusion with left hydropneumothorax with a small right side pleural effusion. CT scan of the chest showed loculated empyema with a couple of air-fluid levels present, small pneumothorax is not excluded, chest catheter is within area of increased density consistent with the empyema, and a couple of enlarged lymph nodes within the mediastinum. 01/23/19 Today this 68-year-old male is lying in bed in the ICU awaiting a thoracotomy procedure early this afternoon. Patient states he's unsure when but was told it is scheduled for today. Patient is denying any increasing shortness of breath, chest pains, palpitations, or fevers at this time. Patient is still having a large amount of output in the chest tube noted in the atrium. Per the RN the drainage has decreased since this morning. Patient denies any dizziness or lightheadedness at this time. Patient is very lethargic but easily arousable. Patient was currently made nothing by mouth after midnight for this procedure. Per infectious disease the vancomycin is being discontinued at this time and they will continue to follow while awaiting cultures from the thoracotomy today. Objective - Vital Signs Vital signs: Vital Signs Temp 97.0 F L 01/23/19 12:00 Pulse 98 01/23/19 14:01 Resp 21 01/23/19 14:01 BP 113/66 01/23/19 14:01 Pulse Ox 100 01/23/19 14:01 Intake & Output 01/22/19 01/23/19 01/23/19 18:59 06:59 18:59 Intake Total 3905 1175 3400 Output Total 2145 770 135 Balance 1939 763 9382 Weight 68.3 kg Intake: IV 2975 1175 3400 Cefepime 2 gm In Sodium 100 100 Chloride 0.9% 100 ml @ 200 mls/hr IVPB Q12HR [facility] Rx#:[id number] Sodium Chloride 0.9% 1, 975 825 700 000 ml @ 75 mls/hr IV . [id number] [facility] Rx#:[id number] Sodium Chloride 0.9% 2, 2000 000 ml @ 999 mls/hr IV . Q2H1M [facility] Rx#:[id number] Vancomycin 1,000 mg In 250 Sodium Chloride 0.9% 250 ml @ 125 mls/hr IVPB Q12H [facility] Rx#:[id number] Blood Product 930 Rc As-1 Unit 310 [id number] Rc As-1 Unit 310 [id number] Rc Pheresis 2 As3 Unit 310 [id number] Output: Chest Tube Drainage 1900 300 0 Left Pleural/Mediastinal 1900 300 0 Urine 245 470 135 Other: Voiding Method Indwelling Catheter Indwelling Catheter Indwelling Catheter - Exam Gen: This is a 68-year-old male that is resting in bed but easily arousable. Vital signs are stable. HEENT: Head is atraumatic, normocephalic. Pupils equal, round. Sclerae is anicteric. NECK: Supple. No JVD. No lymphadenopathy. No thyromegaly. LUNGS: Diminished bilaterally left more than right. No wheezes or rhonchi. No intercostal retractions. HEART: S1 and S2 heard, Regular rate and rhythm. No murmur. ABDOMEN: Soft. Bowel sounds are present. No masses. No tenderness. EXTREMITIES: No pedal edema. No calf tenderness. NEUROLOGICAL: Patient is awake, alert and oriented x3. Cranial nerves 2 through 12 are grossly intact. Skin: Dry, pale with no rashes or lesions noted. Chest tube wound dressing is dry and intact. Labs: As noted below Assessment: Acute anemia blood loss most likely from fluid collection in the left lung. Continued output of the chest tube. We'll continue to monitor closely. Acute hypoxic respiratory failure: Left-sided pneumonia and pleural effusion with hydropneumothorax Empyema status post initial drainage of 650 mL's of fluid with insertion of the chest tube. Patient has alphahemolytic streptococci grown on the pleural effusion fluid culture currently on broad coverage antibiotics. Per infectious disease vancomycin levels were elevated and patient will be discontinued on this at this time for risk of hepatotoxicity. Awaiting cultures from thoracotomy this afternoon. Hypovolemic hyponatremia that we will continue to monitor and treat with gentle IV hydration Hypertension Hypokalemia secondary to natriuresis and hypomagnesemia that is being replaced as needed Sepsis secondary to pneumonia with parapneumonic effusion Acute hypotension due to hypovolemic state. Current vitals have been stabilized. We'll continue to monitor Type 2 diabetes mellitus, uncontrolled hyperglycemia. We'll continue to monitor blood glucose and adjust accordingly. Recommendations and discussion: Recommend continue current medications and symptomatic treatment. Will monitor labs and vital signs closely. We'll continue to monitor blood sugars and treat accordingly as they have been elevated. Patient is currently nothing by mouth at this time. Await report from thoracotomy that is being performed this afternoon along with the deep cultures that will be obtained. Prognosis is poor and extremely guarded at this time. Further recommendations to follow - Constitutional General appearance: Present: mild distress - Labs CBC & Chem 7: 01/23/19 04:41 01/23/19 04:41 Labs: Abnormal Lab Results - Last 24 Hours (Table) 01/22/19 01/22/19 01/22/19 Range/Units 05:22 15:48 18:14 WBC 45.0 H (3.8-10.6) k/uL RBC 2.55 L (4.30-5.90) m/uL Hgb 7.5 L D (13.0-17.5) gm/dL Hct 23.7 L (39.0-53.0) % RDW 15.8 H (11.5-15.5) % Plt Count 680 H (150-450) k/uL Neutrophils # (Manual) (1.3-7.7) k/uL Metamyelocytes # (Man) (0) k/uL Myelocytes # (Manual) (0) k/uL Sodium (137-145) mmol/L Chloride (98-107) mmol/L Carbon Dioxide (22-30) mmol/L BUN (9-20) mg/dL Creatinine (0.66-1.25) mg/dL Glucose (74-99) mg/dL POC Glucose (mg/dL) 319 H (75-99) mg/dL Calcium (8.4-10.2) mg/dL Crossmatch See Detail 01/22/19 01/22/19 01/23/19 Range/Units 21:00 21:14 04:41 WBC 39.8 H 33.3 H (3.8-10.6) k/uL RBC 2.70 L 2.50 L (4.30-5.90) m/uL Hgb 8.0 L 7.5 L (13.0-17.5) gm/dL Hct 24.5 L 22.4 L (39.0-53.0) % RDW 15.6 H 15.9 H (11.5-15.5) % Plt Count 671 H 732 H (150-450) k/uL Neutrophils # (Manual) 31.30 H (1.3-7.7) k/uL Metamyelocytes # (Man) 0.33 H (0) k/uL Myelocytes # (Manual) 0.33 H (0) k/uL Sodium (137-145) mmol/L Chloride (98-107) mmol/L Carbon Dioxide (22-30) mmol/L BUN (9-20) mg/dL Creatinine (0.66-1.25) mg/dL Glucose (74-99) mg/dL POC Glucose (mg/dL) 161 H (75-99) mg/dL Calcium (8.4-10.2) mg/dL Crossmatch 01/23/19 01/23/19 01/23/19 Range/Units 04:41 06:30 07:37 WBC (3.8-10.6) k/uL RBC (4.30-5.90) m/uL Hgb (13.0-17.5) gm/dL Hct (39.0-53.0) % RDW (11.5-15.5) % Plt Count (150-450) k/uL Neutrophils # (Manual) (1.3-7.7) k/uL Metamyelocytes # (Man) (0) k/uL Myelocytes # (Manual) (0) k/uL Sodium 135 L (137-145) mmol/L Chloride 112 H (98-107) mmol/L Carbon Dioxide 16 L (22-30) mmol/L BUN 39 H (9-20) mg/dL Creatinine 1.29 H (0.66-1.25) mg/dL Glucose 116 H (74-99) mg/dL POC Glucose (mg/dL) 182 H 175 H (75-99) mg/dL Calcium 7.0 L (8.4-10.2) mg/dL Crossmatch 01/23/19 Range/Units 12:05 WBC (3.8-10.6) k/uL RBC (4.30-5.90) m/uL Hgb (13.0-17.5) gm/dL Hct (39.0-53.0) % RDW (11.5-15.5) % Plt Count (150-450) k/uL Neutrophils # (Manual) (1.3-7.7) k/uL Metamyelocytes # (Man) (0) k/uL Myelocytes # (Manual) (0) k/uL Sodium (137-145) mmol/L Chloride (98-107) mmol/L Carbon Dioxide (22-30) mmol/L BUN (9-20) mg/dL Creatinine (0.66-1.25) mg/dL Glucose (74-99) mg/dL POC Glucose (mg/dL) 133 H (75-99) mg/dL Calcium (8.4-10.2) mg/dL Crossmatch Last 24 Hours (Table) 01/19/19 10:05 Anaerobic Culture - Final Pleural Fluid 01/17/19 17:00 Blood Culture - Preliminary Blood No Growth after 120 hours 01/18/19 11:30 Anaerobic Culture - Final Pleural Fluid
[2019-01-23] MEDS ORDERED: LACTATED RINGERS 1,000 ML IV ONE ×2 (17:31→19:00)
[2019-01-23] MEDS ORDERED: NALOXONE 0.4 MG/ML 1 ML VIAL IV PRN (17:45)
[2019-01-23] MEDS ORDERED: diphenhydrAMINE 50 MG/ML 1 ML VIAL IVP PRN (17:45)
[2019-01-23] MEDS ORDERED: PHENYLEPHRINE 40 MG in SODIUM CHLORIDE 0.9% 250 ML IV SCH (18:15)
[2019-01-23] MEDS: PHENYLEPHRINE 40 MG in SODIUM CHLORIDE 0.9% 250 ML IV SCH ×2 (18:20→18:40)
[2019-01-23] MEDS ORDERED: MIDAZOLAM (PF) 2 MG/2 ML VIAL IVP ONE (18:32)
[2019-01-23] MEDS ORDERED: SUCCINYLCHOLINE CHLORIDE VIAL 200 MG/10 ML VIAL IV ONE ×2 (18:34)
--- NOTE | 2019-01-23 18:50 | P.PN ---
Progress Note - Text Progress Note Date: 01/23/19 This is 68 years old male, with history of empyema, left hydropneumothorax, status post left thoracotomy , patient was extubated in the operating room, turned in the recovery room area patient was hemodynamically unstable, systolic blood pressure was 85-90, and diastolic blood pressure was 40-50 mmhg, requiring Art-Synephrine continue infusion, the saturation was maintained between 93-98 on facemask 50% , patient was gasping for air, and had shallow breathing, for this reason patient was reintubated in the recovery room, Versed 2 mg given intravenously, followed with succinylcholine 100 g, intubated using MAC#3 blade, a size 8 endotracheal tube, every 6 hours with at 23 cm, bilateral breath sounds, saturation improved to 100% immediately after intubation, patient was placed on a ventilator, patient was maintained on phyenylephrine continuous infusion, titrated to maintain systolic blood pressure above 90.
--- NOTE | 2019-01-23 19:24 | XR ---
EXAMINATION TYPE: XR chest 1V portable DATE OF EXAM: 01/23/2019 COMPARISON: 01/23/2019 HISTORY: Short of breath. Respiratory failure. TECHNIQUE: Single frontal view of the chest is obtained. FINDINGS: Endotracheal tube is 2.5 cm from the huyen. There is a left chest tube with the tip at th e left lung apex. No pneumothorax. There is a chest tube over the left lower lung field. There is aubrey ogastric tube. There is pulmonary vascular congestion. IMPRESSION: Congestive heart failure. There is significant improved aeration of the left hemithorax compared to exam earlier today. Endotracheal tube in fairly good position. No pneumothorax.
[2019-01-23 19:32] LABS: ABG Base Excess -13.3 mmol/L; ABG HCO3 15 mmol/L (21-25); ABG Oxygen Saturation 99.8 % (94-97); ABG PCO2 40 mmHg (35-45); ABG PO2 228 mmHg (83-108); ABG TCO2 16 mmol/L (19-24); Allen Test Performed? Yes
[2019-01-23 19:33] LABS: ABG PH 7.18 (7.35-7.45)
[2019-01-23] MEDS ORDERED: SODIUM BICARB 8.4% 50 ML SYR (1 MEQ/ML) IV ONE ×2 (19:44→19:46)
[2019-01-23 19:48] LABS: HCT 22.7 % (39.0-53.0); HGB 7.2 gm/dL (13.0-17.5); MCH 28.9 pg (25.0-35.0); MCHC 31.6 g/dL (31.0-37.0); MCV 91.5 fL (80.0-100.0); Mean Platelet Volume 7.5; Platelet Count 696 k/uL (150-450); RBC 2.48 m/uL (4.30-5.90); RDW 15.4 % (11.5-15.5); WBC 37.9 k/uL (3.8-10.6)
[2019-01-23 20:06] LABS: Band Neutrophils % 9 %; Lymphocytes # (M) 1.52 k/uL (1.0-4.8); Metamyelocytes # (M) 0.76 k/uL (0); Metamyelocytes % 2 %; Monocytes # (M) 2.65 k/uL (0-1.0); Neutrophils % (M) 79 %; Nucleated Red Blood Cells 0 /100 WBC (0-0); Total Cells Counted 200
[2019-01-23] MEDS ORDERED: DEXTROSE 50% SYRINGE 50 ML IVP ONE (20:11)
[2019-01-23 20:24] LABS: Glucose,Whole Blood 56 mg/dL (75-99)
[2019-01-23 20:24] LABS: Glucose,Whole Blood 261 mg/dL (75-99)
[2019-01-23 20:49] LABS: Glucose,Whole Blood 76 mg/dL (75-99)
[2019-01-23 21:16] LABS: ABG Base Excess -9.5 mmol/L; ABG HCO3 17 mmol/L (21-25); ABG Oxygen Saturation 97.7 % (94-97); ABG PCO2 37 mmHg (35-45); ABG PH 7.28 (7.35-7.45); ABG PO2 92 mmHg (83-108); ABG TCO2 18 mmol/L (19-24); Allen Test Performed? Yes
[2019-01-23] MEDS ORDERED: SODIUM CHLORIDE 0.9% 1,000 ML IV SCH (21:45)
[2019-01-23] MEDS ORDERED: SODIUM CHLORIDE 0.9% 500 ML 500 ML IV ONE (21:45)
[2019-01-23] MEDS ORDERED: NOREPINEPHRINE 4 MG in SODIUM CHLORIDE 0.9% 250 ML IV SCH (21:45)
[2019-01-23 21:55] LABS: Glucose,Whole Blood 70 mg/dL (75-99)
[2019-01-23] MEDS: VANCOMYCIN 1,000 MG in SODIUM CHLORIDE 0.9% 250 ML IVPB SCH (22:15)
[2019-01-23] MEDS: DEXTROSE 5% IN WATER 1,000 ML with SODIUM BICARB (1 MEQ/ML) 150 ML IV SCH (22:16)
[2019-01-23] MEDS: PROPOFOL 1,000 MG in EMPTY BAG 1 BAG IV SCH (22:24)
--- NOTE | 2019-01-23 22:24 | OP ---
OPERATIVE REPORT DATE OF SURGERY: 01/23/2019 PREOPERATIVE DIAGNOSIS: Loculated left pleural effusion. POSTOPERATIVE DIAGNOSIS: Loculated left pleural effusion. PROCEDURE: Left thoracotomy with decortication. SURGEON: Naresh Herrera M.D. ANESTHESIA: General. SPECIMENS: 1. Pleural fluid. 2. Pleural peel. COMPLICATIONS: None. INDICATION: The patient is a 68-year-old male with a history of diabetes, hypertension and pneumonia who reports shortness of breath with left-sided chest discomfort for the past 2 weeks. Initial workup was consistent with pneumonia and he was started on antibiotics. Follow-up CT scan revealed a loculated pleural effusion suspicious for empyema. Thoracentesis was performed with drainage of purulent fluid consistent with empyema. The patient was started on antibiotics and a pigtail catheter was placed by Interventional Radiology. The patient was subsequently started on daily alteplase. Yesterday he was noted to have significant bloody discharge and he was noted to be anemic. He was transferred to the intensive care unit for resuscitation. Follow-up CT scan of the chest revealed loculated fluid collection concerning for empyema with compression of his lung. Thoracotomy with decortication was recommended. The risks, benefits and alternatives to this procedure were discussed with the patient and his family members. All of their questions were answered. Consent was obtained. FINDINGS: There was nearly 2 L of old blood noted within the chest. There were significant adhesions between the lung and the chest wall. There was significant peel surrounding both the left upper lobe and the left lower lobe. No purulent fluid was identified. PROCEDURE IN DETAIL: The patient was taken to the operating room and placed supine on the operating table. A double-lumen endotracheal tube was placed by the anesthesia service. Its position was confirmed using a bronchoscope. The patient was then placed in the right lateral decubitus position with the left side up. Care was taken to pad all pressure points. A standard left posterolateral thoracotomy was performed. The latissimus muscle was divided. The serratus anterior muscle was spared. With the left lung down, the left chest was entered carefully. Bloody fluid was immediately encountered. A sample of this fluid was sent to Cytology and another sample sent to Microbiology. A copious amount of old blood and clots was then evacuated from the left chest. The left upper lobe and left lower lobe were carefully from the chest wall using blunt technique. The left lower lobe was from the underlying diaphragm as well. No purulent fluid or pockets of undrained fluid were identified. Parietal pleura was thickened, and sent for both cytology and pathology. Using meticulous technique, visceral pleural peel was then carefully removed from both the left upper lobe and left lower lobe. Peel was also removed from the diaphragmatic surface of the left lower lobe. At the completion of this procedure, both lobes of the lung were relatively soft. No masses were noted in the lung parenchyma. No studding was noted on the chest wall. The left lung was then carefully inflated and appeared to expand. The left chest was copiously irrigated with warm saline solution. Hemostasis was assured. A straight 32- Swazi chest tube was placed and directed posteriorly up toward the apex. The second tube was a right-angle tube and was directed over the diaphragm. These 2 chest tubes were secured to the skin using sutures. The ribs were then reapproximated using #1 Vicryl in interrupted fashion. The serratus anterior muscle was tacked down to the underlying fascia. Latissimus muscle was reapproximated to itself. The remainder of the wound was closed in layers. A sterile dressing was applied. The patient appeared to tolerate the procedure well. There were no immediate complications. He returned to the ICU in critical but stable condition. MMODL / IJN: [id number] / COLEEN
[2019-01-23 22:33] LABS: ALT 57 U/L (21-72); AST 33 U/L (17-59); African American GFR (CKD) 62 (>60 ml/min/1.73 sqM); Albumin 1.6 g/dL (3.5-5.0); Alkaline Phosphatase 63 U/L (38-126); Anion Gap 7 mmol/L; Blood Urea Nitrogen 43 mg/dL (9-20); Carbon Dioxide 17 mmol/L (22-30); Chloride 115 mmol/L (98-107); Glucose 58 mg/dL (74-99); Potassium 4.4 mmol/L (3.5-5.1); Sodium 139 mmol/L (137-145); Total Bilirubin <0.1 mg/dL (0.2-1.3); Total Protein 3.4 g/dL (6.3-8.2)
[2019-01-23 22:43] LABS: Calcium 6.2 mg/dL (8.4-10.2)
[2019-01-23 23:13] LABS: Basophils % (A) 0 %; Eosinophils % (A) 0 %; HCT 20.7 % (39.0-53.0); Lymphocytes # (A) 0.9 k/uL (1.0-4.8); Lymphocytes % (A) 2 %; MCH 28.4 pg (25.0-35.0); MCHC 31.6 g/dL (31.0-37.0); Mean Platelet Volume 7.3; Monocytes # (A) 1.1 k/uL (0-1.0); Monocytes % (A) 3 %; Neutrophils % (A) 95 %; Platelet Count 625 k/uL (150-450); RDW 15.5 % (11.5-15.5); WBC 39.2 k/uL (3.8-10.6)
[2019-01-23 23:20] LABS: HGB 6.5 gm/dL (13.0-17.5)
[2019-01-23 23:39] LABS: Glucose,Whole Blood 61 mg/dL (75-99)
[2019-01-23] MEDS ORDERED: DEXTROSE 10 % IN WATER 250 ML IV ONE (23:49)
[2019-01-24] MEDS ORDERED: IPRATROPIUM-ALBUTEROL 3 ML NEB INHALATION SCH
[2019-01-24 00:06] LABS: Glucose,Whole Blood 125 mg/dL (75-99)
[2019-01-24] MEDS ORDERED: IPRATROPIUM-ALBUTEROL 3 ML NEB IH PRN (01:40)
[2019-01-24] MEDS ORDERED: ONDANSETRON 4 MG/2 ML VIAL IVP PRN (01:40)
[2019-01-24] MEDS ORDERED: PHENYLEPHRINE 40 MG in SODIUM CHLORIDE 0.9% 250 ML IV SCH (02:00)
[2019-01-24] MEDS: IPRATROPIUM-ALBUTEROL 3 ML NEB IH SCH ×5 (03:03→18:57)
[2019-01-24] MEDS: NOREPINEPHRINE 4 MG in SODIUM CHLORIDE 0.9% 250 ML IV SCH ×2 (03:14→20:16)
[2019-01-24] MEDS: PROPOFOL 1,000 MG in EMPTY BAG 1 BAG IV SCH ×2 (04:17→21:53)
[2019-01-24 05:32] LABS: Basophils % (A) 0 %; Eosinophils % (A) 0 %; HCT 21.2 % (39.0-53.0); Lymphocytes # (A) 0.7 k/uL (1.0-4.8); Lymphocytes % (A) 3 %; MCH 28.7 pg (25.0-35.0); MCHC 32.4 g/dL (31.0-37.0); MCV 88.6 fL (80.0-100.0); Mean Platelet Volume 7.2; Monocytes % (A) 4 %; Neutrophils # (A) 25.6 k/uL (1.3-7.7); Neutrophils % (A) 93 %; Platelet Count 468 k/uL (150-450); RBC 2.39 m/uL (4.30-5.90); RDW 15.3 % (11.5-15.5); WBC 27.4 k/uL (3.8-10.6)
[2019-01-24 05:41] LABS: HGB 6.9 gm/dL (13.0-17.5)
[2019-01-24 05:44] LABS: ALT 50 U/L (21-72); AST 27 U/L (17-59); African American GFR (CKD) 57 (>60 ml/min/1.73 sqM); Albumin 1.4 g/dL (3.5-5.0); Alkaline Phosphatase 53 U/L (38-126); Anion Gap 6 mmol/L; Blood Urea Nitrogen 44 mg/dL (9-20); Carbon Dioxide 17 mmol/L (22-30); Chloride 115 mmol/L (98-107); Magnesium 1.7 mg/dL (1.6-2.3); Potassium 3.9 mmol/L (3.5-5.1); Sodium 138 mmol/L (137-145); Total Bilirubin <0.1 mg/dL (0.2-1.3); Total Protein 3.2 g/dL (6.3-8.2)
[2019-01-24 05:48] LABS: Glucose,Whole Blood 50 mg/dL (75-99)
[2019-01-24 05:50] LABS: Vancomycin,Random 23.3 ug/mL
[2019-01-24] MEDS ORDERED: DEXTROSE 10 % IN WATER 250 ML IV ONE (05:52)
[2019-01-24] MEDS: INSULIN ASPART (NovoLOG) 100 UNIT/ML VIAL SQ SCH ×5 (05:53→23:48)
[2019-01-24 06:13] LABS: Glucose,Whole Blood 100 mg/dL (75-99)
[2019-01-24 06:48] LABS: Glucose 37 mg/dL (74-99)
[2019-01-24 06:49] LABS: Calcium 6.1 mg/dL (8.4-10.2)
[2019-01-24 07:06] LABS: Glucose,Whole Blood 76 mg/dL (75-99)
[2019-01-24 07:07] LABS: ABG Base Excess -6.7 mmol/L; ABG HCO3 18 mmol/L (21-25); ABG PCO2 30 mmHg (35-45); ABG PH 7.39 (7.35-7.45); ABG PO2 128 mmHg (83-108); ABG TCO2 19 mmol/L (19-24); Allen Test Performed? Yes
--- NOTE | 2019-01-24 07:10 | XR ---
EXAMINATION TYPE: XR chest 1V portable DATE OF EXAM: 01/24/2019 CLINICAL HISTORY: Difficulty breathing progress study. TECHNIQUE: Single AP portable semiupright view of the chest is obtained. COMPARISON: Chest x-ray from one day earlier and older studies. FINDINGS: An endotracheal tube, orogastric tube, and 2 left-sided chest tubes are all stable in appe arance. There is cardiomegaly with central vascular congestion and bibasilar opacities silhouetting b oth hemidiaphragms redemonstrated. No sizable pneumothorax bilaterally. Osseous structures are intact . IMPRESSION: Overall stable findings, cardiomegaly with central vascular congestion and small bilate ral pleural effusions with associated bibasilar atelectasis and/or infiltrate are all redemonstrated.
[2019-01-24 08:07] LABS: Glucose,Whole Blood 67 mg/dL (75-99)
--- NOTE | 2019-01-24 08:25 | P.PN ---
Subjective Progress Note Date: 01/24/19 Principal diagnosis: Left-sided empyema with loculated left pleural effusion effusion, dyspnea secondary to empyema. Previous medical history of uncontrolled type diet 2 diabetes mellitus, hypertension, pneumonia, depression, GERD, GI bleed. POD #5 left-sided pigtail catheter placement by interventional radiology Acute blood loss anemia, unexpected Sepsis with lactic acidosis, unexpected POD #1 left thoracotomy with decortication Non-anion gap metabolic acidosis The patient is currently laying in bed in the intensive care unit with mechanical ventilation. Apparently he was extubated in the OR yesterday, however he required reintubation in the recovery room due to hemodynamic instability and airway compromise. He does have a left pleural chest tube in place to suction with small air leak. Currently on IV bicarb, levo. Sedated with propofol. Objective - Vital Signs Vital signs: Vital Signs Temp 98.0 F 01/24/19 04:00 Pulse 70 01/24/19 07:54 Resp 17 01/24/19 07:00 BP 125/59 01/24/19 04:00 Pulse Ox 99 01/24/19 07:00 Intake & Output 01/23/19 01/24/19 01/24/19 18:59 06:59 18:59 Intake Total 4470 3264.058 156.158 Output Total 365 520 95 Balance 4105 2744.058 61.158 Weight 68.1 kg Intake: IV 3850 2600 150 Cefepime 2 gm In Sodium 100 100 Chloride 0.9% 100 ml @ 200 mls/hr IVPB Q12HR NEGRO Rx#:[id number] Dextrose 10 % in Water 250 250 ml @ 999 mls/hr IV ONCE ONE Rx#:[id number] Dextrose 5% in Water 1, 675 75 000 ml @ 75 mls/hr IV . [id number] NEGRO with Sodium Bicarb (1 Meq/ml) 150 ml Rx#:[id number] Sodium Chloride 0.9% 1, 700 675 75 000 ml @ 75 mls/hr IV . [id number] NEGRO Rx#:[id number] Sodium Chloride 0.9% 500 500 ml 500 ml @ 999 mls/hr IV .Q31M ONE Rx#:[id number] Intake, IV Titration 44.058 6.158 Amount Norepinephrine 4 mg In 7.893 6.158 Sodium Chloride 0.9% 250 ml @ 0.05 MCG/KG/MIN 13. 011 mls/hr IV .[id number] NEGRO Rx#:[id number] Propofol 1,000 mg In 36.165 Empty Bag 1 bag @ Titrate IV .Q0M NEGRO Rx#: [id number] Blood Product 620 620 Rc As-3 Unit 310 [id number] Rc Pheresis 2 As3 Unit 310 [id number] Rc Pheresis 2 As3 Unit 310 [id number] Output: Chest Tube Drainage 0 160 Left Pleural/Mediastinal 0 Pleural Catheter Left 160 Gastric Drainage 75 Urine 215 360 20 Estimated Blood Loss 150 Other: Voiding Method Indwelling Catheter Indwelling Catheter ABP, PAP, CO, CI - Last Documented Arterial Blood Pressure 113/88 - Constitutional General appearance: Present: no acute distress - Respiratory Details: Lungs sounds diminished bilaterally, left greater than right. Respirations even, nonlabored on mechanical ventilation. Current ventilator settings FiO2 40%, tidal volume 500, respiratory rate 16, PEEP 5. Arterial blood gases this morning on those vent settings 7.39/30/128/18/99%/-6.7. 8.0 ET tube present, 24 at the lip. Left anterior and posterior pleural chest tubes present and Y'd together to continuous wall suction, 160 mL serosanguineous drainage overnight, 400 mL since surgery, positive small air leak present. - Cardiovascular Details: S1, S2 present. Regular rate and rhythm, sinus rhythm on telemetry. Palpable peripheral pulses bilaterally. No edema present. No calf pain or tenderness noted. Right radial arterial line present. SCDs present. - Gastrointestinal Gastrointestinal Comment(s): Abdomen soft, nontender, nondistended. Active bowel sounds present 4 quadrants. OG tube present to low intermittent suction. - Genitourinary Genitourinary Comment(s): Kaur present draining clear, yellow urine. Output 25-30 mL/h overnight. - Integumentary Integumentary Comment(s): Skin is warm and dry with evidence of good perfusion. - Neurologic Neurologic Comment(s): Sedated with propofol on mechanical ventilation - Musculoskeletal Musculoskeletal: Present: strength equal bilaterally - Allied health notes Allied health notes reviewed: nursing - Labs CBC & Chem 7: 01/24/19 05:00 01/24/19 05:00 Labs: Abnormal Lab Results - Last 24 Hours (Table) 01/22/19 01/23/19 01/23/19 Range/Units 05:22 12:05 19:25 WBC 37.9 H (3.8-10.6) k/uL RBC 2.48 L (4.30-5.90) m/uL Hgb 7.2 L (13.0-17.5) gm/dL Hct 22.7 L (39.0-53.0) % Plt Count 696 H (150-450) k/uL Neutrophils # (1.3-7.7) k/uL Neutrophils # (Manual) 33.30 H (1.3-7.7) k/uL Lymphocytes # (1.0-4.8) k/uL Monocytes # (0-1.0) k/uL Monocytes # (Manual) 2.65 H (0-1.0) k/uL Metamyelocytes # (Man) 0.76 H (0) k/uL ABG pH (7.35-7.45) ABG pCO2 (35-45) mmHg ABG pO2 (83-108) mmHg ABG HCO3 (21-25) mmol/L ABG Total CO2 (19-24) mmol/L ABG O2 Saturation (94-97) % Chloride (98-107) mmol/L Carbon Dioxide (22-30) mmol/L BUN (9-20) mg/dL Creatinine (0.66-1.25) mg/dL Glucose (74-99) mg/dL POC Glucose (mg/dL) 133 H (75-99) mg/dL Calcium (8.4-10.2) mg/dL Ionized Calcium Sondra (4.5-5.3) mg/dL Total Bilirubin (0.2-1.3) mg/dL Total Protein (6.3-8.2) g/dL Albumin (3.5-5.0) g/dL Crossmatch See Detail 01/23/19 01/23/19 01/23/19 Range/Units 19:29 20:06 20:20 WBC (3.8-10.6) k/uL RBC (4.30-5.90) m/uL Hgb (13.0-17.5) gm/dL Hct (39.0-53.0) % Plt Count (150-450) k/uL Neutrophils # (1.3-7.7) k/uL Neutrophils # (Manual) (1.3-7.7) k/uL Lymphocytes # (1.0-4.8) k/uL Monocytes # (0-1.0) k/uL Monocytes # (Manual) (0-1.0) k/uL Metamyelocytes # (Man) (0) k/uL ABG pH 7.18 L* (7.35-7.45) ABG pCO2 (35-45) mmHg ABG pO2 228 H (83-108) mmHg ABG HCO3 15 L (21-25) mmol/L ABG Total CO2 16 L (19-24) mmol/L ABG O2 Saturation 99.8 H (94-97) % Chloride (98-107) mmol/L Carbon Dioxide (22-30) mmol/L BUN (9-20) mg/dL Creatinine (0.66-1.25) mg/dL Glucose (74-99) mg/dL POC Glucose (mg/dL) 56 L 261 H (75-99) mg/dL Calcium (8.4-10.2) mg/dL Ionized Calcium Sondra (4.5-5.3) mg/dL Total Bilirubin (0.2-1.3) mg/dL Total Protein (6.3-8.2) g/dL Albumin (3.5-5.0) g/dL Crossmatch 01/23/19 01/23/19 01/23/19 Range/Units 21:13 21:54 21:56 WBC 39.2 H (3.8-10.6) k/uL RBC 2.30 L (4.30-5.90) m/uL Hgb 6.5 L* (13.0-17.5) gm/dL Hct 20.7 L (39.0-53.0) % Plt Count 625 H (150-450) k/uL Neutrophils # 37.0 H (1.3-7.7) k/uL Neutrophils # (Manual) (1.3-7.7) k/uL Lymphocytes # 0.9 L (1.0-4.8) k/uL Monocytes # 1.1 H (0-1.0) k/uL Monocytes # (Manual) (0-1.0) k/uL Metamyelocytes # (Man) (0) k/uL ABG pH 7.28 L (7.35-7.45) ABG pCO2 (35-45) mmHg ABG pO2 (83-108) mmHg ABG HCO3 17 L (21-25) mmol/L ABG Total CO2 18 L (19-24) mmol/L ABG O2 Saturation 97.7 H (94-97) % Chloride (98-107) mmol/L Carbon Dioxide (22-30) mmol/L BUN (9-20) mg/dL Creatinine (0.66-1.25) mg/dL Glucose (74-99) mg/dL POC Glucose (mg/dL) 70 L (75-99) mg/dL Calcium (8.4-10.2) mg/dL Ionized Calcium Sondra (4.5-5.3) mg/dL Total Bilirubin (0.2-1.3) mg/dL Total Protein (6.3-8.2) g/dL Albumin (3.5-5.0) g/dL Crossmatch 01/23/19 01/23/19 01/23/19 Range/Units 22:00 22:55 23:37 WBC (3.8-10.6) k/uL RBC (4.30-5.90) m/uL Hgb (13.0-17.5) gm/dL Hct (39.0-53.0) % Plt Count (150-450) k/uL Neutrophils # (1.3-7.7) k/uL Neutrophils # (Manual) (1.3-7.7) k/uL Lymphocytes # (1.0-4.8) k/uL Monocytes # (0-1.0) k/uL Monocytes # (Manual) (0-1.0) k/uL Metamyelocytes # (Man) (0) k/uL ABG pH (7.35-7.45) ABG pCO2 (35-45) mmHg ABG pO2 (83-108) mmHg ABG HCO3 (21-25) mmol/L ABG Total CO2 (19-24) mmol/L ABG O2 Saturation (94-97) % Chloride 115 H (98-107) mmol/L Carbon Dioxide 17 L (22-30) mmol/L BUN 43 H (9-20) mg/dL Creatinine 1.37 H (0.66-1.25) mg/dL Glucose 58 L (74-99) mg/dL POC Glucose (mg/dL) 61 L (75-99) mg/dL Calcium 6.2 L* (8.4-10.2) mg/dL Ionized Calcium Sondra 4.4 L (4.5-5.3) mg/dL Total Bilirubin <0.1 L (0.2-1.3) mg/dL Total Protein 3.4 L (6.3-8.2) g/dL Albumin 1.6 L (3.5-5.0) g/dL Crossmatch 01/24/19 01/24/19 01/24/19 Range/Units 00:05 05:00 05:00 WBC 27.4 H (3.8-10.6) k/uL RBC 2.39 L (4.30-5.90) m/uL Hgb 6.9 L* (13.0-17.5) gm/dL Hct 21.2 L (39.0-53.0) % Plt Count 468 H (150-450) k/uL Neutrophils # 25.6 H (1.3-7.7) k/uL Neutrophils # (Manual) (1.3-7.7) k/uL Lymphocytes # 0.7 L (1.0-4.8) k/uL Monocytes # (0-1.0) k/uL Monocytes # (Manual) (0-1.0) k/uL Metamyelocytes # (Man) (0) k/uL ABG pH (7.35-7.45) ABG pCO2 (35-45) mmHg ABG pO2 (83-108) mmHg ABG HCO3 (21-25) mmol/L ABG Total CO2 (19-24) mmol/L ABG O2 Saturation (94-97) % Chloride 115 H (98-107) mmol/L Carbon Dioxide 17 L (22-30) mmol/L BUN 44 H (9-20) mg/dL Creatinine 1.46 H (0.66-1.25) mg/dL Glucose 37 L* (74-99) mg/dL POC Glucose (mg/dL) 125 H (75-99) mg/dL Calcium 6.1 L* (8.4-10.2) mg/dL Ionized Calcium Sondra (4.5-5.3) mg/dL Total Bilirubin <0.1 L (0.2-1.3) mg/dL Total Protein 3.2 L (6.3-8.2) g/dL Albumin 1.4 L (3.5-5.0) g/dL Crossmatch 01/24/19 01/24/19 01/24/19 Range/Units 05:46 06:12 07:04 WBC (3.8-10.6) k/uL RBC (4.30-5.90) m/uL Hgb (13.0-17.5) gm/dL Hct (39.0-53.0) % Plt Count (150-450) k/uL Neutrophils # (1.3-7.7) k/uL Neutrophils # (Manual) (1.3-7.7) k/uL Lymphocytes # (1.0-4.8) k/uL Monocytes # (0-1.0) k/uL Monocytes # (Manual) (0-1.0) k/uL Metamyelocytes # (Man) (0) k/uL ABG pH (7.35-7.45) ABG pCO2 30 L (35-45) mmHg ABG pO2 128 H (83-108) mmHg ABG HCO3 18 L (21-25) mmol/L ABG Total CO2 (19-24) mmol/L ABG O2 Saturation 99.0 H (94-97) % Chloride (98-107) mmol/L Carbon Dioxide (22-30) mmol/L BUN (9-20) mg/dL Creatinine (0.66-1.25) mg/dL Glucose (74-99) mg/dL POC Glucose (mg/dL) 50 L 100 H (75-99) mg/dL Calcium (8.4-10.2) mg/dL Ionized Calcium Sondra (4.5-5.3) mg/dL Total Bilirubin (0.2-1.3) mg/dL Total Protein (6.3-8.2) g/dL Albumin (3.5-5.0) g/dL Crossmatch Microbiology - Last 24 Hours (Table) 01/23/19 16:57 Gram Stain - Preliminary Other - Other Tissue Culture - Preliminary 01/23/19 16:57 Gram Stain - Preliminary Pleural Fluid Body Fluid Culture - Preliminary 01/23/19 16:57 Gram Stain - Preliminary Other - Other Tissue Culture - Preliminary 01/23/19 16:57 Anaerobic Culture - Preliminary Other - Other 01/23/19 16:57 Anaerobic Culture - Preliminary Pleural Fluid 01/23/19 16:57 Fungal Culture - Preliminary Pleural Fluid 01/23/19 16:57 Fungal Culture - Preliminary Other - Other 01/23/19 16:57 Fungal Culture - Preliminary Other - Other 01/23/19 16:57 Anaerobic Culture - Preliminary Other - Other 01/17/19 17:00 Blood Culture - Final Blood No Growth after 144 hours 01/19/19 10:05 Anaerobic Culture - Final Pleural Fluid - Imaging and Cardiology Chest x-ray: report reviewed, image reviewed Assessment and Plan Assessment: 1. Empyema involving the left lung with loculated pleural effusion, status post left chest pigtail catheter placement, status post left thoracotomy with decortication 2. Dyspnea to empyema 3. History of hypertension 4. Diabetes mellitus type 2, uncontrolled with HgbA1c 11% 5. History of depression 6. Acute blood loss anemia 7. Sepsis with lactic acidosis 8. Non-anion gap metabolic acidosis Plan: 1. Will monitor left pleural chest tube for drainage amount and resolution of air leak. 2. Wean O2 as tolerated. Mechanical ventilation management per pulmonology. 3. IV bicarb per insulation cutter, wean levo as tolerated. 4. Once extubated, encourage incentive spirometry use 10 times every hour while awake. 5. Once extubated, increase activity as tolerated. 6. Will monitor daily labs and x-rays x-rays. 7. Pain control with current medication regimen 8. Medical management of other comorbid conditions per primary care service. Blood transfusion per primary care service. 9. Antibiotic management per infectious disease, pleural fluid positive for alpha hemolytic strep. 10. More recommendations to follow. Time with Patient: Greater than 30
[2019-01-24 08:31] LABS: Glucose,Whole Blood 205 mg/dL (75-99)
[2019-01-24] MEDS: ASPIRIN 81 MG PO SCH (09:03)
[2019-01-24] MEDS: CEFEPIME 2 GM in SODIUM CHLORIDE 0.9% 100 ML IVPB SCH ×2 (09:03→20:19)
[2019-01-24] MEDS: DEXTROSE 5%-0.45% NACL 1,000 ML IV SCH ×2 (09:03→20:21)
[2019-01-24] MEDS: PANTOPRAZOLE 40 MG/10 ML VIAL IVP SCH (09:04)
[2019-01-24] MEDS: FLUoxetine HCL 20 MG CAP PO SCH (09:04)
[2019-01-24] MEDS: CHLORHEXIDINE GLUCONATE 15 ML CUP MUCOUS MEM SCH ×2 (09:04→20:19)
--- NOTE | 2019-01-24 09:47 | P.PN ---
Subjective Progress Note Date: 01/24/19 Principal diagnosis: Left-sided empyema Patient was reevaluated today on 01/22/2019, he initially presented with left- sided empyema and he was a transfer from [facility]. Patient had a left-sided pigtail catheter placed by interventional radiology and this is his postoperative day #3. Patient was receiving thrombolytic therapy by thoracic surgery, however last night, the patient developed worsening bleeding into the chest tube, and significant fluid collection in the left pleural space with a left sided hydropneumothorax. His hemoglobin dropped down to 5.0 this morning, and the patient is receiving 2 units of packed RBCs at present. He was transferred to the ICU, thoracic surgery evaluated the patient on consultation, and I believe the patient will be scheduled for decortication/VATS of his empyema in the next 24 hours. In the meantime we'll try to transfer the patient, stabilize him from the medical perspective, and hopefully optimize for surgical intervention in the next 24 hours. In the meantime the patient remains on antibiotics, continues to have leukocytosis with WBC count of 42.1. Patient is relatively asymptomatic otherwise. He was diaphoretic, hypotensive early this morning, received fluid boluses earlier today. Patient denies being short of breath. Patient was reevaluated today on 01/23/2019, patient remains in the intensive c are unit, received a total of 3 units of packed RBCs for what seemed to be a hemothorax, patient is scheduled to undergo decortication/VATS today. Presently the patient is hemodynamically stable, looks chronically frail and ill, and in no distress at present. He is on few liters nasal cannula. Pigtail catheter remaining in place, draining basically bloody fluid. Patient is postoperative day #4, left-sided pigtail catheter placement by interventional radiology. WBC count today is up to 33.3 hemoglobin is 7.5. Elective lites are normal bicarb is 16, BUN is 39 creatinine is 1.29. Patient is about to receive fluid boluses and he is about to have increase his maintenance IV fluid to 100 mL/h Patient was reevaluated today on 01/24/2019, patient is now in the intensive care unit, on mechanical ventilation. Patient underwent VATS and left-sided decortication of his empyema. He is now postoperative day #1. Patient is mechanically ventilated, and his ventilator settings are assist control rate of 16, tidal volume of 500, FiO2 of 35%, and PEEP of 5. Patient is on propofol, he was on pressors last night for low blood pressure, however he is now off pressors and not requiring any inotropes. Apparently he was extubated yesterday for a short. This time after surgery however he had to be reintubated in the recovery room due to hemodynamic instability and airway compromise. His left- sided chest tube is noted, there is small air leak, presently on suction. Patient remains on sodium bicarb drip for his underlying metabolic acidosis, and he is also on propofol. Did require more blood transfusions, and he is to receive another unit of blood today for a low hemoglobin of 6.9. I ordered a unit last night. So far, the patient received a total of 6 units of packed RBCs since admission. Continues to have leukocytosis with WBC count of 27.4 hemoglobin is 6.9. ABG showed pO2 of 128 pCO2 of 30 pH of 7.39 bicarb is 18. Electrolytes showed low bicarb, and acute kidney injury with creatinine up to 1.46, BUN is 44. Blood sugar was running low, hence I recommended starting tube feeding/enteral feeding and his IV fluid was changed to D5 45. Objective - Vital Signs Vital signs: Vital Signs Temp 97.9 F 01/24/19 09:03 Pulse 67 01/24/19 09:03 Resp 16 01/24/19 09:03 BP 120/55 01/24/19 09:03 Pulse Ox 98 01/24/19 09:03 Intake & Output 01/23/19 01/24/19 01/24/19 18:59 06:59 18:59 Intake Total 4470 3264.058 156.158 Output Total 365 520 95 Balance 4105 2744.058 61.158 Weight 68.1 kg Intake: IV 3850 2600 150 Cefepime 2 gm In Sodium 100 100 Chloride 0.9% 100 ml @ 200 mls/hr IVPB Q12HR [facility] Rx#:[id number] Dextrose 10 % in Water 250 250 ml @ 999 mls/hr IV ONCE ONE Rx#:[id number] Dextrose 5% in Water 1, 675 75 000 ml @ 75 mls/hr IV . [id number] [facility] with Sodium Bicarb (1 Meq/ml) 150 ml Rx#:[id number] Sodium Chloride 0.9% 1, 700 675 75 000 ml @ 75 mls/hr IV . [id number] [facility] Rx#:[id number] Sodium Chloride 0.9% 500 500 ml 500 ml @ 999 mls/hr IV .Q31M [facility] Rx#:[id number] Intake, IV Titration 44.058 6.158 Amount Norepinephrine 4 mg In 7.893 6.158 Sodium Chloride 0.9% 250 ml @ 0.05 MCG/KG/MIN 13. 011 mls/hr IV .[id number] [facility] Rx#:[id number] Propofol 1,000 mg In 36.165 Empty Bag 1 bag @ Titrate IV .Q0M [facility] Rx#: [id number] Blood Product 620 620 0 Rc As-3 Unit 310 [id number] Rc Pheresis 2 As3 Unit 310 [id number] Rc Pheresis 2 As3 Unit 310 [id number] Rc Pheresis As-3 Unit 0 [id number] Output: Chest Tube Drainage 0 160 Left Pleural/Mediastinal 0 Pleural Catheter Left 160 Gastric Drainage 75 Urine 215 360 20 Estimated Blood Loss 150 Other: Voiding Method Indwelling Catheter Indwelling Catheter ABP, PAP, CO, CI - Last Documented Arterial Blood Pressure 113/88 - Exam GENERAL EXAM: Alert, pleasant 68-year-old white male, on mechanical ventilation, sedated, on propofol drip. Propofol is a 55 mcg/kg/m. EYES: PERRLA, EOMI, no icterus. Pale conjunctivas NOSE: Clear with pink turbinates. THROAT: No erythema or exudates. NECK: No masses, no JVD, no thyroid enlargement, no adenopathy. Endotracheal tube and orogastric tube are intact. CHEST: No chest wall deformity. Symmetrical expansion. Left-sided chest tube is noted. Small air leak, connected to Pleur-evac. LUNGS: Right side is clear, diminished breath sounds and dullness on the left side. CVS: Regular rate and rhythm, normal S1 and S2, no gallops, no murmurs, no rubs ABDOMEN: Soft, nontender. No hepatosplenomegaly, normal bowel sounds, no guarding or rigidity. EXTREMITIES: No clubbing, no edema, no cyanosis, 2+ pulses and upper and lower extremities. MUSCULOSKELETAL: Cannot be assessed, patient is sedated on propofol. SKIN: No rashes CENTRAL NERVOUS SYSTEM: Cannot be assessed, sedated on propofol. Psychiatric: Cannot be assessed. - Labs CBC & Chem 7: 01/24/19 05:00 01/24/19 05:00 Labs: Abnormal Lab Results - Last 24 Hours (Table) 01/22/19 01/23/19 01/23/19 Range/Units 05:22 12:05 19:25 WBC 37.9 H (3.8-10.6) k/uL RBC 2.48 L (4.30-5.90) m/uL Hgb 7.2 L (13.0-17.5) gm/dL Hct 22.7 L (39.0-53.0) % Plt Count 696 H (150-450) k/uL Neutrophils # (1.3-7.7) k/uL Neutrophils # (Manual) 33.30 H (1.3-7.7) k/uL Lymphocytes # (1.0-4.8) k/uL Monocytes # (0-1.0) k/uL Monocytes # (Manual) 2.65 H (0-1.0) k/uL Metamyelocytes # (Man) 0.76 H (0) k/uL ABG pH (7.35-7.45) ABG pCO2 (35-45) mmHg ABG pO2 (83-108) mmHg ABG HCO3 (21-25) mmol/L ABG Total CO2 (19-24) mmol/L ABG O2 Saturation (94-97) % Chloride (98-107) mmol/L Carbon Dioxide (22-30) mmol/L BUN (9-20) mg/dL Creatinine (0.66-1.25) mg/dL Glucose (74-99) mg/dL POC Glucose (mg/dL) 133 H (75-99) mg/dL Calcium (8.4-10.2) mg/dL Ionized Calcium Sondra (4.5-5.3) mg/dL Total Bilirubin (0.2-1.3) mg/dL Total Protein (6.3-8.2) g/dL Albumin (3.5-5.0) g/dL Crossmatch See Detail 01/23/19 01/23/19 01/23/19 Range/Units 19:29 20:06 20:20 WBC (3.8-10.6) k/uL RBC (4.30-5.90) m/uL Hgb (13.0-17.5) gm/dL Hct (39.0-53.0) % Plt Count (150-450) k/uL Neutrophils # (1.3-7.7) k/uL Neutrophils # (Manual) (1.3-7.7) k/uL Lymphocytes # (1.0-4.8) k/uL Monocytes # (0-1.0) k/uL Monocytes # (Manual) (0-1.0) k/uL Metamyelocytes # (Man) (0) k/uL ABG pH 7.18 L* (7.35-7.45) ABG pCO2 (35-45) mmHg ABG pO2 228 H (83-108) mmHg ABG HCO3 15 L (21-25) mmol/L ABG Total CO2 16 L (19-24) mmol/L ABG O2 Saturation 99.8 H (94-97) % Chloride (98-107) mmol/L Carbon Dioxide (22-30) mmol/L BUN (9-20) mg/dL Creatinine (0.66-1.25) mg/dL Glucose (74-99) mg/dL POC Glucose (mg/dL) 56 L 261 H (75-99) mg/dL Calcium (8.4-10.2) mg/dL Ionized Calcium Sondra (4.5-5.3) mg/dL Total Bilirubin (0.2-1.3) mg/dL Total Protein (6.3-8.2) g/dL Albumin (3.5-5.0) g/dL Crossmatch 01/23/19 01/23/19 01/23/19 Range/Units 21:13 21:54 21:56 WBC 39.2 H (3.8-10.6) k/uL RBC 2.30 L (4.30-5.90) m/uL Hgb 6.5 L* (13.0-17.5) gm/dL Hct 20.7 L (39.0-53.0) % Plt Count 625 H (150-450) k/uL Neutrophils # 37.0 H (1.3-7.7) k/uL Neutrophils # (Manual) (1.3-7.7) k/uL Lymphocytes # 0.9 L (1.0-4.8) k/uL Monocytes # 1.1 H (0-1.0) k/uL Monocytes # (Manual) (0-1.0) k/uL Metamyelocytes # (Man) (0) k/uL ABG pH 7.28 L (7.35-7.45) ABG pCO2 (35-45) mmHg ABG pO2 (83-108) mmHg ABG HCO3 17 L (21-25) mmol/L ABG Total CO2 18 L (19-24) mmol/L ABG O2 Saturation 97.7 H (94-97) % Chloride (98-107) mmol/L Carbon Dioxide (22-30) mmol/L BUN (9-20) mg/dL Creatinine (0.66-1.25) mg/dL Glucose (74-99) mg/dL POC Glucose (mg/dL) 70 L (75-99) mg/dL Calcium (8.4-10.2) mg/dL Ionized Calcium Sondra (4.5-5.3) mg/dL Total Bilirubin (0.2-1.3) mg/dL Total Protein (6.3-8.2) g/dL Albumin (3.5-5.0) g/dL Crossmatch 01/23/19 01/23/19 01/23/19 Range/Units 22:00 22:55 23:37 WBC (3.8-10.6) k/uL RBC (4.30-5.90) m/uL Hgb (13.0-17.5) gm/dL Hct (39.0-53.0) % Plt Count (150-450) k/uL Neutrophils # (1.3-7.7) k/uL Neutrophils # (Manual) (1.3-7.7) k/uL Lymphocytes # (1.0-4.8) k/uL Monocytes # (0-1.0) k/uL Monocytes # (Manual) (0-1.0) k/uL Metamyelocytes # (Man) (0) k/uL ABG pH (7.35-7.45) ABG pCO2 (35-45) mmHg ABG pO2 (83-108) mmHg ABG HCO3 (21-25) mmol/L ABG Total CO2 (19-24) mmol/L ABG O2 Saturation (94-97) % Chloride 115 H (98-107) mmol/L Carbon Dioxide 17 L (22-30) mmol/L BUN 43 H (9-20) mg/dL Creatinine 1.37 H (0.66-1.25) mg/dL Glucose 58 L (74-99) mg/dL POC Glucose (mg/dL) 61 L (75-99) mg/dL Calcium 6.2 L* (8.4-10.2) mg/dL Ionized Calcium Sondra 4.4 L (4.5-5.3) mg/dL Total Bilirubin <0.1 L (0.2-1.3) mg/dL Total Protein 3.4 L (6.3-8.2) g/dL Albumin 1.6 L (3.5-5.0) g/dL Crossmatch 01/24/19 01/24/19 01/24/19 Range/Units 00:05 05:00 05:00 WBC 27.4 H (3.8-10.6) k/uL RBC 2.39 L (4.30-5.90) m/uL Hgb 6.9 L* (13.0-17.5) gm/dL Hct 21.2 L (39.0-53.0) % Plt Count 468 H (150-450) k/uL Neutrophils # 25.6 H (1.3-7.7) k/uL Neutrophils # (Manual) (1.3-7.7) k/uL Lymphocytes # 0.7 L (1.0-4.8) k/uL Monocytes # (0-1.0) k/uL Monocytes # (Manual) (0-1.0) k/uL Metamyelocytes # (Man) (0) k/uL ABG pH (7.35-7.45) ABG pCO2 (35-45) mmHg ABG pO2 (83-108) mmHg ABG HCO3 (21-25) mmol/L ABG Total CO2 (19-24) mmol/L ABG O2 Saturation (94-97) % Chloride 115 H (98-107) mmol/L Carbon Dioxide 17 L (22-30) mmol/L BUN 44 H (9-20) mg/dL Creatinine 1.46 H (0.66-1.25) mg/dL Glucose 37 L* (74-99) mg/dL POC Glucose (mg/dL) 125 H (75-99) mg/dL Calcium 6.1 L* (8.4-10.2) mg/dL Ionized Calcium Sondra (4.5-5.3) mg/dL Total Bilirubin <0.1 L (0.2-1.3) mg/dL Total Protein 3.2 L (6.3-8.2) g/dL Albumin 1.4 L (3.5-5.0) g/dL Crossmatch 01/24/19 01/24/19 01/24/19 Range/Units 05:46 06:12 07:04 WBC (3.8-10.6) k/uL RBC (4.30-5.90) m/uL Hgb (13.0-17.5) gm/dL Hct (39.0-53.0) % Plt Count (150-450) k/uL Neutrophils # (1.3-7.7) k/uL Neutrophils # (Manual) (1.3-7.7) k/uL Lymphocytes # (1.0-4.8) k/uL Monocytes # (0-1.0) k/uL Monocytes # (Manual) (0-1.0) k/uL Metamyelocytes # (Man) (0) k/uL ABG pH (7.35-7.45) ABG pCO2 30 L (35-45) mmHg ABG pO2 128 H (83-108) mmHg ABG HCO3 18 L (21-25) mmol/L ABG Total CO2 (19-24) mmol/L ABG O2 Saturation 99.0 H (94-97) % Chloride (98-107) mmol/L Carbon Dioxide (22-30) mmol/L BUN (9-20) mg/dL Creatinine (0.66-1.25) mg/dL Glucose (74-99) mg/dL POC Glucose (mg/dL) 50 L 100 H (75-99) mg/dL Calcium (8.4-10.2) mg/dL Ionized Calcium Sondra (4.5-5.3) mg/dL Total Bilirubin (0.2-1.3) mg/dL Total Protein (6.3-8.2) g/dL Albumin (3.5-5.0) g/dL Crossmatch 01/24/19 01/24/19 Range/Units 08:06 08:30 WBC (3.8-10.6) k/uL RBC (4.30-5.90) m/uL Hgb (13.0-17.5) gm/dL Hct (39.0-53.0) % Plt Count (150-450) k/uL Neutrophils # (1.3-7.7) k/uL Neutrophils # (Manual) (1.3-7.7) k/uL Lymphocytes # (1.0-4.8) k/uL Monocytes # (0-1.0) k/uL Monocytes # (Manual) (0-1.0) k/uL Metamyelocytes # (Man) (0) k/uL ABG pH (7.35-7.45) ABG pCO2 (35-45) mmHg ABG pO2 (83-108) mmHg ABG HCO3 (21-25) mmol/L ABG Total CO2 (19-24) mmol/L ABG O2 Saturation (94-97) % Chloride (98-107) mmol/L Carbon Dioxide (22-30) mmol/L BUN (9-20) mg/dL Creatinine (0.66-1.25) mg/dL Glucose (74-99) mg/dL POC Glucose (mg/dL) 67 L 205 H (75-99) mg/dL Calcium (8.4-10.2) mg/dL Ionized Calcium Sondra (4.5-5.3) mg/dL Total Bilirubin (0.2-1.3) mg/dL Total Protein (6.3-8.2) g/dL Albumin (3.5-5.0) g/dL Crossmatch Microbiology - Last 24 Hours (Table) 01/23/19 16:57 Gram Stain - Preliminary Other - Other Tissue Culture - Preliminary 01/23/19 16:57 Gram Stain - Preliminary Pleural Fluid Body Fluid Culture - Preliminary 01/23/19 16:57 Gram Stain - Preliminary Other - Other Tissue Culture - Preliminary 01/23/19 16:57 Anaerobic Culture - Preliminary Other - Other 01/23/19 16:57 Anaerobic Culture - Preliminary Pleural Fluid 01/23/19 16:57 Fungal Culture - Preliminary Pleural Fluid 01/23/19 16:57 Fungal Culture - Preliminary Other - Other 01/23/19 16:57 Fungal Culture - Preliminary Other - Other 01/23/19 16:57 Anaerobic Culture - Preliminary Other - Other 01/17/19 17:00 Blood Culture - Final Blood No Growth after 144 hours 01/19/19 10:05 Anaerobic Culture - Final Pleural Fluid Assessment and Plan Assessment: Impression: 1 left-sided empyema, secondary to alpha hemolytic streptococcus. Status post VATS decortication post operative day #1. Patient is on cefepime. 2 left sided hydropneumothorax, with loculated pleural effusion, requiring VATS decortication. 3 left sided hemothorax, patient required at least 6 units of packed RBCs so far since admission. 4 acute sepsis secondary to empyema is strongly suspected 5 acute blood loss secondary to hemothorax requiring 3 units of packed RBCs so far. 6 multiple comorbidities including hypertension, diabetes, electrolytes imbalance with hypokalemia, and worsening anemia secondary to hemothorax and blood loss in the left pleural space. 7 acute hypoxic respiratory failure secondary to left-sided empyema, sepsis, and septic shock. 8 acute septic shock secondary to empyema. Recommendation: Continue ventilatory support, antibiotics, nutritional support to be started, pressors if needed, sodium bicarb drip for his profound metabolic acidosis secondary to sepsis IV fluids, GI and DVT prophylaxis, assess mental status today, have daily interruption of sedation, consider even checking weaning parameters, however I strongly doubt the patient is ready to be weaned and extubated considering his septic picture. Patient is obviously critically ill, will remain in the ICU, and we'll continue to follow. We'll start enteral feeding today. Critical care time is 40 minutes. Time with Patient: Greater than 30
[2019-01-24 11:46] LABS: Basophils % (A) 0 %; Eosinophils % (A) 0 %; HCT 24.2 % (39.0-53.0); HGB 8.1 gm/dL (13.0-17.5); Lymphocytes # (A) 0.6 k/uL (1.0-4.8); Lymphocytes % (A) 2 %; MCH 29.7 pg (25.0-35.0); MCHC 33.4 g/dL (31.0-37.0); MCV 88.7 fL (80.0-100.0); Mean Platelet Volume 7.5; Monocytes # (A) 0.9 k/uL (0-1.0); Monocytes % (A) 4 %; Neutrophils # (A) 22.4 k/uL (1.3-7.7); Neutrophils % (A) 93 %; Platelet Count 436 k/uL (150-450); RBC 2.73 m/uL (4.30-5.90); RDW 15.3 % (11.5-15.5)
[2019-01-24 11:53] LABS: Glucose,Whole Blood 116 mg/dL (75-99)
--- NOTE | 2019-01-24 13:23 | P.PCN ---
Date of Procedure: 01/24/19 Procedure(s) Performed: This is 68 years old male, who had left side empyema, status post left thoracotomy done 01/23/2019, under general endotracheal anesthesia, the plan was to do epidural catheter placement for postoperative analgesia, as per our discussion with the patient in the preop evaluation, but in the PACU, the patient was hemodynamically unstable, requiring vasopressor support, for this reason I did not place the epidural concerning about lowering the blood pressure more, as a side effect of the epidural infusion, today patient was on the ventilator, but he was hemodynamically stable, systolic blood pressure is more than 150, and I placed the epidural catheter, a sterile technique, lateral position left side down, the back prepped with Betadine 3, local infiltration of the skin and subcutaneous tissue with lidocaine 1% 3 mL, then at the T7 T8 level, 18-gauge Touhy needle advanced slowly, and placed at T7 8 level, there was positive loss of resistance to normal saline, no heme no paresthesia, no cerebrospinal fluid, catheter secured at 12 cm, and we will start the infusion combination medication proparacaine plus fentanyl
[2019-01-24] MEDS: DEXTROSE 5% IN WATER 1,000 ML with SODIUM BICARB (1 MEQ/ML) 150 ML IV SCH (13:24)
--- NOTE | 2019-01-24 14:18 | P.PN ---
Subjective 68 year old man that was admitted for left-sided pneumonia, pleural effusion and empyema that had recently undergone a chest tube placement of the left side. A total of 500ml has drained from last night. Will continue to monitor closely. Cultures of the pleural fluid grew positive for alpha hemolytic streptococci. Infectious disease is following along with the care of the patient and managing antibiotics at this time. Patient has been up and walking often around the unit. Patient appears in no acute distress at this time. Patient denies any chest pain or fevers at this time and also made mention that his shortness of breath has improved since the placement of the chest tube. Early this am patient was moved to the ICU to be closely monitored as he was draining a large amount of blood from the left side chest tube and had a critical value hemoglobin level of 5. Patient states that he felt better yesterday but later in the evening felt fatigued and not up to walking. Vitals were stable but started becoming hypotensive in the low 90's systolic. Patient was then transferred to the ICU and will likely be going for surgery on 01/23/19. Patient's blood sugars continue to be elevated and will continue to cover per protocol. Patient is scheduled to be NPO after midnight, but he states that he hasn't been that hungry today. Patient is lying in the bed with a bear hugger on to maintain his temperature. Patient is still currently on broad spectrum antibiotics per infectious disease and being followed closely. Patient was awaiting for 2 units of PRBC to be transfused as there were antibodies present per the lab. Patient denies any shortness of breath, chest pain, or palpitations, just states that he feels tired. A chest xray was done showing a moderate to large pleural effusion with left hydropneumothorax with a small right side pleural effusion. CT scan of the chest showed loculated empyema with a couple of air-fluid levels present, small pneumothorax is not excluded, chest catheter is within area of increased density consistent with the empyema, and a couple of enlarged lymph nodes within the mediastinum. 01/23/19 Today this 68-year-old male is lying in bed in the ICU awaiting a thoracotomy procedure early this afternoon. Patient states he's unsure when but was told it is scheduled for today. Patient is denying any increasing shortness of breath, chest pains, palpitations, or fevers at this time. Patient is still having a large amount of output in the chest tube noted in the atrium. Per the RN the drainage has decreased since this morning. Patient denies any dizziness or lightheadedness at this time. Patient is very lethargic but easily arousable. Patient was currently made nothing by mouth after midnight for this procedure. Per infectious disease the vancomycin is being discontinued at this time and they will continue to follow while awaiting cultures from the thoracotomy today. 01/24/2019 Patient underwent VATS procedure patient is still intubated at this time patient had multiple events since last night including hypoglycemia for which patient is on D5 half-normal saline at 75 mL per hour and D5 water with 3 A of bicarbonate because of acidosis I believe. Patient received total 7 units of PRBC transfusion since admission patient hemoglobin is presently 8.1 and is stable at the chest tube in place on the left side which is draining, white blood cell count has come down, patient remains on cefepime and vancomycin. Patient is presently not on any pressor support unable to wean at this time fairly good urine output All inpatient medications were reviewed and appropriate changes in these medications as dictated in the interval history and assessment and plan. Objective - Vital Signs Vital signs: Vital Signs Temp 98.0 F 01/24/19 12:00 Pulse 91 01/24/19 14:00 Resp 16 01/24/19 14:00 BP 149/68 01/24/19 14:00 Pulse Ox 100 01/24/19 14:00 Intake & Output 01/23/19 01/24/19 01/24/19 18:59 06:59 18:59 Intake Total 4470 3264.058 2001.499 Output Total 365 520 500 Balance 4105 2744.058 1501.499 Weight 68.1 kg 68.1 kg Intake: IV 3850 2600 1550 Cefepime 2 gm In Sodium 100 100 100 Chloride 0.9% 100 ml @ 200 mls/hr IVPB Q12HR [facility] Rx#:[id number] Dextrose 10 % in Water 250 250 250 ml @ 999 mls/hr IV ONCE ONE Rx#:[id number] Dextrose 5% in Water 1, 675 600 000 ml @ 75 mls/hr IV . [id number] [facility] with Sodium Bicarb (1 Meq/ml) 150 ml Rx#:[id number] Dextrose 5%-0.45% NaCl 1, 450 000 ml @ 75 mls/hr IV . [id number] [facility] Rx#:[id number] Sodium Chloride 0.9% 1, 700 675 150 000 ml @ 75 mls/hr IV . [id number] [facility] Rx#:[id number] Sodium Chloride 0.9% 500 500 ml 500 ml @ 999 mls/hr IV .Q31M [facility] Rx#:[id number] Intake, IV Titration 44.058 91.499 Amount Norepinephrine 4 mg In 7.893 6.158 Sodium Chloride 0.9% 250 ml @ 0.05 MCG/KG/MIN 13. 011 mls/hr IV .[id number] [facility] Rx#:[id number] Propofol 1,000 mg In 36.165 85.341 Empty Bag 1 bag @ Titrate IV .Q0M [facility] Rx#: [id number] Oral 50 Blood Product 620 620 310 Rc As-3 Unit 310 [id number] Rc Pheresis 2 As3 Unit 310 [id number] Rc Pheresis 2 As3 Unit 310 [id number] Rc Pheresis As-3 Unit 310 [id number] Output: Chest Tube Drainage 0 160 140 Left Pleural/Mediastinal 0 140 Pleural Catheter Left 160 Gastric Drainage 75 Urine 215 360 285 Estimated Blood Loss 150 Other: Voiding Method Indwelling Catheter Indwelling Catheter Indwelling Catheter ABP, PAP, CO, CI - Last Documented Arterial Blood Pressure 138/63 - Exam PHYSICAL EXAMINATION: GENERAL: Patient is intubated sedated with left-sided chest tube HEENT: Pupils are round and equally reacting to light. EOMI. No scleral icterus. No conjunctival pallor. Normocephalic, atraumatic. No pharyngeal erythema. No thyromegaly. CARDIOVASCULAR: S1 and S2 present. No murmurs, rubs, or gallops. PULMONARY: Chest is clear to auscultation, no wheezing or crackles. patient has a left-sided chest tube with significant drainage from the chest tube since placement. ABDOMEN: Soft, nontender, nondistended, normoactive bowel sounds. No palpable organomegaly. MUSCULOSKELETAL: No joint swelling or deformity. EXTREMITIES: No cyanosis, clubbing, or pedal edema. NEUROLOGICAL: Unable to assess SKIN: No rashes. - Labs CBC & Chem 7: 01/24/19 11:30 01/24/19 05:00 Labs: Abnormal Lab Results - Last 24 Hours (Table) 01/22/19 01/23/19 01/23/19 Range/Units 05:22 19:25 19:29 WBC 37.9 H (3.8-10.6) k/uL RBC 2.48 L (4.30-5.90) m/uL Hgb 7.2 L (13.0-17.5) gm/dL Hct 22.7 L (39.0-53.0) % Plt Count 696 H (150-450) k/uL Neutrophils # (1.3-7.7) k/uL Neutrophils # (Manual) 33.30 H (1.3-7.7) k/uL Lymphocytes # (1.0-4.8) k/uL Monocytes # (0-1.0) k/uL Monocytes # (Manual) 2.65 H (0-1.0) k/uL Metamyelocytes # (Man) 0.76 H (0) k/uL ABG pH 7.18 L* (7.35-7.45) ABG pCO2 (35-45) mmHg ABG pO2 228 H (83-108) mmHg ABG HCO3 15 L (21-25) mmol/L ABG Total CO2 16 L (19-24) mmol/L ABG O2 Saturation 99.8 H (94-97) % Chloride (98-107) mmol/L Carbon Dioxide (22-30) mmol/L BUN (9-20) mg/dL Creatinine (0.66-1.25) mg/dL Glucose (74-99) mg/dL POC Glucose (mg/dL) (75-99) mg/dL Calcium (8.4-10.2) mg/dL Ionized Calcium Sondra (4.5-5.3) mg/dL Total Bilirubin (0.2-1.3) mg/dL Total Protein (6.3-8.2) g/dL Albumin (3.5-5.0) g/dL Crossmatch See Detail 01/23/19 01/23/19 01/23/19 Range/Units 20:06 20:20 21:13 WBC (3.8-10.6) k/uL RBC (4.30-5.90) m/uL Hgb (13.0-17.5) gm/dL Hct (39.0-53.0) % Plt Count (150-450) k/uL Neutrophils # (1.3-7.7) k/uL Neutrophils # (Manual) (1.3-7.7) k/uL Lymphocytes # (1.0-4.8) k/uL Monocytes # (0-1.0) k/uL Monocytes # (Manual) (0-1.0) k/uL Metamyelocytes # (Man) (0) k/uL ABG pH 7.28 L (7.35-7.45) ABG pCO2 (35-45) mmHg ABG pO2 (83-108) mmHg ABG HCO3 17 L (21-25) mmol/L ABG Total CO2 18 L (19-24) mmol/L ABG O2 Saturation 97.7 H (94-97) % Chloride (98-107) mmol/L Carbon Dioxide (22-30) mmol/L BUN (9-20) mg/dL Creatinine (0.66-1.25) mg/dL Glucose (74-99) mg/dL POC Glucose (mg/dL) 56 L 261 H (75-99) mg/dL Calcium (8.4-10.2) mg/dL Ionized Calcium Sondra (4.5-5.3) mg/dL Total Bilirubin (0.2-1.3) mg/dL Total Protein (6.3-8.2) g/dL Albumin (3.5-5.0) g/dL Crossmatch 01/23/19 01/23/19 01/23/19 Range/Units 21:54 21:56 22:00 WBC 39.2 H (3.8-10.6) k/uL RBC 2.30 L (4.30-5.90) m/uL Hgb 6.5 L* (13.0-17.5) gm/dL Hct 20.7 L (39.0-53.0) % Plt Count 625 H (150-450) k/uL Neutrophils # 37.0 H (1.3-7.7) k/uL Neutrophils # (Manual) (1.3-7.7) k/uL Lymphocytes # 0.9 L (1.0-4.8) k/uL Monocytes # 1.1 H (0-1.0) k/uL Monocytes # (Manual) (0-1.0) k/uL Metamyelocytes # (Man) (0) k/uL ABG pH (7.35-7.45) ABG pCO2 (35-45) mmHg ABG pO2 (83-108) mmHg ABG HCO3 (21-25) mmol/L ABG Total CO2 (19-24) mmol/L ABG O2 Saturation (94-97) % Chloride 115 H (98-107) mmol/L Carbon Dioxide 17 L (22-30) mmol/L BUN 43 H (9-20) mg/dL Creatinine 1.37 H (0.66-1.25) mg/dL Glucose 58 L (74-99) mg/dL POC Glucose (mg/dL) 70 L (75-99) mg/dL Calcium 6.2 L* (8.4-10.2) mg/dL Ionized Calcium Sondra (4.5-5.3) mg/dL Total Bilirubin <0.1 L (0.2-1.3) mg/dL Total Protein 3.4 L (6.3-8.2) g/dL Albumin 1.6 L (3.5-5.0) g/dL Crossmatch 01/23/19 01/23/19 01/24/19 Range/Units 22:55 23:37 00:05 WBC (3.8-10.6) k/uL RBC (4.30-5.90) m/uL Hgb (13.0-17.5) gm/dL Hct (39.0-53.0) % Plt Count (150-450) k/uL Neutrophils # (1.3-7.7) k/uL Neutrophils # (Manual) (1.3-7.7) k/uL Lymphocytes # (1.0-4.8) k/uL Monocytes # (0-1.0) k/uL Monocytes # (Manual) (0-1.0) k/uL Metamyelocytes # (Man) (0) k/uL ABG pH (7.35-7.45) ABG pCO2 (35-45) mmHg ABG pO2 (83-108) mmHg ABG HCO3 (21-25) mmol/L ABG Total CO2 (19-24) mmol/L ABG O2 Saturation (94-97) % Chloride (98-107) mmol/L Carbon Dioxide (22-30) mmol/L BUN (9-20) mg/dL Creatinine (0.66-1.25) mg/dL Glucose (74-99) mg/dL POC Glucose (mg/dL) 61 L 125 H (75-99) mg/dL Calcium (8.4-10.2) mg/dL Ionized Calcium Sondra 4.4 L (4.5-5.3) mg/dL Total Bilirubin (0.2-1.3) mg/dL Total Protein (6.3-8.2) g/dL Albumin (3.5-5.0) g/dL Crossmatch 01/24/19 01/24/19 01/24/19 Range/Units 05:00 05:00 05:46 WBC 27.4 H (3.8-10.6) k/uL RBC 2.39 L (4.30-5.90) m/uL Hgb 6.9 L* (13.0-17.5) gm/dL Hct 21.2 L (39.0-53.0) % Plt Count 468 H (150-450) k/uL Neutrophils # 25.6 H (1.3-7.7) k/uL Neutrophils # (Manual) (1.3-7.7) k/uL Lymphocytes # 0.7 L (1.0-4.8) k/uL Monocytes # (0-1.0) k/uL Monocytes # (Manual) (0-1.0) k/uL Metamyelocytes # (Man) (0) k/uL ABG pH (7.35-7.45) ABG pCO2 (35-45) mmHg ABG pO2 (83-108) mmHg ABG HCO3 (21-25) mmol/L ABG Total CO2 (19-24) mmol/L ABG O2 Saturation (94-97) % Chloride 115 H (98-107) mmol/L Carbon Dioxide 17 L (22-30) mmol/L BUN 44 H (9-20) mg/dL Creatinine 1.46 H (0.66-1.25) mg/dL Glucose 37 L* (74-99) mg/dL POC Glucose (mg/dL) 50 L (75-99) mg/dL Calcium 6.1 L* (8.4-10.2) mg/dL Ionized Calcium Sondra (4.5-5.3) mg/dL Total Bilirubin <0.1 L (0.2-1.3) mg/dL Total Protein 3.2 L (6.3-8.2) g/dL Albumin 1.4 L (3.5-5.0) g/dL Crossmatch 01/24/19 01/24/19 01/24/19 Range/Units 06:12 07:04 08:06 WBC (3.8-10.6) k/uL RBC (4.30-5.90) m/uL Hgb (13.0-17.5) gm/dL Hct (39.0-53.0) % Plt Count (150-450) k/uL Neutrophils # (1.3-7.7) k/uL Neutrophils # (Manual) (1.3-7.7) k/uL Lymphocytes # (1.0-4.8) k/uL Monocytes # (0-1.0) k/uL Monocytes # (Manual) (0-1.0) k/uL Metamyelocytes # (Man) (0) k/uL ABG pH (7.35-7.45) ABG pCO2 30 L (35-45) mmHg ABG pO2 128 H (83-108) mmHg ABG HCO3 18 L (21-25) mmol/L ABG Total CO2 (19-24) mmol/L ABG O2 Saturation 99.0 H (94-97) % Chloride (98-107) mmol/L Carbon Dioxide (22-30) mmol/L BUN (9-20) mg/dL Creatinine (0.66-1.25) mg/dL Glucose (74-99) mg/dL POC Glucose (mg/dL) 100 H 67 L (75-99) mg/dL Calcium (8.4-10.2) mg/dL Ionized Calcium Sondra (4.5-5.3) mg/dL Total Bilirubin (0.2-1.3) mg/dL Total Protein (6.3-8.2) g/dL Albumin (3.5-5.0) g/dL Crossmatch 01/24/19 01/24/19 01/24/19 Range/Units 08:30 11:30 11:52 WBC 24.0 H (3.8-10.6) k/uL RBC 2.73 L (4.30-5.90) m/uL Hgb 8.1 L (13.0-17.5) gm/dL Hct 24.2 L (39.0-53.0) % Plt Count (150-450) k/uL Neutrophils # 22.4 H (1.3-7.7) k/uL Neutrophils # (Manual) (1.3-7.7) k/uL Lymphocytes # 0.6 L (1.0-4.8) k/uL Monocytes # (0-1.0) k/uL Monocytes # (Manual) (0-1.0) k/uL Metamyelocytes # (Man) (0) k/uL ABG pH (7.35-7.45) ABG pCO2 (35-45) mmHg ABG pO2 (83-108) mmHg ABG HCO3 (21-25) mmol/L ABG Total CO2 (19-24) mmol/L ABG O2 Saturation (94-97) % Chloride (98-107) mmol/L Carbon Dioxide (22-30) mmol/L BUN (9-20) mg/dL Creatinine (0.66-1.25) mg/dL Glucose (74-99) mg/dL POC Glucose (mg/dL) 205 H 116 H (75-99) mg/dL Calcium (8.4-10.2) mg/dL Ionized Calcium Sondra (4.5-5.3) mg/dL Total Bilirubin (0.2-1.3) mg/dL Total Protein (6.3-8.2) g/dL Albumin (3.5-5.0) g/dL Crossmatch Microbiology - Last 24 Hours (Table) 01/19/19 10:05 Gram Stain - Final Pleural Fluid Body Fluid Culture - Final Alpha Hemolytic Streptococcus 01/23/19 16:57 Gram Stain - Preliminary Other - Other Tissue Culture - Preliminary 01/23/19 16:57 Gram Stain - Preliminary Pleural Fluid Body Fluid Culture - Preliminary 01/23/19 16:57 Gram Stain - Preliminary Other - Other Tissue Culture - Preliminary 01/23/19 16:57 Anaerobic Culture - Preliminary Other - Other 01/23/19 16:57 Anaerobic Culture - Preliminary Pleural Fluid 01/23/19 16:57 Fungal Culture - Preliminary Pleural Fluid 01/23/19 16:57 Fungal Culture - Preliminary Other - Other 01/23/19 16:57 Fungal Culture - Preliminary Other - Other 01/23/19 16:57 Anaerobic Culture - Preliminary Other - Other 01/17/19 17:00 Blood Culture - Final Blood No Growth after 144 hours 01/19/19 10:05 Anaerobic Culture - Final Pleural Fluid Assessment and Plan Plan: Assessment: Acute hypoxic respiratory failure: Left-sided pneumonia and pleural effusion with hydropneumothorax, patient is presently status post VATS procedure Acute anemia blood loss most likely from fluid collection in the left lung. Continued output of the chest tube. Received 7 units of PRBC and will monitor hemoglobin Acute hypoxic respiratory failure: Left-sided pneumonia and pleural effusion with hydropneumothorax, status post VATS and patient is on ventilator Empyema status post initial drainage of 650 mL's of fluid with insertion of the chest tube. Sepsis secondary to empyema for which patient is an above-mentioned antibiotics -Acute renal failure secondary to sepsis, post VATS continue with IV fluids as mentioned above -Metabolic acidosis mostly secondary to hyperchloremia for which patient is on bicarbonate drip probably need to be discontinued Hypovolemic hyponatremia resolved now Hypertension Sepsis secondary to pneumonia with parapneumonic effusion Acute hypotension due to septic shock which improved patient is off pressors Type 2 diabetes mellitus, uncontrolled hyperglycemia. We'll continue to monitor blood glucose and adjust accordingly. -Hypoglycemia secondary to sepsis and being nothing by mouth: D5 as mentioned before total receiving 1 50 mL of D5
[2019-01-24] MEDS: ENOXAPARIN 40 MG/0.4 ML SYRINGE SQ SCH (15:21)
[2019-01-24] MEDS: traMADol 50 MG TAB PO PRN ×2 (15:32→21:53)
[2019-01-24 16:17] LABS: Glucose,Whole Blood 236 mg/dL (75-99)
[2019-01-24] MEDS: ROPIVACAINE 250 MG, fentaNYL (PF) 625 MCG in SODIUM CHLORIDE 0.9% 188 ML EPIDURAL PRN (17:52)
[2019-01-24 19:56] LABS: Glucose,Whole Blood 259 mg/dL (75-99)
[2019-01-24 23:40] LABS: Glucose,Whole Blood 227 mg/dL (75-99)
[2019-01-25] MEDS: PROPOFOL 1,000 MG in EMPTY BAG 1 BAG IV SCH ×2 (03:00→06:45)
[2019-01-25] MEDS: DEXTROSE 5% IN WATER 1,000 ML with SODIUM BICARB (1 MEQ/ML) 150 ML IV SCH ×2 (04:36→20:38)
[2019-01-25] MEDS: traMADol 50 MG TAB PO PRN (04:36)
[2019-01-25 05:24] LABS: Ionized Calcium 4.4 mg/dL (4.5-5.3)
[2019-01-25 05:32] LABS: Albumin 1.5 g/dL (3.5-5.0); Magnesium 1.7 mg/dL (1.6-2.3); Potassium 3.8 mmol/L (3.5-5.1); Total Bilirubin 0.1 mg/dL (0.2-1.3); Total Protein 3.4 g/dL (6.3-8.2)
[2019-01-25 05:39] LABS: Basophils % (A) 0 %; Eosinophils % (A) 0 %; HCT 21.7 % (39.0-53.0); HGB 7.4 gm/dL (13.0-17.5); Lymphocytes # (A) 0.7 k/uL (1.0-4.8); Lymphocytes % (A) 4 %; MCH 29.5 pg (25.0-35.0); MCHC 33.8 g/dL (31.0-37.0); MCV 87.3 fL (80.0-100.0); Mean Platelet Volume 7.7; Monocytes # (A) 0.8 k/uL (0-1.0); Monocytes % (A) 5 %; Neutrophils # (A) 16.1 k/uL (1.3-7.7); Neutrophils % (A) 91 %; Platelet Count 424 k/uL (150-450); RBC 2.49 m/uL (4.30-5.90); RDW 15.9 % (11.5-15.5); WBC 17.8 k/uL (3.8-10.6)
[2019-01-25 05:41] LABS: Glucose,Whole Blood 215 mg/dL (75-99)
[2019-01-25 05:47] LABS: Calcium 6.1 mg/dL (8.4-10.2)
[2019-01-25] MEDS ORDERED: Magnesium Replacement Protocol 1 EACH MISC MISCELLANE PRN (05:55)
[2019-01-25] MEDS ORDERED: Potassium Replacement Protocol 1 EACH MISC MISCELLANE PRN (05:55)
[2019-01-25] MEDS ORDERED: POTASSIUM BICARBONATE/CIT AC 20 MEQ TABLET.EFF NG-TUBE SCH (06:00)
[2019-01-25] MEDS: INSULIN ASPART (NovoLOG) 100 UNIT/ML VIAL SQ SCH ×3 (06:11→20:11)
[2019-01-25] MEDS: MAGNESIUM SULFATE-D5W PMX 1 GM in DEXTROSE/WATER 1 100ML.BAG IVPB SCH ×2 (06:11→07:00)
[2019-01-25 07:24] LABS: ABG Base Excess -2.7 mmol/L; ABG HCO3 22 mmol/L (21-25); ABG Oxygen Saturation 98.1 % (94-97); ABG PCO2 33 mmHg (35-45); ABG PH 7.42 (7.35-7.45); ABG PO2 98 mmHg (83-108); ABG TCO2 23 mmol/L (19-24); Allen Test Performed? Yes
[2019-01-25] MEDS: IPRATROPIUM-ALBUTEROL 3 ML NEB IH SCH ×4 (07:27→19:44)
--- NOTE | 2019-01-25 07:32 | XR ---
EXAMINATION TYPE: XR chest 1V portable DATE OF EXAM: 01/25/2019 COMPARISON: 01/24/2019 INDICATION: Tube placement TECHNIQUE: Single frontal view of the chest is obtained. FINDINGS: The heart size is mildly prominent. The pulmonary vasculature is normal. Bibasilar infiltrates are present. Small effusions are not excluded. 2 left-sided chest tubes are present. No pneumothorax is evident. Endotracheal tube and nasogastric t ube are stable in position. IMPRESSION: 1. Lines and catheters discussed above. 2. Bibasilar infiltrates and/or pleural effusions.
--- NOTE | 2019-01-25 07:57 | P.PN ---
Subjective Progress Note Date: 01/25/19 Principal diagnosis: Left-sided empyema with loculated left pleural effusion effusion positive for alpha hemolytic strep, dyspnea secondary to empyema. Previous medical history of uncontrolled type diet 2 diabetes mellitus, hypertension, pneumonia, depression, GERD, GI bleed. POD #6 left-sided pigtail catheter placement by interventional radiology Acute blood loss anemia, unexpected Septic shock with lactic acidosis, unexpected POD #2 left thoracotomy with decortication Non-anion gap metabolic acidosis Acute kidney injury The patient is currently laying in bed in the intensive care unit with mechanical ventilation, patient did wean yesterday for about 15 minutes. Remains in normal sinus rhythm, hemodynamically stable on no pressors currently, levo has been off for 24 hours. Left pleural chest tube in place to suction with small air leak. Sedated with propofol. Fentanyl/ropivacaine epidural initiated yesterday by anesthesia for pain control. Objective - Vital Signs Vital signs: Vital Signs Temp 98.3 F 01/25/19 04:00 Pulse 70 01/25/19 07:00 Resp 16 01/25/19 07:00 BP 135/65 01/24/19 21:00 Pulse Ox 100 01/25/19 07:00 Intake & Output 01/24/19 01/25/19 01/25/19 18:59 06:59 18:59 Intake Total 2556.158 1648.613 Output Total 665 580 Balance 8328.097 0577.613 Weight 68.1 kg Intake: IV 2000 1147 Cefepime 2 gm In Sodium 100 Chloride 0.9% 100 ml @ 200 mls/hr IVPB Q12HR [facility] Rx#:[id number] Dextrose 10 % in Water 250 250 ml @ 999 mls/hr IV ONCE ONE Rx#:[id number] Dextrose 5% in Water 1, 900 975 000 ml @ 75 mls/hr IV . [id number] [facility] with Sodium Bicarb (1 Meq/ml) 150 ml Rx#:[id number] Dextrose 5%-0.45% NaCl 1, 600 000 ml @ 75 mls/hr IV . [id number] [facility] Rx#:[id number] Magnesium Sulfate-D5w Pmx 100 1 gm In Dextrose/Water 1 100ml.bag @ 100 mls/hr IVPB Q1H [facility] Rx#: [id number] Ropivacaine 250 mg 72 fentaNYL (PF) 625 mcg In Sodium Chloride 0.9% 188 ml @ Per Protocol EPIDURAL .Q0M [facility] Rx#: [id number] Sodium Chloride 0.9% 1, 150 000 ml @ 75 mls/hr IV . [id number] [facility] Rx#:[id number] Intake, IV Titration 106.158 176.613 Amount Norepinephrine 4 mg In 6.158 Sodium Chloride 0.9% 250 ml @ 0.05 MCG/KG/MIN 13. 011 mls/hr IV .[id number] [facility] Rx#:[id number] Propofol 1,000 mg In 100.000 176.613 Empty Bag 1 bag @ Titrate IV .Q0M [facility] Rx#: [id number] Oral 50 10 Tube Feeding 60 225 Blood Product 310 Rc Pheresis As-3 Unit 310 [id number] Other 30 90 Output: Chest Tube Drainage 140 Left Pleural/Mediastinal 140 Gastric Drainage 75 Drainage 50 Left 50 Urine 450 530 Other: Voiding Method Indwelling Catheter Indwelling Catheter ABP, PAP, CO, CI - Last Documented Arterial Blood Pressure 128/51 - Constitutional General appearance: Present: no acute distress - Respiratory Details: Lungs sounds diminished bilaterally. Respirations even, nonlabored on mechanical ventilation. Current ventilator settings FiO2 35%, tidal volume 500, respiratory rate 16, PEEP 5. Arterial blood gases this morning on those vent settings 7.42/33/98/22/98%/-2.7. 8.0 ET tube present, 24 at the lip. Left ant erior and posterior pleural chest tubes present and Y'd together to continuous wall suction, 40 mL thin serosanguineous drainage overnight, 250 mL in the last 24 hours, positive small air leak present. - Cardiovascular Details: S1, S2 present. Regular rate and rhythm, sinus rhythm on telemetry. Palpable peripheral pulses bilaterally. Trace generalized edema present. No calf pain or tenderness noted. Right radial arterial line present. SCDs present. - Gastrointestinal Gastrointestinal Comment(s): Abdomen soft, nontender, nondistended. Active bowel sounds present 4 quadrants. OG tube present, tube feedings infusing at 40 mL per hour. - Genitourinary Genitourinary Comment(s): Kaur present draining clear, yellow urine. Output 35-40 mL/h overnight. - Integumentary Integumentary Comment(s): Skin is warm and dry. - Neurologic Neurologic Comment(s): Sedated with propofol on mechanical ventilation. During weaning trial yesterday nursing reported patient was following all commands and moving all extremities. - Allied health notes Allied health notes reviewed: nursing - Labs CBC & Chem 7: 01/25/19 05:00 01/25/19 05:20 Labs: Abnormal Lab Results - Last 24 Hours (Table) 01/22/19 01/24/19 01/24/19 Range/Units 05:22 08:06 08:30 WBC (3.8-10.6) k/uL RBC (4.30-5.90) m/uL Hgb (13.0-17.5) gm/dL Hct (39.0-53.0) % RDW (11.5-15.5) % Neutrophils # (1.3-7.7) k/uL Lymphocytes # (1.0-4.8) k/uL ABG pCO2 (35-45) mmHg ABG O2 Saturation (94-97) % Chloride (98-107) mmol/L Carbon Dioxide (22-30) mmol/L BUN (9-20) mg/dL Creatinine (0.66-1.25) mg/dL Glucose (74-99) mg/dL POC Glucose (mg/dL) 67 L 205 H (75-99) mg/dL Calcium (8.4-10.2) mg/dL Ionized Calcium Sondra (4.5-5.3) mg/dL Total Bilirubin (0.2-1.3) mg/dL Total Protein (6.3-8.2) g/dL Albumin (3.5-5.0) g/dL Crossmatch See Detail 01/24/19 01/24/19 01/24/19 Range/Units 11:30 11:52 16:15 WBC 24.0 H (3.8-10.6) k/uL RBC 2.73 L (4.30-5.90) m/uL Hgb 8.1 L (13.0-17.5) gm/dL Hct 24.2 L (39.0-53.0) % RDW (11.5-15.5) % Neutrophils # 22.4 H (1.3-7.7) k/uL Lymphocytes # 0.6 L (1.0-4.8) k/uL ABG pCO2 (35-45) mmHg ABG O2 Saturation (94-97) % Chloride (98-107) mmol/L Carbon Dioxide (22-30) mmol/L BUN (9-20) mg/dL Creatinine (0.66-1.25) mg/dL Glucose (74-99) mg/dL POC Glucose (mg/dL) 116 H 236 H (75-99) mg/dL Calcium (8.4-10.2) mg/dL Ionized Calcium Sondra (4.5-5.3) mg/dL Total Bilirubin (0.2-1.3) mg/dL Total Protein (6.3-8.2) g/dL Albumin (3.5-5.0) g/dL Crossmatch 01/24/19 01/24/19 01/25/19 Range/Units 19:54 23:39 05:00 WBC 17.8 H (3.8-10.6) k/uL RBC 2.49 L (4.30-5.90) m/uL Hgb 7.4 L (13.0-17.5) gm/dL Hct 21.7 L (39.0-53.0) % RDW 15.9 H (11.5-15.5) % Neutrophils # 16.1 H (1.3-7.7) k/uL Lymphocytes # 0.7 L (1.0-4.8) k/uL ABG pCO2 (35-45) mmHg ABG O2 Saturation (94-97) % Chloride (98-107) mmol/L Carbon Dioxide (22-30) mmol/L BUN (9-20) mg/dL Creatinine (0.66-1.25) mg/dL Glucose (74-99) mg/dL POC Glucose (mg/dL) 259 H 227 H (75-99) mg/dL Calcium (8.4-10.2) mg/dL Ionized Calcium Sondra (4.5-5.3) mg/dL Total Bilirubin (0.2-1.3) mg/dL Total Protein (6.3-8.2) g/dL Albumin (3.5-5.0) g/dL Crossmatch 01/25/19 01/25/19 01/25/19 Range/Units 05:20 05:39 07:18 WBC (3.8-10.6) k/uL RBC (4.30-5.90) m/uL Hgb (13.0-17.5) gm/dL Hct (39.0-53.0) % RDW (11.5-15.5) % Neutrophils # (1.3-7.7) k/uL Lymphocytes # (1.0-4.8) k/uL ABG pCO2 33 L (35-45) mmHg ABG O2 Saturation 98.1 H (94-97) % Chloride 110 H (98-107) mmol/L Carbon Dioxide 20 L (22-30) mmol/L BUN 45 H (9-20) mg/dL Creatinine 1.72 H (0.66-1.25) mg/dL Glucose 185 H (74-99) mg/dL POC Glucose (mg/dL) 215 H (75-99) mg/dL Calcium 6.1 L* (8.4-10.2) mg/dL Ionized Calcium Sondra 4.4 L (4.5-5.3) mg/dL Total Bilirubin 0.1 L (0.2-1.3) mg/dL Total Protein 3.4 L (6.3-8.2) g/dL Albumin 1.5 L (3.5-5.0) g/dL Crossmatch Microbiology - Last 24 Hours (Table) 01/23/19 16:57 Gram Stain - Preliminary Pleural Fluid Body Fluid Culture - Preliminary 01/23/19 16:57 Gram Stain - Preliminary Other - Other Tissue Culture - Preliminary 01/23/19 16:57 Gram Stain - Preliminary Other - Other Tissue Culture - Preliminary 01/19/19 10:05 Gram Stain - Final Pleural Fluid Body Fluid Culture - Final Alpha Hemolytic Streptococcus - Imaging and Cardiology Chest x-ray: report reviewed, image reviewed Assessment and Plan Assessment: 1. Empyema involving the left lung with loculated pleural effusion positive for alpha hemolytic strep, status post left chest pigtail catheter placement, status post left thoracotomy with decortication 2. Dyspnea to empyema 3. History of hypertension 4. Diabetes mellitus type 2, uncontrolled with HgbA1c 11% 5. History of depression 6. Acute blood loss anemia 7. Sepsis with lactic acidosis 8. Non-anion gap metabolic acidosis 9. Acute kidney injury Plan: 1. Will monitor left pleural chest tube for drainage amount and resolution of air leak. 2. Wean O2 as tolerated. Mechanical ventilation management per pulmonology. 3. IV bicarb per jewel hole gauger. 4. Once extubated, encourage incentive spirometry use 10 times every hour while awake. 5. Once extubated, increase activity as tolerated. 6. Will monitor daily labs and x-rays x-rays. 7. Pain control with current medication regimen 8. Medical management of other comorbid conditions per primary care service. Blood transfusion per primary care service. 9. Antibiotic management per infectious disease, pleural fluid positive for alpha hemolytic strep. 10. More recommendations to follow. Time with Patient: Greater than 30
[2019-01-25] MEDS: CEFEPIME 2 GM in SODIUM CHLORIDE 0.9% 100 ML IVPB SCH ×2 (08:01→21:55)
[2019-01-25] MEDS: FLUoxetine HCL 20 MG CAP PO SCH (08:16)
[2019-01-25] MEDS: ASPIRIN 81 MG PO SCH (08:16)
[2019-01-25] MEDS: CHLORHEXIDINE GLUCONATE 15 ML CUP MUCOUS MEM SCH ×2 (08:16→21:49)
[2019-01-25] MEDS: PANTOPRAZOLE 40 MG/10 ML VIAL IVP SCH (08:16)
[2019-01-25] MEDS: ENOXAPARIN 40 MG/0.4 ML SYRINGE SQ SCH (08:19)
[2019-01-25] MEDS ORDERED: LORazepam 2 MG/ML INJ IV STA (08:49)
--- NOTE | 2019-01-25 09:23 | US ---
EXAMINATION TYPE: US chest DATE OF EXAM: 01/25/2019 COMPARISON: NONE CLINICAL HISTORY: Markings for thoracentesis by pulmonary staff. SOB TECHNIQUE: Targeted ultrasound of the posterior lower right EXAM MEASUREMENTS: Right Pleural Effusion pocket size: 11.0cm pocket with large lung tissue in pocket, only 2.6cm pocke t anterior to tissue ICU patient intubated and sedated, only option to look for fluid was to have patient lay flat while nurse rolled him to the left. Pocket was not marked due to large amount of tissue in pocket. Could reassess pocket once patient can be properly scanned upright. Right side NOT marked for possible thoracentesis outside the dept. Pulmonologists are able to review the images in the patient?s EMR. IMPRESSIONS: 1. Right pleural effusion. Patient not marked for thoracentesis.
[2019-01-25] MEDS: ONDANSETRON 4 MG/2 ML VIAL IVP PRN (10:10)
--- NOTE | 2019-01-25 10:56 | P.PN ---
Subjective Progress Note Date: 01/25/19 Principal diagnosis: Left-sided empyema Patient was reevaluated today on 01/22/2019, he initially presented with left- sided empyema and he was a transfer from [facility]. Patient had a left-sided pigtail catheter placed by interventional radiology and this is his postoperative day #3. Patient was receiving thrombolytic therapy by thoracic surgery, however last night, the patient developed worsening bleeding into the chest tube, and significant fluid collection in the left pleural space with a left sided hydropneumothorax. His hemoglobin dropped down to 5.0 this morning, and the patient is receiving 2 units of packed RBCs at present. He was transferred to the ICU, thoracic surgery evaluated the patient on consultation, and I believe the patient will be scheduled for decortication/VATS of his empyema in the next 24 hours. In the meantime we'll try to transfer the patient, stabilize him from the medical perspective, and hopefully optimize for surgical intervention in the next 24 hours. In the meantime the patient remains on antibiotics, continues to have leukocytosis with WBC count of 42.1. Patient is relatively asymptomatic otherwise. He was diaphoretic, hypotensive early this morning, received fluid boluses earlier today. Patient denies being short of breath. Patient was reevaluated today on 01/23/2019, patient remains in the intensive c are unit, received a total of 3 units of packed RBCs for what seemed to be a hemothorax, patient is scheduled to undergo decortication/VATS today. Presently the patient is hemodynamically stable, looks chronically frail and ill, and in no distress at present. He is on few liters nasal cannula. Pigtail catheter remaining in place, draining basically bloody fluid. Patient is postoperative day #4, left-sided pigtail catheter placement by interventional radiology. WBC count today is up to 33.3 hemoglobin is 7.5. Elective lites are normal bicarb is 16, BUN is 39 creatinine is 1.29. Patient is about to receive fluid boluses and he is about to have increase his maintenance IV fluid to 100 mL/h Patient was reevaluated today on 01/24/2019, patient is now in the intensive care unit, on mechanical ventilation. Patient underwent VATS and left-sided decortication of his empyema. He is now postoperative day #1. Patient is mechanically ventilated, and his ventilator settings are assist control rate of 16, tidal volume of 500, FiO2 of 35%, and PEEP of 5. Patient is on propofol, he was on pressors last night for low blood pressure, however he is now off pressors and not requiring any inotropes. Apparently he was extubated yesterday for a short. This time after surgery however he had to be reintubated in the recovery room due to hemodynamic instability and airway compromise. His left- sided chest tube is noted, there is small air leak, presently on suction. Patient remains on sodium bicarb drip for his underlying metabolic acidosis, and he is also on propofol. Did require more blood transfusions, and he is to receive another unit of blood today for a low hemoglobin of 6.9. I ordered a unit last night. So far, the patient received a total of 6 units of packed RBCs since admission. Continues to have leukocytosis with WBC count of 27.4 hemoglobin is 6.9. ABG showed pO2 of 128 pCO2 of 30 pH of 7.39 bicarb is 18. Electrolytes showed low bicarb, and acute kidney injury with creatinine up to 1.46, BUN is 44. Blood sugar was running low, hence I recommended starting tube feeding/enteral feeding and his IV fluid was changed to D5 45. Reevaluated today on 01/25/2019, remains in the intensive care unit, on mechanical ventilation, patient is not requiring any pressors, he is hemodynamically stable, he was on propofol, and ventilator settings are basically the same as noted above. While I'm at bedside, and after discussing his condition and updating his family on his condition, I did recommend stopping propofol, and within half an hour, patient woke up, and he was very appropriate. Short pressure support and CPAP trial was given while I'm at bedside, and the p atient was moving good volumes, his rate was about 12, and he was very appropriate. Hence proceeded to extubating the patient. Chest x-ray showed evidence of right-sided pleural effusion, however ultrasound of the chest did not show much fluid to be drained. Patient clearly has some atelectasis at the right lower lobe, and that will improve probably with incentive spirometry. And bronchodilators. Again after a short CPAP and pressure support trial, patient was extubated uneventfully. Hence I discontinued his nasogastric tube, his diet will be likely advanced today starting with clear liquids sometime today. ABG this morning before extubation showed a pO2 of 98 pCO2 of 33 pH of 7.42. WBCcount is down to 17.8 and his hemoglobin is 7.4. Electrolytes are normal bicarb is a bit low at 20, patient remains on 50 mL per hour bicarb drip. Objective - Vital Signs Vital signs: Vital Signs Temp 98.0 F 01/25/19 08:00 Pulse 90 01/25/19 10:00 Resp 21 01/25/19 10:00 BP 180/91 01/25/19 10:00 Pulse Ox 98 01/25/19 10:00 Intake & Output 01/24/19 01/25/19 01/25/19 18:59 06:59 18:59 Intake Total 2556.158 1648.613 251 Output Total 665 580 45 Balance 7600.548 0542.613 206 Weight 68.1 kg Intake: IV 2000 1147 181 Cefepime 2 gm In Sodium 100 100 Chloride 0.9% 100 ml @ 200 mls/hr IVPB Q12HR [facility] Rx#:[id number] Dextrose 10 % in Water 250 250 ml @ 999 mls/hr IV ONCE ONE Rx#:[id number] Dextrose 5% in Water 1, 900 975 75 000 ml @ 75 mls/hr IV . [id number] NEGRO with Sodium Bicarb (1 Meq/ml) 150 ml Rx#:[id number] Dextrose 5%-0.45% NaCl 1, 600 000 ml @ 75 mls/hr IV . [id number] [facility] Rx#:[id number] Magnesium Sulfate-D5w Pmx 100 1 gm In Dextrose/Water 1 100ml.bag @ 100 mls/hr IVPB Q1H [facility] Rx#: [id number] Ropivacaine 250 mg 72 6 fentaNYL (PF) 625 mcg In Sodium Chloride 0.9% 188 ml @ Per Protocol EPIDURAL .Q0M PRN Rx#: [id number] Sodium Chloride 0.9% 1, 150 000 ml @ 75 mls/hr IV . [id number] [facility] Rx#:[id number] Intake, IV Titration 106.158 176.613 Amount Norepinephrine 4 mg In 6.158 Sodium Chloride 0.9% 250 ml @ 0.05 MCG/KG/MIN 13. 011 mls/hr IV .[id number] [facility] Rx#:[id number] Propofol 1,000 mg In 100.000 176.613 Empty Bag 1 bag @ Titrate IV .Q0M [facility] Rx#: [id number] Oral 50 10 Tube Feeding 60 225 40 Blood Product 310 Rc Pheresis As-3 Unit 310 [id number] Other 30 90 30 Output: Chest Tube Drainage 140 Left Pleural/Mediastinal 140 Gastric Drainage 75 Drainage 50 Left 50 Urine 450 530 45 Other: Voiding Method Indwelling Catheter Indwelling Catheter ABP, PAP, CO, CI - Last Documented Arterial Blood Pressure 112/48 - Exam GENERAL EXAM: Alert, pleasant 68-year-old white male, on mechanical ventilation, off propofol, awake, following all simple instructions. EYES: PERRLA, EOMI, no icterus. Pale conjunctivas NOSE: Clear with pink turbinates. THROAT: No erythema or exudates. NECK: No masses, no JVD, no thyroid enlargement, no adenopathy. Endotracheal tube and orogastric tube are intact. CHEST: No chest wall deformity. Symmetrical expansion. Left-sided chest tube is noted. Small air leak, connected to Pleur-evac. LUNGS: Right side is clear, diminished breath sounds and dullness on the left side. CVS: Regular rate and rhythm, normal S1 and S2, no gallops, no murmurs, no rubs ABDOMEN: Soft, nontender. No hepatosplenomegaly, normal bowel sounds, no guarding or rigidity. EXTREMITIES: No clubbing, no edema, no cyanosis, 2+ pulses and upper and lower extremities. MUSCULOSKELETAL: Follows instructions and moves all 4 extremities well.. SKIN: No rashes CENTRAL NERVOUS SYSTEM: Alert and oriented 3, no gross focal deficits. Psychiatric: Normal mood affect and mental status examination. - Labs CBC & Chem 7: 01/25/19 05:00 01/25/19 05:20 Labs: Abnormal Lab Results - Last 24 Hours (Table) 01/24/19 01/24/19 01/24/19 Range/Units 11:30 11:52 16:15 WBC 24.0 H (3.8-10.6) k/uL RBC 2.73 L (4.30-5.90) m/uL Hgb 8.1 L (13.0-17.5) gm/dL Hct 24.2 L (39.0-53.0) % RDW (11.5-15.5) % Neutrophils # 22.4 H (1.3-7.7) k/uL Lymphocytes # 0.6 L (1.0-4.8) k/uL ABG pCO2 (35-45) mmHg ABG O2 Saturation (94-97) % Chloride (98-107) mmol/L Carbon Dioxide (22-30) mmol/L BUN (9-20) mg/dL Creatinine (0.66-1.25) mg/dL Glucose (74-99) mg/dL POC Glucose (mg/dL) 116 H 236 H (75-99) mg/dL Calcium (8.4-10.2) mg/dL Ionized Calcium Sondra (4.5-5.3) mg/dL Total Bilirubin (0.2-1.3) mg/dL Total Protein (6.3-8.2) g/dL Albumin (3.5-5.0) g/dL 01/24/19 01/24/19 01/25/19 Range/Units 19:54 23:39 05:00 WBC 17.8 H (3.8-10.6) k/uL RBC 2.49 L (4.30-5.90) m/uL Hgb 7.4 L (13.0-17.5) gm/dL Hct 21.7 L (39.0-53.0) % RDW 15.9 H (11.5-15.5) % Neutrophils # 16.1 H (1.3-7.7) k/uL Lymphocytes # 0.7 L (1.0-4.8) k/uL ABG pCO2 (35-45) mmHg ABG O2 Saturation (94-97) % Chloride (98-107) mmol/L Carbon Dioxide (22-30) mmol/L BUN (9-20) mg/dL Creatinine (0.66-1.25) mg/dL Glucose (74-99) mg/dL POC Glucose (mg/dL) 259 H 227 H (75-99) mg/dL Calcium (8.4-10.2) mg/dL Ionized Calcium Sondra (4.5-5.3) mg/dL Total Bilirubin (0.2-1.3) mg/dL Total Protein (6.3-8.2) g/dL Albumin (3.5-5.0) g/dL 0701/25/19 01/25/19 Range/Units 05:20 05:39 07:18 WBC (3.8-10.6) k/uL RBC (4.30-5.90) m/uL Hgb (13.0-17.5) gm/dL Hct (39.0-53.0) % RDW (11.5-15.5) % Neutrophils # (1.3-7.7) k/uL Lymphocytes # (1.0-4.8) k/uL ABG pCO2 33 L (35-45) mmHg ABG O2 Saturation 98.1 H (94-97) % Chloride 110 H (98-107) mmol/L Carbon Dioxide 20 L (22-30) mmol/L BUN 45 H (9-20) mg/dL Creatinine 1.72 H (0.66-1.25) mg/dL Glucose 185 H (74-99) mg/dL POC Glucose (mg/dL) 215 H (75-99) mg/dL Calcium 6.1 L* (8.4-10.2) mg/dL Ionized Calcium Sondra 4.4 L (4.5-5.3) mg/dL Total Bilirubin 0.1 L (0.2-1.3) mg/dL Total Protein 3.4 L (6.3-8.2) g/dL Albumin 1.5 L (3.5-5.0) g/dL Microbiology - Last 24 Hours (Table) 01/23/19 16:57 Gram Stain - Preliminary Pleural Fluid Body Fluid Culture - Preliminary 01/23/19 16:57 Gram Stain - Preliminary Other - Other Tissue Culture - Preliminary 01/23/19 16:57 Gram Stain - Preliminary Other - Other Tissue Culture - Preliminary 01/19/19 10:05 Gram Stain - Final Pleural Fluid Body Fluid Culture - Final Alpha Hemolytic Streptococcus Assessment and Plan Assessment: Impression: 1 left-sided empyema, secondary to alpha hemolytic streptococcus. Status post VATS decortication post operative day #2. Patient is on cefepime. 2 left sided hydropneumothorax, with loculated pleural effusion, requiring VATS decortication. 3 left sided hemothorax, patient required at least 7 units of packed RBCs so far since admission. 4 acute sepsis secondary to empyema is strongly suspected 5 acute blood loss secondary to hemothorax requiring 7 units of packed RBCs since admission. 6 multiple comorbidities including hypertension, diabetes, electrolytes imbalance with hypokalemia, and worsening anemia secondary to hemothorax and blood loss in the left pleural space. 7 acute hypoxic respiratory failure secondary to left-sided empyema, sepsis, and septic shock. 8 acute septic shock secondary to empyema. 9 small right-sided pleural effusion, not large enough on ultrasound to consider thoracentesis. No markings were placed. Recommendation: After a trial of pressure support and CPAP mode of mechanical ventilation, patient was extubated, I will keep him on small dose of bicarb drip, will continue GI and DVT prophylaxis, we'll continue antibiotics, continue close monitoring in the ICU, advanced diet as tolerated, daily labs and daily x- rays of the chest, patient is definitely not quite ready to be transferred out of the ICU, prognosis remains guarded considering his initial presentation of empyema and sepsis as well as septic shock. Family updated on his condition. Critical care time is 40 minutes Time with Patient: Greater than 30
[2019-01-25 12:03] LABS: Glucose,Whole Blood 205 mg/dL (75-99)
[2019-01-25] MEDS: DEXTROSE 5%-0.45% NACL 1,000 ML IV SCH (14:04)
[2019-01-25] MEDS: CLEVIDIPINE BUTYRATE 25 MG in EMPTY BAG 1 BAG IV SCH ×2 (14:29→22:36)
[2019-01-25] MEDS ORDERED: amLODIPine 5 MG TAB PO SCH (14:30)
[2019-01-25] MEDS ORDERED: PROMETHAZINE INJ 25 MG in SODIUM CHLORIDE 0.9% 50 ML IVPB PRN (16:04)
--- NOTE | 2019-01-25 16:06 | P.PN ---
Subjective 68 year old man that was admitted for left-sided pneumonia, pleural effusion and empyema that had recently undergone a chest tube placement of the left side. A total of 500ml has drained from last night. Will continue to monitor closely. Cultures of the pleural fluid grew positive for alpha hemolytic streptococci. Infectious disease is following along with the care of the patient and managing antibiotics at this time. Patient has been up and walking often around the unit. Patient appears in no acute distress at this time. Patient denies any chest pain or fevers at this time and also made mention that his shortness of breath has improved since the placement of the chest tube. Early this am patient was moved to the ICU to be closely monitored as he was draining a large amount of blood from the left side chest tube and had a critical value hemoglobin level of 5. Patient states that he felt better yesterday but later in the evening felt fatigued and not up to walking. Vitals were stable but started becoming hypotensive in the low 90's systolic. Patient was then transferred to the ICU and will likely be going for surgery on 01/23/19. Patient's blood sugars continue to be elevated and will continue to cover per protocol. Patient is scheduled to be NPO after midnight, but he states that he hasn't been that hungry today. Patient is lying in the bed with a bear hugger on to maintain his temperature. Patient is still currently on broad spectrum antibiotics per infectious disease and being followed closely. Patient was awaiting for 2 units of PRBC to be transfused as there were antibodies present per the lab. Patient denies any shortness of breath, chest pain, or palpitations, just states that he feels tired. A chest xray was done showing a moderate to large pleural effusion with left hydropneumothorax with a small right side pleural effusion. CT scan of the chest showed loculated empyema with a couple of air-fluid levels present, small pneumothorax is not excluded, chest catheter is within area of increased density consistent with the empyema, and a couple of enlarged lymph nodes within the mediastinum. 01/23/19 Today this 68-year-old male is lying in bed in the ICU awaiting a thoracotomy procedure early this afternoon. Patient states he's unsure when but was told it is scheduled for today. Patient is denying any increasing shortness of breath, chest pains, palpitations, or fevers at this time. Patient is still having a large amount of output in the chest tube noted in the atrium. Per the RN the drainage has decreased since this morning. Patient denies any dizziness or lightheadedness at this time. Patient is very lethargic but easily arousable. Patient was currently made nothing by mouth after midnight for this procedure. Per infectious disease the vancomycin is being discontinued at this time and they will continue to follow while awaiting cultures from the thoracotomy today. 01/24/2019 Patient underwent VATS procedure patient is still intubated at this time patient had multiple events since last night including hypoglycemia for which patient is on D5 half-normal saline at 75 mL per hour and D5 water with 3 A of bicarbonate because of acidosis I believe. Patient received total 7 units of PRBC transfusion since admission patient hemoglobin is presently 8.1 and is stable at the chest tube in place on the left side which is draining, white blood cell count has come down, patient remains on cefepime and vancomycin. Patient is presently not on any pressor support unable to wean at this time fairly good urine output 01/25/2019 Patient is in severe distress because of nausea vomiting his blood pressure went up today patient is extubated patient is getting D5 were grams of bicarbonate which will be continued. Patient kidney function has worsened although has good urine output there is some output from the left-sided chest tube as well. Patient blood pressure went up patient is on calcium channel yomi IV as he is throwing up. All inpatient medications were reviewed and appropriate changes in these medications as dictated in the interval history and assessment and plan. Objective - Vital Signs Vital signs: Vital Signs Temp 98.0 F 01/25/19 08:00 Pulse 98 01/25/19 13:00 Resp 16 01/25/19 13:00 BP 184/87 01/25/19 13:00 Pulse Ox 99 01/25/19 13:00 Intake & Output 01/24/19 01/25/19 01/25/19 18:59 06:59 18:59 Intake Total 2556.158 1648.613 419 Output Total 665 580 160 Balance 6263.347 3761.613 259 Weight 68.1 kg Intake: IV 2000 1147 349 Cefepime 2 gm In Sodium 100 100 Chloride 0.9% 100 ml @ 200 mls/hr IVPB Q12HR [facility] Rx#:[id number] Dextrose 10 % in Water 250 250 ml @ 999 mls/hr IV ONCE ONE Rx#:[id number] Dextrose 5% in Water 1, 900 975 225 000 ml @ 75 mls/hr IV . [id number] NEGRO with Sodium Bicarb (1 Meq/ml) 150 ml Rx#:[id number] Dextrose 5%-0.45% NaCl 1, 600 000 ml @ 50 mls/hr IV . Q20H [facility] Rx#:[id number] Magnesium Sulfate-D5w Pmx 100 1 gm In Dextrose/Water 1 100ml.bag @ 100 mls/hr IVPB Q1H [facility] Rx#: [id number] Ropivacaine 250 mg 72 24 fentaNYL (PF) 625 mcg In Sodium Chloride 0.9% 188 ml @ Per Protocol EPIDURAL .Q0M PRN Rx#: [id number] Sodium Chloride 0.9% 1, 150 000 ml @ 75 mls/hr IV . [id number] [facility] Rx#:[id number] Intake, IV Titration 106.158 176.613 Amount Norepinephrine 4 mg In 6.158 Sodium Chloride 0.9% 250 ml @ 0.05 MCG/KG/MIN 13. 011 mls/hr IV .[id number] [facility] Rx#:[id number] Propofol 1,000 mg In 100.000 176.613 Empty Bag 1 bag @ Titrate IV .Q0M [facility] Rx#: [id number] Oral 50 10 Tube Feeding 60 225 40 Blood Product 310 Rc Pheresis As-3 Unit 310 [id number] Other 30 90 30 Output: Chest Tube Drainage 140 Left Pleural/Mediastinal 140 Gastric Drainage 75 Drainage 50 Left 50 Urine 450 530 160 Other: Voiding Method Indwelling Catheter Indwelling Catheter ABP, PAP, CO, CI - Last Documented Arterial Blood Pressure 112/48 - Exam PHYSICAL EXAMINATION: GENERAL: Extubated is in distress because of distressed nausea vomiting HEENT: Pupils are round and equally reacting to light. EOMI. No scleral icterus. No conjunctival pallor. Normocephalic, atraumatic. No pharyngeal erythema. No thyromegaly. CARDIOVASCULAR: S1 and S2 present. No murmurs, rubs, or gallops. PULMONARY: Chest is clear to auscultation, no wheezing or crackles. patient has a left-sided chest tube with significant drainage from the chest tube since placement. ABDOMEN: Soft, nontender, nondistended, normoactive bowel sounds. No palpable organomegaly. MUSCULOSKELETAL: No joint swelling or deformity. EXTREMITIES: No cyanosis, clubbing, or pedal edema. NEUROLOGICAL: No weakness SKIN: No rashes. - Labs CBC & Chem 7: 01/25/19 05:00 01/25/19 05:20 Labs: Abnormal Lab Results - Last 24 Hours (Table) 01/24/19 01/24/19 01/24/19 Range/Units 16:15 19:54 23:39 WBC (3.8-10.6) k/uL RBC (4.30-5.90) m/uL Hgb (13.0-17.5) gm/dL Hct (39.0-53.0) % RDW (11.5-15.5) % Neutrophils # (1.3-7.7) k/uL Lymphocytes # (1.0-4.8) k/uL ABG pCO2 (35-45) mmHg ABG O2 Saturation (94-97) % Chloride (98-107) mmol/L Carbon Dioxide (22-30) mmol/L BUN (9-20) mg/dL Creatinine (0.66-1.25) mg/dL Glucose (74-99) mg/dL POC Glucose (mg/dL) 236 H 259 H 227 H (75-99) mg/dL Calcium (8.4-10.2) mg/dL Ionized Calcium Sondra (4.5-5.3) mg/dL Total Bilirubin (0.2-1.3) mg/dL Total Protein (6.3-8.2) g/dL Albumin (3.5-5.0) g/dL 01/25/19 01/25/19 01/25/19 Range/Units 05:00 05:20 05:39 WBC 17.8 H (3.8-10.6) k/uL RBC 2.49 L (4.30-5.90) m/uL Hgb 7.4 L (13.0-17.5) gm/dL Hct 21.7 L (39.0-53.0) % RDW 15.9 H (11.5-15.5) % Neutrophils # 16.1 H (1.3-7.7) k/uL Lymphocytes # 0.7 L (1.0-4.8) k/uL ABG pCO2 (35-45) mmHg ABG O2 Saturation (94-97) % Chloride 110 H (98-107) mmol/L Carbon Dioxide 20 L (22-30) mmol/L BUN 45 H (9-20) mg/dL Creatinine 1.72 H (0.66-1.25) mg/dL Glucose 185 H (74-99) mg/dL POC Glucose (mg/dL) 215 H (75-99) mg/dL Calcium 6.1 L* (8.4-10.2) mg/dL Ionized Calcium Sondra 4.4 L (4.5-5.3) mg/dL Total Bilirubin 0.1 L (0.2-1.3) mg/dL Total Protein 3.4 L (6.3-8.2) g/dL Albumin 1.5 L (3.5-5.0) g/dL 01/25/19 01/25/19 Range/Units 07:18 12:02 WBC (3.8-10.6) k/uL RBC (4.30-5.90) m/uL Hgb (13.0-17.5) gm/dL Hct (39.0-53.0) % RDW (11.5-15.5) % Neutrophils # (1.3-7.7) k/uL Lymphocytes # (1.0-4.8) k/uL ABG pCO2 33 L (35-45) mmHg ABG O2 Saturation 98.1 H (94-97) % Chloride (98-107) mmol/L Carbon Dioxide (22-30) mmol/L BUN (9-20) mg/dL Creatinine (0.66-1.25) mg/dL Glucose (74-99) mg/dL POC Glucose (mg/dL) 205 H (75-99) mg/dL Calcium (8.4-10.2) mg/dL Ionized Calcium Sondra (4.5-5.3) mg/dL Total Bilirubin (0.2-1.3) mg/dL Total Protein (6.3-8.2) g/dL Albumin (3.5-5.0) g/dL Microbiology - Last 24 Hours (Table) 01/23/19 16:57 Gram Stain - Preliminary Pleural Fluid Body Fluid Culture - Preliminary 01/23/19 16:57 Gram Stain - Preliminary Other - Other Tissue Culture - Preliminary 01/23/19 16:57 Gram Stain - Preliminary Other - Other Tissue Culture - Preliminary Assessment and Plan Plan: Assessment: Acute hypoxic respiratory failure: Left-sided pneumonia and pleural effusion with hydropneumothorax, patient is presently status post VATS procedure Acute anemia blood loss most likely from fluid collection in the left lung. Continued output of the chest tube. Received 7 units of PRBC and will monitor hemoglobin. Patient is presently extubated Acute hypoxic respiratory failure: Left-sided pneumonia and pleural effusion with hydropneumothorax, status post VATS Sepsis secondary to empyema for which patient is an above-mentioned antibiotics -Acute renal failure secondary to sepsis, post VATS continue with IV fluids as mentioned above -Metabolic acidosis mostly secondary to hyperchloremia for which patient is on bicarbonate drip probably need to be discontinued Hypovolemic hyponatremia resolved now Hypertension Sepsis secondary to pneumonia with parapneumonic effusion Acute hypotension due to septic shock which resolved and patient is actually hypotensive on 9 calcium Yomi at This Time Type 2 diabetes mellitus, uncontrolled hyperglycemia. We'll continue to monitor blood glucose and adjust accordingly. -Hypoglycemia secondary to sepsis and being nothing by mouth: She is on D5 water with 2 A of bicarbonate
--- NOTE | 2019-01-25 16:24 | XR ---
EXAMINATION TYPE: XR abdomen 1V DATE OF EXAM: 01/25/2019 4:01 PM CLINICAL HISTORY: Nausea. TECHNIQUE: Two supine KUB images of the abdomen are obtained. COMPARISON: None. FINDINGS: There is some paucity of bowel gas. Visualized gas is seen in nondistended small and large bowel loops. There is partial visualization of 2 left-sided chest tubes. There is S-shaped scoliosis with multilevel spurring. Sclerotic foci of the right iliac bone favor benign bone islands. Surgical clips epigastric region may be product of cholecystectomy. IMPRESSION: Overall nonspecific but favor nonobstructive bowel gas pattern.
[2019-01-25 18:53] LABS: Glucose,Whole Blood 111 mg/dL (75-99)
[2019-01-25 23:55] LABS: Glucose,Whole Blood 124 mg/dL (75-99)
[2019-01-26] MEDS: INSULIN ASPART (NovoLOG) 100 UNIT/ML VIAL SQ SCH ×5 (00:20→22:00)
[2019-01-26] MEDS: CLEVIDIPINE BUTYRATE 25 MG in EMPTY BAG 1 BAG IV SCH ×9 (01:21→21:15)
[2019-01-26] MEDS: ONDANSETRON 4 MG/2 ML VIAL IVP PRN ×2 (01:22→08:38)
[2019-01-26 05:36] LABS: Basophils % (A) 0 %; Eosinophils # (A) 0.1 k/uL (0-0.7); Eosinophils % (A) 1 %; HGB 8.8 gm/dL (13.0-17.5); Lymphocytes # (A) 0.6 k/uL (1.0-4.8); Lymphocytes % (A) 4 %; MCH 29.7 pg (25.0-35.0); MCHC 33.8 g/dL (31.0-37.0); MCV 87.7 fL (80.0-100.0); Mean Platelet Volume 7.3; Monocytes # (A) 0.6 k/uL (0-1.0); Monocytes % (A) 3 %; Neutrophils # (A) 15.9 k/uL (1.3-7.7); Neutrophils % (A) 92 %; Platelet Count 541 k/uL (150-450); RBC 2.96 m/uL (4.30-5.90); RDW 15.5 % (11.5-15.5); WBC 17.3 k/uL (3.8-10.6)
[2019-01-26 05:45] LABS: Ionized Calcium 4.7 mg/dL (4.5-5.3)
[2019-01-26 06:00] LABS: Albumin 1.8 g/dL (3.5-5.0); Calcium 6.9 mg/dL (8.4-10.2); Potassium 3.6 mmol/L (3.5-5.1); Total Bilirubin 0.3 mg/dL (0.2-1.3); Total Protein 4.1 g/dL (6.3-8.2)
[2019-01-26 06:04] LABS: Glucose,Whole Blood 180 mg/dL (75-99)
--- NOTE | 2019-01-26 06:38 | P.PN ---
Progress Note - Text Progress Note Date: 01/25/19 Postoperative day #2 status post left thoracotomy ,epidural catheter placed for postoperative analgesia, patient was extubated today, patient currently on combination of epidural infusion solution of Ropivacaine 0.0625% and fentanyl 2.5 g per mL the infusion rate at 6 ml per hour , patient had no motor deficit epidural site okay , vital signs stable ,VAS /10 , Assessment and plan= post operative day # 2 , the patient was extubated today, he is hemodynamically stable, will continue current management
[2019-01-26] MEDS ORDERED: INSULIN DETEMIR (LEVEMIR) 100 UNIT/ML SYR SQ SCH (07:00)
--- NOTE | 2019-01-26 07:20 | XR ---
EXAMINATION TYPE: XR chest 1V portable DATE OF EXAM: 01/26/2019 COMPARISON: Prior chest x-ray dated 01/25/2019 HISTORY: Chest tube, post thoracotomy TECHNIQUE: Single frontal view of the chest is obtained. FINDINGS: Left-sided chest tubes remain in place. Endotracheal tube and orogastric tube have been re moved. There is no sizable pneumothorax. Bibasilar increased density persists. Heart size may be acce ntuated by rotation. There are overlying cardiac leads. IMPRESSION: Stable postoperative findings. Probable bibasilar effusions and associated atelectasis, correlate to exclude pneumonia. Heart size likely accentuated by technique. Follow-up recommended.
[2019-01-26] MEDS: IPRATROPIUM-ALBUTEROL 3 ML NEB IH SCH ×4 (07:46→19:25)
[2019-01-26] MEDS: ROPIVACAINE 250 MG, fentaNYL (PF) 625 MCG in SODIUM CHLORIDE 0.9% 188 ML EPIDURAL PRN (07:46)
[2019-01-26] MEDS: ENOXAPARIN 40 MG/0.4 ML SYRINGE SQ SCH (07:52)
[2019-01-26 08:33] LABS: Glucose,Whole Blood 136 mg/dL (75-99)
[2019-01-26] MEDS: CEFEPIME 2 GM in SODIUM CHLORIDE 0.9% 100 ML IVPB SCH ×2 (08:37→21:59)
[2019-01-26] MEDS: SODIUM CHLORIDE 0.45% 1,000 ML IV SCH (08:37)
[2019-01-26] MEDS: PANTOPRAZOLE 40 MG/10 ML VIAL IVP SCH (08:39)
--- NOTE | 2019-01-26 09:05 | P.PN ---
Subjective Progress Note Date: 01/26/19 Principal diagnosis: Left-sided empyema with loculated left pleural effusion effusion positive for alpha hemolytic strep, dyspnea secondary to empyema. Previous medical history of uncontrolled type diet 2 diabetes mellitus, hypertension, pneumonia, depression, GERD, GI bleed. POD #7 left-sided pigtail catheter placement by interventional radiology Acute blood loss anemia, unexpected Septic shock with lactic acidosis, unexpected POD #3 left thoracotomy with decortication Non-anion gap metabolic acidosis, resolving Acute kidney injury The patient is currently laying in bed in the intensive care unit in no acute distress. He was successfully extubated yesterday morning and is currently on 2 L nasal cannula with poor incentive spirometry use. He developed nausea and vomiting yesterday after extubation, currently denies any nausea, does however complain of abdominal pain with palpation. Remains in normal sinus rhythm, hemodynamically stable requiring Cleviprex for blood pressure control. Left pleural chest tube in place to suction with no air leak present. Fentanyl/ropivacaine epidural continued by anesthesia for pain control. Objective - Vital Signs Vital signs: Vital Signs Temp 97.8 F 01/26/19 08:00 Pulse 98 01/26/19 08:00 Resp 22 01/26/19 08:00 BP 184/87 01/25/19 13:00 Pulse Ox 96 01/26/19 08:00 Intake & Output 01/25/19 01/26/19 01/26/19 18:59 06:59 18:59 Intake Total 811 923.434 389.400 Output Total 480 845 120 Balance 331 78.434 269.400 Intake: IV 741 772 112 Cefepime 2 gm In Sodium 100 100 Chloride 0.9% 100 ml @ 200 mls/hr IVPB Q12HR NEGRO Rx#:[id number] Dextrose 5% in Water 1, 575 600 100 000 ml @ 50 mls/hr IV . Q23H NEGRO with Sodium Bicarb (1 Meq/ml) 150 ml Rx#:[id number] Ropivacaine 250 mg 66 72 12 fentaNYL (PF) 625 mcg In Sodium Chloride 0.9% 188 ml @ Per Protocol EPIDURAL .Q0M PRN Rx#: [id number] Intake, IV Titration 151.434 277.400 Amount Clevidipine Butyrate 25 151.434 50.000 mg In Empty Bag 1 bag @ 1 MG/HR 2 mls/hr IV .Q24H NEGRO Rx#:[id number] Ropivacaine 250 mg 227.4 fentaNYL (PF) 625 mcg In Sodium Chloride 0.9% 188 ml @ Per Protocol EPIDURAL .Q0M PRN Rx#: [id number] Tube Feeding 40 Other 30 Output: Chest Tube Drainage 70 0 Left Pleural/Mediastinal 70 0 Urine 480 775 120 Other: Voiding Method Indwelling Catheter Indwelling Catheter ABP, PAP, CO, CI - Last Documented Arterial Blood Pressure 147/54 - Constitutional General appearance: Present: cooperative, no acute distress - Respiratory Details: Lungs sounds diminished bilaterally. Respirations even, nonlabored, currently on 4 L nasal cannula with oxygen saturation 96%. Only able to achieve 500 mL on his incentive spirometry, very weak cough. Left anterior and posterior pleural chest tubes present and Y'd together to continuous wall suction, 30 mL thin serosanguineous drainage overnight, 100 mL in the last 24 hours, no air leak pr esent. - Cardiovascular Details: S1, S2 present. Regular rate and rhythm, sinus rhythm on telemetry. Palpable peripheral pulses bilaterally. Trace generalized edema present. No calf pain or tenderness noted. Right radial arterial line present. SCDs present. - Gastrointestinal Gastrointestinal Comment(s): Abdomen soft, tender to palpation, slightly distended. Active bowel sounds present 4 quadrants. Remains on clear liquid diet. - Genitourinary Genitourinary Comment(s): Kaur present draining clear, yellow urine. Output 50-80 mL/h overnight. - Integumentary Integumentary Comment(s): Skin is warm and dry. - Neurologic Neurologic: Present: CNII-XII intact - Musculoskeletal Musculoskeletal: Present: generalized weakness, strength equal bilaterally - Psychiatric Psychiatric: Present: A&O x's 3 - Allied health notes Allied health notes reviewed: nursing - Labs CBC & Chem 7: 01/26/19 05:15 01/26/19 05:15 Labs: Abnormal Lab Results - Last 24 Hours (Table) 01/25/19 01/25/19 01/25/19 Range/Units 12:02 18:51 23:53 WBC (3.8-10.6) k/uL RBC (4.30-5.90) m/uL Hgb (13.0-17.5) gm/dL Hct (39.0-53.0) % Plt Count (150-450) k/uL Neutrophils # (1.3-7.7) k/uL Lymphocytes # (1.0-4.8) k/uL Chloride (98-107) mmol/L BUN (9-20) mg/dL Creatinine (0.66-1.25) mg/dL Glucose (74-99) mg/dL POC Glucose (mg/dL) 205 H 111 H 124 H (75-99) mg/dL Calcium (8.4-10.2) mg/dL Total Protein (6.3-8.2) g/dL Albumin (3.5-5.0) g/dL 01/26/19 01/26/19 01/26/19 Range/Units 05:15 05:15 06:03 WBC 17.3 H (3.8-10.6) k/uL RBC 2.96 L (4.30-5.90) m/uL Hgb 8.8 L (13.0-17.5) gm/dL Hct 26.0 L (39.0-53.0) % Plt Count 541 H (150-450) k/uL Neutrophils # 15.9 H (1.3-7.7) k/uL Lymphocytes # 0.6 L (1.0-4.8) k/uL Chloride 109 H (98-107) mmol/L BUN 43 H (9-20) mg/dL Creatinine 1.74 H (0.66-1.25) mg/dL Glucose 150 H (74-99) mg/dL POC Glucose (mg/dL) 180 H (75-99) mg/dL Calcium 6.9 L (8.4-10.2) mg/dL Total Protein 4.1 L (6.3-8.2) g/dL Albumin 1.8 L (3.5-5.0) g/dL 01/26/19 Range/Units 08:31 WBC (3.8-10.6) k/uL RBC (4.30-5.90) m/uL Hgb (13.0-17.5) gm/dL Hct (39.0-53.0) % Plt Count (150-450) k/uL Neutrophils # (1.3-7.7) k/uL Lymphocytes # (1.0-4.8) k/uL Chloride (98-107) mmol/L BUN (9-20) mg/dL Creatinine (0.66-1.25) mg/dL Glucose (74-99) mg/dL POC Glucose (mg/dL) 136 H (75-99) mg/dL Calcium (8.4-10.2) mg/dL Total Protein (6.3-8.2) g/dL Albumin (3.5-5.0) g/dL Microbiology - Last 24 Hours (Table) 01/23/19 16:57 Gram Stain - Preliminary Pleural Fluid Body Fluid Culture - Preliminary 01/23/19 16:57 Gram Stain - Preliminary Other - Other Tissue Culture - Preliminary 01/23/19 16:57 Gram Stain - Preliminary Other - Other Tissue Culture - Preliminary 01/23/19 16:57 Anaerobic Culture - Preliminary Pleural Fluid 01/23/19 16:57 Anaerobic Culture - Preliminary Other - Other 01/23/19 16:57 Anaerobic Culture - Preliminary Other - Other - Imaging and Cardiology Chest x-ray: report reviewed, image reviewed Assessment and Plan Assessment: 1. Empyema involving the left lung with loculated pleural effusion positive for alpha hemolytic strep, status post left chest pigtail catheter placement, status post left thoracotomy with decortication 2. Dyspnea to empyema 3. History of hypertension 4. Diabetes mellitus type 2, uncontrolled with HgbA1c 11% 5. History of depression 6. Acute blood loss anemia 7. Sepsis with lactic acidosis, resolving 8. Non-anion gap metabolic acidosis, resolving 9. Acute kidney injury Plan: 1. Will discontinue pleural chest tube today. Repeat chest x-ray in the morning. 2. Wean O2 as tolerated. Encourage incentive spirometry use 10 times every hour while awake. 3. 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 4. Increase activity as tolerated. PT/OT following 5. Pain control with current medication regimen, epidural per anesthesia. 6. Medical management of other comorbid conditions per primary care service. Blood transfusion per primary care service. 7. Antibiotic management per infectious disease, pleural fluid from thoracentesis and pigtail catheter placement positive for alpha hemolytic strep. Gram stain from fluid sent from thoracotomy remains negative so far, final results still pending. 9. More recommendations to follow. Time with Patient: Greater than 30
--- NOTE | 2019-01-26 09:51 | P.PN ---
Subjective Progress Note Date: 01/26/19 Principal diagnosis: Empyema involving the left lung post diagnostic and therapeutic thoracentesis, and placement of the pigtail catheter A 68-year-old male patient who was transferred from [facility] of shortness of breath. The patient started approximately week ago to have pleuritic left-sided chest pain. He was also having increased cough and congestion and low-grade fever. He was seen by his primary care physician and apparently a chest x-ray was done and he was told to have pneumonia and was given oral erythromycin-based antibiotic. The patient's condition got worse. His appetite has been poor. He has been losing weight. He came in to [facility] emergency department with a chest x-ray was done that showed a left lung opacity and following that a CAT scan of the chest was done that showed a large loculated left-sided pleural effusion along with gas within the pleural space and the finding was very highly suspicious for empyema. The patient got transferred to us. I reviewed the CAT scan of the chest from [facility]. The findings is consistent with empyema. The patient's white cell count was 27.9 at time of admission. Sodium level was at 129. His sugar level was also elevated and the patient is diabetic. Is a lifetime nonsmoker. I performed a bedside thoracentesis and I drained approximately 6 50 mL of pus from the left pleural space. Subsequent chest x-ray showed no evidence of any pneumothorax. The patient tolerated the procedure well. The fluid that was seen on the earlier chest x-ray was removed. Fluid analysis still pending for now. The patient was started on a combination of Zosyn and vancomycin. We'll put an interventional radiology consultation for a pigtail catheter insertion the drained residual loculated pleural effusion on the CAT scan guidance. This will be done tomorrow. Family was updated. May need a thoracic surgery consultation at a later stage depending on our success of breathing this empyema percutaneously. On 01/19/2019 patient seen in follow-up on medical surgical floor. He had a left posterior back pigtail chest tube inserted today by interventional radiology, and at the time of my evaluation patient has 120 mL of purulent blood-tinged drainage in the Pleur-evac. The Pleur-evac is to water seal, no air leak noted, pleural fluid cultures from yesterday's thoracentesis are pending at this time, preliminary Gram stain did not show any organisms after 24 hours. Patient is fairly comfortable, room air pulse ox is 92%, afebrile, hemodynamically stable, he sitting up in the recliner, lung sounds are diminished breath sounds over lower base. Cytology is pending. Patient is on a combination of Zosyn and vancomycin, Zosyn has been switched to cefepime per ID service recommendations. Awaiting results of the final cultures, will consult CT surgery On 01/20/2019 patient seen in follow-up on medical surgical floor. He sitting up in the recliner, in no acute distress, and it has been a total of 650 mL of purulent material in the Pleur-evac system insertion of the left-sided pigtail chest tube. Pleur-evac is to water seal, no evidence of air leak, today's chest x-ray has been reviewed showing left-sided consolidation and pleural effusion appears to be stable in appearance. Diminished breath sounds over left lower base, sodium is 133, potassium is 3.7, chloride is 103, CO2 is 22, BUN is 21 creatinine 0.90. C. diff was negative. Pleural fluid analysis showed exudative fluid, and pleural fluid cultures are positive for alphahemolytic streptococcus. On 01/21/2019 patient seen in follow-up on medical surgical floor. She is resting in the recliner, in no acute distress, there has been additional 500 mL of purulent material from the left-sided pigtail chest tube catheter over the last 24 hours, 100 mL after TPA infusion yesterday, patient will receive another TPA infusion per CT surgery, today's chest x-ray has been reviewed showing fluid air level on the left suggestive of hydropneumothorax and small right pleural effusion. Antibiotic coverage in the form of cefepime and vancomycin, with pleural fluid cultures positive for alphahemolytic streptococcus. His labs have been reviewed showing white blood cell count of 21.4, hemoglobin of 9.4, sodium of 134, potassium is 3.8, chloride is 104, CO2 is 19, B1 of 18 creatinine 0.85. Vital signs are stable, room air pulse ox is 95%, patient is afebrile. Denies any pain, or shortness of breath, his been ambulating, working on his incentive spirometer, chewing 1750 on the today. On 01/26/2019 patient seen in follow-up in the intensive care unit, he is awake, oriented 3, resting in bed, he is at times moaning from his left chest incisional pain. Patient had a VATS and left-sided decortication of his empyema. This is postoperative day 3. Patient was successfully extubated y esterday. He is currently on 4 L of oxygen pulse ox of 97-98%, he is afebrile, he is hypertensive, currently on Avapro extremity at 10 mg per hour, and his blood pressure is ranging from 140s to 150s systolic, and 50s diastolic. He has a extremely weak cough, incentive spirometer effort is poor. Lung sounds reveal diminished breath sounds bilateral, more so on the left side. IV fluids include D5W with 3 A of bicarbonate at a rate of 50 ML per hour, Cleviprex is at 10 mg per hour as mentioned above, and patient has an epidural in place infusing at 6 ML per hour. No other drips, antibiotic coverage in the form of cefepime, vancomycin has been discontinued, pleural fluid cultures from 01/19/2019 were positive for alphahemolytic streptococcus. Pleural fluid cultures from 01/23/2019 showed no growth. Today's chest x-ray has been reviewed with Dr. Limon, showed stable postoperative findings, bibasilar effusions and associated atelectasis. She has a left-sided chest tube in place with 70 ML of thin serosanguineous output in the last 24 hours, IDC catheter is in place, and patient is nonoliguric, he is nothing by mouth, he is nauseous today, and has been unable to take his oral pills. His labs have been reviewed, showing white blood cell count of 17.3, hemoglobin of 8.8, platelet count is 541, sodium is 138, potassium 3.6, chloride is 109, CO2 is 22, anion gap was 7, BUN was 43, creatinine is 1.74. Objective - Vital Signs Vital signs: Vital Signs Temp 97.8 F 01/26/19 08:00 Pulse 93 01/26/19 09:00 Resp 16 01/26/19 09:00 BP 184/87 01/25/19 13:00 Pulse Ox 98 01/26/19 09:00 Intake & Output 01/25/19 01/26/19 01/26/19 18:59 06:59 18:59 Intake Total 811 923.434 551.400 Output Total 480 845 220 Balance 331 78.434 331.400 Intake: IV 741 772 268 Cefepime 2 gm In Sodium 100 100 100 Chloride 0.9% 100 ml @ 200 mls/hr IVPB Q12HR NEGRO Rx#:[id number] Dextrose 5% in Water 1, 575 600 100 000 ml @ 50 mls/hr IV . Q23H NEGRO with Sodium Bicarb (1 Meq/ml) 150 ml Rx#:[id number] Ropivacaine 250 mg 66 72 18 fentaNYL (PF) 625 mcg In Sodium Chloride 0.9% 188 ml @ Per Protocol EPIDURAL .Q0M PRN Rx#: [id number] Sodium Chloride 0.45% 1, 50 000 ml @ 50 mls/hr IV . Q20H NEGRO Rx#:[id number] Intake, IV Titration 151.434 283.400 Amount Clevidipine Butyrate 25 151.434 56.000 mg In Empty Bag 1 bag @ 1 MG/HR 2 mls/hr IV .Q24H NEGRO Rx#:[id number] Ropivacaine 250 mg 227.4 fentaNYL (PF) 625 mcg In Sodium Chloride 0.9% 188 ml @ Per Protocol EPIDURAL .Q0M PRN Rx#: [id number] Tube Feeding 40 Other 30 Output: Chest Tube Drainage 70 0 Left Pleural/Mediastinal 70 0 Urine 480 775 220 Other: Voiding Method Indwelling Catheter Indwelling Catheter ABP, PAP, CO, CI - Last Documented Arterial Blood Pressure 141/58 - Exam GENERAL EXAM: Alert, slightly lethargic but easily arousable, moaning 68-year-old white male, on 4 L of oxygen ox of 98%, mild to moderate amount of distress from his incisional pain from his left chest HEAD: Normocephalic/atraumatic. EYES: Normal reaction of pupils, equal size. Conjunctiva pink, sclera white. NOSE: Clear with pink turbinates. THROAT: No erythema or exudates. NECK: No masses, no JVD, no thyroid enlargement, no adenopathy. CHEST: No chest wall deformity. Symmetrical expansion. left posterior and anterior chest tube is present connected to a Pleur-evac, thin serosanguineous output the Pleur-evac, with no evidence of air leak. Left lateral posterior chest incision is covered with dressings, clean dry and intact, significant amount of tenderness with deep inspiration and moving and to palpation LUNGS: Equal air entry with diminished breath sounds over left lower base CVS: Regular rate and rhythm, normal S1 and S2, no gallops, no murmurs, no rubs ABDOMEN: Soft, nontender. No hepatosplenomegaly, normal bowel sounds, no guarding or rigidity. EXTREMITIES: No clubbing, no edema, no cyanosis, 2+ pulses and upper and lower extremities. MUSCULOSKELETAL: Muscle strength and tone normal. SPINE: No scoliosis or deformity SKIN: No rashes CENTRAL NERVOUS SYSTEM: Alert and oriented -3. Lethargic, but arousable, No focal deficits, tone is normal in all 4 extremities. - Labs CBC & Chem 7: 01/26/19 05:15 01/26/19 05:15 Labs: Abnormal Lab Results - Last 24 Hours (Table) 01/25/19 01/25/19 01/25/19 Range/Units 12:02 18:51 23:53 WBC (3.8-10.6) k/uL RBC (4.30-5.90) m/uL Hgb (13.0-17.5) gm/dL Hct (39.0-53.0) % Plt Count (150-450) k/uL Neutrophils # (1.3-7.7) k/uL Lymphocytes # (1.0-4.8) k/uL Chloride (98-107) mmol/L BUN (9-20) mg/dL Creatinine (0.66-1.25) mg/dL Glucose (74-99) mg/dL POC Glucose (mg/dL) 205 H 111 H 124 H (75-99) mg/dL Calcium (8.4-10.2) mg/dL Total Protein (6.3-8.2) g/dL Albumin (3.5-5.0) g/dL 01/26/19 01/26/19 01/26/19 Range/Units 05:15 05:15 06:03 WBC 17.3 H (3.8-10.6) k/uL RBC 2.96 L (4.30-5.90) m/uL Hgb 8.8 L (13.0-17.5) gm/dL Hct 26.0 L (39.0-53.0) % Plt Count 541 H (150-450) k/uL Neutrophils # 15.9 H (1.3-7.7) k/uL Lymphocytes # 0.6 L (1.0-4.8) k/uL Chloride 109 H (98-107) mmol/L BUN 43 H (9-20) mg/dL Creatinine 1.74 H (0.66-1.25) mg/dL Glucose 150 H (74-99) mg/dL POC Glucose (mg/dL) 180 H (75-99) mg/dL Calcium 6.9 L (8.4-10.2) mg/dL Total Protein 4.1 L (6.3-8.2) g/dL Albumin 1.8 L (3.5-5.0) g/dL 01/26/19 Range/Units 08:31 WBC (3.8-10.6) k/uL RBC (4.30-5.90) m/uL Hgb (13.0-17.5) gm/dL Hct (39.0-53.0) % Plt Count (150-450) k/uL Neutrophils # (1.3-7.7) k/uL Lymphocytes # (1.0-4.8) k/uL Chloride (98-107) mmol/L BUN (9-20) mg/dL Creatinine (0.66-1.25) mg/dL Glucose (74-99) mg/dL POC Glucose (mg/dL) 136 H (75-99) mg/dL Calcium (8.4-10.2) mg/dL Total Protein (6.3-8.2) g/dL Albumin (3.5-5.0) g/dL Microbiology - Last 24 Hours (Table) 01/23/19 16:57 Gram Stain - Preliminary Pleural Fluid Body Fluid Culture - Preliminary 01/23/19 16:57 Gram Stain - Preliminary Other - Other Tissue Culture - Preliminary 01/23/19 16:57 Gram Stain - Preliminary Other - Other Tissue Culture - Preliminary 01/23/19 16:57 Anaerobic Culture - Preliminary Pleural Fluid 01/23/19 16:57 Anaerobic Culture - Preliminary Other - Other 01/23/19 16:57 Anaerobic Culture - Preliminary Other - Other Assessment and Plan Plan: 1 left-sided empyema, secondary to alpha hemolytic streptococcus. Status post VATS decortication post operative day #3. Patient is on cefepime. 2 left sided hydropneumothorax, with loculated pleural effusion, requiring VATS decortication. 3 left sided hemothorax, patient required at least 7 units of packed RBCs so far since admission. 4 acute sepsis secondary to empyema is strongly suspected 5 acute blood loss secondary to hemothorax requiring 7 units of packed RBCs since admission. 6 multiple comorbidities including hypertension, diabetes, electrolytes imbalance with hypokalemia, and worsening anemia secondary to hemothorax and blood loss in the left pleural space. 7 acute hypoxic respiratory failure secondary to left-sided empyema, sepsis, and septic shock. 8 acute septic shock secondary to empyema. 9 small right-sided pleural effusion, not large enough on ultrasound to consider thoracentesis. No markings were placed. 10 Acute kidney injury related to ATN 11 non-anion gap metabolic acidosis related to a TIA, improved with bicarbonate replacement Plan: Continue current plan of treatment, control, deep breathing and coughing, today's chest x-ray has been reviewed with Dr. López, patient was seen and evaluated by Dr. López, no pneumothorax, small bilateral pleural effusions, adjacent atelectasis, normal drainage from the left posterior and anterior chest tubes, CT surgery is planning on removing the chest tubes today. We will restart the patient on home antihypertensives once he is able to take oral medications, currently nauseous. We will wean clevidipine, we'll discontinue bicarbonate drip, switch to patient 2.45 normal saline at a rate of 75 ML per hour. Continue with antibiotic coverage per ID service recommendations. GI/DVT prophylaxis. I performed a history & physical examination of the patient and discussed their management with my nurse practitioner, Nicole Wang. I reviewed the nurse practitioner's note and agree with the documented findings and plan of care. Lung sounds are positive for diminished breath sounds over left lower base. The findings and the impression was discussed with the patient. I attest to the documentation by the nurse practitioner. Time with Patient: Less than 30
[2019-01-26] MEDS ORDERED: POTASSIUM CHLORIDE ER 20 MEQ TAB.ER PO SCH (10:00)
[2019-01-26] MEDS: FLUoxetine HCL 20 MG CAP PO SCH (10:10)
[2019-01-26] MEDS: ASPIRIN 81 MG PO SCH (10:10)
[2019-01-26] MEDS: LISINOPRIL 20 MG TAB PO SCH (10:10)
[2019-01-26] MEDS: amLODIPine 10 MG TAB PO SCH (10:10)
[2019-01-26] MEDS: CHLORHEXIDINE GLUCONATE 15 ML CUP MUCOUS MEM SCH (10:11)
[2019-01-26] MEDS: HYDROCHLOROTHIAZIDE 25 MG TAB PO SCH (10:11)
[2019-01-26 11:52] LABS: Glucose,Whole Blood 89 mg/dL (75-99)
--- NOTE | 2019-01-26 12:04 | P.PN ---
Progress Note - Text Progress Note Date: 01/26/19 Postoperative day #3 status post left thoracotomy ,epidural catheter placed for postoperative analgesia, patient was extubated today, patient currently on combination of epidural infusion solution of Ropivacaine 0.0625% and fentanyl 2.5 g per mL the infusion rate at 6 ml per hour , patient had no motor deficit epidural site okay , vital signs stable , patient complaining of incisional pain Assessment and plan= post operative day # 3 , the patient was extubated yesterday, he is hemodynamically stable, will increase the epidural infusion to 7 mL per hour
--- NOTE | 2019-01-26 14:05 | P.PN ---
Subjective Progress Note Date: 01/26/19 Principal diagnosis: This is a 68 year old man that was admitted for left-sided pneumonia, pleural effusion and empyema that had recently undergone a chest tube placement of the left side. A total of 500ml has drained from last night. Will continue to monitor closely. Cultures of the pleural fluid grew positive for alpha hemolytic streptococci. Infectious disease is following along with the care of the patient and managing antibiotics at this time. Patient has been up and walking often around the unit. Patient appears in no acute distress at this time. Patient denies any chest pain or fevers at this time and also made mention that his shortness of breath has improved since the placement of the chest tube. Early this am patient was moved to the ICU to be closely monitored as he was draining a large amount of blood from the left side chest tube and had a critical value hemoglobin level of 5. Patient states that he felt better yesterday but later in the evening felt fatigued and not up to walking. Vitals were stable but started becoming hypotensive in the low 90's systolic. Patient was then transferred to the ICU and will likely be going for surgery on 01/23/19. Patient's blood sugars continue to be elevated and will continue to cover per protocol. Patient is scheduled to be NPO after midnight, but he states that he hasn't been that hungry today. Patient is lying in the bed with a bear hugger on to maintain his temperature. Patient is still currently on broad spectrum antibiotics per infectious disease and being followed closely. Patient was awaiting for 2 units of PRBC to be transfused as there were antibodies present per the lab. Patient denies any shortness of breath, chest pain, or palpitations, just states that he feels tired. A chest xray was done showing a moderate to large pleural effusion with left hydropneumothorax with a small right side pleural effusion. CT scan of the chest showed loculated empyema with a couple of air-fluid levels present, small pneumothorax is not excluded, chest catheter is within area of increased density consistent with the empyema, and a couple of enlarged lymph nodes within the mediastinum. 01/23/19 Today this 68-year-old male is lying in bed in the ICU awaiting a thoracotomy procedure early this afternoon. Patient states he's unsure when but was told it is scheduled for today. Patient is denying any increasing shortness of breath, chest pains, palpitations, or fevers at this time. Patient is still having a large amount of output in the chest tube noted in the atrium. Per the RN the drainage has decreased since this morning. Patient denies any dizziness or lightheadedness at this time. Patient is very lethargic but easily arousable. Patient was currently made nothing by mouth after midnight for this procedure. Per infectious disease the vancomycin is being discontinued at this time and they will continue to follow while awaiting cultures from the thoracotomy today. 01/26/19 Patient is still in pain today not feeling well. Patient does have a lot of nausea and unable to vomit but is spitting up fluid patient given Zofran with minimal relief. Patient is currently on clear liquids but hasn't been having very much of an appetite today. Patient is still having some pain at the site of the chest tubes and breathing is shallow. Patient is still on an epidural pump at this time and was recently increased to 7mL from previous 6mL per hour. Patient is still on blood pressure drip of Cleviprex but per the RN will be of attempting to wean off and resume regular blood pressure medication. Patient denies any chest pain or palpitations at this time. Patient has been afebrile. Urine output is being maintained at this time as clear and yellow in nature with a Kaur. Total output of the chest tube was 100 mL's overnight. Patient is to have the pleural chest tube taken out today. Patient is maintaining oxygen saturation on 3-4 L via nasal cannula in the low to mid 90s. Patient is currently still on IV antibiotics per infectious disease and we'll continue to monitor. Patient is hemodynamically stable. Prognosis is extremely guarded. Further recommendations to follow. Gen: This is a 68-year-old male who is sitting upright in bed in mild distress as he is nauseated and having dry heaves. Vital signs are stable HEENT: Head is atraumatic, normocephalic. Pupils equal, round. Sclerae is anicteric. NECK: Supple. No JVD. No lymphadenopathy. No thyromegaly. LUNGS: Lung sounds diminished bilaterally more so on the left. No wheezes or rhonchi. No intercostal retractions. HEART: Regular rate and rhythm. No murmur. ABDOMEN: Soft. Bowel sounds are present. No masses. Mild tenderness due to heaving and vomiting. EXTREMITIES: No pedal edema. No calf tenderness. mild generalized edema bilateral hands. Skin is intact NEUROLOGICAL: Patient is awake, alert and oriented x3. Cranial nerves 2 through 12 are grossly intact. Labs: As noted below Assessment: Acute hypoxic respiratory failure: Left-sided pneumonia and pleural effusion with hydropneumothorax, patient's presently status post VATS procedure postop day 3 Acute anemia blood loss most likely from the fluid collection of the left lung continue to have output in the chest tube that has decreased. Patient had pleural chest tube removed sometime today. Patient has had a total of 7 units of PRBCs transfused since admission. We'll continue to monitor labs closely. Acute hypoxic respiratory failure: Left-sided pneumonia and pleural effusions with hydropneumothorax, status post VATS Sepsis secondary to empyema for which the patient is currently still on IV ant ibiotics per infectious disease. Acute renal failure secondary to sepsis, post VATS will continue with IV fluids and monitor closely. Metabolic acidosis most likely secondary hyperchloremia as the patient is on a bicarbonate drip. We'll continue to monitor closely and wean as necessary Hypovolemic hyponatremia currently resolved Hypertension as he is still on Cleviprex but will be weaning and resuming regular blood pressure medications. Continue to monitor vitals closely Sepsis secondary to pneumonia with parapneumonic effusions Acute hypotension due to septic shock which is resolved. Patient is currently hypertensive Diabetes type 2, uncontrolled hyperglycemia. We'll continue to monitor blood glucose levels and adjust accordingly Hypoglycemia secondary to sepsis and was nothing by mouth. Is currently on clear liquid diet which we will continue as he is having nausea. Recommendations and discussions: Recommend continue current medications, continue symptomatically treatment, and continue to monitor closely. Patient's prognosis is extremely guarded. Patient remains in the ICU at this time. Will continue to monitor vital signs and labs. Objective - Vital Signs Vital signs: Vital Signs Temp 97.8 F 01/26/19 12:00 Pulse 96 01/26/19 13:00 Resp 16 01/26/19 13:00 BP 184/87 01/25/19 13:00 Pulse Ox 90 L 01/26/19 13:00 Intake & Output 01/25/19 01/26/19 01/26/19 18:59 06:59 18:59 Intake Total 811 923.434 865.766 Output Total 480 845 360 Balance 331 78.434 505.766 Intake: IV 741 772 494 Cefepime 2 gm In Sodium 100 100 100 Chloride 0.9% 100 ml @ 200 mls/hr IVPB Q12HR NEGRO Rx#:[id number] Dextrose 5% in Water 1, 575 600 100 000 ml @ 50 mls/hr IV . Q23H NEGRO with Sodium Bicarb (1 Meq/ml) 150 ml Rx#:[id number] Ropivacaine 250 mg 66 72 44 fentaNYL (PF) 625 mcg In Sodium Chloride 0.9% 188 ml @ Per Protocol EPIDURAL .Q0M PRN Rx#: [id number] Sodium Chloride 0.45% 1, 250 000 ml @ 50 mls/hr IV . Q20H NEGRO Rx#:[id number] Intake, IV Titration 151.434 371.766 Amount Clevidipine Butyrate 25 151.434 118.866 mg In Empty Bag 1 bag @ 1 MG/HR 2 mls/hr IV .Q24H NEGRO Rx#:[id number] Ropivacaine 250 mg 252.9 fentaNYL (PF) 625 mcg In Sodium Chloride 0.9% 188 ml @ Per Protocol EPIDURAL .Q0M PRN Rx#: [id number] Tube Feeding 40 Other 30 Output: Chest Tube Drainage 70 0 Left Pleural/Mediastinal 70 0 Urine 480 775 360 Other: Voiding Method Indwelling Catheter Indwelling Catheter Indwelling Catheter ABP, PAP, CO, CI - Last Documented Arterial Blood Pressure 149/67 - Labs CBC & Chem 7: 01/26/19 05:15 01/26/19 05:15 Labs: Abnormal Lab Results - Last 24 Hours (Table) 01/25/19 01/25/19 01/26/19 Range/Units 18:51 23:53 05:15 WBC 17.3 H (3.8-10.6) k/uL RBC 2.96 L (4.30-5.90) m/uL Hgb 8.8 L (13.0-17.5) gm/dL Hct 26.0 L (39.0-53.0) % Plt Count 541 H (150-450) k/uL Neutrophils # 15.9 H (1.3-7.7) k/uL Lymphocytes # 0.6 L (1.0-4.8) k/uL Chloride (98-107) mmol/L BUN (9-20) mg/dL Creatinine (0.66-1.25) mg/dL Glucose (74-99) mg/dL POC Glucose (mg/dL) 111 H 124 H (75-99) mg/dL Calcium (8.4-10.2) mg/dL Total Protein (6.3-8.2) g/dL Albumin (3.5-5.0) g/dL 01/26/19 01/26/19 01/26/19 Range/Units 05:15 06:03 08:31 WBC (3.8-10.6) k/uL RBC (4.30-5.90) m/uL Hgb (13.0-17.5) gm/dL Hct (39.0-53.0) % Plt Count (150-450) k/uL Neutrophils # (1.3-7.7) k/uL Lymphocytes # (1.0-4.8) k/uL Chloride 109 H (98-107) mmol/L BUN 43 H (9-20) mg/dL Creatinine 1.74 H (0.66-1.25) mg/dL Glucose 150 H (74-99) mg/dL POC Glucose (mg/dL) 180 H 136 H (75-99) mg/dL Calcium 6.9 L (8.4-10.2) mg/dL Total Protein 4.1 L (6.3-8.2) g/dL Albumin 1.8 L (3.5-5.0) g/dL Microbiology - Last 24 Hours (Table) 01/23/19 16:57 Gram Stain - Preliminary Pleural Fluid Body Fluid Culture - Preliminary 01/23/19 16:57 Gram Stain - Preliminary Other - Other Tissue Culture - Preliminary 01/23/19 16:57 Gram Stain - Preliminary Other - Other Tissue Culture - Preliminary 01/23/19 16:57 Anaerobic Culture - Preliminary Pleural Fluid 01/23/19 16:57 Anaerobic Culture - Preliminary Other - Other 01/23/19 16:57 Anaerobic Culture - Preliminary Other - Other
[2019-01-26] MEDS ORDERED: LIDOCAINE 1% INJ 10MG/ML (20 ML MDV) SQ ONE (14:32)
[2019-01-26 14:36] LABS: Glucose,Whole Blood 85 mg/dL (75-99)
--- NOTE | 2019-01-26 15:10 | XR ---
EXAMINATION TYPE: XR chest 1V confirm line [facility] DATE OF EXAM: 01/26/2019 COMPARISON: Prior chest x-ray same dated earlier time HISTORY: Post PICC line placement TECHNIQUE: Single frontal view of the chest is obtained. FINDINGS: Left-sided chest tubes are no longer seen. Interval placement of a left-sided PICC line sh ows the distal tip near the cavoatrial junction level. Right lung apex not included on exam. Patient is rotated. Bibasilar increased density persists. No significant pneumothorax. Surgical clips present at the gastroesophageal junction level. Heart size is stable. IMPRESSION: No evident complication status post PICC line placement. Interval chest tube removal.
--- NOTE | 2019-01-26 15:55 | IR ---
EXAMINATION TYPE: IR cvc insert >=5 years DATE OF EXAM: 01/26/2019 COMPARISON: NONE HISTORY: Needs long-term intravenous access for therapy, empyema FINDINGS: Maximal barrier technique was utilized. The skin overlying the left basilic vein was local ized with ultrasound and noted to be compressible and patent by ultrasound. An ultrasound image was obtained and submitted on patient's chart. Sterile technique utilized with the ultrasound machine. Th e skin overlying was prepped and draped and Lidocaine used for local anesthesia. A skin oscar was mad e with a scalpel. Access was gained to the vein under direct ultrasound guidance with a 21-gauge nee dle and a 0.018 inch wire was advanced. Access site was dilated with a peel-away sheath and the cath eter tailored to length. Catheter advanced centrally and a post procedure chest x-ray verified place ment with the tip near the cavoatrial junction level. Catheter was fixed to the skin and a sterile d ressing placed. Hemostasis achieved and the catheter was aspirated and flushed with sterile saline. The patient remained in stable condition. IMPRESSION: STATUS POST ULTRASOUND GUIDED PICC LINE PLACEMENT, READY FOR USE. THIS PROCEDURE WAS PER FORMED BY THE UNDERSIGNED.
[2019-01-26 17:25] LABS: Glucose,Whole Blood 41 mg/dL (75-99)
[2019-01-26 17:25] LABS: Glucose,Whole Blood 40 mg/dL (75-99)
[2019-01-26 17:39] LABS: Glucose,Whole Blood 45 mg/dL (75-99)
[2019-01-26] MEDS ORDERED: DEXTROSE 10 % IN WATER 250 ML IV ONE (17:53)
[2019-01-26 18:04] LABS: Glucose,Whole Blood 182 mg/dL (75-99)
[2019-01-26 18:38] LABS: Basophils % (A) 0 %; Eosinophils # (A) 0.1 k/uL (0-0.7); Eosinophils % (A) 0 %; HCT 27.2 % (39.0-53.0); HGB 8.9 gm/dL (13.0-17.5); Lymphocytes # (A) 0.4 k/uL (1.0-4.8); Lymphocytes % (A) 2 %; MCH 29.1 pg (25.0-35.0); MCHC 32.9 g/dL (31.0-37.0); MCV 88.4 fL (80.0-100.0); Mean Platelet Volume 7.3; Monocytes # (A) 0.5 k/uL (0-1.0); Monocytes % (A) 2 %; Neutrophils # (A) 22.7 k/uL (1.3-7.7); Neutrophils % (A) 96 %; Platelet Count 680 k/uL (150-450); RBC 3.08 m/uL (4.30-5.90); RDW 15.9 % (11.5-15.5); WBC 23.7 k/uL (3.8-10.6)
[2019-01-26 18:48] LABS: Potassium 3.4 mmol/L (3.5-5.1); Total Bilirubin 0.2 mg/dL (0.2-1.3); Total Protein 4.4 g/dL (6.3-8.2)
[2019-01-26 18:50] LABS: ABG Base Excess -2.9 mmol/L; ABG HCO3 22 mmol/L (21-25); ABG Oxygen Saturation 92.8 % (94-97); ABG PCO2 38 mmHg (35-45); ABG PH 7.38 (7.35-7.45); ABG PO2 65 mmHg (83-108); ABG TCO2 23 mmol/L (19-24)
--- NOTE | 2019-01-26 19:12 | XR ---
EXAMINATION TYPE: XR chest 1V portable DATE OF EXAM: 01/26/2019 COMPARISON: 01/26/2019 HISTORY: Short of breath TECHNIQUE: Single frontal view of the chest is obtained. FINDINGS: There is coarse linear infiltrate and atelectasis in the left lower lobe. There is mild pu lmonary congestion. There is blunting of costophrenic angles. There are chest leads. There is left-si ded central venous catheter with the tip probably in the right atrium. IMPRESSION: Mild congestive heart failure appears improved compared to exam earlier today. Left lowe r lobe pneumonia and atelectasis unchanged.
[2019-01-26 21:55] LABS: Glucose,Whole Blood 139 mg/dL (75-99)
[2019-01-26] MEDS ORDERED: FLUCONAZOLE 100 MG TAB PO ONE (22:14)
--- NOTE | 2019-01-26 23:32 | PN ---
PROGRESS NOTE DATE OF SERVICE: 01/26/2019 REASON FOR FOLLOWUP: Left-sided pneumonia with empyema. INTERVAL HISTORY: The patient is currently afebrile. Patient has been breathing comfortably. The patient denies having any chest pain. No nausea, no vomiting. No abdominal pain or any diarrhea. PHYSICAL EXAMINATION: Blood pressure 135/55 with a pulse of 73, temperature 96.3. He is 93% on 4 L nasal cannula. General description is an elderly male up in the bed in no distress. RESPIRATORY SYSTEM: Unlabored breathing with decreased breath sounds at the base. No wheeze. HEART: S1, S2. Regular rate and rhythm. ABDOMEN: Soft. No tenderness. LABS: The patient did a jump in the white count to 23.7. Hemoglobin is 8.9, BUN of 41, creatinine 1.78. DIAGNOSTIC IMPRESSION AND PLAN: 1. Patient with left-sided pneumonia with a parapneumonic effusion and empyema, status post initial chest tube and subsequent VATS procedure. The patient's culture has been predominantly alpha hemolytic Streptococcus with resistant Gram-positive and Gram-negative. Antibiotic was switched over to Rocephin 2 grams daily. 2. Patient with a jump in the white count, possible component of pharyngeal candidiasis. Will add Diflucan and see response to the same while monitoring his clinical course closely. MMODL / IJN: [id number] /
[2019-01-27] MEDS: ACETAMINOPHEN TAB 325 MG TAB PO PRN (03:12)
[2019-01-27] MEDS: CLEVIDIPINE BUTYRATE 25 MG in EMPTY BAG 1 BAG IV SCH ×7 (03:56→20:57)
[2019-01-27 05:17] LABS: Basophils % (A) 0 %; Eosinophils # (A) 0.1 k/uL (0-0.7); Eosinophils % (A) 1 %; HCT 21.1 % (39.0-53.0); Lymphocytes # (A) 0.5 k/uL (1.0-4.8); Lymphocytes % (A) 3 %; MCH 29.3 pg (25.0-35.0); MCHC 32.4 g/dL (31.0-37.0); MCV 90.4 fL (80.0-100.0); Monocytes # (A) 0.6 k/uL (0-1.0); Monocytes % (A) 4 %; Neutrophils # (A) 14.8 k/uL (1.3-7.7); Neutrophils % (A) 92 %; Platelet Count 518 k/uL (150-450); RBC 2.33 m/uL (4.30-5.90); RDW 15.3 % (11.5-15.5); WBC 16.1 k/uL (3.8-10.6)
[2019-01-27 05:26] LABS: Potassium 2.8 mmol/L (3.5-5.1)
[2019-01-27 05:46] LABS: Calcium 5.3 mg/dL (8.4-10.2); HGB 6.8 gm/dL (13.0-17.5)
[2019-01-27 06:29] LABS: Ionized Calcium 4.8 mg/dL (4.5-5.3)
[2019-01-27 06:34] LABS: Glucose,Whole Blood 119 mg/dL (75-99)
[2019-01-27] MEDS: INSULIN ASPART (NovoLOG) 100 UNIT/ML VIAL SQ SCH ×4 (06:35→20:55)
[2019-01-27 06:44] LABS: Basophils % (A) 0 %; Eosinophils # (A) 0.1 k/uL (0-0.7); Eosinophils % (A) 1 %; HCT 24.1 % (39.0-53.0); HGB 8.1 gm/dL (13.0-17.5); Lymphocytes # (A) 0.6 k/uL (1.0-4.8); Lymphocytes % (A) 3 %; MCH 29.2 pg (25.0-35.0); MCHC 33.5 g/dL (31.0-37.0); MCV 87.2 fL (80.0-100.0); Mean Platelet Volume 7.5; Monocytes # (A) 0.6 k/uL (0-1.0); Monocytes % (A) 3 %; Neutrophils # (A) 17.5 k/uL (1.3-7.7); Neutrophils % (A) 93 %; Platelet Count 595 k/uL (150-450); RBC 2.76 m/uL (4.30-5.90); RDW 15.5 % (11.5-15.5); WBC 18.9 k/uL (3.8-10.6)
[2019-01-27] MEDS: INSULIN DETEMIR (LEVEMIR) 100 UNIT/ML SYR SQ SCH (06:54)
[2019-01-27 07:08] LABS: Albumin 1.8 g/dL (3.5-5.0); Potassium 3.8 mmol/L (3.5-5.1); Total Bilirubin 0.3 mg/dL (0.2-1.3)
[2019-01-27] MEDS: IPRATROPIUM-ALBUTEROL 3 ML NEB IH SCH ×4 (07:49→19:58)
[2019-01-27] MEDS: ONDANSETRON 4 MG/2 ML VIAL IVP PRN ×2 (07:59→16:12)
[2019-01-27] MEDS: PANTOPRAZOLE 40 MG/10 ML VIAL IVP SCH (07:59)
--- NOTE | 2019-01-27 08:06 | XR ---
EXAMINATION TYPE: XR chest 1V portable DATE OF EXAM: 01/27/2019 COMPARISON: 01/26/2019 HISTORY: Shortness of breath FINDINGS: There are bilateral pleural effusions with cardiomegaly and bibasilar infiltrate. There is a diffuse interstitial pattern. Left-sided PICC line noted. Arthropathy shoulders. Probable tiny calcified gra nuloma right upper lobe. IMPRESSION: 1. Diffuse pleural-parenchymal changes are stable correlate for CHF.
[2019-01-27] MEDS: SODIUM CHLORIDE 0.45% 1,000 ML IV SCH (08:08)
[2019-01-27] MEDS: amLODIPine 10 MG TAB PO SCH (08:42)
[2019-01-27] MEDS: LISINOPRIL 20 MG TAB PO SCH (08:42)
[2019-01-27] MEDS: ASPIRIN 81 MG PO SCH (08:42)
[2019-01-27] MEDS: FLUoxetine HCL 20 MG CAP PO SCH (08:43)
[2019-01-27] MEDS: ENOXAPARIN 40 MG/0.4 ML SYRINGE SQ SCH (08:43)
[2019-01-27] MEDS: HYDROCHLOROTHIAZIDE 25 MG TAB PO SCH (08:43)
--- NOTE | 2019-01-27 10:17 | P.PN ---
Subjective Progress Note Date: 01/27/19 Principal diagnosis: Empyema involving the left lung post diagnostic and therapeutic thoracentesis, and placement of the pigtail catheter A 68-year-old male patient who was transferred from [facility] of shortness of breath. The patient started approximately week ago to have pleuritic left-sided chest pain. He was also having increased cough and congestion and low-grade fever. He was seen by his primary care physician and apparently a chest x-ray was done and he was told to have pneumonia and was given oral erythromycin-based antibiotic. The patient's condition got worse. His appetite has been poor. He has been losing weight. He came in to [facility] emergency department with a chest x-ray was done that showed a left lung opacity and following that a CAT scan of the chest was done that showed a large loculated left-sided pleural effusion along with gas within the pleural space and the finding was very highly suspicious for empyema. The patient got transferred to us. I reviewed the CAT scan of the chest from [facility]. The findings is consistent with empyema. The patient's white cell count was 27.9 at time of admission. Sodium level was at 129. His sugar level was also elevated and the patient is diabetic. Is a lifetime nonsmoker. I performed a bedside thoracentesis and I drained approximately 6 50 mL of pus from the left pleural space. Subsequent chest x-ray showed no evidence of any pneumothorax. The patient tolerated the procedure well. The fluid that was seen on the earlier chest x-ray was removed. Fluid analysis still pending for now. The patient was started on a combination of Zosyn and vancomycin. We'll put an interventional radiology consultation for a pigtail catheter insertion the drained residual loculated pleural effusion on the CAT scan guidance. This will be done tomorrow. Family was updated. May need a thoracic surgery consultation at a later stage depending on our success of breathing this empyema percutaneously. On 01/19/2019 patient seen in follow-up on medical surgical floor. He had a left posterior back pigtail chest tube inserted today by interventional radiology, and at the time of my evaluation patient has 120 mL of purulent blood-tinged drainage in the Pleur-evac. The Pleur-evac is to water seal, no air leak noted, pleural fluid cultures from yesterday's thoracentesis are pending at this time, preliminary Gram stain did not show any organisms after 24 hours. Patient is fairly comfortable, room air pulse ox is 92%, afebrile, hemodynamically stable, he sitting up in the recliner, lung sounds are diminished breath sounds over lower base. Cytology is pending. Patient is on a combination of Zosyn and vancomycin, Zosyn has been switched to cefepime per ID service recommendations. Awaiting results of the final cultures, will consult CT surgery On 01/20/2019 patient seen in follow-up on medical surgical floor. He sitting up in the recliner, in no acute distress, and it has been a total of 650 mL of purulent material in the Pleur-evac system insertion of the left-sided pigtail chest tube. Pleur-evac is to water seal, no evidence of air leak, today's chest x-ray has been reviewed showing left-sided consolidation and pleural effusion appears to be stable in appearance. Diminished breath sounds over left lower base, sodium is 133, potassium is 3.7, chloride is 103, CO2 is 22, BUN is 21 creatinine 0.90. C. diff was negative. Pleural fluid analysis showed exudative fluid, and pleural fluid cultures are positive for alphahemolytic streptococcus. On 01/21/2019 patient seen in follow-up on medical surgical floor. She is resting in the recliner, in no acute distress, there has been additional 500 mL of purulent material from the left-sided pigtail chest tube catheter over the last 24 hours, 100 mL after TPA infusion yesterday, patient will receive another TPA infusion per CT surgery, today's chest x-ray has been reviewed showing fluid air level on the left suggestive of hydropneumothorax and small right pleural effusion. Antibiotic coverage in the form of cefepime and vancomycin, with pleural fluid cultures positive for alphahemolytic streptococcus. His labs have been reviewed showing white blood cell count of 21.4, hemoglobin of 9.4, sodium of 134, potassium is 3.8, chloride is 104, CO2 is 19, B1 of 18 creatinine 0.85. Vital signs are stable, room air pulse ox is 95%, patient is afebrile. Denies any pain, or shortness of breath, his been ambulating, working on his incentive spirometer, chewing 1750 on the today. On 01/26/2019 patient seen in follow-up in the intensive care unit, he is awake, oriented 3, resting in bed, he is at times moaning from his left chest incisional pain. Patient had a VATS and left-sided decortication of his empyema. This is postoperative day 3. Patient was successfully extubated y esterday. He is currently on 4 L of oxygen pulse ox of 97-98%, he is afebrile, he is hypertensive, currently on Avapro extremity at 10 mg per hour, and his blood pressure is ranging from 140s to 150s systolic, and 50s diastolic. He has a extremely weak cough, incentive spirometer effort is poor. Lung sounds reveal diminished breath sounds bilateral, more so on the left side. IV fluids include D5W with 3 A of bicarbonate at a rate of 50 ML per hour, Cleviprex is at 10 mg per hour as mentioned above, and patient has an epidural in place infusing at 6 ML per hour. No other drips, antibiotic coverage in the form of cefepime, vancomycin has been discontinued, pleural fluid cultures from 01/19/2019 were positive for alphahemolytic streptococcus. Pleural fluid cultures from 01/23/2019 showed no growth. Today's chest x-ray has been reviewed with Dr. Limon, showed stable postoperative findings, bibasilar effusions and associated atelectasis. She has a left-sided chest tube in place with 70 ML of thin serosanguineous output in the last 24 hours, IDC catheter is in place, and patient is nonoliguric, he is nothing by mouth, he is nauseous today, and has been unable to take his oral pills. His labs have been reviewed, showing white blood cell count of 17.3, hemoglobin of 8.8, platelet count is 541, sodium is 138, potassium 3.6, chloride is 109, CO2 is 22, anion gap was 7, BUN was 43, creatinine is 1.74. On 01/27/2019 patient seen in follow-up in the intensive care unit. He is looking quite fatigued, but no acute distress, denies shortness of breath, he is achieving but 500 on his incentive spirometer, he is on 4 L of oxygen with a pulse ox of 96%, hemodynamically stable, still on Cleviprex drip at 12 mg per hour, and 0.45 at a rate of 50 ML per hour, he is afebrile, his oral antihypertensives have been given this morning, and we will try to wean the Cleviprex off today. His left-sided anterior posterior chest tubes have been discontinued by CT surgery yesterday, follow-up chest x-ray has been reviewed, showing diffuse pleural parenchymal changes with bilateral pleural effusions with cardiomegaly and bibasilar infiltrates, diffuse interstitial pattern. No fever or chills, today's labs have been reviewed, showing white blood cell count of 18.9, hemoglobin of 8.1, sodium is 136, potassium is 3.8, chloride is 107, CO2 is 23, BUN is 40 and creatinine is 1.75. Current antibiotic coverage is with Rocephin for evidence of alphahemolytic streptococcus in the pleural fluid from the left-sided empyema. Objective - Vital Signs Vital signs: Vital Signs Temp 97.8 F 01/27/19 08:00 Pulse 85 01/27/19 10:00 Resp 16 01/27/19 10:00 BP 138/74 01/27/19 10:00 Pulse Ox 96 01/27/19 10:00 Intake & Output 01/26/19 01/27/19 01/27/19 18:59 06:59 18:59 Intake Total 1248.033 848.8 271.733 Output Total 860 1085 225 Balance 388.033 -236.2 46.733 Weight 77.1 kg 77.1 kg Intake: IV 758 700 150 Cefepime 2 gm In Sodium 100 100 Chloride 0.9% 100 ml @ 200 mls/hr IVPB Q12HR [facility] Rx#:[id number] Dextrose 5% in Water 1, 100 000 ml @ 50 mls/hr IV . Q23H [facility] with Sodium Bicarb (1 Meq/ml) 150 ml Rx#:[id number] Ropivacaine 250 mg 58 fentaNYL (PF) 625 mcg In Sodium Chloride 0.9% 188 ml @ Per Protocol EPIDURAL .Q0M PRN Rx#: [id number] Sodium Chloride 0.45% 1, 500 600 150 000 ml @ 50 mls/hr IV . Q20H [facility] Rx#:[id number] Intake, IV Titration 490.033 148.8 121.733 Amount Clevidipine Butyrate 25 237.133 148.8 71.733 mg In Empty Bag 1 bag @ 1 MG/HR 2 mls/hr IV .Q24H [facility] Rx#:[id number] Ropivacaine 250 mg 252.9 fentaNYL (PF) 625 mcg In Sodium Chloride 0.9% 188 ml @ Per Protocol EPIDURAL .Q0M PRN Rx#: [id number] cefTRIAXone 2 gm In 50 Sodium Chloride 0.9% 50 ml @ 100 mls/hr IVPB Q24HR [facility] Rx#:[id number] Output: Chest Tube Drainage 0 Left Pleural/Mediastinal 0 Urine 860 1085 225 Other: Voiding Method Indwelling Catheter Indwelling Catheter Indwelling Catheter ABP, PAP, CO, CI - Last Documented Arterial Blood Pressure 138/50 - Exam GENERAL EXAM: Alert, slightly lethargic but easily arousable, moaning 68-year-old white male, on 4 L of oxygen ox of 96%, mild to moderate amount of distress from his incisional pain from his left chest HEAD: Normocephalic/atraumatic. EYES: Normal reaction of pupils, equal size. Conjunctiva pink, sclera white. NOSE: Clear with pink turbinates. THROAT: No erythema or exudates. NECK: No masses, no JVD, no thyroid enlargement, no adenopathy. CHEST: No chest wall deformity. Symmetrical expansion. left posterior and anterior chest tube have been discontinued. Left lateral posterior chest incision is covered with dressings, clean dry and intact, significant amount of tenderness with deep inspiration and moving and to palpation LUNGS: Equal air entry with diminished breath sounds over left lower base CVS: Regular rate and rhythm, normal S1 and S2, no gallops, no murmurs, no rubs ABDOMEN: Soft, nontender. No hepatosplenomegaly, normal bowel sounds, no guarding or rigidity. EXTREMITIES: No clubbing, no edema, no cyanosis, 2+ pulses and upper and lower extremities. MUSCULOSKELETAL: Muscle strength and tone normal. SPINE: No scoliosis or deformity SKIN: No rashes CENTRAL NERVOUS SYSTEM: Alert and oriented -3. Lethargic, but arousable, No focal deficits, tone is normal in all 4 extremities. - Labs CBC & Chem 7: 01/27/19 06:12 01/27/19 06:12 Labs: Abnormal Lab Results - Last 24 Hours (Table) 01/26/19 01/26/19 01/26/19 Range/Units 17:14 17:17 17:36 WBC (3.8-10.6) k/uL RBC (4.30-5.90) m/uL Hgb (13.0-17.5) gm/dL Hct (39.0-53.0) % RDW (11.5-15.5) % Plt Count (150-450) k/uL Neutrophils # (1.3-7.7) k/uL Lymphocytes # (1.0-4.8) k/uL ABG pO2 (83-108) mmHg ABG O2 Saturation (94-97) % ABG Lactic Acid (0.5-1.6) mmol/L Sodium (137-145) mmol/L Potassium (3.5-5.1) mmol/L Chloride (98-107) mmol/L Carbon Dioxide (22-30) mmol/L BUN (9-20) mg/dL Creatinine (0.66-1.25) mg/dL Glucose (74-99) mg/dL POC Glucose (mg/dL) 40 L 41 L 45 L (75-99) mg/dL Calcium (8.4-10.2) mg/dL Total Protein (6.3-8.2) g/dL Albumin (3.5-5.0) g/dL 01/26/19 01/26/19 01/26/19 Range/Units 18:03 18:25 18:25 WBC 23.7 H (3.8-10.6) k/uL RBC 3.08 L (4.30-5.90) m/uL Hgb 8.9 L (13.0-17.5) gm/dL Hct 27.2 L (39.0-53.0) % RDW 15.9 H (11.5-15.5) % Plt Count 680 H (150-450) k/uL Neutrophils # 22.7 H (1.3-7.7) k/uL Lymphocytes # 0.4 L (1.0-4.8) k/uL ABG pO2 (83-108) mmHg ABG O2 Saturation (94-97) % ABG Lactic Acid (0.5-1.6) mmol/L Sodium (137-145) mmol/L Potassium 3.4 L (3.5-5.1) mmol/L Chloride 108 H (98-107) mmol/L Carbon Dioxide 21 L (22-30) mmol/L BUN 41 H (9-20) mg/dL Creatinine 1.87 H (0.66-1.25) mg/dL Glucose 156 H (74-99) mg/dL POC Glucose (mg/dL) 182 H (75-99) mg/dL Calcium 7.0 L (8.4-10.2) mg/dL Total Protein 4.4 L (6.3-8.2) g/dL Albumin 2.0 L (3.5-5.0) g/dL 01/26/19 01/26/19 01/26/19 Range/Units 18:25 18:44 21:52 WBC (3.8-10.6) k/uL RBC (4.30-5.90) m/uL Hgb (13.0-17.5) gm/dL Hct (39.0-53.0) % RDW (11.5-15.5) % Plt Count (150-450) k/uL Neutrophils # (1.3-7.7) k/uL Lymphocytes # (1.0-4.8) k/uL ABG pO2 65 L (83-108) mmHg ABG O2 Saturation 92.8 L (94-97) % ABG Lactic Acid 1.8 H (0.5-1.6) mmol/L Sodium (137-145) mmol/L Potassium (3.5-5.1) mmol/L Chloride (98-107) mmol/L Carbon Dioxide (22-30) mmol/L BUN (9-20) mg/dL Creatinine (0.66-1.25) mg/dL Glucose (74-99) mg/dL POC Glucose (mg/dL) 139 H (75-99) mg/dL Calcium (8.4-10.2) mg/dL Total Protein (6.3-8.2) g/dL Albumin (3.5-5.0) g/dL 01/27/19 01/27/19 01/27/19 Range/Units 05:02 05:02 06:12 WBC 16.1 H 18.9 H (3.8-10.6) k/uL RBC 2.33 L 2.76 L (4.30-5.90) m/uL Hgb 6.8 L* D 8.1 L (13.0-17.5) gm/dL Hct 21.1 L 24.1 L (39.0-53.0) % RDW (11.5-15.5) % Plt Count 518 H 595 H (150-450) k/uL Neutrophils # 14.8 H 17.5 H (1.3-7.7) k/uL Lymphocytes # 0.5 L 0.6 L (1.0-4.8) k/uL ABG pO2 (83-108) mmHg ABG O2 Saturation (94-97) % ABG Lactic Acid (0.5-1.6) mmol/L Sodium (137-145) mmol/L Potassium 2.8 L (3.5-5.1) mmol/L Chloride 116 H (98-107) mmol/L Carbon Dioxide 17 L (22-30) mmol/L BUN 32 H (9-20) mg/dL Creatinine 1.27 H (0.66-1.25) mg/dL Glucose (74-99) mg/dL POC Glucose (mg/dL) (75-99) mg/dL Calcium 5.3 L* (8.4-10.2) mg/dL Total Protein (6.3-8.2) g/dL Albumin (3.5-5.0) g/dL 01/27/19 01/27/19 Range/Units 06:12 06:32 WBC (3.8-10.6) k/uL RBC (4.30-5.90) m/uL Hgb (13.0-17.5) gm/dL Hct (39.0-53.0) % RDW (11.5-15.5) % Plt Count (150-450) k/uL Neutrophils # (1.3-7.7) k/uL Lymphocytes # (1.0-4.8) k/uL ABG pO2 (83-108) mmHg ABG O2 Saturation (94-97) % ABG Lactic Acid (0.5-1.6) mmol/L Sodium 136 L (137-145) mmol/L Potassium (3.5-5.1) mmol/L Chloride (98-107) mmol/L Carbon Dioxide (22-30) mmol/L BUN 40 H (9-20) mg/dL Creatinine 1.75 H (0.66-1.25) mg/dL Glucose 117 H (74-99) mg/dL POC Glucose (mg/dL) 119 H (75-99) mg/dL Calcium 7.0 L (8.4-10.2) mg/dL Total Protein 4.0 L (6.3-8.2) g/dL Albumin 1.8 L (3.5-5.0) g/dL Microbiology - Last 24 Hours (Table) 01/18/19 11:30 Acid Fast Bacilli Smear - Final Pleural Fluid Acid Fast Bacilli Culture - Preliminary 01/23/19 16:57 Gram Stain - Preliminary Pleural Fluid Body Fluid Culture - Preliminary 01/23/19 16:57 Gram Stain - Preliminary Other - Other Tissue Culture - Preliminary 01/23/19 16:57 Gram Stain - Preliminary Other - Other Tissue Culture - Preliminary 01/18/19 11:30 Fungal Culture - Preliminary Pleural Fluid Assessment and Plan Plan: 1 left-sided empyema, secondary to alpha hemolytic streptococcus. Status post VATS decortication post operative day #4. Patient is on Rocephin 2 left sided hydropneumothorax, with loculated pleural effusion, requiring VATS decortication. 3 left sided hemothorax, patient required at least 7 units of packed RBCs so far since admission. 4 acute sepsis secondary to empyema is strongly suspected 5 acute blood loss secondary to hemothorax requiring 7 units of packed RBCs since admission. 6 multiple comorbidities including hypertension, diabetes, electrolytes imbalance with hypokalemia, and worsening anemia secondary to hemothorax and blood loss in the left pleural space. 7 acute hypoxic respiratory failure secondary to left-sided empyema, sepsis, and septic shock. 8 acute septic shock secondary to empyema. 9 small right-sided pleural effusion, not large enough on ultrasound to consider thoracentesis. No markings were placed. 10 Acute kidney injury related to ATN 11 non-anion gap metabolic acidosis related to a TIA, improved with bicarbonate replacement Plan: Continue encouraging deep breathing and coughing, incentive spirometry use, oral antihypertensives have been given, wean Cleviprex, continue with ID service recommendations for antibiotics, patient is currently on Rocephin. His tubes have been discontinued, today's chest x-ray has been reviewed, showing bilateral pleural effusions, diffuse interstitial pattern. Afebrile, maintain pain control. GI and DVT prophylaxis, increase activity as tolerated, encourage patient to set up in the chair. From pulmonary perspective patient is stable, can be transferred to medical surgical floor with remote telemetry today. Follow-up chest x-ray tomorrow morning I performed a history & physical examination of the patient and discussed their management with my nurse practitioner, Nicole Wang. I reviewed the nurse practitioner's note and agree with the documented findings and plan of care. Lung sounds are positive for diminished breath sounds over left lower base. The findings and the impression was discussed with the patient. I attest to the documentation by the nurse practitioner. Time with Patient: Less than 30
[2019-01-27] MEDS ORDERED: FUROSEMIDE 10 MG/ML 4 ML VIAL IV STA (11:42)
[2019-01-27 11:46] LABS: Glucose,Whole Blood 121 mg/dL (75-99)
--- NOTE | 2019-01-27 11:46 | P.NPCON ---
History of Present Illness - Reason for Consult acute renal failure - History of Present Illness Reason for consultation: Acute kidney injury History of present illness: Patient is a 68-year-old male seen in renal consultation for acute kidney injury. His baseline creatinine is 1 and is 1.75 today. Patient presented to the hospital with dyspnea. He was noted to have pneumonia with empyema and had a chest tube placed. He is status post VATS. Patient's hemoglobin also dropped to 5.0 this admission and he is received a total of 7 units of blood transfusion. Blood pressures also been low in the systolic 70s and is better now. He is nonoliguric. No hematuria. He is on a liquid diet. Denies active chest pain or shortness of breath. Denies any prior history of kidney disease. He does have history of diabetes mellitus and is maintained on metformin outpatient. Metformin is currently held in the hospital. His blood pressure has been high and is currently maintained on cleviprex drip. He is also on amlodipine, hydrochlorothiazide and lisinopril. Vital signs are stable. General: The patient appeared well nourished and normally developed. HEENT: Head exam is unremarkable. Neck is without jugular venous distension. LUNGS: Lungs are clear to auscultation and percussion. Breath sounds decreased. HEART: Rate and Rhythm are regular. First and second heart sounds normal. No murmurs, rubs or gallops. ABDOMEN: Abdominal exam reveals normal bowel sounds. Non-tender and non- distended. EXTREMITITES: 1+ edema. Past Medical History Past Medical History: Diabetes Mellitus, GERD/Reflux, Hypertension, Pneumonia History of Any Multi-Drug Resistant Organisms: None Reported Past Surgical History: Hernia Repair (Bilateral inguinal) Additional Past Surgical History / Comment(s): 1984 GI bleed from ulcer Past Psychological History: Depression Smoking Status: Never smoker Past Alcohol Use History: None Reported Past Drug Use History: None Reported - Past Family History Father Family Medical History: Cancer Mother Family Medical History: Cancer, Dementia Medications and Allergies Home Medications Medication Instructions Recorded Confirmed Type Aspirin EC [Ecotrin Low Dose] 81 mg PO DAILY 01/17/19 01/17/19 History FLUoxetine HCL [PROzac] 20 mg PO DAILY 01/17/19 01/17/19 History Hydrochlorothiazide 25 mg PO DAILY 01/17/19 01/17/19 History Lisinopril 40 mg PO DAILY 01/17/19 01/17/19 History amLODIPine [Norvasc] 10 mg PO DAILY 01/17/19 01/17/19 History metFORMIN HCL 1,000 mg PO BID 01/17/19 01/17/19 History Allergies Allergy/AdvReac Type Severity Reaction Status Date / Time chlorzoxazone Allergy Unknown Verified 01/17/19 17:[address] [[address] [facility]] Physical Exam Vitals: Vital Signs Temp Pulse Resp BP Pulse Ox 01/27/19 10:00 85 16 138/74 96 01/27/19 09:00 96 23 137/74 93 L 01/27/19 08:00 97.8 F 86 19 137/74 96 01/27/19 07:00 95 17 145/75 95 01/27/19 06:00 90 17 130/76 95 01/27/19 05:00 90 13 142/71 97 01/27/19 04:00 98.4 F 87 14 139/77 98 01/27/19 03:00 90 14 140/68 98 01/27/19 02:00 86 14 139/69 99 01/27/19 01:00 86 16 139/76 99 01/27/19 00:01 98.8 F 91 12 139/76 99 01/26/19 23:00 96 15 144/71 98 01/26/19 22:30 98.2 F 88 16 144/71 99 01/26/19 22:00 89 14 100 01/26/19 21:30 84 16 122/59 99 01/26/19 21:00 78 14 145/63 98 01/26/19 20:30 86 16 106/60 91 L 01/26/19 20:00 96.3 F L 73 14 93 L 01/26/19 19:30 70 14 100 01/26/19 19:00 69 14 99 01/26/19 18:30 88 21 97 01/26/19 18:12 94.6 F L 01/26/19 18:00 93 17 93 L 01/26/19 17:30 72 16 92 L 01/26/19 17:00 75 15 132/77 96 01/26/19 16:30 75 16 98 01/26/19 16:00 96.1 F L 73 17 99 01/26/19 15:41 85 01/26/19 15:34 82 01/26/19 15:30 89 15 100 01/26/19 15:00 93 20 100 01/26/19 14:30 89 19 100 01/26/19 14:00 93 20 92 L 01/26/19 13:30 94 17 138/67 95 01/26/19 13:00 96 16 90 L 01/26/19 12:30 96 17 91 L 01/26/19 12:00 97.8 F 96 17 99 01/26/19 11:52 24 Intake and Output 01/26/19 01/27/19 01/27/19 22:59 06:59 14:59 Intake Total 607.0 500 286.133 Output Total 685 850 225 Balance -78.0 -350 61.133 Intake: IV 507 400 150 Cefepime 2 gm In Sodium 100 Chloride 0.9% 100 ml @ 200 mls/hr IVPB Q12HR [facility] Rx#:[id number] Ropivacaine 250 mg 7 fentaNYL (PF) 625 mcg In Sodium Chloride 0.9% 188 ml @ Per Protocol EPIDURAL .Q0M [facility] Rx#: [id number] Sodium Chloride 0.45% 1, 400 400 150 000 ml @ 50 mls/hr IV . Q20H [facility] Rx#:[id number] Intake, IV Titration 100.0 100 136.133 Amount Clevidipine Butyrate 25 100.0 100 86.133 mg In Empty Bag 1 bag @ 1 MG/HR 2 mls/hr IV .Q24H [facility] Rx#:[id number] cefTRIAXone 2 gm In 50 Sodium Chloride 0.9% 50 ml @ 100 mls/hr IVPB Q24HR [facility] Rx#:[id number] Output: Urine 685 850 225 Other: Voiding Method Indwelling Catheter Indwelling Catheter Indwelling Catheter Weight 77.1 kg 77.1 kg ABP, PAP, CO, CI - Last 8 Hours Arterial Blood Pressure 138/50 Arterial Blood Pressure 138/48 Arterial Blood Pressure 141/48 Arterial Blood Pressure 145/46 Arterial Blood Pressure 147/52 Arterial Blood Pressure 147/54 Results - Lab Results Most recent lab results ABG pH 7.38 (7.35-7.45) 01/26/19 18:44 ABG pCO2 38 mmHg (35-45) 01/26/19 18:44 ABG pO2 65 mmHg (83-108) L 01/26/19 18:44 ABG HCO3 22 mmol/L (21-25) 01/26/19 18:44 ABG O2 Saturation 92.8 % (94-97) L 01/26/19 18:44 Calcium 7.0 mg/dL (8.4-10.2) L 01/27/19 06:12 Magnesium 2.0 mg/dL (1.6-2.3) 01/26/19 05:15 01/27/19 06:12 01/27/19 06:12 Assessment and Plan Plan: Assessment: 1. Acute kidney injury secondary to ATN secondary to hemodynamic instability and acute blood loss anemia. Baseline creatinine is 1 and is up to 1.75 today. 2. Acute blood loss anemia status post 7 units of packed red blood cell transfusion this admission. No active bleeding noted. 3. Pneumonia with empyema status post chest tube placement, VATS. Fluid culture positive for Streptococcus. 4. Benign hypertension. 5. Diabetes mellitus. 6. Metabolic acidosis secondary to acute kidney injury. Better. 7. Hypokalemia from poor oral intake. Improved. Plan: Discontinue lisinopril and hydrochlorothiazide. Start hydralazine 50 mg 3 times daily - will further increase if needed. Lasix 40 mg IV once today. Continue to monitor renal function and urine output. Repeat electrolytes in the morning. Thank you for the consultation. I will continue to follow the patient with you during his hospital stay.
[2019-01-27] MEDS: FLUCONAZOLE 100 MG TAB PO SCH (12:33)
[2019-01-27] MEDS: ROPIVACAINE 250 MG, fentaNYL (PF) 625 MCG in SODIUM CHLORIDE 0.9% 188 ML EPIDURAL PRN (12:33)
--- NOTE | 2019-01-27 13:32 | P.PN ---
Subjective Progress Note Date: 01/27/19 Principal diagnosis: This is a 68 year old man that was admitted for left-sided pneumonia, pleural effusion and empyema that had recently undergone a chest tube placement of the left side. A total of 500ml has drained from last night. Will continue to monitor closely. Cultures of the pleural fluid grew positive for alpha hemolytic streptococci. Infectious disease is following along with the care of the patient and managing antibiotics at this time. Patient has been up and walking often around the unit. Patient appears in no acute distress at this time. Patient denies any chest pain or fevers at this time and also made mention that his shortness of breath has improved since the placement of the chest tube. Early this am patient was moved to the ICU to be closely monitored as he was draining a large amount of blood from the left side chest tube and had a critical value hemoglobin level of 5. Patient states that he felt better yesterday but later in the evening felt fatigued and not up to walking. Vitals were stable but started becoming hypotensive in the low 90's systolic. Patient was then transferred to the ICU and will likely be going for surgery on 01/23/19. Patient's blood sugars continue to be elevated and will continue to cover per protocol. Patient is scheduled to be NPO after midnight, but he states that he hasn't been that hungry today. Patient is lying in the bed with a bear hugger on to maintain his temperature. Patient is still currently on broad spectrum antibiotics per infectious disease and being followed closely. Patient was awaiting for 2 units of PRBC to be transfused as there were antibodies present per the lab. Patient denies any shortness of breath, chest pain, or palpitations, just states that he feels tired. A chest xray was done showing a moderate to large pleural effusion with left hydropneumothorax with a small right side pleural effusion. CT scan of the chest showed loculated empyema with a couple of air-fluid levels present, small pneumothorax is not excluded, chest catheter is within area of increased density consistent with the empyema, and a couple of enlarged lymph nodes within the mediastinum. 01/23/19 Today this 68-year-old male is lying in bed in the ICU awaiting a thoracotomy procedure early this afternoon. Patient states he's unsure when but was told it is scheduled for today. Patient is denying any increasing shortness of breath, chest pains, palpitations, or fevers at this time. Patient is still having a large amount of output in the chest tube noted in the atrium. Per the RN the drainage has decreased since this morning. Patient denies any dizziness or lightheadedness at this time. Patient is very lethargic but easily arousable. Patient was currently made nothing by mouth after midnight for this procedure. Per infectious disease the vancomycin is being discontinued at this time and they will continue to follow while awaiting cultures from the thoracotomy today. 01/26/19 Patient is still in pain today not feeling well. Patient does have a lot of nausea and unable to vomit but is spitting up fluid patient given Zofran with minimal relief. Patient is currently on clear liquids but hasn't been having very much of an appetite today. Patient is still having some pain at the site of the chest tubes and breathing is shallow. Patient is still on an epidural pump at this time and was recently increased to 7mL from previous 6mL per hour. Patient is still on blood pressure drip of Cleviprex but per the RN will be of attempting to wean off and resume regular blood pressure medication. Patient denies any chest pain or palpitations at this time. Patient has been afebrile. Urine output is being maintained at this time as clear and yellow in nature with a Kaur. Total output of the chest tube was 100 mL's overnight. Patient is to have the pleural chest tube taken out today. Patient is maintaining oxygen saturation on 3-4 L via nasal cannula in the low to mid 90s. Patient is currently still on IV antibiotics per infectious disease and we'll continue to monitor. Patient is hemodynamically stable. Prognosis is extremely guarded. Further recommendations to follow. 01/27/19 Patient today is sitting up in the recliner and still having some nausea with no vomiting. Patient states it is intermittent. Patient is able to carry a conversation without falling asleep today. Patient is still using the incentive spirometer with encouragement and able to maintain 500 at this time with poor respiratory effort. Patient is denying any chest pain or palpitations at this time. Patient is currently afebrile and has been maintaining his temperature this morning. Per RN patient was having low readings of temperature overnight. Patient is currently still on Cleviprex but weaning. Home blood pressure medications have been resumed. Patient is hemodynamically stable at this time. Patient is maintaining oxygen saturation of 93-94% on 4 L via NC. Chest tubes were removed yesterday. Patient is being closely monitored and will continue to monitor. Objective - Vital Signs Vital signs: Vital Signs Temp 97.8 F 01/27/19 12:00 Pulse 82 01/27/19 12:00 Resp 28 H 01/27/19 12:00 BP 133/72 01/27/19 11:00 Pulse Ox 98 01/27/19 12:00 Intake & Output 01/26/19 01/27/19 01/27/19 18:59 06:59 18:59 Intake Total 1248.033 848.8 618.666 Output Total 860 1085 530 Balance 388.033 -236.2 88.666 Weight 77.1 kg 77.1 kg Intake: IV 758 700 300 Cefepime 2 gm In Sodium 100 100 Chloride 0.9% 100 ml @ 200 mls/hr IVPB Q12HR NEGRO Rx#:[id number] Dextrose 5% in Water 1, 100 000 ml @ 50 mls/hr IV . Q23H NEGRO with Sodium Bicarb (1 Meq/ml) 150 ml Rx#:[id number] Ropivacaine 250 mg 58 fentaNYL (PF) 625 mcg In Sodium Chloride 0.9% 188 ml @ Per Protocol EPIDURAL .Q0M PRN Rx#: [id number] Sodium Chloride 0.45% 1, 500 600 300 000 ml @ 50 mls/hr IV . Q20H NEGRO Rx#:[id number] Intake, IV Titration 490.033 148.8 318.666 Amount Clevidipine Butyrate 25 237.133 148.8 96.933 mg In Empty Bag 1 bag @ 1 MG/HR 2 mls/hr IV .Q24H NEGRO Rx#:[id number] Ropivacaine 250 mg 252.9 171.733 fentaNYL (PF) 625 mcg In Sodium Chloride 0.9% 188 ml @ Per Protocol EPIDURAL .Q0M PRN Rx#: [id number] cefTRIAXone 2 gm In 50 Sodium Chloride 0.9% 50 ml @ 100 mls/hr IVPB Q24HR NEGRO Rx#:[id number] Output: Chest Tube Drainage 0 Left Pleural/Mediastinal 0 Urine 860 1085 530 Other: Voiding Method Indwelling Catheter Indwelling Catheter Indwelling Catheter ABP, PAP, CO, CI - Last Documented Arterial Blood Pressure 146/52 - Exam Gen: This is a 68-year-old male sitting up in the recliner next of the bed. Patient is sleeping but easily arousable. Vital signs are stable. HEENT: Head is atraumatic, normocephalic. Pupils equal, round. Sclerae is anicteric. NECK: Supple. No JVD. No lymphadenopathy. No thyromegaly. LUNGS: Lung sounds diminished with no wheezes or rhonchi noted. No intercostal retractions. Left side and back dressings status post removal of chest tubes are dry and intact. HEART: Regular rate and rhythm. No murmur. ABDOMEN: Soft. Bowel sounds are present. No masses. No tenderness. EXTREMITIES: No pedal edema. No calf tenderness. Mild bilateral hand swelling with +1 edema. Slightly improved from yesterday. NEUROLOGICAL: Patient is awake, alert and oriented x3. Cranial nerves 2 through 12 are grossly intact. - Labs CBC & Chem 7: 01/27/19 06:12 01/27/19 06:12 Labs: Abnormal Lab Results - Last 24 Hours (Table) 01/26/19 01/26/19 01/26/19 Range/Units 17:14 17:17 17:36 WBC (3.8-10.6) k/uL RBC (4.30-5.90) m/uL Hgb (13.0-17.5) gm/dL Hct (39.0-53.0) % RDW (11.5-15.5) % Plt Count (150-450) k/uL Neutrophils # (1.3-7.7) k/uL Lymphocytes # (1.0-4.8) k/uL ABG pO2 (83-108) mmHg ABG O2 Saturation (94-97) % ABG Lactic Acid (0.5-1.6) mmol/L Sodium (137-145) mmol/L Potassium (3.5-5.1) mmol/L Chloride (98-107) mmol/L Carbon Dioxide (22-30) mmol/L BUN (9-20) mg/dL Creatinine (0.66-1.25) mg/dL Glucose (74-99) mg/dL POC Glucose (mg/dL) 40 L 41 L 45 L (75-99) mg/dL Calcium (8.4-10.2) mg/dL Total Protein (6.3-8.2) g/dL Albumin (3.5-5.0) g/dL 01/26/19 01/26/19 01/26/19 Range/Units 18:03 18:25 18:25 WBC 23.7 H (3.8-10.6) k/uL RBC 3.08 L (4.30-5.90) m/uL Hgb 8.9 L (13.0-17.5) gm/dL Hct 27.2 L (39.0-53.0) % RDW 15.9 H (11.5-15.5) % Plt Count 680 H (150-450) k/uL Neutrophils # 22.7 H (1.3-7.7) k/uL Lymphocytes # 0.4 L (1.0-4.8) k/uL ABG pO2 (83-108) mmHg ABG O2 Saturation (94-97) % ABG Lactic Acid (0.5-1.6) mmol/L Sodium (137-145) mmol/L Potassium 3.4 L (3.5-5.1) mmol/L Chloride 108 H (98-107) mmol/L Carbon Dioxide 21 L (22-30) mmol/L BUN 41 H (9-20) mg/dL Creatinine 1.87 H (0.66-1.25) mg/dL Glucose 156 H (74-99) mg/dL POC Glucose (mg/dL) 182 H (75-99) mg/dL Calcium 7.0 L (8.4-10.2) mg/dL Total Protein 4.4 L (6.3-8.2) g/dL Albumin 2.0 L (3.5-5.0) g/dL 01/26/19 01/26/19 01/26/19 Range/Units 18:25 18:44 21:52 WBC (3.8-10.6) k/uL RBC (4.30-5.90) m/uL Hgb (13.0-17.5) gm/dL Hct (39.0-53.0) % RDW (11.5-15.5) % Plt Count (150-450) k/uL Neutrophils # (1.3-7.7) k/uL Lymphocytes # (1.0-4.8) k/uL ABG pO2 65 L (83-108) mmHg ABG O2 Saturation 92.8 L (94-97) % ABG Lactic Acid 1.8 H (0.5-1.6) mmol/L Sodium (137-145) mmol/L Potassium (3.5-5.1) mmol/L Chloride (98-107) mmol/L Carbon Dioxide (22-30) mmol/L BUN (9-20) mg/dL Creatinine (0.66-1.25) mg/dL Glucose (74-99) mg/dL POC Glucose (mg/dL) 139 H (75-99) mg/dL Calcium (8.4-10.2) mg/dL Total Protein (6.3-8.2) g/dL Albumin (3.5-5.0) g/dL 01/27/19 01/27/19 01/27/19 Range/Units 05:02 05:02 06:12 WBC 16.1 H 18.9 H (3.8-10.6) k/uL RBC 2.33 L 2.76 L (4.30-5.90) m/uL Hgb 6.8 L* D 8.1 L (13.0-17.5) gm/dL Hct 21.1 L 24.1 L (39.0-53.0) % RDW (11.5-15.5) % Plt Count 518 H 595 H (150-450) k/uL Neutrophils # 14.8 H 17.5 H (1.3-7.7) k/uL Lymphocytes # 0.5 L 0.6 L (1.0-4.8) k/uL ABG pO2 (83-108) mmHg ABG O2 Saturation (94-97) % ABG Lactic Acid (0.5-1.6) mmol/L Sodium (137-145) mmol/L Potassium 2.8 L (3.5-5.1) mmol/L Chloride 116 H (98-107) mmol/L Carbon Dioxide 17 L (22-30) mmol/L BUN 32 H (9-20) mg/dL Creatinine 1.27 H (0.66-1.25) mg/dL Glucose (74-99) mg/dL POC Glucose (mg/dL) (75-99) mg/dL Calcium 5.3 L* (8.4-10.2) mg/dL Total Protein (6.3-8.2) g/dL Albumin (3.5-5.0) g/dL 01/27/19 01/27/19 01/27/19 Range/Units 06:12 06:32 11:45 WBC (3.8-10.6) k/uL RBC (4.30-5.90) m/uL Hgb (13.0-17.5) gm/dL Hct (39.0-53.0) % RDW (11.5-15.5) % Plt Count (150-450) k/uL Neutrophils # (1.3-7.7) k/uL Lymphocytes # (1.0-4.8) k/uL ABG pO2 (83-108) mmHg ABG O2 Saturation (94-97) % ABG Lactic Acid (0.5-1.6) mmol/L Sodium 136 L (137-145) mmol/L Potassium (3.5-5.1) mmol/L Chloride (98-107) mmol/L Carbon Dioxide (22-30) mmol/L BUN 40 H (9-20) mg/dL Creatinine 1.75 H (0.66-1.25) mg/dL Glucose 117 H (74-99) mg/dL POC Glucose (mg/dL) 119 H 121 H (75-99) mg/dL Calcium 7.0 L (8.4-10.2) mg/dL Total Protein 4.0 L (6.3-8.2) g/dL Albumin 1.8 L (3.5-5.0) g/dL Microbiology - Last 24 Hours (Table) 01/18/19 11:30 Acid Fast Bacilli Smear - Final Pleural Fluid Acid Fast Bacilli Culture - Preliminary 01/23/19 16:57 Gram Stain - Preliminary Pleural Fluid Body Fluid Culture - Preliminary 01/23/19 16:57 Gram Stain - Preliminary Other - Other Tissue Culture - Preliminary 01/23/19 16:57 Gram Stain - Preliminary Other - Other Tissue Culture - Preliminary 01/18/19 11:30 Fungal Culture - Preliminary Pleural Fluid Assessment and Plan Assessment: Labs: As noted above Assessment: Acute hypoxic respiratory failure: Left-sided pneumonia and pleural effusion with hydropneumothorax, patient's presently status post VATS procedure postop day 4. Chest tubes were removed. This morning's chest x-ray shows bilateral pleural effusions with cardiomegaly and bibasilar infiltrate. Correlate for CHF Acute anemia blood loss most likely from the fluid collection of the left lung continue to have output in the chest tube that has decreased. Patient had pleural chest tube removed yesterday. Patient has had a total of 7 units of PRBCs transfused since admission. We'll continue to monitor labs closely. Acute hypoxic respiratory failure: Left-sided pneumonia and pleural effusions with hydropneumothorax, status post VATS Sepsis secondary to empyema for which the patient is currently still on IV antibiotics per infectious disease. Patient was switched to Rocephin 2 g daily. Acute renal failure secondary to sepsis, post VATS will continue with IV fluids and monitor closely. Metabolic acidosis most likely secondary hyperchloremia as the patient was on a bicarbonate drip. Improved Hypovolemic hyponatremia currently resolved Hypertension as he is still on Cleviprex but will be weaning and resuming home blood pressure medications. Per nephrology lisinopril and hydrochlorothiazide are discontinued at this time and patient was started on hydralazine 50 mg 3 times daily. Continue to monitor vitals closely. Will await for morning labs and electrolytes. Patient was also given Lasix 40 mg IV push. Will continue to monitor urinary output as well. Sepsis secondary to pneumonia with parapneumonic effusions Acute hypotension due to septic shock which is resolved. Patient is currently hypertensive and still on Cleviprex but weaning at this time. Diabetes type 2, uncontrolled hyperglycemia. We'll continue to monitor blood glucose levels and adjust accordingly Hypoglycemia secondary to sepsis and was nothing by mouth. Is currently on clear liquid diet which we will continue as he is having nausea. Patient is tolerating clear liquid diet but not much of an appetite. Recommendations and discussions: Recommend continue current medications, continue symptomatically treatment, and continue to monitor closely. Patient's prognosis is extremely guarded From pulmonary standpoint patient is okayed to be moved to a Med/Surg floor with telemetry. Will await for weaning of Cleviprex. Will continue to monitor vital signs and labs.
--- NOTE | 2019-01-27 13:45 | P.PN ---
Progress Note - Text Progress Note Date: 01/27/19 Postoperative day # 4 status post left thoracotomy epidural catheter placed for postoperative analgesia, epidural site okay, patient currently on combination of epidural infusion solution of Ropivacaine 0.0625% and fentanyl 2.5 g per mL the infusion rate at 7 ml per hour , patient had no motor deficit epidural site okay , vital signs stable ,VAS 4/10 , Assessment and plan= post operative day #4 patient doing well ,pain adequateley controlled , there is no anesthesia related complications, Would discontinue epidural catheter 12 hours after patient received Lovenox
--- NOTE | 2019-01-27 15:07 | P.PN ---
Subjective Progress Note Date: 01/27/19 Principal diagnosis: Left-sided empyema with loculated left pleural effusion effusion positive for alpha hemolytic strep, dyspnea secondary to empyema. Previous medical history of uncontrolled type diet 2 diabetes mellitus, hypertension, pneumonia, depression, GERD, GI bleed. POD #8 left-sided pigtail catheter placement by interventional radiology Acute blood loss anemia, unexpected Septic shock with lactic acidosis, unexpected POD #4 left thoracotomy with decortication Non-anion gap metabolic acidosis, resolving Acute kidney injury Patient is currently sitting up to bedside chair in the intensive care unit in no acute distress. He denies any complaints of pain or shortness of breath at this time, although is complaining of some nausea. Oxygen saturations are 93% on 4 L nasal cannula. Achieving 1000 mL on his incentive spirometry. Epidural remains in place, no redness or swelling at the insertion site. He is ambulating in the intensive care unit hallway with minimal assistance this morning. Bedside telemetry showing normal sinus rhythm heart rate 92. He remains hemodynamically stable and is on no inotropic or pressor support. He remains on a Cleviprex drip for blood pressure control. His left pleural chest tube was removed yesterday 01/26/2019. Dressing remains intact to his left lateral chest with some serous colored drainage present. Objective - Vital Signs Vital signs: Vital Signs Temp 97.8 F 01/27/19 12:00 Pulse 79 01/27/19 14:00 Resp 12 01/27/19 14:00 BP 144/91 01/27/19 14:00 Pulse Ox 100 01/27/19 14:00 Intake & Output 01/26/19 01/27/19 01/27/19 18:59 06:59 18:59 Intake Total 1248.033 848.8 768.666 Output Total 860 1085 1030 Balance 388.033 -236.2 -261.334 Weight 77.1 kg 77.1 kg Intake: IV 758 700 400 Cefepime 2 gm In Sodium 100 100 Chloride 0.9% 100 ml @ 200 mls/hr IVPB Q12HR [facility] Rx#:[id number] Dextrose 5% in Water 1, 100 000 ml @ 50 mls/hr IV . Q23H [facility] with Sodium Bicarb (1 Meq/ml) 150 ml Rx#:[id number] Ropivacaine 250 mg 58 fentaNYL (PF) 625 mcg In Sodium Chloride 0.9% 188 ml @ Per Protocol EPIDURAL .Q0M PRN Rx#: [id number] Sodium Chloride 0.45% 1, 500 600 400 000 ml @ 50 mls/hr IV . Q20H [facility] Rx#:[id number] Intake, IV Titration 490.033 148.8 368.666 Amount Clevidipine Butyrate 25 237.133 148.8 146.933 mg In Empty Bag 1 bag @ 1 MG/HR 2 mls/hr IV .Q24H [facility] Rx#:[id number] Ropivacaine 250 mg 252.9 171.733 fentaNYL (PF) 625 mcg In Sodium Chloride 0.9% 188 ml @ Per Protocol EPIDURAL .Q0M [facility] Rx#: [id number] cefTRIAXone 2 gm In 50 Sodium Chloride 0.9% 50 ml @ 100 mls/hr IVPB Q24HR [facility] Rx#:[id number] Output: Chest Tube Drainage 0 Left Pleural/Mediastinal 0 Urine 860 1085 1030 Other: Voiding Method Indwelling Catheter Indwelling Catheter Indwelling Catheter ABP, PAP, CO, CI - Last Documented Arterial Blood Pressure 158/54 - Constitutional General appearance: Present: cooperative, no acute distress - Respiratory Details: Lung sounds are essentially clear to his bilateral upper lobes, the meniscus to his bilateral bases left greater than right. Respirations are symmetrical and nonlabored. Oxygen saturation are 93% on 4 L nasal cannula. Achieving 1000 mL on his incentive spirometry. - Cardiovascular Details: Regular rhythm and rate. S1 and S2 present, negative for S3, gallop or murmur. Bedside telemetry showing normal sinus rhythm heart rate 92. Trace edema present to his bilateral upper and lower extremities. Knee-high sequential compression devices in place to his bilateral lower extremities. Right radial arterial line in place and functioning. - Gastrointestinal Gastrointestinal Comment(s): Abdomen is soft, nontender and slightly distended. Hypoactive bowel sounds present in all 4 abdominal quadrants. No guarding or rigidity. No organomegaly. Tolerating a clear liquid diet. - Genitourinary Genitourinary Comment(s): Kaur catheter for accurate I&O as his epidural remains in place. 850 mL output in the last 8 hours. - Integumentary Integumentary Comment(s): Skin is warm and dry. No clubbing or cyanosis is present. Left chest thoracotomy site is clean, dry and approximated. No drainage or redness is present. Left chest tube insertion site with serous colored drainage present. Dressing remains in place. - Neurologic Neurologic Comment(s): Epidural site is clean, dry and intact. No redness or drainage is present. Neurologic: Present: CNII-XII intact - Musculoskeletal Musculoskeletal: Present: gait normal, generalized weakness, strength equal bilaterally - Psychiatric Psychiatric Comment(s): Flat affect Psychiatric: Present: A&O x's 3, intact judgment & insight - Allied health notes Allied health notes reviewed: nursing - Labs CBC & Chem 7: 01/27/19 06:12 01/27/19 06:12 Labs: Abnormal Lab Results - Last 24 Hours (Table) 01/26/19 01/26/19 01/26/19 Range/Units 17:14 17:17 17:36 WBC (3.8-10.6) k/uL RBC (4.30-5.90) m/uL Hgb (13.0-17.5) gm/dL Hct (39.0-53.0) % RDW (11.5-15.5) % Plt Count (150-450) k/uL Neutrophils # (1.3-7.7) k/uL Lymphocytes # (1.0-4.8) k/uL ABG pO2 (83-108) mmHg ABG O2 Saturation (94-97) % ABG Lactic Acid (0.5-1.6) mmol/L Sodium (137-145) mmol/L Potassium (3.5-5.1) mmol/L Chloride (98-107) mmol/L Carbon Dioxide (22-30) mmol/L BUN (9-20) mg/dL Creatinine (0.66-1.25) mg/dL Glucose (74-99) mg/dL POC Glucose (mg/dL) 40 L 41 L 45 L (75-99) mg/dL Calcium (8.4-10.2) mg/dL Total Protein (6.3-8.2) g/dL Albumin (3.5-5.0) g/dL 01/26/19 01/26/19 01/26/19 Range/Units 18:03 18:25 18:25 WBC 23.7 H (3.8-10.6) k/uL RBC 3.08 L (4.30-5.90) m/uL Hgb 8.9 L (13.0-17.5) gm/dL Hct 27.2 L (39.0-53.0) % RDW 15.9 H (11.5-15.5) % Plt Count 680 H (150-450) k/uL Neutrophils # 22.7 H (1.3-7.7) k/uL Lymphocytes # 0.4 L (1.0-4.8) k/uL ABG pO2 (83-108) mmHg ABG O2 Saturation (94-97) % ABG Lactic Acid (0.5-1.6) mmol/L Sodium (137-145) mmol/L Potassium 3.4 L (3.5-5.1) mmol/L Chloride 108 H (98-107) mmol/L Carbon Dioxide 21 L (22-30) mmol/L BUN 41 H (9-20) mg/dL Creatinine 1.87 H (0.66-1.25) mg/dL Glucose 156 H (74-99) mg/dL POC Glucose (mg/dL) 182 H (75-99) mg/dL Calcium 7.0 L (8.4-10.2) mg/dL Total Protein 4.4 L (6.3-8.2) g/dL Albumin 2.0 L (3.5-5.0) g/dL 01/26/19 01/26/19 01/26/19 Range/Units 18:25 18:44 21:52 WBC (3.8-10.6) k/uL RBC (4.30-5.90) m/uL Hgb (13.0-17.5) gm/dL Hct (39.0-53.0) % RDW (11.5-15.5) % Plt Count (150-450) k/uL Neutrophils # (1.3-7.7) k/uL Lymphocytes # (1.0-4.8) k/uL ABG pO2 65 L (83-108) mmHg ABG O2 Saturation 92.8 L (94-97) % ABG Lactic Acid 1.8 H (0.5-1.6) mmol/L Sodium (137-145) mmol/L Potassium (3.5-5.1) mmol/L Chloride (98-107) mmol/L Carbon Dioxide (22-30) mmol/L BUN (9-20) mg/dL Creatinine (0.66-1.25) mg/dL Glucose (74-99) mg/dL POC Glucose (mg/dL) 139 H (75-99) mg/dL Calcium (8.4-10.2) mg/dL Total Protein (6.3-8.2) g/dL Albumin (3.5-5.0) g/dL 01/27/19 01/27/19 01/27/19 Range/Units 05:02 05:02 06:12 WBC 16.1 H 18.9 H (3.8-10.6) k/uL RBC 2.33 L 2.76 L (4.30-5.90) m/uL Hgb 6.8 L* D 8.1 L (13.0-17.5) gm/dL Hct 21.1 L 24.1 L (39.0-53.0) % RDW (11.5-15.5) % Plt Count 518 H 595 H (150-450) k/uL Neutrophils # 14.8 H 17.5 H (1.3-7.7) k/uL Lymphocytes # 0.5 L 0.6 L (1.0-4.8) k/uL ABG pO2 (83-108) mmHg ABG O2 Saturation (94-97) % ABG Lactic Acid (0.5-1.6) mmol/L Sodium (137-145) mmol/L Potassium 2.8 L (3.5-5.1) mmol/L Chloride 116 H (98-107) mmol/L Carbon Dioxide 17 L (22-30) mmol/L BUN 32 H (9-20) mg/dL Creatinine 1.27 H (0.66-1.25) mg/dL Glucose (74-99) mg/dL POC Glucose (mg/dL) (75-99) mg/dL Calcium 5.3 L* (8.4-10.2) mg/dL Total Protein (6.3-8.2) g/dL Albumin (3.5-5.0) g/dL 01/27/19 01/27/19 01/27/19 Range/Units 06:12 06:32 11:45 WBC (3.8-10.6) k/uL RBC (4.30-5.90) m/uL Hgb (13.0-17.5) gm/dL Hct (39.0-53.0) % RDW (11.5-15.5) % Plt Count (150-450) k/uL Neutrophils # (1.3-7.7) k/uL Lymphocytes # (1.0-4.8) k/uL ABG pO2 (83-108) mmHg ABG O2 Saturation (94-97) % ABG Lactic Acid (0.5-1.6) mmol/L Sodium 136 L (137-145) mmol/L Potassium (3.5-5.1) mmol/L Chloride (98-107) mmol/L Carbon Dioxide (22-30) mmol/L BUN 40 H (9-20) mg/dL Creatinine 1.75 H (0.66-1.25) mg/dL Glucose 117 H (74-99) mg/dL POC Glucose (mg/dL) 119 H 121 H (75-99) mg/dL Calcium 7.0 L (8.4-10.2) mg/dL Total Protein 4.0 L (6.3-8.2) g/dL Albumin 1.8 L (3.5-5.0) g/dL Microbiology - Last 24 Hours (Table) 01/18/19 11:30 Acid Fast Bacilli Smear - Final Pleural Fluid Acid Fast Bacilli Culture - Preliminary 01/23/19 16:57 Gram Stain - Preliminary Pleural Fluid Body Fluid Culture - Preliminary 01/23/19 16:57 Gram Stain - Preliminary Other - Other Tissue Culture - Preliminary 01/23/19 16:57 Gram Stain - Preliminary Other - Other Tissue Culture - Preliminary 01/18/19 11:30 Fungal Culture - Preliminary Pleural Fluid - Imaging and Cardiology Chest x-ray: report reviewed, image reviewed Assessment and Plan Assessment: 1. Empyema involving the left lung, status post left chest pigtail catheter placement and left thoracotomy with decortication, cytology positive for alpha hemolytic streptococcus 2. Dyspnea to empyema 3. History of hypertension 4. Diabetes mellitus type 2, uncontrolled with an admission hemoglobin A1c of 11% 5. History of depression 6. Acute blood loss anemia, unexpected 7. Sepsis with lactic acidosis, resolving 8. Non-anion gap metabolic acidosis, resolving 9. Acute kidney injury Plan: 1. Wean oxygen as tolerated. Encourage use of his incentive spirometry every hour while awake. 2. Okay to discontinue his epidural per the cardiothoracic surgery standpoint when okay with anesthesia. 3. May discontinue Kaur catheter once epidural has been discontinued. 4. Increase activity, ambulate as tolerated. Out of bed for all meals. Physical and occupational therapy following patient. 5. Pain control with current medication regimen. 6. Medical management of other comorbid conditions per primary care service. 7. Antibiotic management per infectious disease. Pleural fluid Gram stain positive for alpha hemolytic streptococcus 8. We will continue to follow the patient on an as needed basis. Time with Patient: Greater than 30
[2019-01-27] MEDS: hydrALAZINE HCL 50 MG TAB PO SCH ×2 (15:10→20:56)
[2019-01-27 16:50] LABS: Glucose,Whole Blood 87 mg/dL (75-99)
--- NOTE | 2019-01-27 17:40 | PN ---
PROGRESS NOTE DATE OF SERVICE: 01/27/2019 REASON FOR FOLLOWUP: Left-sided pneumonia with empyema. INTERVAL HISTORY: The patient is currently afebrile. The patient has been breathing comfortably. Denies having any chest pain. Occasional cough. No nausea. No vomiting. No abdominal pain or diarrhea. PHYSICAL EXAMINATION: Blood pressure is 138/69 with a pulse of 87, temperature 97.6. He is 94% on 4 L nasal cannula. General description is an elderly male up in the bed in no distress. RESPIRATORY SYSTEM: Unlabored breathing with decreased breath sounds at the bases. No wheeze. HEART: S1, S2. Regular rate and rhythm. ABDOMEN: Soft. No tenderness. LABS: Hemoglobin 8.1, white count 18.9. BUN 40, creatinine 1.75. The culture so far is showing only alpha hemolytic streptococcus. DIAGNOSTIC IMPRESSION AND PLAN: Patient with left-sided pneumonia with empyema, status post chest tube followed by VATS procedure. Patient is currently covered with Rocephin 2 grams daily along with oral Diflucan; to continue while monitoring his clinical course closely. Continue with supportive care. MMODL / IJN: [id number] /
[2019-01-27 20:32] LABS: Glucose,Whole Blood 75 mg/dL (75-99)
[2019-01-27] MEDS: traMADol 50 MG TAB PO PRN (21:03)
[2019-01-27] MEDS: hydrALAZINE HCL 20 MG/ML 1 ML VIAL IVP PRN (23:23)
[2019-01-28 00:13] LABS: Glucose,Whole Blood 50 mg/dL (75-99)
[2019-01-28 00:19] LABS: Glucose,Whole Blood 62 mg/dL (75-99)
[2019-01-28 00:35] LABS: Glucose,Whole Blood 74 mg/dL (75-99)
[2019-01-28] MEDS: CLEVIDIPINE BUTYRATE 25 MG in EMPTY BAG 1 BAG IV SCH ×3 (01:33→11:28)
[2019-01-28] MEDS: ACETAMINOPHEN TAB 500 MG TAB PO PRN ×2 (01:55→23:54)
[2019-01-28 02:25] LABS: Glucose,Whole Blood 101 mg/dL (75-99)
[2019-01-28] MEDS: ONDANSETRON 4 MG/2 ML VIAL IVP PRN (04:55)
[2019-01-28 05:09] LABS: Basophils % (A) 0 %; Eosinophils # (A) 0.2 k/uL (0-0.7); Eosinophils % (A) 1 %; HCT 25.4 % (39.0-53.0); HGB 8.4 gm/dL (13.0-17.5); Lymphocytes # (A) 0.6 k/uL (1.0-4.8); Lymphocytes % (A) 3 %; MCH 29.1 pg (25.0-35.0); MCV 88.4 fL (80.0-100.0); Mean Platelet Volume 7.1; Monocytes # (A) 0.5 k/uL (0-1.0); Monocytes % (A) 2 %; Neutrophils # (A) 20.8 k/uL (1.3-7.7); Neutrophils % (A) 93 %; Platelet Count 603 k/uL (150-450); RBC 2.87 m/uL (4.30-5.90); RDW 15.5 % (11.5-15.5); WBC 22.2 k/uL (3.8-10.6)
[2019-01-28] MEDS: SODIUM CHLORIDE 0.45% 1,000 ML IV SCH (05:09)
[2019-01-28 05:27] LABS: Calcium 7.5 mg/dL (8.4-10.2); Potassium 3.3 mmol/L (3.5-5.1)
[2019-01-28 06:24] LABS: Glucose,Whole Blood 100 mg/dL (75-99)
[2019-01-28] MEDS: INSULIN ASPART (NovoLOG) 100 UNIT/ML VIAL SQ SCH ×4 (07:13→21:17)
[2019-01-28] MEDS: IPRATROPIUM-ALBUTEROL 3 ML NEB IH SCH ×4 (08:52→20:42)
[2019-01-28] MEDS: amLODIPine 10 MG TAB PO SCH (09:06)
[2019-01-28] MEDS: ASPIRIN 81 MG PO SCH (09:07)
[2019-01-28] MEDS: FLUoxetine HCL 20 MG CAP PO SCH (09:08)
[2019-01-28] MEDS: FLUCONAZOLE 100 MG TAB PO SCH (09:08)
[2019-01-28] MEDS: hydrALAZINE HCL 20 MG/ML 1 ML VIAL IVP PRN (09:08)
[2019-01-28] MEDS: ENOXAPARIN 40 MG/0.4 ML SYRINGE SQ SCH (09:08)
[2019-01-28] MEDS ORDERED: LABETALOL 5 MG/ML VIAL MDV IVP PRN (09:10)
[2019-01-28] MEDS: INSULIN DETEMIR (LEVEMIR) 100 UNIT/ML SYR SQ SCH (09:22)
[2019-01-28] MEDS: PANTOPRAZOLE 40 MG TABLET PO SCH (09:22)
[2019-01-28] MEDS ORDERED: hydrALAZINE HCL 50 MG TAB PO STA (09:26)
--- NOTE | 2019-01-28 09:27 | XR ---
EXAMINATION TYPE: XR chest 1V portable DATE OF EXAM: 01/28/2019 COMPARISON: Prior chest x-ray 01/27/2019 HISTORY: Extubated, abnormal chest x-ray TECHNIQUE: Single frontal view of the chest is obtained. FINDINGS: Left-sided PICC line remains in stable position. Surgical clips present in the upper abdom en, lower chest. No evident pneumothorax. Bibasilar increased density persists, interval improved vis ualization of a portion of the right hemidiaphragm. Heart remains enlarged. Interstitium is increased . There are overlying cardiac leads. Spinal curvature. IMPRESSION: Correlate for congestive heart failure, pneumonia, pleural effusions excluded. Follow-up recommended.
--- NOTE | 2019-01-28 10:03 | P.PN ---
Subjective Patient is seen in follow-up for acute kidney injury. Baseline creatinine is 1 and is up to 1.89 today. Patient presented with dyspnea. He was noted to have empyema and had a chest tube placed. He status post VATS procedure. Remains on Cleviprex. Hydralazine was increased this morning. Also edematous. No chest pain or shortness of breath. Vital signs are stable. General: The patient appeared well nourished and normally developed. HEENT: Head exam is unremarkable. Neck is without jugular venous distension. LUNGS: Lungs are clear to auscultation and percussion. Breath sounds decreased. HEART: Rate and Rhythm are regular. First and second heart sounds normal. No murmurs, rubs or gallops. ABDOMEN: Abdominal exam reveals normal bowel sounds. Non-tender and non- distended. EXTREMITITES: 1+ edema. Scrotal edema noted. Objective - Vital Signs Vital signs: Vital Signs Temp 98.3 F 01/28/19 08:00 Pulse 86 01/28/19 09:00 Resp 18 01/28/19 09:00 BP 141/69 01/28/19 09:00 Pulse Ox 100 01/28/19 09:00 Intake & Output 01/27/19 01/28/19 01/28/19 18:59 06:59 18:59 Intake Total 1018.666 700.600 170.167 Output Total 2265 1510 315 Balance -1246.334 -809.400 -144.833 Weight 77.1 kg 76.1 kg Intake: IV 600 600 150 Sodium Chloride 0.45% 1, 600 600 150 000 ml @ 50 mls/hr IV . Q20H [facility] Rx#:[id number] Intake, IV Titration 418.666 100.600 20.167 Amount Clevidipine Butyrate 25 196.933 100.600 20.167 mg In Empty Bag 1 bag @ 1 MG/HR 2 mls/hr IV .Q24H [facility] Rx#:[id number] Ropivacaine 250 mg 171.733 fentaNYL (PF) 625 mcg In Sodium Chloride 0.9% 188 ml @ Per Protocol EPIDURAL .Q0M [facility] Rx#: [id number] cefTRIAXone 2 gm In 50 Sodium Chloride 0.9% 50 ml @ 100 mls/hr IVPB Q24HR [facility] Rx#:[id number] Output: Urine 2265 1510 315 Other: Voiding Method Indwelling Catheter Indwelling Catheter # Bowel Movements 1 ABP, PAP, CO, CI - Last Documented Arterial Blood Pressure 143/61 - Labs CBC & Chem 7: 01/28/19 05:00 01/28/19 05:00 Labs: Abnormal Lab Results - Last 24 Hours (Table) 01/27/19 01/27/19 01/28/19 Range/Units 11:45 23:53 00:15 WBC (3.8-10.6) k/uL RBC (4.30-5.90) m/uL Hgb (13.0-17.5) gm/dL Hct (39.0-53.0) % Plt Count (150-450) k/uL Neutrophils # (1.3-7.7) k/uL Lymphocytes # (1.0-4.8) k/uL Sodium (137-145) mmol/L Potassium (3.5-5.1) mmol/L BUN (9-20) mg/dL Creatinine (0.66-1.25) mg/dL Glucose (74-99) mg/dL POC Glucose (mg/dL) 121 H 50 L 62 L (75-99) mg/dL Calcium (8.4-10.2) mg/dL 01/28/19 01/28/19 01/28/19 Range/Units 00:34 02:24 05:00 WBC 22.2 H (3.8-10.6) k/uL RBC 2.87 L (4.30-5.90) m/uL Hgb 8.4 L (13.0-17.5) gm/dL Hct 25.4 L (39.0-53.0) % Plt Count 603 H (150-450) k/uL Neutrophils # 20.8 H (1.3-7.7) k/uL Lymphocytes # 0.6 L (1.0-4.8) k/uL Sodium (137-145) mmol/L Potassium (3.5-5.1) mmol/L BUN (9-20) mg/dL Creatinine (0.66-1.25) mg/dL Glucose (74-99) mg/dL POC Glucose (mg/dL) 74 L 101 H (75-99) mg/dL Calcium (8.4-10.2) mg/dL 01/28/19 01/28/19 Range/Units 05:00 06:21 WBC (3.8-10.6) k/uL RBC (4.30-5.90) m/uL Hgb (13.0-17.5) gm/dL Hct (39.0-53.0) % Plt Count (150-450) k/uL Neutrophils # (1.3-7.7) k/uL Lymphocytes # (1.0-4.8) k/uL Sodium 134 L (137-145) mmol/L Potassium 3.3 L (3.5-5.1) mmol/L BUN 37 H (9-20) mg/dL Creatinine 1.89 H (0.66-1.25) mg/dL Glucose 101 H (74-99) mg/dL POC Glucose (mg/dL) 100 H (75-99) mg/dL Calcium 7.5 L (8.4-10.2) mg/dL Microbiology - Last 24 Hours (Table) 01/23/19 16:57 Anaerobic Culture - Final Other - Other 01/23/19 16:57 Anaerobic Culture - Final Pleural Fluid 01/23/19 16:57 Anaerobic Culture - Final Other - Other 01/23/19 16:57 Gram Stain - Final Other - Other Tissue Culture - Final 01/23/19 16:57 Gram Stain - Final Other - Other Tissue Culture - Final 01/23/19 16:57 Gram Stain - Final Pleural Fluid Body Fluid Culture - Final Assessment and Plan Plan: Assessment: 1. Acute kidney injury secondary to ATN secondary to hemodynamic instability and acute blood loss anemia. Baseline creatinine is 1 and is up to 1.89 today. 2. Acute blood loss anemia status post 7 units of packed red blood cell transfusion this admission. No active bleeding noted. Hemoglobin stable. 3. Pneumonia with empyema status post chest tube placement, VATS. Fluid culture positive for Streptococcus. 4. Benign hypertension. 5. Diabetes mellitus. 6. Metabolic acidosis secondary to acute kidney injury. Better. 7. Hypokalemia from poor oral intake. Plan: Maintain current antihypertensives. Dose of hydralazine increased this morning. Start Lasix 40 mg IV daily. Replace potassium. 60 mg once today. Continue to monitor renal function and urine output. Repeat electrolytes in the morning. Check magnesium level as well.
[2019-01-28] MEDS: FUROSEMIDE 10 MG/ML 4 ML VIAL IV SCH (10:18)
[2019-01-28] MEDS: POTASSIUM CHLORIDE ER 20 MEQ TAB.ER PO SCH ×3 (10:18→12:20)
--- NOTE | 2019-01-28 10:19 | P.PN ---
Subjective Progress Note Date: 01/28/19 Principal diagnosis: Empyema involving the left lung post diagnostic and therapeutic thoracentesis, and placement of the pigtail catheter A 68-year-old male patient who was transferred from [facility] of shortness of breath. The patient started approximately week ago to have pleuritic left-sided chest pain. He was also having increased cough and congestion and low-grade fever. He was seen by his primary care physician and apparently a chest x-ray was done and he was told to have pneumonia and was given oral erythromycin-based antibiotic. The patient's condition got worse. His appetite has been poor. He has been losing weight. He came in to [facility] emergency department with a chest x-ray was done that showed a left lung opacity and following that a CAT scan of the chest was done that showed a large loculated left-sided pleural effusion along with gas within the pleural space and the finding was very highly suspicious for empyema. The patient got transferred to us. I reviewed the CAT scan of the chest from [facility]. The findings is consistent with empyema. The patient's white cell count was 27.9 at time of admission. Sodium level was at 129. His sugar level was also elevated and the patient is diabetic. Is a lifetime nonsmoker. I performed a bedside thoracentesis and I drained approximately 6 50 mL of pus from the left pleural space. Subsequent chest x-ray showed no evidence of any pneumothorax. The patient tolerated the procedure well. The fluid that was seen on the earlier chest x-ray was removed. Fluid analysis still pending for now. The patient was started on a combination of Zosyn and vancomycin. We'll put an interventional radiology consultation for a pigtail catheter insertion the drained residual loculated pleural effusion on the CAT scan guidance. This will be done tomorrow. Family was updated. May need a thoracic surgery consultation at a later stage depending on our success of breathing this empyema percutaneously. On 01/19/2019 patient seen in follow-up on medical surgical floor. He had a left posterior back pigtail chest tube inserted today by interventional radiology, and at the time of my evaluation patient has 120 mL of purulent blood-tinged drainage in the Pleur-evac. The Pleur-evac is to water seal, no air leak noted, pleural fluid cultures from yesterday's thoracentesis are pending at this time, preliminary Gram stain did not show any organisms after 24 hours. Patient is fairly comfortable, room air pulse ox is 92%, afebrile, hemodynamically stable, he sitting up in the recliner, lung sounds are diminished breath sounds over lower base. Cytology is pending. Patient is on a combination of Zosyn and vancomycin, Zosyn has been switched to cefepime per ID service recommendations. Awaiting results of the final cultures, will consult CT surgery On 01/20/2019 patient seen in follow-up on medical surgical floor. He sitting up in the recliner, in no acute distress, and it has been a total of 650 mL of purulent material in the Pleur-evac system insertion of the left-sided pigtail chest tube. Pleur-evac is to water seal, no evidence of air leak, today's chest x-ray has been reviewed showing left-sided consolidation and pleural effusion appears to be stable in appearance. Diminished breath sounds over left lower base, sodium is 133, potassium is 3.7, chloride is 103, CO2 is 22, BUN is 21 creatinine 0.90. C. diff was negative. Pleural fluid analysis showed exudative fluid, and pleural fluid cultures are positive for alphahemolytic streptococcus. On 01/21/2019 patient seen in follow-up on medical surgical floor. She is resting in the recliner, in no acute distress, there has been additional 500 mL of purulent material from the left-sided pigtail chest tube catheter over the last 24 hours, 100 mL after TPA infusion yesterday, patient will receive another TPA infusion per CT surgery, today's chest x-ray has been reviewed showing fluid air level on the left suggestive of hydropneumothorax and small right pleural effusion. Antibiotic coverage in the form of cefepime and vancomycin, with pleural fluid cultures positive for alphahemolytic streptococcus. His labs have been reviewed showing white blood cell count of 21.4, hemoglobin of 9.4, sodium of 134, potassium is 3.8, chloride is 104, CO2 is 19, B1 of 18 creatinine 0.85. Vital signs are stable, room air pulse ox is 95%, patient is afebrile. Denies any pain, or shortness of breath, his been ambulating, working on his incentive spirometer, chewing 1750 on the today. On 01/26/2019 patient seen in follow-up in the intensive care unit, he is awake, oriented 3, resting in bed, he is at times moaning from his left chest incisional pain. Patient had a VATS and left-sided decortication of his empyema. This is postoperative day 3. Patient was successfully extubated y esterday. He is currently on 4 L of oxygen pulse ox of 97-98%, he is afebrile, he is hypertensive, currently on Avapro extremity at 10 mg per hour, and his blood pressure is ranging from 140s to 150s systolic, and 50s diastolic. He has a extremely weak cough, incentive spirometer effort is poor. Lung sounds reveal diminished breath sounds bilateral, more so on the left side. IV fluids include D5W with 3 A of bicarbonate at a rate of 50 ML per hour, Cleviprex is at 10 mg per hour as mentioned above, and patient has an epidural in place infusing at 6 ML per hour. No other drips, antibiotic coverage in the form of cefepime, vancomycin has been discontinued, pleural fluid cultures from 01/19/2019 were positive for alphahemolytic streptococcus. Pleural fluid cultures from 01/23/2019 showed no growth. Today's chest x-ray has been reviewed with Dr. Limon, showed stable postoperative findings, bibasilar effusions and associated atelectasis. She has a left-sided chest tube in place with 70 ML of thin serosanguineous output in the last 24 hours, IDC catheter is in place, and patient is nonoliguric, he is nothing by mouth, he is nauseous today, and has been unable to take his oral pills. His labs have been reviewed, showing white blood cell count of 17.3, hemoglobin of 8.8, platelet count is 541, sodium is 138, potassium 3.6, chloride is 109, CO2 is 22, anion gap was 7, BUN was 43, creatinine is 1.74. On 01/27/2019 patient seen in follow-up in the intensive care unit. He is looking quite fatigued, but no acute distress, denies shortness of breath, he is achieving but 500 on his incentive spirometer, he is on 4 L of oxygen with a pulse ox of 96%, hemodynamically stable, still on Cleviprex drip at 12 mg per hour, and 0.45 at a rate of 50 ML per hour, he is afebrile, his oral antihypertensives have been given this morning, and we will try to wean the Cleviprex off today. His left-sided anterior posterior chest tubes have been discontinued by CT surgery yesterday, follow-up chest x-ray has been reviewed, showing diffuse pleural parenchymal changes with bilateral pleural effusions with cardiomegaly and bibasilar infiltrates, diffuse interstitial pattern. No fever or chills, today's labs have been reviewed, showing white blood cell count of 18.9, hemoglobin of 8.1, sodium is 136, potassium is 3.8, chloride is 107, CO2 is 23, BUN is 40 and creatinine is 1.75. Current antibiotic coverage is with Rocephin for evidence of alphahemolytic streptococcus in the pleural fluid from the left-sided empyema. On 01/28/2019 patient seen in follow-up in intensive care unit, he is awake and alert, responds appropriately, flat affect, but looking a bit more interactive on today's exam, he denies any shortness of breath, his incentive spirometer effort is only 500 mL. He remains on 4 L of supplemental oxygen with a pulse ox of 100%. Hemodynamically patient is still requiring Cleviprex for blood pressure control, his oral medications have been restarted yesterday, however his lisinopril and hydrochlorothiazide were placed on hold in view of his renal function, and patient is currently on Norvasc 10 mg daily, hydralazine 50 mg orally 3 times a day per nephrology recommendations, Cleviprex drip is down from 12 mg per hour to 4 mg per hour today. His blood pressure is ranging from 141 systolic to 150 systolic and 60s and 70s diastolic. Sinus rhythm at 93 bpm. today's chest x-ray has been reviewed with Dr. Limon, showing no evident pneumothorax, bibasilar density increased interstitium, and left lower lobe atelectasis. Has been started on IV Lasix per nephrology. His pain is reasonably controlled, today's labs have been reviewed showing white blood cell, 22.2, hemoglobin of 8.4, sodium is 134, potassium is 3.3, chloride is 104, CO2 is 24. Antibiotic coverage in the form of Rocephin and Diflucan. IV fluid 0.45 at rate of 50 ML per hour. Objective - Vital Signs Vital signs: Vital Signs Temp 98.3 F 01/28/19 08:00 Pulse 86 01/28/19 09:00 Resp 18 01/28/19 09:00 BP 141/69 01/28/19 09:00 Pulse Ox 100 01/28/19 09:00 Intake & Output 01/27/19 01/28/19 01/28/19 18:59 06:59 18:59 Intake Total 1018.666 700.600 170.167 Output Total 2265 1510 315 Balance -1246.334 -809.400 -144.833 Weight 77.1 kg 76.1 kg Intake: IV 600 600 150 Sodium Chloride 0.45% 1, 600 600 150 000 ml @ 50 mls/hr IV . Q20H [facility] Rx#:[id number] Intake, IV Titration 418.666 100.600 20.167 Amount Clevidipine Butyrate 25 196.933 100.600 20.167 mg In Empty Bag 1 bag @ 1 MG/HR 2 mls/hr IV .Q24H [facility] Rx#:[id number] Ropivacaine 250 mg 171.733 fentaNYL (PF) 625 mcg In Sodium Chloride 0.9% 188 ml @ Per Protocol EPIDURAL .Q0M PRN Rx#: [id number] cefTRIAXone 2 gm In 50 Sodium Chloride 0.9% 50 ml @ 100 mls/hr IVPB Q24HR [facility] Rx#:[id number] Output: Urine 2265 1510 315 Other: Voiding Method Indwelling Catheter Indwelling Catheter Indwelling Catheter # Bowel Movements 1 ABP, PAP, CO, CI - Last Documented Arterial Blood Pressure 143/61 - Exam GENERAL EXAM: Alert, slightly lethargic but easily arousable, moaning 68-year-old white male, on 4 L of oxygen ox of 100%, mild to moderate amount of distress from his incisional pain from his left chest HEAD: Normocephalic/atraumatic. EYES: Normal reaction of pupils, equal size. Conjunctiva pink, sclera white. NOSE: Clear with pink turbinates. THROAT: No erythema or exudates. NECK: No masses, no JVD, no thyroid enlargement, no adenopathy. CHEST: No chest wall deformity. Symmetrical expansion. left posterior and anterior chest tube have been discontinued. Left lateral posterior chest incision is covered with dressings, clean dry and intact. LUNGS: Equal air entry with diminished breath sounds over left lower base CVS: Regular rate and rhythm, normal S1 and S2, no gallops, no murmurs, no rubs ABDOMEN: Soft, nontender. No hepatosplenomegaly, normal bowel sounds, no guarding or rigidity. EXTREMITIES: No clubbing, no edema, no cyanosis, 2+ pulses and upper and lower extremities. MUSCULOSKELETAL: Muscle strength and tone normal. SPINE: No scoliosis or deformity SKIN: No rashes CENTRAL NERVOUS SYSTEM: Alert and oriented -3. Lethargic, but arousable, No focal deficits, tone is normal in all 4 extremities. - Labs CBC & Chem 7: 01/28/19 05:00 01/28/19 05:00 Labs: Abnormal Lab Results - Last 24 Hours (Table) 01/27/19 01/27/19 01/28/19 Range/Units 11:45 23:53 00:15 WBC (3.8-10.6) k/uL RBC (4.30-5.90) m/uL Hgb (13.0-17.5) gm/dL Hct (39.0-53.0) % Plt Count (150-450) k/uL Neutrophils # (1.3-7.7) k/uL Lymphocytes # (1.0-4.8) k/uL Sodium (137-145) mmol/L Potassium (3.5-5.1) mmol/L BUN (9-20) mg/dL Creatinine (0.66-1.25) mg/dL Glucose (74-99) mg/dL POC Glucose (mg/dL) 121 H 50 L 62 L (75-99) mg/dL Calcium (8.4-10.2) mg/dL 01/28/19 01/28/19 01/28/19 Range/Units 00:34 02:24 05:00 WBC 22.2 H (3.8-10.6) k/uL RBC 2.87 L (4.30-5.90) m/uL Hgb 8.4 L (13.0-17.5) gm/dL Hct 25.4 L (39.0-53.0) % Plt Count 603 H (150-450) k/uL Neutrophils # 20.8 H (1.3-7.7) k/uL Lymphocytes # 0.6 L (1.0-4.8) k/uL Sodium (137-145) mmol/L Potassium (3.5-5.1) mmol/L BUN (9-20) mg/dL Creatinine (0.66-1.25) mg/dL Glucose (74-99) mg/dL POC Glucose (mg/dL) 74 L 101 H (75-99) mg/dL Calcium (8.4-10.2) mg/dL 01/28/19 01/28/19 Range/Units 05:00 06:21 WBC (3.8-10.6) k/uL RBC (4.30-5.90) m/uL Hgb (13.0-17.5) gm/dL Hct (39.0-53.0) % Plt Count (150-450) k/uL Neutrophils # (1.3-7.7) k/uL Lymphocytes # (1.0-4.8) k/uL Sodium 134 L (137-145) mmol/L Potassium 3.3 L (3.5-5.1) mmol/L BUN 37 H (9-20) mg/dL Creatinine 1.89 H (0.66-1.25) mg/dL Glucose 101 H (74-99) mg/dL POC Glucose (mg/dL) 100 H (75-99) mg/dL Calcium 7.5 L (8.4-10.2) mg/dL Microbiology - Last 24 Hours (Table) 01/23/19 16:57 Anaerobic Culture - Final Other - Other 01/23/19 16:57 Anaerobic Culture - Final Pleural Fluid 01/23/19 16:57 Anaerobic Culture - Final Other - Other 01/23/19 16:57 Gram Stain - Final Other - Other Tissue Culture - Final 01/23/19 16:57 Gram Stain - Final Other - Other Tissue Culture - Final 01/23/19 16:57 Gram Stain - Final Pleural Fluid Body Fluid Culture - Final Assessment and Plan Plan: 1 left-sided empyema, secondary to alpha hemolytic streptococcus. Status post VATS decortication post operative day #5. Patient is on Rocephin 2 left sided hydropneumothorax, with loculated pleural effusion, requiring VATS decortication. 3 left sided hemothorax, patient required at least 7 units of packed RBCs so far since admission. 4 acute sepsis secondary to empyema is strongly suspected 5 acute blood loss secondary to hemothorax requiring 7 units of packed RBCs since admission. 6 multiple comorbidities including hypertension, diabetes, electrolytes imbalance with hypokalemia, and worsening anemia secondary to hemothorax and blood loss in the left pleural space. 7 acute hypoxic respiratory failure secondary to left-sided empyema, sepsis, and septic shock. 8 acute septic shock secondary to empyema. 9 small right-sided pleural effusion, not large enough on ultrasound to consider thoracentesis. No markings were placed. 10 Acute kidney injury related to ATN 11 non-anion gap metabolic acidosis related to NORA, improved with bicarbonate replacement Plan: Continue weaning Cleviprex strep, we will increase the dose of hydralazine 200 mg 3 times daily, we'll give the patient labetalol 10-20 mg IV push as needed for systolic pressure of greater than 160, and map greater than 100 every 6 hours. Encourage deep breathing and coughing, today's chest x-ray has been reviewed, showing interstitial prominence and left lower lobe atelectasis, patient has been started on IV Lasix per nephrology, DC'd Artjuju, Melissa. Advanced diet regular diet, switch to IV Protonix to oral Protonix. Patient will remain in the ICU for his long as he is still on Cleviprex drip. I performed a history & physical examination of the patient and discussed their management with my nurse practitioner, Nicole Wang. I reviewed the nurse practitioner's note and agree with the documented findings and plan of care. Lung sounds are positive for diminished breath sounds over left lower base. The findings and the impression was discussed with the patient. I attest to the documentation by the nurse practitioner. Time with Patient: Less than 30
[2019-01-28] MEDS ORDERED: BISACODYL 5 MG TABLET.DR PO PRN (11:00)
[2019-01-28 11:54] LABS: Glucose,Whole Blood 180 mg/dL (75-99)
--- NOTE | 2019-01-28 12:56 | PN ---
PROGRESS NOTE DATE OF SERVICE: 01/28/2019 REASON FOR FOLLOWUP: Left-sided pneumonia and empyema. INTERVAL HISTORY: The patient is currently afebrile. The patient has been breathing more comfortably. The patient denies having any chest pain. Occasional cough. No nausea, no vomiting. No abdominal pain and no diarrhea. PHYSICAL EXAMINATION: Blood pressure 134/63 with a pulse of 98, temperature of 98. He is 100% on 4 L nasal cannula. General description is an elderly male up in the bed, in no distress. RESPIRATORY SYSTEM: Unlabored breathing. Decreased breath sounds at the base, no wheeze. HEART: S1, S2. Regular rate and rhythm. ABDOMEN: Soft, no tenderness. EXTREMITIES: No edema of the feet. LABS: Hemoglobin 8.4, white count 2.2 with a BUN of 37, creatinine is 1.89. The OR cultures at the time of the decortication remains to be negative. DIAGNOSTIC IMPRESSION AND PLAN: Patient with left-sided pneumonia with an empyema, status post initial chest tube placement. Those cultures did show Streptococcus. Subsequently, did have a decortication and those cultures remains to be negative. The patient is currently on Rocephin and off vanc and his white count remains to be on the elevated side. The patient did have multiple lines and will discuss if the those could be discontinued and if only the PICC line. Monitor his clinical course as well as white count closely. Continue supportive care. MMODL / IJN: [id number] /
[2019-01-28 14:48] LABS: Appearance,Urine Cloudy (Clear); Bacteria,Urine Occasional /hpf; Bilirubin,Urine Negative (Negative); Blood,Urine Trace (Negative); Color,Urine Light Yellow; Glucose,Urine (UA) Negative (Negative); Ketones,Urine Negative (Negative); Leukocyte Esterase,Urine Negative (Negative); Mucus,Urine Rare /hpf; Nitrite,Urine Negative (Negative); Protein,Urine 1+ (Negative); RBC,Urine 1 /hpf (0-5); Specific Gravity,Urine 1.008 (1.001-1.035); Urobilinogen,Urine <2.0 mg/dL (<2.0); WBC,Urine 1 /hpf (0-5)
[2019-01-28] MEDS: hydrALAZINE HCL 50 MG TAB PO SCH ×3 (15:58→23:30)
[2019-01-28 16:43] LABS: Glucose,Whole Blood 205 mg/dL (75-99)
--- NOTE | 2019-01-28 20:16 | P.PN ---
Subjective Progress Note Date: 01/28/19 Principal diagnosis: This is a 68 year old man that was admitted for left-sided pneumonia, pleural effusion and empyema that had recently undergone a chest tube placement of the left side. A total of 500ml has drained from last night. Will continue to monitor closely. Cultures of the pleural fluid grew positive for alpha hemolytic streptococci. Infectious disease is following along with the care of the patient and managing antibiotics at this time. Patient has been up and walking often around the unit. Patient appears in no acute distress at this time. Patient denies any chest pain or fevers at this time and also made mention that his shortness of breath has improved since the placement of the chest tube. Early this am patient was moved to the ICU to be closely monitored as he was draining a large amount of blood from the left side chest tube and had a critical value hemoglobin level of 5. Patient states that he felt better yesterday but later in the evening felt fatigued and not up to walking. Vitals were stable but started becoming hypotensive in the low 90's systolic. Patient was then transferred to the ICU and will likely be going for surgery on 01/23/19. Patient's blood sugars continue to be elevated and will continue to cover per protocol. Patient is scheduled to be NPO after midnight, but he states that he hasn't been that hungry today. Patient is lying in the bed with a bear hugger on to maintain his temperature. Patient is still currently on broad spectrum antibiotics per infectious disease and being followed closely. Patient was awaiting for 2 units of PRBC to be transfused as there were antibodies present per the lab. Patient denies any shortness of breath, chest pain, or palpitations, just states that he feels tired. A chest xray was done showing a moderate to large pleural effusion with left hydropneumothorax with a small right side pleural effusion. CT scan of the chest showed loculated empyema with a couple of air-fluid levels present, small pneumothorax is not excluded, chest catheter is within area of increased density consistent with the empyema, and a couple of enlarged lymph nodes within the mediastinum. 01/23/19 Today this 68-year-old male is lying in bed in the ICU awaiting a thoracotomy procedure early this afternoon. Patient states he's unsure when but was told it is scheduled for today. Patient is denying any increasing shortness of breath, chest pains, palpitations, or fevers at this time. Patient is still having a large amount of output in the chest tube noted in the atrium. Per the RN the drainage has decreased since this morning. Patient denies any dizziness or lightheadedness at this time. Patient is very lethargic but easily arousable. Patient was currently made nothing by mouth after midnight for this procedure. Per infectious disease the vancomycin is being discontinued at this time and they will continue to follow while awaiting cultures from the thoracotomy today. 01/26/19 Patient is still in pain today not feeling well. Patient does have a lot of nausea and unable to vomit but is spitting up fluid patient given Zofran with minimal relief. Patient is currently on clear liquids but hasn't been having very much of an appetite today. Patient is still having some pain at the site of the chest tubes and breathing is shallow. Patient is still on an epidural pump at this time and was recently increased to 7mL from previous 6mL per hour. Patient is still on blood pressure drip of Cleviprex but per the RN will be of attempting to wean off and resume regular blood pressure medication. Patient denies any chest pain or palpitations at this time. Patient has been afebrile. Urine output is being maintained at this time as clear and yellow in nature with a Kaur. Total output of the chest tube was 100 mL's overnight. Patient is to have the pleural chest tube taken out today. Patient is maintaining oxygen saturation on 3-4 L via nasal cannula in the low to mid 90s. Patient is currently still on IV antibiotics per infectious disease and we'll continue to monitor. Patient is hemodynamically stable. Prognosis is extremely guarded. Further recommendations to follow. 01/27/19 Patient today is sitting up in the recliner and still having some nausea with no vomiting. Patient states it is intermittent. Patient is able to carry a conversation without falling asleep today. Patient is still using the incentive spirometer with encouragement and able to maintain 500 at this time with poor respiratory effort. Patient is denying any chest pain or palpitations at this time. Patient is currently afebrile and has been maintaining his temperature this morning. Per RN patient was having low readings of temperature overnight. Patient is currently still on Cleviprex but weaning. Home blood pressure medications have been resumed. Patient is hemodynamically stable at this time. Patient is maintaining oxygen saturation of 93-94% on 4 L via NC. Chest tubes were removed yesterday. Patient is being closely monitored and will continue to monitor. 01/28/19 Patient is still being closely monitored in the ICU as he is still on Cleviprex for blood pressure control along with his oral medications. He is currently still being weaned from Cleviprex. Patient was sitting up in bed today working on his incentive spirometer with an increase from 500 to 1000 this morning. Patient is still having some fatigue and periods of being hot and cold. Patient is not having as much nausea this morning and is eating breakfast at this time. Blood sugars are still being closely monitored. Patient is currently on Levemir 10 units in the am but tends to drop down low into the 50's by dinner. Levemir this morning was held. Patient has not been eating very much. Patient denies any shortness of breath, chest pain, or palpitations. His hands have lost some of the edema and swelling from yesterday. Patient urine output is maintaining. Patient is maintaining oxygen saturations in the mid 90's on 4 L via NC. Will be moved from the ICU once Cleviprex is discontinued. Objective - Vital Signs Vital signs: Vital Signs Temp 97.8 F 01/28/19 18:00 Pulse 90 01/28/19 19:00 Resp 18 01/28/19 19:00 BP 120/61 01/28/19 19:00 Pulse Ox 96 01/28/19 19:00 Intake & Output 01/28/19 01/28/19 01/29/19 06:59 18:59 06:59 Intake Total 700.600 690.117 Output Total 1510 1365 Balance -809.400 -674.883 Weight 76.1 kg Intake: IV 600 650 Sodium Chloride 0.45% 1, 600 600 000 ml @ 50 mls/hr IV . Q20H [facility] Rx#:[id number] cefTRIAXone 2 gm In 50 Sodium Chloride 0.9% 50 ml @ 100 mls/hr IVPB Q24HR [facility] Rx#:[id number] Intake, IV Titration 100.600 40.117 Amount Clevidipine Butyrate 25 100.600 40.117 mg In Empty Bag 1 bag @ 1 MG/HR 2 mls/hr IV .Q24H [facility] Rx#:[id number] Output: Urine 1510 1365 Other: Voiding Method Indwelling Catheter Indwelling Catheter # Voids 0 # Bowel Movements 1 ABP, PAP, CO, CI - Last Documented Arterial Blood Pressure 143/61 - Exam Gen: This is a 68-year-old male sitting up in the bed. Patient is in no acute distress. Vital signs are stable. HEENT: Head is atraumatic, normocephalic. Pupils equal, round. Sclerae is anicteric. NECK: Supple. No JVD. No lymphadenopathy. No thyromegaly. LUNGS: Lung sounds diminished with no wheezes or rhonchi noted. No intercostal retractions. Left side chest wall dressing are intact. HEART: Regular rate and rhythm. No murmur. ABDOMEN: Soft. Bowel sounds are present. No masses. No tenderness. EXTREMITIES: No pedal edema. No calf tenderness. Mild bilateral hand swelling still noted but has decreased. NEUROLOGICAL: Patient is awake, alert and oriented x3. Cranial nerves 2 through 12 are grossly intact. - Labs CBC & Chem 7: 01/28/19 05:00 01/28/19 15:35 Labs: Abnormal Lab Results - Last 24 Hours (Table) 01/27/19 01/28/19 01/28/19 Range/Units 23:53 00:15 00:34 WBC (3.8-10.6) k/uL RBC (4.30-5.90) m/uL Hgb (13.0-17.5) gm/dL Hct (39.0-53.0) % Plt Count (150-450) k/uL Neutrophils # (1.3-7.7) k/uL Lymphocytes # (1.0-4.8) k/uL Sodium (137-145) mmol/L Potassium (3.5-5.1) mmol/L BUN (9-20) mg/dL Creatinine (0.66-1.25) mg/dL Glucose (74-99) mg/dL POC Glucose (mg/dL) 50 L 62 L 74 L (75-99) mg/dL Calcium (8.4-10.2) mg/dL Urine Protein (Negative) Urine Blood (Negative) Urine Bacteria (None) /hpf Urine Mucus (None) /hpf 01/28/19 01/28/19 01/28/19 Range/Units 02:24 05:00 05:00 WBC 22.2 H (3.8-10.6) k/uL RBC 2.87 L (4.30-5.90) m/uL Hgb 8.4 L (13.0-17.5) gm/dL Hct 25.4 L (39.0-53.0) % Plt Count 603 H (150-450) k/uL Neutrophils # 20.8 H (1.3-7.7) k/uL Lymphocytes # 0.6 L (1.0-4.8) k/uL Sodium 134 L (137-145) mmol/L Potassium 3.3 L (3.5-5.1) mmol/L BUN 37 H (9-20) mg/dL Creatinine 1.89 H (0.66-1.25) mg/dL Glucose 101 H (74-99) mg/dL POC Glucose (mg/dL) 101 H (75-99) mg/dL Calcium 7.5 L (8.4-10.2) mg/dL Urine Protein (Negative) Urine Blood (Negative) Urine Bacteria (None) /hpf Urine Mucus (None) /hpf 01/28/19 01/28/19 01/28/19 Range/Units 06:21 11:53 14:25 WBC (3.8-10.6) k/uL RBC (4.30-5.90) m/uL Hgb (13.0-17.5) gm/dL Hct (39.0-53.0) % Plt Count (150-450) k/uL Neutrophils # (1.3-7.7) k/uL Lymphocytes # (1.0-4.8) k/uL Sodium (137-145) mmol/L Potassium (3.5-5.1) mmol/L BUN (9-20) mg/dL Creatinine (0.66-1.25) mg/dL Glucose (74-99) mg/dL POC Glucose (mg/dL) 100 H 180 H (75-99) mg/dL Calcium (8.4-10.2) mg/dL Urine Protein 1+ H (Negative) Urine Blood Trace H (Negative) Urine Bacteria Occasional H (None) /hpf Urine Mucus Rare H (None) /hpf 01/28/19 Range/Units 16:41 WBC (3.8-10.6) k/uL RBC (4.30-5.90) m/uL Hgb (13.0-17.5) gm/dL Hct (39.0-53.0) % Plt Count (150-450) k/uL Neutrophils # (1.3-7.7) k/uL Lymphocytes # (1.0-4.8) k/uL Sodium (137-145) mmol/L Potassium (3.5-5.1) mmol/L BUN (9-20) mg/dL Creatinine (0.66-1.25) mg/dL Glucose (74-99) mg/dL POC Glucose (mg/dL) 205 H (75-99) mg/dL Calcium (8.4-10.2) mg/dL Urine Protein (Negative) Urine Blood (Negative) Urine Bacteria (None) /hpf Urine Mucus (None) /hpf Microbiology - Last 24 Hours (Table) 01/23/19 16:57 Anaerobic Culture - Final Other - Other 01/23/19 16:57 Anaerobic Culture - Final Pleural Fluid 01/23/19 16:57 Anaerobic Culture - Final Other - Other 01/23/19 16:57 Gram Stain - Final Other - Other Tissue Culture - Final 01/23/19 16:57 Gram Stain - Final Other - Other Tissue Culture - Final 01/23/19 16:57 Gram Stain - Final Pleural Fluid Body Fluid Culture - Final Assessment and Plan Assessment: Assessment: Acute hypoxic respiratory failure: Left-sided pneumonia and pleural effusion with hydropneumothorax, patient's presently status post VATS procedure postop day 5. Chest tubes were removed. This morning's chest x-ray shows correlate for CHF, pneumonia, pleural effusions excluded. Will continue to monitor. Acute anemia blood loss most likely from the fluid collection of the left lung continue to have output in the chest tube that has decreased. Patient had pleural chest tube removed. Patient has had a total of 7 units of PRBCs transfused since admission. We'll continue to monitor labs closely. Acute hypoxic respiratory failure: Left-sided pneumonia and pleural effusions with hydropneumothorax, status post VATS Sepsis secondary to empyema for which the patient is currently still on IV antibiotics per infectious disease. Patient was switched to Rocephin 2 g daily along with Diflucan by mouth. Acute renal failure secondary to sepsis, post VATS will continue with IV fluids and monitor closely. Metabolic acidosis most likely secondary hyperchloremia as the patient was on a bicarbonate drip. Improved Hypovolemic hyponatremia currently resolved Hypertension as he is still on Cleviprex but will be weaning and resuming home blood pressure medications. Per nephrology lisinopril and hydrochlorothiazide was discontinued yesterday and patient was started on hydralazine 50 mg 3 times daily. Continue to monitor vitals closely. Will await for morning labs and electrolytes. Patient was also given Lasix 40 mg IV push. Will continue to monitor urinary output as well. Sepsis secondary to pneumonia with parapneumonic effusions Acute hypotension due to septic shock which is resolved. Patient is currently hypertensive and still on Cleviprex but weaning at this time. Diabetes type 2, uncontrolled hyperglycemia. We'll continue to monitor blood glucose levels and adjust accordingly Hypoglycemia secondary to sepsis and was nothing by mouth. Has advanced diet to consistent carb, heart healthy diet. Patient is tolerating food but still not much of an appetite. Dietary consults have been placed. Recommendations and discussions: Recommend continue current medications, continue symptomatically treatment, and continue to monitor closely. Patient's prognosis is extremely guarded From pulmonary standpoint patient is okayed to be moved to a Med/Surg floor with telemetry. Will await for weaning of Cleviprex. Will continue to monitor vital signs and labs. Further instructions to follow.
[2019-01-28 20:50] LABS: Glucose,Whole Blood 226 mg/dL (75-99)
[2019-01-28] MEDS: MELATONIN 5 MG TABLET PO SCH (21:55)
[2019-01-29 00:50] LABS: Glucose,Whole Blood 78 mg/dL (75-99)
[2019-01-29] MEDS: traMADol 50 MG TAB PO PRN ×2 (03:50→08:28)
[2019-01-29] MEDS: CHLORHEXIDINE GLUCONATE 15 ML CUP MUCOUS MEM SCH (07:13)
[2019-01-29] MEDS: PANTOPRAZOLE 40 MG/10 ML VIAL IVP SCH (07:13)
[2019-01-29] MEDS: ONDANSETRON 4 MG/2 ML VIAL IVP PRN ×2 (07:15→21:07)
[2019-01-29 07:17] LABS: Glucose,Whole Blood 165 mg/dL (75-99)
[2019-01-29] MEDS: IPRATROPIUM-ALBUTEROL 3 ML NEB IH SCH ×4 (07:28→20:09)
--- NOTE | 2019-01-29 07:42 | XR ---
EXAMINATION TYPE: XR chest 1V portable DATE OF EXAM: 01/29/2019 COMPARISON: Prior chest x-ray dated 01/28/2019 HISTORY: Abnormal chest x-ray, congestive heart failure TECHNIQUE: Single frontal view of the chest is obtained. FINDINGS: Findings are similar to prior exam. Left-sided PICC line shows the distal tip within the r ight atrium. Surgical clips present in the upper abdomen. Bibasilar increased density is present, the re is some improvement in perihilar vascular indistinctness. Suspect some improvement in aeration at the lung bases. No pneumothorax. Heart size is stable. IMPRESSION: Some improvement in volume status, aeration compared to prior exam.
[2019-01-29] MEDS: FLUCONAZOLE 100 MG TAB PO SCH (08:17)
[2019-01-29] MEDS: PANTOPRAZOLE 40 MG TABLET PO SCH (08:18)
[2019-01-29] MEDS: amLODIPine 10 MG TAB PO SCH (08:18)
[2019-01-29] MEDS: FLUoxetine HCL 20 MG CAP PO SCH (08:18)
[2019-01-29] MEDS: FUROSEMIDE 10 MG/ML 4 ML VIAL IV SCH (08:18)
[2019-01-29] MEDS: ASPIRIN 81 MG PO SCH (08:18)
[2019-01-29] MEDS: INSULIN ASPART (NovoLOG) 100 UNIT/ML VIAL SQ SCH ×4 (08:18→21:07)
[2019-01-29] MEDS: hydrALAZINE HCL 50 MG TAB PO SCH ×3 (08:18→21:06)
[2019-01-29] MEDS: ENOXAPARIN 40 MG/0.4 ML SYRINGE SQ SCH (08:19)
--- NOTE | 2019-01-29 09:06 | P.PN ---
Subjective Patient is seen in follow-up for acute kidney injury. Baseline creatinine is 1 and was up to 1.89 as of yesterday. Patient presented with dyspnea. He was noted to have empyema and had a chest tube placed. He is status post VATS procedure. Blood pressure stable. Remains edematous. Vital signs are stable. General: The patient appeared well nourished and normally developed. HEENT: Head exam is unremarkable. Neck is without jugular venous distension. LUNGS: Lungs are clear to auscultation and percussion. Breath sounds decreased. HEART: Rate and Rhythm are regular. First and second heart sounds normal. No murmurs, rubs or gallops. ABDOMEN: Abdominal exam reveals normal bowel sounds. Non-tender and non- distended. EXTREMITITES: 1+ edema. Scrotal edema noted. Objective - Vital Signs Vital signs: Vital Signs Temp 97.8 F 01/29/19 06:11 Pulse 91 01/29/19 06:11 Resp 18 01/29/19 06:11 BP 153/75 01/29/19 06:11 Pulse Ox 99 01/29/19 06:11 Intake & Output 01/28/19 01/29/19 01/29/19 18:59 06:59 18:59 Intake Total 690.117 200 Output Total 1365 Balance -674.883 200 Weight 76.5 kg Intake: IV 650 Sodium Chloride 0.45% 1, 600 000 ml @ 50 mls/hr IV . Q20H [facility] Rx#:[id number] cefTRIAXone 2 gm In 50 Sodium Chloride 0.9% 50 ml @ 100 mls/hr IVPB Q24HR [facility] Rx#:[id number] Intake, IV Titration 40.117 Amount Clevidipine Butyrate 25 40.117 mg In Empty Bag 1 bag @ 1 MG/HR 2 mls/hr IV .Q24H [facility] Rx#:[id number] Oral 200 Output: Urine 1365 Other: Voiding Method Indwelling Catheter Indwelling Catheter Incontinent # Voids 0 2 # Bowel Movements 1 1 ABP, PAP, CO, CI - Last Documented Arterial Blood Pressure 143/61 - Labs CBC & Chem 7: 01/28/19 05:00 01/28/19 15:35 Labs: Abnormal Lab Results - Last 24 Hours (Table) 01/28/19 01/28/19 01/28/19 Range/Units 11:53 14:25 16:41 POC Glucose (mg/dL) 180 H 205 H (75-99) mg/dL Urine Protein 1+ H (Negative) Urine Blood Trace H (Negative) Urine Bacteria Occasional H (None) /hpf Urine Mucus Rare H (None) /hpf 01/28/19 01/29/19 Range/Units 20:49 07:10 POC Glucose (mg/dL) 226 H 165 H (75-99) mg/dL Urine Protein (Negative) Urine Blood (Negative) Urine Bacteria (None) /hpf Urine Mucus (None) /hpf Assessment and Plan Plan: Assessment: 1. Acute kidney injury secondary to ATN secondary to hemodynamic instability and acute blood loss anemia. Baseline creatinine is 1 and was up to 1.8 and as of yesterday. 2. Acute blood loss anemia status post 7 units of packed red blood cell transfusion this admission. No active bleeding noted. Hemoglobin stable at 8.4 yesterday. 3. Pneumonia with empyema status post chest tube placement, VATS. Fluid culture positive for Streptococcus. 4. Benign hypertension. Stable. 5. Diabetes mellitus. 6. Metabolic acidosis secondary to acute kidney injury. Better. 7. Hypokalemia from poor oral intake. Improved post replacement. Plan: Maintain current antihypertensives. Continue Lasix 40 mg IV daily. Continue to monitor renal function and urine output. Repeat electrolytes in the morning. Encourage oral intake.
[2019-01-29] MEDS: HYDROcodone/APAP 5-325MG 1 EACH TAB PO PRN ×3 (09:27→21:06)
[2019-01-29 10:07] LABS: Basophils % (A) 0 %; Eosinophils # (A) 0.2 k/uL (0-0.7); Eosinophils % (A) 1 %; HCT 24.3 % (39.0-53.0); HGB 7.7 gm/dL (13.0-17.5); Lymphocytes # (A) 0.5 k/uL (1.0-4.8); Lymphocytes % (A) 3 %; MCH 28.8 pg (25.0-35.0); MCHC 31.8 g/dL (31.0-37.0); MCV 90.6 fL (80.0-100.0); Mean Platelet Volume 6.9; Monocytes # (A) 0.4 k/uL (0-1.0); Monocytes % (A) 3 %; Neutrophils # (A) 14.2 k/uL (1.3-7.7); Neutrophils % (A) 92 %; Platelet Count 613 k/uL (150-450); RBC 2.68 m/uL (4.30-5.90); RDW 15.1 % (11.5-15.5); WBC 15.4 k/uL (3.8-10.6)
[2019-01-29 10:13] LABS: Calcium 7.3 mg/dL (8.4-10.2)
--- NOTE | 2019-01-29 10:29 | ECHOF ---
Referral Reason:heart failure MEASUREMENTS -------- HEIGHT: 170.2 cm WEIGHT: 75.8 kg BP: 144/77 RVIDd: 3.4 cm (< 3.3) IVSd: 1.5 cm (0.6 - 1.1) LVIDd: 4.5 cm (3.9 - 5.3) LVPWd: 1.3 cm (0.6 - 1.1) IVSs: 2.1 cm LVIDs: 2.6 cm LVPWs: 1.9 cm LA Diam: 3.6 cm (2.7 - 3.8) LAESV Index (A-L): 38.04 ml/m Ao Diam: 3.8 cm (2.0 - 3.7) AV Cusp: 2.0 cm (1.5 - 2.6) MV EXCURSION: 18.048 mm (> 18.000) MV EF SLOPE: 40 mm/s (70 - 150) EPSS: 0.6 cm MV E Tiago: 0.69 m/s MV DecT: 245 ms MV A Tiago: 1.00 m/s MV E/A Ratio: 0.69 AR PHT: 646 ms RAP: 5.00 mmHg RVSP: 31.97 mmHg FINDINGS -------- Sinus rhythm. This was a technically good study. The left ventricular size is normal. There is moderate concentric left ventricular hypertrophy. O verall left ventricular systolic function is normal with, an EF between 60 - 65 %. The right ventricle is mildly enlarged. LA is moderately dilated 34-39 ml/m2 The right atrium is normal in size. Interatrial and interventricular septum intact. The aortic valve is trileaflet and appears structurally normal. There is mild aortic regurgitation. There is trace mitral regurgitation. Mild tricuspid regurgitation present. Right ventricular systolic pressure is normal at < 35 mmHg. Trace/mild (physiologic) pulmonic regurgitation. The aortic root is dilated measuring 3.8cm. Normal inferior vena cava with normal inspiratory collapse consistent with estimated right atrial pre ssure of 5 mmHg. There is a small, generalized pericardial effusion present. CONCLUSIONS -------- 1. Sinus rhythm. 2. This was a technically good study. 3. The left ventricular size is normal. 4. There is moderate concentric left ventricular hypertrophy. 5. Overall left ventricular systolic function is normal with, an EF between 60 - 65 %. 6. The right ventricle is mildly enlarged. 7. LA is moderately dilated 34-39 ml/m2 8. The right atrium is normal in size. 9. Interatrial and interventricular septum intact. 10. The aortic valve is trileaflet and appears structurally normal. 11. There is mild aortic regurgitation. 12. There is trace mitral regurgitation. 13. Mild tricuspid regurgitation present. 14. Right ventricular systolic pressure is normal at < 35 mmHg. 15. Trace/mild (physiologic) pulmonic regurgitation. 16. The aortic root is dilated measuring 3.8cm. 17. Normal inferior vena cava with normal inspiratory collapse consistent with estimated right atrial pressure of 5 mmHg. 18. There is a small, generalized pericardial effusion present. [employer] TECHNICIAN: Tamiko Marsh RDCS
[2019-01-29 10:30] VITALS: BMI 26.4
--- NOTE | 2019-01-29 11:36 | P.PN ---
Subjective Progress Note Date: 01/29/19 Principal diagnosis: Empyema involving the left lung post diagnostic and therapeutic thoracentesis, and placement of the pigtail catheter A 68-year-old male patient who was transferred from [facility] of shortness of breath. The patient started approximately week ago to have pleuritic left-sided chest pain. He was also having increased cough and congestion and low-grade fever. He was seen by his primary care physician and apparently a chest x-ray was done and he was told to have pneumonia and was given oral erythromycin-based antibiotic. The patient's condition got worse. His appetite has been poor. He has been losing weight. He came in to [facility] emergency department with a chest x-ray was done that showed a left lung opacity and following that a CAT scan of the chest was done that showed a large loculated left-sided pleural effusion along with gas within the pleural space and the finding was very highly suspicious for empyema. The patient got transferred to us. I reviewed the CAT scan of the chest from [facility]. The findings is consistent with empyema. The patient's white cell count was 27.9 at time of admission. Sodium level was at 129. His sugar level was also elevated and the patient is diabetic. Is a lifetime nonsmoker. I performed a bedside thoracentesis and I drained approximately 6 50 mL of pus from the left pleural space. Subsequent chest x-ray showed no evidence of any pneumothorax. The patient tolerated the procedure well. The fluid that was seen on the earlier chest x-ray was removed. Fluid analysis still pending for now. The patient was started on a combination of Zosyn and vancomycin. We'll put an interventional radiology consultation for a pigtail catheter insertion the drained residual loculated pleural effusion on the CAT scan guidance. This will be done tomorrow. Family was updated. May need a thoracic surgery consultation at a later stage depending on our success of breathing this empyema percutaneously. On 01/19/2019 patient seen in follow-up on medical surgical floor. He had a left posterior back pigtail chest tube inserted today by interventional radiology, and at the time of my evaluation patient has 120 mL of purulent blood-tinged drainage in the Pleur-evac. The Pleur-evac is to water seal, no air leak noted, pleural fluid cultures from yesterday's thoracentesis are pending at this time, preliminary Gram stain did not show any organisms after 24 hours. Patient is fairly comfortable, room air pulse ox is 92%, afebrile, hemodynamically stable, he sitting up in the recliner, lung sounds are diminished breath sounds over lower base. Cytology is pending. Patient is on a combination of Zosyn and vancomycin, Zosyn has been switched to cefepime per ID service recommendations. Awaiting results of the final cultures, will consult CT surgery On 01/20/2019 patient seen in follow-up on medical surgical floor. He sitting up in the recliner, in no acute distress, and it has been a total of 650 mL of purulent material in the Pleur-evac system insertion of the left-sided pigtail chest tube. Pleur-evac is to water seal, no evidence of air leak, today's chest x-ray has been reviewed showing left-sided consolidation and pleural effusion appears to be stable in appearance. Diminished breath sounds over left lower base, sodium is 133, potassium is 3.7, chloride is 103, CO2 is 22, BUN is 21 creatinine 0.90. C. diff was negative. Pleural fluid analysis showed exudative fluid, and pleural fluid cultures are positive for alphahemolytic streptococcus. On 01/21/2019 patient seen in follow-up on medical surgical floor. She is resting in the recliner, in no acute distress, there has been additional 500 mL of purulent material from the left-sided pigtail chest tube catheter over the last 24 hours, 100 mL after TPA infusion yesterday, patient will receive another TPA infusion per CT surgery, today's chest x-ray has been reviewed showing fluid air level on the left suggestive of hydropneumothorax and small right pleural effusion. Antibiotic coverage in the form of cefepime and vancomycin, with pleural fluid cultures positive for alphahemolytic streptococcus. His labs have been reviewed showing white blood cell count of 21.4, hemoglobin of 9.4, sodium of 134, potassium is 3.8, chloride is 104, CO2 is 19, B1 of 18 creatinine 0.85. Vital signs are stable, room air pulse ox is 95%, patient is afebrile. Denies any pain, or shortness of breath, his been ambulating, working on his incentive spirometer, chewing 1750 on the today. On 01/26/2019 patient seen in follow-up in the intensive care unit, he is awake, oriented 3, resting in bed, he is at times moaning from his left chest incisional pain. Patient had a VATS and left-sided decortication of his empyema. This is postoperative day 3. Patient was successfully extubated y esterday. He is currently on 4 L of oxygen pulse ox of 97-98%, he is afebrile, he is hypertensive, currently on Avapro extremity at 10 mg per hour, and his blood pressure is ranging from 140s to 150s systolic, and 50s diastolic. He has a extremely weak cough, incentive spirometer effort is poor. Lung sounds reveal diminished breath sounds bilateral, more so on the left side. IV fluids include D5W with 3 A of bicarbonate at a rate of 50 ML per hour, Cleviprex is at 10 mg per hour as mentioned above, and patient has an epidural in place infusing at 6 ML per hour. No other drips, antibiotic coverage in the form of cefepime, vancomycin has been discontinued, pleural fluid cultures from 01/19/2019 were positive for alphahemolytic streptococcus. Pleural fluid cultures from 01/23/2019 showed no growth. Today's chest x-ray has been reviewed with Dr. Limon, showed stable postoperative findings, bibasilar effusions and associated atelectasis. She has a left-sided chest tube in place with 70 ML of thin serosanguineous output in the last 24 hours, IDC catheter is in place, and patient is nonoliguric, he is nothing by mouth, he is nauseous today, and has been unable to take his oral pills. His labs have been reviewed, showing white blood cell count of 17.3, hemoglobin of 8.8, platelet count is 541, sodium is 138, potassium 3.6, chloride is 109, CO2 is 22, anion gap was 7, BUN was 43, creatinine is 1.74. On 01/27/2019 patient seen in follow-up in the intensive care unit. He is looking quite fatigued, but no acute distress, denies shortness of breath, he is achieving but 500 on his incentive spirometer, he is on 4 L of oxygen with a pulse ox of 96%, hemodynamically stable, still on Cleviprex drip at 12 mg per hour, and 0.45 at a rate of 50 ML per hour, he is afebrile, his oral antihypertensives have been given this morning, and we will try to wean the Cleviprex off today. His left-sided anterior posterior chest tubes have been discontinued by CT surgery yesterday, follow-up chest x-ray has been reviewed, showing diffuse pleural parenchymal changes with bilateral pleural effusions with cardiomegaly and bibasilar infiltrates, diffuse interstitial pattern. No fever or chills, today's labs have been reviewed, showing white blood cell count of 18.9, hemoglobin of 8.1, sodium is 136, potassium is 3.8, chloride is 107, CO2 is 23, BUN is 40 and creatinine is 1.75. Current antibiotic coverage is with Rocephin for evidence of alphahemolytic streptococcus in the pleural fluid from the left-sided empyema. On 01/28/2019 patient seen in follow-up in intensive care unit, he is awake and alert, responds appropriately, flat affect, but looking a bit more interactive on today's exam, he denies any shortness of breath, his incentive spirometer effort is only 500 mL. He remains on 4 L of supplemental oxygen with a pulse ox of 100%. Hemodynamically patient is still requiring Cleviprex for blood pressure control, his oral medications have been restarted yesterday, however his lisinopril and hydrochlorothiazide were placed on hold in view of his renal function, and patient is currently on Norvasc 10 mg daily, hydralazine 50 mg orally 3 times a day per nephrology recommendations, Cleviprex drip is down from 12 mg per hour to 4 mg per hour today. His blood pressure is ranging from 141 systolic to 150 systolic and 60s and 70s diastolic. Sinus rhythm at 93 bpm. today's chest x-ray has been reviewed with Dr. Limon, showing no evident pneumothorax, bibasilar density increased interstitium, and left lower lobe atelectasis. Has been started on IV Lasix per nephrology. His pain is reasonably controlled, today's labs have been reviewed showing white blood cell, 22.2, hemoglobin of 8.4, sodium is 134, potassium is 3.3, chloride is 104, CO2 is 24. Antibiotic coverage in the form of Rocephin and Diflucan. IV fluid 0.45 at rate of 50 ML per hour. On 01/29/2019 patient has been seen in follow-up on medical surgical floor. He is sitting up in the chair, in no acute distress, appears very weak and fatigued, but denies any worsening dyspnea, he remains on 4 L of oxygen with a pulse ox of 99%, afebrile, hemodynamically stable, lung sounds reveal diminished breath sounds at the bases, with basilar crackles. Patient is complaining of nausea, he is receiving IV doses of Zofran. Today's chest x-ray has been reviewed showing bibasilar density with some improvement in perihilar vascular indistinctness. Improvement in aeration at the lung bases, no evidence of pneumothorax. Patient continues on IV Lasix at 40 mg once daily, and he is in negative fluid balance of 474 mL. Labs have been reviewed, showing white blood cell count of 15.4, hemoglobin of 7.7, sodium of 134, the rest of electrolytes were within normal limits, BUN is 35 and creatinine is 2.0. Objective - Vital Signs Vital signs: Vital Signs Temp 97.8 F 01/29/19 06:11 Pulse 91 01/29/19 06:11 Resp 18 01/29/19 06:11 BP 153/75 01/29/19 06:11 Pulse Ox 99 01/29/19 06:11 Intake & Output 01/28/19 01/29/19 01/29/19 18:59 06:59 18:59 Intake Total 690.117 200 Output Total 1365 Balance -674.883 200 Weight 76.5 kg Intake: IV 650 Sodium Chloride 0.45% 1, 600 000 ml @ 50 mls/hr IV . Q20H [facility]GRO Rx#:[id number] cefTRIAXone 2 gm In 50 Sodium Chloride 0.9% 50 ml @ 100 mls/hr IVPB Q24HR NEGRO Rx#:[id number] Intake, IV Titration 40.117 Amount Clevidipine Butyrate 25 40.117 mg In Empty Bag 1 bag @ 1 MG/HR 2 mls/hr IV .Q24H NEGRO Rx#:[id number] Oral 200 Output: Urine 1365 Other: Voiding Method Indwelling Catheter Indwelling Catheter Incontinent # Voids 0 2 3 # Bowel Movements 1 1 ABP, PAP, CO, CI - Last Documented Arterial Blood Pressure 143/61 - Exam GENERAL EXAM: Alert, slightly lethargic but easily arousable, moaning 68-year-old white male, on 4 L of oxygen ox of 100%, mild to moderate amount of distress from his incisional pain from his left chest HEAD: Normocephalic/atraumatic. EYES: Normal reaction of pupils, equal size. Conjunctiva pink, sclera white. NOSE: Clear with pink turbinates. THROAT: No erythema or exudates. NECK: No masses, no JVD, no thyroid enlargement, no adenopathy. CHEST: No chest wall deformity. Symmetrical expansion. left posterior and anterior chest tube have been discontinued. Left lateral posterior chest incision is covered with dressings, clean dry and intact. LUNGS: Equal air entry with diminished breath sounds over left lower base, basilar rales CVS: Regular rate and rhythm, normal S1 and S2, no gallops, no murmurs, no rubs ABDOMEN: Soft, nontender. No hepatosplenomegaly, normal bowel sounds, no guarding or rigidity. EXTREMITIES: No clubbing, no edema, no cyanosis, 2+ pulses and upper and lower extremities. MUSCULOSKELETAL: Muscle strength and tone normal. SPINE: No scoliosis or deformity SKIN: No rashes CENTRAL NERVOUS SYSTEM: Alert and oriented -3. Lethargic, but arousable, No focal deficits, tone is normal in all 4 extremities. - Labs CBC & Chem 7: 01/29/19 08:00 01/29/19 08:00 Labs: Abnormal Lab Results - Last 24 Hours (Table) 01/28/19 01/28/19 01/28/19 Range/Units 11:53 14:25 16:41 WBC (3.8-10.6) k/uL RBC (4.30-5.90) m/uL Hgb (13.0-17.5) gm/dL Hct (39.0-53.0) % Plt Count (150-450) k/uL Neutrophils # (1.3-7.7) k/uL Lymphocytes # (1.0-4.8) k/uL Sodium (137-145) mmol/L BUN (9-20) mg/dL Creatinine (0.66-1.25) mg/dL Glucose (74-99) mg/dL POC Glucose (mg/dL) 180 H 205 H (75-99) mg/dL Calcium (8.4-10.2) mg/dL Urine Protein 1+ H (Negative) Urine Blood Trace H (Negative) Urine Bacteria Occasional H (None) /hpf Urine Mucus Rare H (None) /hpf 01/28/19 01/29/19 01/29/19 Range/Units 20:49 07:10 08:00 WBC 15.4 H (3.8-10.6) k/uL RBC 2.68 L (4.30-5.90) m/uL Hgb 7.7 L (13.0-17.5) gm/dL Hct 24.3 L (39.0-53.0) % Plt Count 613 H (150-450) k/uL Neutrophils # 14.2 H (1.3-7.7) k/uL Lymphocytes # 0.5 L (1.0-4.8) k/uL Sodium (137-145) mmol/L BUN (9-20) mg/dL Creatinine (0.66-1.25) mg/dL Glucose (74-99) mg/dL POC Glucose (mg/dL) 226 H 165 H (75-99) mg/dL Calcium (8.4-10.2) mg/dL Urine Protein (Negative) Urine Blood (Negative) Urine Bacteria (None) /hpf Urine Mucus (None) /hpf 01/29/19 Range/Units 08:00 WBC (3.8-10.6) k/uL RBC (4.30-5.90) m/uL Hgb (13.0-17.5) gm/dL Hct (39.0-53.0) % Plt Count (150-450) k/uL Neutrophils # (1.3-7.7) k/uL Lymphocytes # (1.0-4.8) k/uL Sodium 134 L (137-145) mmol/L BUN 35 H (9-20) mg/dL Creatinine 2.00 H (0.66-1.25) mg/dL Glucose 149 H (74-99) mg/dL POC Glucose (mg/dL) (75-99) mg/dL Calcium 7.3 L (8.4-10.2) mg/dL Urine Protein (Negative) Urine Blood (Negative) Urine Bacteria (None) /hpf Urine Mucus (None) /hpf Assessment and Plan Plan: 1 left-sided empyema, secondary to alpha hemolytic streptococcus. Status post VATS decortication post operative day #6. Patient is on Rocephin 2 left sided hydropneumothorax, with loculated pleural effusion, requiring VATS decortication. 3 left sided hemothorax, patient required at least 7 units of packed RBCs so far since admission. 4 acute sepsis secondary to empyema is strongly suspected 5 acute blood loss secondary to hemothorax requiring 7 units of packed RBCs since admission. 6 multiple comorbidities including hypertension, diabetes, electrolytes imbalance with hypokalemia, and worsening anemia secondary to hemothorax and blood loss in the left pleural space. 7 acute hypoxic respiratory failure secondary to left-sided empyema, sepsis, and septic shock. 8 acute septic shock secondary to empyema. 9 small right-sided pleural effusion, not large enough on ultrasound to consider thoracentesis. No markings were placed. 10 Acute kidney injury related to ATN 11 non-anion gap metabolic acidosis related to NORA, improved with bicarbonate replacement Plan: Continue encouraging deep breathing and coughing, wean FiO2, chest x-ray has been reviewed showing improvement in volume status, and aeration at the lung bases. He continues on IV Lasix, nephrology is following, no fever or chills, patient is currently on Rocephin, vancomycin has been discontinued, ID service is following, patient has a PICC line in place. White blood cell count is trending down, vital signs are stable. Pulmonary perspective patient is doing well, continue with pulmonary toileting. I performed a history & physical examination of the patient and discussed their management with my nurse practitioner, Nicole Wang. I reviewed the nurse practitioner's note and agree with the documented findings and plan of care. Lung sounds are positive for diminished breath sounds over left lower base. The findings and the impression was discussed with the patient. I attest to the documentation by the nurse practitioner. Time with Patient: Less than 30
[2019-01-29 12:17] LABS: Glucose,Whole Blood 140 mg/dL (75-99)
[2019-01-29] MEDS ORDERED: PROCHLORPERAZINE 5 MG TAB PO PRN (13:52)
--- NOTE | 2019-01-29 15:54 | P.PN ---
Subjective Progress Note Date: 01/29/19 Principal diagnosis: This is a 68 year old man that was admitted for left-sided pneumonia, pleural effusion and empyema that had recently undergone a chest tube placement of the left side. A total of 500ml has drained from last night. Will continue to monitor closely. Cultures of the pleural fluid grew positive for alpha hemolytic streptococci. Infectious disease is following along with the care of the patient and managing antibiotics at this time. Patient has been up and walking often around the unit. Patient appears in no acute distress at this time. Patient denies any chest pain or fevers at this time and also made mention that his shortness of breath has improved since the placement of the chest tube. Early this am patient was moved to the ICU to be closely monitored as he was draining a large amount of blood from the left side chest tube and had a critical value hemoglobin level of 5. Patient states that he felt better yesterday but later in the evening felt fatigued and not up to walking. Vitals were stable but started becoming hypotensive in the low 90's systolic. Patient was then transferred to the ICU and will likely be going for surgery on 01/23/19. Patient's blood sugars continue to be elevated and will continue to cover per protocol. Patient is scheduled to be NPO after midnight, but he states that he hasn't been that hungry today. Patient is lying in the bed with a bear hugger on to maintain his temperature. Patient is still currently on broad spectrum antibiotics per infectious disease and being followed closely. Patient was awaiting for 2 units of PRBC to be transfused as there were antibodies present per the lab. Patient denies any shortness of breath, chest pain, or palpitations, just states that he feels tired. A chest xray was done showing a moderate to large pleural effusion with left hydropneumothorax with a small right side pleural effusion. CT scan of the chest showed loculated empyema with a couple of air-fluid levels present, small pneumothorax is not excluded, chest catheter is within area of increased density consistent with the empyema, and a couple of enlarged lymph nodes within the mediastinum. 01/23/19 Today this 68-year-old male is lying in bed in the ICU awaiting a thoracotomy procedure early this afternoon. Patient states he's unsure when but was told it is scheduled for today. Patient is denying any increasing shortness of breath, chest pains, palpitations, or fevers at this time. Patient is still having a large amount of output in the chest tube noted in the atrium. Per the RN the drainage has decreased since this morning. Patient denies any dizziness or lightheadedness at this time. Patient is very lethargic but easily arousable. Patient was currently made nothing by mouth after midnight for this procedure. Per infectious disease the vancomycin is being discontinued at this time and they will continue to follow while awaiting cultures from the thoracotomy today. 01/26/19 Patient is still in pain today not feeling well. Patient does have a lot of nausea and unable to vomit but is spitting up fluid patient given Zofran with minimal relief. Patient is currently on clear liquids but hasn't been having very much of an appetite today. Patient is still having some pain at the site of the chest tubes and breathing is shallow. Patient is still on an epidural pump at this time and was recently increased to 7mL from previous 6mL per hour. Patient is still on blood pressure drip of Cleviprex but per the RN will be of attempting to wean off and resume regular blood pressure medication. Patient denies any chest pain or palpitations at this time. Patient has been afebrile. Urine output is being maintained at this time as clear and yellow in nature with a Kaur. Total output of the chest tube was 100 mL's overnight. Patient is to have the pleural chest tube taken out today. Patient is maintaining oxygen saturation on 3-4 L via nasal cannula in the low to mid 90s. Patient is currently still on IV antibiotics per infectious disease and we'll continue to monitor. Patient is hemodynamically stable. Prognosis is extremely guarded. Further recommendations to follow. 01/27/19 Patient today is sitting up in the recliner and still having some nausea with no vomiting. Patient states it is intermittent. Patient is able to carry a conversation without falling asleep today. Patient is still using the incentive spirometer with encouragement and able to maintain 500 at this time with poor respiratory effort. Patient is denying any chest pain or palpitations at this time. Patient is currently afebrile and has been maintaining his temperature this morning. Per RN patient was having low readings of temperature overnight. Patient is currently still on Cleviprex but weaning. Home blood pressure medications have been resumed. Patient is hemodynamically stable at this time. Patient is maintaining oxygen saturation of 93-94% on 4 L via NC. Chest tubes were removed yesterday. Patient is being closely monitored and will continue to monitor. 01/28/19 Patient is still being closely monitored in the ICU as he is still on Cleviprex for blood pressure control along with his oral medications. He is currently still being weaned from Cleviprex. Patient was sitting up in bed today working on his incentive spirometer with an increase from 500 to 1000 this morning. Patient is still having some fatigue and periods of being hot and cold. Patient is not having as much nausea this morning and is eating breakfast at this time. Blood sugars are still being closely monitored. Patient is currently on Levemir 10 units in the am but tends to drop down low into the 50's by dinner. Levemir this morning was held. Patient has not been eating very much. Patient denies any shortness of breath, chest pain, or palpitations. His hands have lost some of the edema and swelling from yesterday. Patient urine output is maintaining. Patient is maintaining oxygen saturations in the mid 90's on 4 L via NC. Will be moved from the ICU once Cleviprex is discontinued. 01/29/2019 Patient was moved to the Med/Surg unit last night and is currently sitting up in the bed eating breakfast and appears in no acute distress. Patient denies any shortness of breath, chest pain, or palpitations. Patient states that he is having generalized body pain and states that the tramadol doesn't work for him. Patient states that he is still using his incentive spirometer and able to main tain 1000. Patient denies any nausea or vomiting at this time but did have some nausea earlier. Blood sugars are still being closely monitored. Discussed discharge plans for possible rehab and patient is refusing at this time. PT and OT still working with the patient at this time. Attempting to wean off oxygen. We will continue to monitor closely. Guarded prognosis. Objective - Vital Signs Vital signs: Vital Signs Temp 97.5 F L 01/29/19 14:23 Pulse 98 01/29/19 14:23 Resp 18 01/29/19 14:23 BP 128/68 01/29/19 14:23 Pulse Ox 94 L 01/29/19 14:23 Intake & Output 01/28/19 01/29/19 01/29/19 18:59 06:59 18:59 Intake Total 690.117 200 Output Total 1365 Balance -674.883 200 Weight 76.5 kg Intake: IV 650 Sodium Chloride 0.45% 1, 600 000 ml @ 50 mls/hr IV . Q20H [facility] Rx#:[id number] cefTRIAXone 2 gm In 50 Sodium Chloride 0.9% 50 ml @ 100 mls/hr IVPB Q24HR [facility] Rx#:[id number] Intake, IV Titration 40.117 Amount Clevidipine Butyrate 25 40.117 mg In Empty Bag 1 bag @ 1 MG/HR 2 mls/hr IV .Q24H [facility] Rx#:[id number] Oral 200 Output: Urine 1365 Other: Voiding Method Indwelling Catheter Indwelling Catheter Incontinent # Voids 0 2 3 # Bowel Movements 1 1 ABP, PAP, CO, CI - Last Documented Arterial Blood Pressure 143/61 - Exam Gen: This is a 68-year-old male who is sitting up in the bed eating breakfast in no acute distress. Vital signs are 97.8F for temp, pulse is 91, respirations are 18 and non-labored, blood pressure is 153/75, oxygen is 99% on 4 L nasal cannula. HEENT: Head is atraumatic, normocephalic. Pupils equal, round. Sclerae is anicteric. NECK: Supple. No JVD. No lymphadenopathy. No thyromegaly. LUNGS: Lung sounds diminished in the bases with a few scattered rhonchi noted. No intercostal retractions. HEART: Regular rate and rhythm. No murmur. ABDOMEN: Soft. Bowel sounds are present. No masses. No tenderness. EXTREMITIES: No pedal edema. No calf tenderness. Scrotal swelling noted. Bilateral hand 2+ edema NEUROLOGICAL: Patient is awake, alert and oriented x3. Cranial nerves 2 through 12 are grossly intact. - Labs CBC & Chem 7: 01/29/19 08:00 01/29/19 08:00 Labs: Abnormal Lab Results - Last 24 Hours (Table) 01/28/19 01/28/19 01/29/19 Range/Units 16:41 20:49 07:10 WBC (3.8-10.6) k/uL RBC (4.30-5.90) m/uL Hgb (13.0-17.5) gm/dL Hct (39.0-53.0) % Plt Count (150-450) k/uL Neutrophils # (1.3-7.7) k/uL Lymphocytes # (1.0-4.8) k/uL Sodium (137-145) mmol/L BUN (9-20) mg/dL Creatinine (0.66-1.25) mg/dL Glucose (74-99) mg/dL POC Glucose (mg/dL) 205 H 226 H 165 H (75-99) mg/dL Calcium (8.4-10.2) mg/dL 01/29/19 01/29/19 01/29/19 Range/Units 08:00 08:00 12:10 WBC 15.4 H (3.8-10.6) k/uL RBC 2.68 L (4.30-5.90) m/uL Hgb 7.7 L (13.0-17.5) gm/dL Hct 24.3 L (39.0-53.0) % Plt Count 613 H (150-450) k/uL Neutrophils # 14.2 H (1.3-7.7) k/uL Lymphocytes # 0.5 L (1.0-4.8) k/uL Sodium 134 L (137-145) mmol/L BUN 35 H (9-20) mg/dL Creatinine 2.00 H (0.66-1.25) mg/dL Glucose 149 H (74-99) mg/dL POC Glucose (mg/dL) 140 H (75-99) mg/dL Calcium 7.3 L (8.4-10.2) mg/dL Assessment and Plan Assessment: Assessment: Acute hypoxic respiratory failure: Left-sided pneumonia and pleural effusion with hydropneumothorax, patient's presently status post VATS procedure. Chest tubes were removed. This morning's chest x-ray shows improvement in the perihilar vascular indistinctness with some improvement in aeration at the lung bases. No pneumothorax. Heart size is stable Acute anemia blood loss most likely from the fluid collection of the left lung. Patient has had a total of 7 units of PRBCs transfused since admission. We'll continue to monitor labs closely. Acute hypoxic respiratory failure: Left-sided pneumonia and pleural effusions with hydropneumothorax, status post VATS Sepsis secondary to empyema for which the patient is currently still on IV antibiotics per infectious disease. Patient was switched to Rocephin 2 g daily along with Diflucan by mouth. Acute renal failure secondary to sepsis, post VATS will continue with IV fluids and monitor closely. BUNs is 35, creatinine is 2.0 Metabolic acidosis most likely secondary hyperchloremia as the patient was on a bicarbonate drip. Improved Hypovolemic hyponatremia currently resolved Hypertension resumed home blood pressure medications. Per nephrology lisinop ril and hydrochlorothiazide was discontinued yesterday and patient was started on hydralazine 50 mg 3 times daily. Continue to monitor vitals closely. Will await for morning labs and electrolytes. Patient was also given Lasix 40 mg IV push. Will continue to monitor urinary output as well. Sepsis secondary to pneumonia with parapneumonic effusions Acute hypotension due to septic shock which is resolved. Patient was weaned off Cleviprex yesterday. Will continue to monitor vitals closely Diabetes type 2, uncontrolled hyperglycemia. We'll continue to monitor blood glucose levels and adjust accordingly Hypoglycemia secondary to sepsis and was nothing by mouth. Has advanced diet to consistent carb, heart healthy diet. Patient is tolerating food but still not much of an appetite. Dietary consults have been placed. Recommendations and discussions: Recommend continue current medications, continue symptomatically treatment, and continue to monitor closely. Patient's prognosis is guarded. Will continue to monitor vital signs and labs. Further instructions to follow.
[2019-01-29 17:28] LABS: Glucose,Whole Blood 102 mg/dL (75-99)
[2019-01-29 20:33] LABS: Glucose,Whole Blood 155 mg/dL (75-99)
[2019-01-29 20:47] VITALS: RESP 20
--- NOTE | 2019-01-29 20:56 | PN ---
PROGRESS NOTE DATE OF SERVICE: 01/29/2019 REASON FOR FOLLOWUP: Left-sided pneumonia and empyema. INTERVAL HISTORY: The patient is currently afebrile. The patient has been breathing comfortably. The patient denies having any chest pain. Occasional cough. No nausea, no vomiting, no abdominal pain or diarrhea. PHYSICAL EXAMINATION: Blood pressure is 128/68 with a pulse of 90, temperature 97.5. He is 94% on room air. General description is an elderly male lying in bed in no distress. RESPIRATORY SYSTEM: Unlabored breathing with decreased breath sounds at the base. HEART: S1, S2. Regular rate and rhythm. ABDOMEN: Soft. No tenderness. LABS: Hemoglobin is 7.7, white count 15.4, BUN of 35, creatinine 2.0. DIAGNOSTIC IMPRESSION AND PLAN: Patient with left-sided pneumonia with empyema, status post chest tube followed by VATS procedure. Initial cultures are positive for streptococcus and the patient is currently covered with Rocephin 2 grams daily; to continue for at least another 2 weeks with close outpatient followup. Continue with supportive care. MMODL / IJN: [id number] /
[2019-01-29] MEDS: MELATONIN 5 MG TABLET PO SCH (21:06)
[2019-01-30] MEDS: HYDROcodone/APAP 5-325MG 1 EACH TAB PO PRN ×2 (00:51→07:22)
[2019-01-30 06:07] VITALS: BP 152/77; TEMP 97.8
[2019-01-30 07:06] LABS: Glucose,Whole Blood 129 mg/dL (75-99)
[2019-01-30] MEDS: IPRATROPIUM-ALBUTEROL 3 ML NEB IH SCH ×2 (07:06→11:08)
[2019-01-30] MEDS: FLUoxetine HCL 20 MG CAP PO SCH (07:15)
[2019-01-30] MEDS: hydrALAZINE HCL 50 MG TAB PO SCH (07:15)
[2019-01-30] MEDS: FUROSEMIDE 10 MG/ML 4 ML VIAL IV SCH (07:15)
[2019-01-30] MEDS: PANTOPRAZOLE 40 MG TABLET PO SCH (07:15)
[2019-01-30] MEDS: amLODIPine 10 MG TAB PO SCH (07:15)
[2019-01-30] MEDS: FLUCONAZOLE 100 MG TAB PO SCH (07:16)
[2019-01-30] MEDS: ENOXAPARIN 40 MG/0.4 ML SYRINGE SQ SCH (07:16)
[2019-01-30] MEDS: ASPIRIN 81 MG PO SCH (07:16)
[2019-01-30] MEDS: INSULIN ASPART (NovoLOG) 100 UNIT/ML VIAL SQ SCH ×2 (07:17→13:20)
--- NOTE | 2019-01-30 10:45 | P.PN ---
Subjective Progress Note Date: 01/30/19 Principal diagnosis: Empyema involving the left lung post diagnostic and therapeutic thoracentesis, and placement of the pigtail catheter A 68-year-old male patient who was transferred from [facility] of shortness of breath. The patient started approximately week ago to have pleuritic left-sided chest pain. He was also having increased cough and congestion and low-grade fever. He was seen by his primary care physician and apparently a chest x-ray was done and he was told to have pneumonia and was given oral erythromycin-based antibiotic. The patient's condition got worse. His appetite has been poor. He has been losing weight. He came in to [facility] emergency department with a chest x-ray was done that showed a left lung opacity and following that a CAT scan of the chest was done that showed a large loculated left-sided pleural effusion along with gas within the pleural space and the finding was very highly suspicious for empyema. The patient got transferred to us. I reviewed the CAT scan of the chest from [facility]. The findings is consistent with empyema. The patient's white cell count was 27.9 at time of admission. Sodium level was at 129. His sugar level was also elevated and the patient is diabetic. Is a lifetime nonsmoker. I performed a bedside thoracentesis and I drained approximately 6 50 mL of pus from the left pleural space. Subsequent chest x-ray showed no evidence of any pneumothorax. The patient tolerated the procedure well. The fluid that was seen on the earlier chest x-ray was removed. Fluid analysis still pending for now. The patient was started on a combination of Zosyn and vancomycin. We'll put an interventional radiology consultation for a pigtail catheter insertion the drained residual loculated pleural effusion on the CAT scan guidance. This will be done tomorrow. Family was updated. May need a thoracic surgery consultation at a later stage depending on our success of breathing this empyema percutaneously. On 01/19/2019 patient seen in follow-up on medical surgical floor. He had a left posterior back pigtail chest tube inserted today by interventional radiology, and at the time of my evaluation patient has 120 mL of purulent blood-tinged drainage in the Pleur-evac. The Pleur-evac is to water seal, no air leak noted, pleural fluid cultures from yesterday's thoracentesis are pending at this time, preliminary Gram stain did not show any organisms after 24 hours. Patient is fairly comfortable, room air pulse ox is 92%, afebrile, hemodynamically stable, he sitting up in the recliner, lung sounds are diminished breath sounds over lower base. Cytology is pending. Patient is on a combination of Zosyn and vancomycin, Zosyn has been switched to cefepime per ID service recommendations. Awaiting results of the final cultures, will consult CT surgery On 01/20/2019 patient seen in follow-up on medical surgical floor. He sitting up in the recliner, in no acute distress, and it has been a total of 650 mL of purulent material in the Pleur-evac system insertion of the left-sided pigtail chest tube. Pleur-evac is to water seal, no evidence of air leak, today's chest x-ray has been reviewed showing left-sided consolidation and pleural effusion appears to be stable in appearance. Diminished breath sounds over left lower base, sodium is 133, potassium is 3.7, chloride is 103, CO2 is 22, BUN is 21 creatinine 0.90. C. diff was negative. Pleural fluid analysis showed exudative fluid, and pleural fluid cultures are positive for alphahemolytic streptococcus. On 01/21/2019 patient seen in follow-up on medical surgical floor. She is resting in the recliner, in no acute distress, there has been additional 500 mL of purulent material from the left-sided pigtail chest tube catheter over the last 24 hours, 100 mL after TPA infusion yesterday, patient will receive another TPA infusion per CT surgery, today's chest x-ray has been reviewed showing fluid air level on the left suggestive of hydropneumothorax and small right pleural effusion. Antibiotic coverage in the form of cefepime and vancomycin, with pleural fluid cultures positive for alphahemolytic streptococcus. His labs have been reviewed showing white blood cell count of 21.4, hemoglobin of 9.4, sodium of 134, potassium is 3.8, chloride is 104, CO2 is 19, B1 of 18 creatinine 0.85. Vital signs are stable, room air pulse ox is 95%, patient is afebrile. Denies any pain, or shortness of breath, his been ambulating, working on his incentive spirometer, chewing 1750 on the today. On 01/26/2019 patient seen in follow-up in the intensive care unit, he is awake, oriented 3, resting in bed, he is at times moaning from his left chest incisional pain. Patient had a VATS and left-sided decortication of his empyema. This is postoperative day 3. Patient was successfully extubated y esterday. He is currently on 4 L of oxygen pulse ox of 97-98%, he is afebrile, he is hypertensive, currently on Avapro extremity at 10 mg per hour, and his blood pressure is ranging from 140s to 150s systolic, and 50s diastolic. He has a extremely weak cough, incentive spirometer effort is poor. Lung sounds reveal diminished breath sounds bilateral, more so on the left side. IV fluids include D5W with 3 A of bicarbonate at a rate of 50 ML per hour, Cleviprex is at 10 mg per hour as mentioned above, and patient has an epidural in place infusing at 6 ML per hour. No other drips, antibiotic coverage in the form of cefepime, vancomycin has been discontinued, pleural fluid cultures from 01/19/2019 were positive for alphahemolytic streptococcus. Pleural fluid cultures from 01/23/2019 showed no growth. Today's chest x-ray has been reviewed with Dr. Limon, showed stable postoperative findings, bibasilar effusions and associated atelectasis. She has a left-sided chest tube in place with 70 ML of thin serosanguineous output in the last 24 hours, IDC catheter is in place, and patient is nonoliguric, he is nothing by mouth, he is nauseous today, and has been unable to take his oral pills. His labs have been reviewed, showing white blood cell count of 17.3, hemoglobin of 8.8, platelet count is 541, sodium is 138, potassium 3.6, chloride is 109, CO2 is 22, anion gap was 7, BUN was 43, creatinine is 1.74. On 01/27/2019 patient seen in follow-up in the intensive care unit. He is looking quite fatigued, but no acute distress, denies shortness of breath, he is achieving but 500 on his incentive spirometer, he is on 4 L of oxygen with a pulse ox of 96%, hemodynamically stable, still on Cleviprex drip at 12 mg per hour, and 0.45 at a rate of 50 ML per hour, he is afebrile, his oral antihypertensives have been given this morning, and we will try to wean the Cleviprex off today. His left-sided anterior posterior chest tubes have been discontinued by CT surgery yesterday, follow-up chest x-ray has been reviewed, showing diffuse pleural parenchymal changes with bilateral pleural effusions with cardiomegaly and bibasilar infiltrates, diffuse interstitial pattern. No fever or chills, today's labs have been reviewed, showing white blood cell count of 18.9, hemoglobin of 8.1, sodium is 136, potassium is 3.8, chloride is 107, CO2 is 23, BUN is 40 and creatinine is 1.75. Current antibiotic coverage is with Rocephin for evidence of alphahemolytic streptococcus in the pleural fluid from the left-sided empyema. On 01/28/2019 patient seen in follow-up in intensive care unit, he is awake and alert, responds appropriately, flat affect, but looking a bit more interactive on today's exam, he denies any shortness of breath, his incentive spirometer effort is only 500 mL. He remains on 4 L of supplemental oxygen with a pulse ox of 100%. Hemodynamically patient is still requiring Cleviprex for blood pressure control, his oral medications have been restarted yesterday, however his lisinopril and hydrochlorothiazide were placed on hold in view of his renal function, and patient is currently on Norvasc 10 mg daily, hydralazine 50 mg orally 3 times a day per nephrology recommendations, Cleviprex drip is down from 12 mg per hour to 4 mg per hour today. His blood pressure is ranging from 141 systolic to 150 systolic and 60s and 70s diastolic. Sinus rhythm at 93 bpm. today's chest x-ray has been reviewed with Dr. Limon, showing no evident pneumothorax, bibasilar density increased interstitium, and left lower lobe atelectasis. Has been started on IV Lasix per nephrology. His pain is reasonably controlled, today's labs have been reviewed showing white blood cell, 22.2, hemoglobin of 8.4, sodium is 134, potassium is 3.3, chloride is 104, CO2 is 24. Antibiotic coverage in the form of Rocephin and Diflucan. IV fluid 0.45 at rate of 50 ML per hour. On 01/29/2019 patient has been seen in follow-up on medical surgical floor. He is sitting up in the chair, in no acute distress, appears very weak and fatigued, but denies any worsening dyspnea, he remains on 4 L of oxygen with a pulse ox of 99%, afebrile, hemodynamically stable, lung sounds reveal diminished breath sounds at the bases, with basilar crackles. Patient is complaining of nausea, he is receiving IV doses of Zofran. Today's chest x-ray has been reviewed showing bibasilar density with some improvement in perihilar vascular indistinctness. Improvement in aeration at the lung bases, no evidence of pneumothorax. Patient continues on IV Lasix at 40 mg once daily, and he is in negative fluid balance of 474 mL. Labs have been reviewed, showing white blood cell count of 15.4, hemoglobin of 7.7, sodium of 134, the rest of electrolytes were within normal limits, BUN is 35 and creatinine is 2.0. On 01/30/2019 patient seen in follow-up on medical surgical floor. He is awake and alert, in no acute distress, he is on 2 L of oxygen with a pulse ox of 96%, afebrile, hemodynamically stable, denies any shortness of breath, denies any significant cough or congestion. Work on his incentive spirometer. He on IV Rocephin and oral Diflucan. Clinically stable, new chest x-rays, new labs. he is achieving 17th 2000 and his incentive spirometer. No nausea vomiting or diarrhea. Planning is in progress for rehab placement however he is refusing to go to rehab. PT/OT are working with the patient. Objective - Vital Signs Vital signs: Vital Signs Temp 97.8 F 01/30/19 05:00 Pulse 112 H 01/30/19 07:19 Resp 20 01/30/19 05:00 BP 152/77 01/30/19 05:00 Pulse Ox 96 01/30/19 05:00 Intake & Output 01/29/19 01/30/19 01/30/19 18:59 06:59 18:59 Intake Total 650 240 Balance 650 240 Weight 76.5 kg Intake: Oral 650 240 Other: Voiding Method Incontinent Incontinent Urinal Incontinent # Voids 3 3 # Bowel Movements 1 ABP, PAP, CO, CI - Last Documented Arterial Blood Pressure 143/61 - Exam GENERAL EXAM: Alert, slightly lethargic but easily arousable, moaning 68-year-old white male, on 2 L of oxygen ox of 100%, mild to moderate amount of distress from his incisional pain from his left chest HEAD: Normocephalic/atraumatic. EYES: Normal reaction of pupils, equal size. Conjunctiva pink, sclera white. NOSE: Clear with pink turbinates. THROAT: No erythema or exudates. NECK: No masses, no JVD, no thyroid enlargement, no adenopathy. CHEST: No chest wall deformity. Symmetrical expansion. left posterior and anterior chest tube have been discontinued. Left lateral posterior chest incision is covered with dressings, clean dry and intact. LUNGS: Equal air entry with diminished breath sounds over left lower base, basilar rales CVS: Regular rate and rhythm, normal S1 and S2, no gallops, no murmurs, no rubs ABDOMEN: Soft, nontender. No hepatosplenomegaly, normal bowel sounds, no guarding or rigidity. EXTREMITIES: No clubbing, no edema, no cyanosis, 2+ pulses and upper and lower extremities. MUSCULOSKELETAL: Muscle strength and tone normal. SPINE: No scoliosis or deformity SKIN: No rashes CENTRAL NERVOUS SYSTEM: Alert and oriented -3. Lethargic, but arousable, No focal deficits, tone is normal in all 4 extremities. - Labs CBC & Chem 7: 01/29/19 08:00 01/29/19 08:00 Labs: Abnormal Lab Results - Last 24 Hours (Table) 01/29/19 01/29/19 01/29/19 Range/Units 12:10 17:27 20:30 POC Glucose (mg/dL) 140 H 102 H 155 H (75-99) mg/dL 01/30/19 Range/Units 06:50 POC Glucose (mg/dL) 129 H (75-99) mg/dL Assessment and Plan Plan: 1 left-sided empyema, secondary to alpha hemolytic streptococcus. Status post VATS decortication post operative day #7. Patient is on Rocephin 2 left sided hydropneumothorax, with loculated pleural effusion, requiring VATS decortication. 3 left sided hemothorax, patient required at least 7 units of packed RBCs so far since admission. 4 acute sepsis secondary to empyema is strongly suspected 5 acute blood loss secondary to hemothorax requiring 7 units of packed RBCs since admission. 6 multiple comorbidities including hypertension, diabetes, electrolytes imbalance with hypokalemia, and worsening anemia secondary to hemothorax and blood loss in the left pleural space. 7 acute hypoxic respiratory failure secondary to left-sided empyema, sepsis, and septic shock. 8 acute septic shock secondary to empyema. 9 small right-sided pleural effusion, not large enough on ultrasound to consider thoracentesis. No markings were placed. 10 Acute kidney injury related to ATN 11 non-anion gap metabolic acidosis related to NORA, improved with bicarbonate replacement Plan: Continue current medical treatment, patient is clinically improving, down to 2 L on his FiO2, continue weaning oxygen, encourage incentive spirometry use. No new chest x-rays today, from pulmonary perspective patient is stable, he is refusing to go to rehab, could be considered for discharge home today, he will need follow-up appointment in the office with Dr. López in one week I performed a history & physical examination of the patient and discussed their management with my nurse practitioner, Nicole Wang. I reviewed the nurse practitioner's note and agree with the documented findings and plan of care. Lung sounds are positive for diminished breath sounds over left lower base. The findings and the impression was discussed with the patient. I attest to the documentation by the nurse practitioner. Time with Patient: Less than 30
[2019-01-30 11:10] VITALS: PULSE 108
[2019-01-30 12:31] LABS: Glucose,Whole Blood 221 mg/dL (75-99)
--- NOTE | 2019-01-30 13:12 | P.PN ---
Subjective Patient is seen in follow-up for acute kidney injury. Baseline creatinine is 1 and was up to 2 as of yesterday. Patient presented with dyspnea. He was noted to have empyema and had a chest tube placed. He is status post VATS procedure. Blood pressure stable. Remains edematous. Urine output is good. Oral intake also better. Vital signs are stable. General: The patient appeared well nourished and normally developed. HEENT: Head exam is unremarkable. Neck is without jugular venous distension. LUNGS: Lungs are clear to auscultation and percussion. Breath sounds decreased. HEART: Rate and Rhythm are regular. First and second heart sounds normal. No murmurs, rubs or gallops. ABDOMEN: Abdominal exam reveals normal bowel sounds. Non-tender and non- distended. EXTREMITITES: 1+ edema. Objective - Vital Signs Vital signs: Vital Signs Temp 97.8 F 01/30/19 05:00 Pulse 108 H 01/30/19 11:18 Resp 20 01/30/19 05:00 BP 152/77 01/30/19 05:00 Pulse Ox 96 01/30/19 05:00 Intake & Output 01/29/19 01/30/19 01/30/19 18:59 06:59 18:59 Intake Total 650 240 Output Total 800 Balance 650 -560 Weight 76.5 kg Intake: Oral 650 240 Output: Urine 800 Other: Voiding Method Incontinent Incontinent Urinal Incontinent # Voids 3 3 # Bowel Movements 1 ABP, PAP, CO, CI - Last Documented Arterial Blood Pressure 143/61 - Labs CBC & Chem 7: 01/29/19 08:00 01/29/19 08:00 Labs: Abnormal Lab Results - Last 24 Hours (Table) 01/29/19 01/29/19 01/30/19 Range/Units 17:27 20:30 06:50 POC Glucose (mg/dL) 102 H 155 H 129 H (75-99) mg/dL 01/30/19 Range/Units 12:23 POC Glucose (mg/dL) 221 H (75-99) mg/dL Assessment and Plan Plan: Assessment: 1. Acute kidney injury secondary to ATN secondary to hemodynamic instability and acute blood loss anemia. Baseline creatinine is 1 and was up to 2 as of yesterday. 2. Acute blood loss anemia status post 7 units of packed red blood cell transfusion this admission. No active bleeding noted. Hemoglobin 7.7 yesterday. 3. Pneumonia with empyema status post chest tube placement, VATS. Fluid culture positive for Streptococcus. 4. Benign hypertension. Stable. 5. Diabetes mellitus. 6. Metabolic acidosis secondary to acute kidney injury. Better. 7. Hypokalemia from poor oral intake. Improved post replacement. Plan: Maintain current antihypertensives. I will change Lasix to 40 mg orally daily. Continue to monitor renal function and urine output. Encouraged oral intake. Anticipate discharge soon. BMP and magnesium level 2-3 days postdischarge. Follow up outpatient in the next 1-2 weeks.
[2019-01-30] MEDS ORDERED: FUROSEMIDE 40 MG TAB PO SCH (13:15)
[2019-01-30 13:24] LABS: Calcium 7.6 mg/dL (8.4-10.2); Magnesium 1.6 mg/dL (1.6-2.3); Potassium 4.1 mmol/L (3.5-5.1)
--- NOTE | 2019-01-30 13:56 | PN ---
PROGRESS NOTE DATE OF SERVICE: 01/30/2019 REASON FOR FOLLOWUP: Left-sided pneumonia and empyema. INTERVAL HISTORY: The patient is currently afebrile. Patient has been breathing comfortably. Patient denies having any chest pain, occasional cough. No nausea, no vomiting. No abdominal pain, no diarrhea. PHYSICAL EXAMINATION: Blood pressure 152/77 with a pulse of 104, temperature 97.8. He is 96% on 2 L nasal cannula. General description is an elderly male, up in the bed in no distress. RESPIRATORY SYSTEM: Unlabored breathing, clear to auscultation anteriorly. HEART: S1, S2. Regular rate and rhythm. ABDOMEN: Soft, no tenderness. LABS: BUN of 34, creatinine 1.94. DIAGNOSTIC IMPRESSION AND PLAN: Patient left-sided pneumonia with parapneumonic effusion and empyema, status post chest tube, followed by the VATS procedure. Patient seemed to have shown clinical improvement. Continue Rocephin 2 g daily for 2 weeks. Close outpatient followup. Continue supportive care. MMODL / IJN: [id number] /
--- NOTE | 2019-01-30 15:20 | P.DS ---
Providers Date of admission: 01/17/19 18:39 Expected date of discharge: 01/30/19 Attending physician: Binu Smallwood Consults: 01/17/19 18:40 Consult Physician Routine Consulting Provider: Shayne Lui Consult Reason/Comments: Large pleural effusion, pneumonia Do you want consulting provider notified?: Yes 01/18/19 16:03 Consult Physician Routine Consulting Provider: Karen Chau Consult Reason/Comments: Empyema Do you want consulting provider notified?: Yes 01/19/19 12:24 Consult Physician Routine Consulting Provider: Dejan Sanchez Consult Reason/Comments: left empyema Do you want consulting provider notified?: Yes 01/26/19 07:56 Consult Physician Routine Consulting Provider: Hawa Cardona Consult Reason/Comments: PICC line insertion/ NORA Do you want consulting provider notified?: Yes Primary care physician: Ay[facility] Course: Final diagnosis Acute hypoxic respiratory failure: Left-sided pneumonia and pleural effusion with hydropneumothorax Acute anemia blood loss Acute hypoxic respiratory failure Sepsis secondary to empyema Acute renal failure secondary to sepsis, post VATS Metabolic acidosis most likely secondary hyperchloremia Hypovolemic hyponatremia Hypertension Sepsis secondary to pneumonia with parapneumonic effusions Acute hypotension due to septic shock Diabetes type 2, uncontrolled hyperglycemia Hypoglycemia secondary to sepsis Discharge disposition Patient is being discharged in a stable condition with a guarded prognosis to home as his family has agreed to provide care and taken to his follow-up appointments as scheduled. Patient has refused rehab at this time. Patient will be following up with infectious disease in an outpatient setting for IV antibiotics for the next 2 weeks. Patient will follow-up with his primary care provider in 3 days. History of present illness This is a 68-year-old male who was recently admitted for left-sided pneumonia, pleural effusions, and empyema. During the hospital course he had chest tubes placed and underwent a thoracotomy. The surgical site is dry and healing with no signs of redness, drainage, or pus. Patient is afebrile. Patient will resume home medications for blood pressure control. Patient was given a glucometer and educated on how to be checking blood sugars before meals and at bedtime. Patient will be sent home on a sliding scale and will be following up with primary care provider this week. Patient does have a PICC line for IV antibiotic therapy and will be following up outpatient with Dr. Chau's office. Patient denies any shortness of breath, chest pains, palpitations at this time. Patient has been using his incentive spirometer and verbalizes understanding to use it at least 10 times per hour while awake. Patient is also walking with a walker with a steady gait. On exam patient is sitting up in the recliner in no acute distress asking if he is going home today. Vital signs are blood pressure 152/77, heart rate 104, res pirations 20 and non-labored, temp is 97.8F, oxygen saturation is 96% on room air. Cardio S1 and S2 are normal. Respiratory is diminished bilaterally with a few basilar rales noted on the left. Abdomen is soft and non-tender. Nervous system shows no focal deficits and gait is steady with a walker. [place] Please refer to the medication reconciliation sheet for list of medications Patient Condition at Discharge: Stable Plan - Discharge Summary Discharge Rx Participant: No New Discharge Prescriptions: New Fluconazole [Diflucan] 200 mg PO DAILY #30 tab Furosemide [Lasix] 40 mg PO DAILY #30 tab INSULIN ASPART (NovoLOG) [NovoLOG (formulary)] 0 unit SQ ACHS #1 vial cefTRIAXone [Rocephin] 2 gm IVPB Q24HR vial Continue Hydrochlorothiazide 25 mg PO DAILY Aspirin EC [Ecotrin Low Dose] 81 mg PO DAILY metFORMIN HCL 1,000 mg PO BID Lisinopril 40 mg PO DAILY FLUoxetine HCL [PROzac] 20 mg PO DAILY amLODIPine [Norvasc] 10 mg PO DAILY Discharge Medication List Aspirin EC [Ecotrin Low Dose] 81 mg PO DAILY 01/17/19 [History] FLUoxetine HCL [PROzac] 20 mg PO DAILY 01/17/19 [History] Hydrochlorothiazide 25 mg PO DAILY 01/17/19 [History] Lisinopril 40 mg PO DAILY 01/17/19 [History] amLODIPine [Norvasc] 10 mg PO DAILY 01/17/19 [History] metFORMIN HCL 1,000 mg PO BID 01/17/19 [History] Fluconazole [Diflucan] 200 mg PO DAILY #30 tab 01/30/19 [Rx] Furosemide [Lasix] 40 mg PO DAILY #30 tab 01/30/19 [Rx] INSULIN ASPART (NovoLOG) [NovoLOG (formulary)] 0 unit SQ ACHS #1 vial 01/30/19 [Rx] cefTRIAXone [Rocephin] 2 gm IVPB Q24HR vial 01/30/19 [Rx] Follow up Appointment(s)/Referral(s): Ayanna Chan MD [Primary Care Provider] - 3 Days [facility] [NON-STAFF] - [facility],Infusion [NON-STAFF] - Karen Chau MD [STAFF PHYSICIAN] - Activity/Diet/Wound Care/Special Instructions: Please come to Dr. Lin office starting Saturday01/31/19 at 9:00AM. You will have daily IV antibiotic infusions for 2 weeks in the office. Cost is $13/day, please bring payment on Saturday. The office will schedule you day by day for your infusion times. Activity as tolerated Continue incentive spirometer use 10 times per hour while awake Continue to monitor blood sugars and use the sliding scale 0-150 0 units 151-201 is 2 units 201-250 is 4 units 251-300 is 6 units 301-350 is 8 units 351 and above is 10 units. Please notify primary care provider Continue current diet Discharge Disposition: HOME SELF-CARE
== END 2019-01-30 15:25 | disposition home or self-care (01) | DRG 853 ==
LOC: EC 16:29 → 4SSUR 18:39 → 2SICU 01-22 05:04 → 4MS4W 01-28 23:17
PROVIDERS: ADMIT Internal Medicine; ATTEND Internal Medicine
PROC: 0W9B3ZZ Drainage of Left Pleural Cavity, Percutaneous Approach (ICD-10-PCS; 2019-01-18)
PROC: 30233N1 Transfusion of Nonautologous Red Blood Cells into Peripheral Vein, Percutaneous Approach (ICD-10-PCS; 2019-01-22)
PROC: 0BNG0ZZ Release Left Upper Lung Lobe, Open Approach (ICD-10-PCS; 2019-01-23)
PROC: 0BNJ0ZZ Release Left Lower Lung Lobe, Open Approach (ICD-10-PCS; principal; 2019-01-23 13:00)
PROC: 02HV33Z Insertion of Infusion Device into Superior Vena Cava, Percutaneous Approach (ICD-10-PCS; 2019-01-26)
DX: A40.9 Streptococcal sepsis, unspecified (principal); J18.9 Pneumonia, unspecified organism; J86.9 Pyothorax without fistula; J96.01 Acute respiratory failure with hypoxia; R65.21 Severe sepsis with septic shock; N17.0 Acute kidney failure with tubular necrosis; E22.2 Syndrome of inappropriate secretion of antidiuretic hormone; D62 Acute posthemorrhagic anemia; J94.8 Other specified pleural conditions; E87.2 Acidosis; E87.6 Hypokalemia; E83.42 Hypomagnesemia; K21.9 Gastro-esophageal reflux disease without esophagitis; F32.9 Major depressive disorder, single episode, unspecified; E11.65 Type 2 diabetes mellitus with hyperglycemia; E86.1 Hypovolemia; E87.8 Other disorders of electrolyte and fluid balance, not elsewhere classified; I11.9 Hypertensive heart disease without heart failure; Z79.82 Long term (current) use of aspirin; Z79.899 Other long term (current) drug therapy; Z79.84 Long term (current) use of oral hypoglycemic drugs; Z88.8 Allergy status to other drugs, medicaments and biological substances; Z79.4 Long term (current) use of insulin; Z87.01 Personal history of pneumonia (recurrent)
CPT/HCPCS: 32551; 36415; 36430; 36573; 71045; 71046; 71250; 74018; 76604; 77012; 80048; 80053; 80202; 81001; 82330; 82805; 82945; 83036; 83605; 83615; 83735; 83880; 84132; 84155; 84157; 84484; 85025; 85027; 85610; 85730; 86850; 86870; 86880; 86900; 86901; 86902; 86920; 87040; 87070; 87075; 87102; 87116; 87205; 87206; 87252; 87324; 87496; 87498; 87502; 87529; 87634; 87798; 88108; 88305; 89050; 93005; 93306; 94003; 94640; 94760; 96365; 96375; 99291

== ENCOUNTER → 2019-02-09 | Outpatient (CLI) | payer MEDICARE ==
--- NOTE | 2019-02-09 11:20 | XR ---
EXAMINATION TYPE: XR chest 2V DATE OF EXAM: 02/09/2019 COMPARISON: 01/29/2019 TECHNIQUE: PA and lateral views submitted. HISTORY: Pneumonia FINDINGS: Bilateral consolidation and pleural effusion stable. PICC line noted. No overt failure. Calcified gra nuloma right upper lobe. IMPRESSION: 1. Bilateral lower lobe infiltrate and pleural effusion is stable.
== END | disposition home or self-care (01) ==
LOC: RADXRMAIN 10:51
PROVIDERS: ATTEND Internal Medicine Infectious Disease
DX: J90 Pleural effusion, not elsewhere classified (principal); R91.8 Other nonspecific abnormal finding of lung field
CPT/HCPCS: 71046

== ENCOUNTER → 2019-02-16 | Outpatient (CLI) | payer MEDICARE ==
--- NOTE | 2019-02-16 11:49 | US ---
EXAMINATION TYPE: US venous doppler duplex UE LT DATE OF EXAM: 02/16/2019 COMPARISON: NONE CLINICAL HISTORY: M79.89 Other specified soft tissue disorders. Recent stent removal, swelling in arm SIDE PERFORMED: Left Grayscale, color doppler, spectral doppler imaging performed of the deep veins of the left upper extr emity. There is normal flow, compressibility and vascular waveforms. Left Arm: Appears negative for DVT, unable to view cephalic within forearm likely due to small calibe r. IMPRESSION: No sonographic evidence of deep venous thrombosis within the left upper extremity. A supe rficial vein (cephalic vein) within the forearm is nonvisualized likely due to its small caliber.
== END | disposition home or self-care (01) ==
LOC: RADUSWWP 11:12
PROVIDERS: ATTEND Internal Medicine Infectious Disease
DX: M79.89 Other specified soft tissue disorders (principal); Z88.8 Allergy status to other drugs, medicaments and biological substances

== ENCOUNTER 2019-02-18 15:56 | Inpatient (IN) | payer MEDICARE, OTHER ==
[2019-02-18] MEDS ORDERED: PNEUMONIA PROTOCOL UTILIZED 1 EACH MISC PO PRN (16:26)
[2019-02-18] MEDS ORDERED: LEVOFLOXACIN 750MG-D5W PMX 750 MG in DEXTROSE/WATER 1 150ML.BAG IVPB STA (16:26)
--- NOTE | 2019-02-18 16:47 | ED ---
SOB HPI - General Chief Complaint: Shortness of Breath Stated Complaint: hypoxemia Time Seen by Provider: 02/18/19 16:00 Source: patient, EMS, RN notes reviewed Mode of arrival: EMS Limitations: no limitations - History of Present Illness Initial Comments: This is a 68-year-old male was transferred from her district hospital for evaluation and higher level of care he presented with shortness of breath. He had been seen at that facility a month ago diagnosed with a left-sided empyema transferred for a urine hospital where was drained. He was on antibiotics up until a 3 days ago he started getting very short of breath was found be hypoxemic. He was given multiple medications he did go in the SVT and was given 6 mg of adenosine which did resolve the problem. she was noted to have evidence of pleural effusions possibly fluid overload pneumonia as not ruled out he also had acute and chronic anemia. Left-sided renal insufficiency. His saturations are reported be in the 60s initially he is now resting comfortably. MD Complaint: shortness of breath - Related Data Home Medications Medication Instructions Recorded Confirmed Aspirin EC [Ecotrin Low Dose] 81 mg PO DAILY 01/17/19 01/17/19 FLUoxetine HCL [PROzac] 20 mg PO DAILY 01/17/19 01/17/19 Hydrochlorothiazide 25 mg PO DAILY 01/17/19 01/17/19 Lisinopril 40 mg PO DAILY 01/17/19 01/17/19 amLODIPine [Norvasc] 10 mg PO DAILY 01/17/19 01/17/19 metFORMIN HCL 1,000 mg PO BID 01/17/19 01/17/19 Previous Rx's Medication Instructions Recorded Fluconazole [Diflucan] 200 mg PO DAILY #30 tab 01/30/19 Furosemide [Lasix] 40 mg PO DAILY #30 tab 01/30/19 INSULIN ASPART (NovoLOG) [NovoLOG 0 unit SQ ACHS #1 vial 01/30/19 (formulary)] cefTRIAXone [Rocephin] 2 gm IVPB Q24HR vial 01/30/19 Allergies Allergy/AdvReac Type Severity Reaction Status Date / Time chlorzoxazone Allergy Unknown Verified 01/17/19 17:01 [From [facility]] Review of Systems ROS Statement: Those systems with pertinent positive or pertinent negative responses have been documented in the HPI. ROS Other: All systems not noted in ROS Statement are negative. Past Medical History Past Medical History: Diabetes Mellitus, GERD/Reflux, Hypertension, Pneumonia, Supraventricular Tachycardia (SVT) Additional Past Medical History / Comment(s): SVT 02/18/19 History of Any Multi-Drug Resistant Organisms: None Reported Past Surgical History: Hernia Repair Additional Past Surgical History / Comment(s): 1983 GI bleed from ulcer Past Psychological History: Depression Smoking Status: Never smoker Past Alcohol Use History: None Reported Past Drug Use History: None Reported - Past Family History Father Family Medical History: Cancer Mother Family Medical History: Cancer, Dementia General Exam - General Exam Comments Initial Comments: This is a well-developed molars awake alert oriented times x 3 male Limitations: no limitations General appearance: alert, in no apparent distress Head exam: Present: atraumatic, normocephalic, normal inspection Eye exam: Present: normal appearance, PERRL, EOMI. Absent: scleral icterus, conjunctival injection, periorbital swelling ENT exam: Present: normal exam, mucous membranes moist Neck exam: Present: normal inspection, full ROM, other. Absent: tenderness, meningismus, lymphadenopathy Respiratory exam: Present: normal lung sounds bilaterally, rales (Genitourinary rectal), rhonchi, accessory muscle use, decreased breath sounds. Absent: respiratory distress, wheezes, stridor Cardiovascular Exam: Present: normal rhythm, tachycardia, normal heart sounds. Absent: systolic murmur, diastolic murmur, rubs, gallop, clicks GI/Abdominal exam: Present: soft, normal bowel sounds. Absent: distended, tenderness, guarding, rebound, rigid Extremities exam: Present: normal inspection, full ROM, normal capillary refill, pedal edema. Absent: tenderness, joint swelling, calf tenderness Back exam: Present: normal inspection Neurological exam: Present: alert, oriented X3, CN II-XII intact Psychiatric exam: Present: normal affect, normal mood Skin exam: Present: warm, dry, intact, normal color. Absent: rash Course Vital Signs 02/18/19 16:00 Temperature 98.5 F Pulse Rate 102 H Respiratory 19 Rate Blood Pressure 143/94 O2 Sat by Pulse 96 Oximetry Medical Decision Making - Medical Decision Making I did review the imaging and I did review the materials presented from her district hospital I did discuss case the patient has family patient will be admitted. Consultation by Dr. López and Dr. Chau. The case is discussed with Dr. Lo Disposition Clinical Impression: Congestive heart failure, Fluid overload, Renal insufficiency syndrome, Hypoxemia, SVT (supraventricular tachycardia), Pneumonia Disposition: ADMITTED IP TO THIS HOSP Condition: Fair Referrals: Ayanna Chan MD [Primary Care Provider] - 1-2 days
--- NOTE | 2019-02-18 17:01 | XR ---
EXAMINATION: XR chest 2V DATE AND TIME: 02/18/2019 4:42 PM CLINICAL INDICATION: PHH; cough TECHNIQUE: Departmental protocol COMPARISON: 02/09/2019 FINDINGS: When compared with the prior study there has been marked interval worsening in the lung inf lation. The greatest interval change is the lung parenchyma, with new large multifocal ill-defined consolidat nadir opacities throughout the lungs bilaterally. The pattern suggests multifocal bronchopneumonia. There is an increasing left pleural effusion, now moderate in degree and associated with prominent le ft lower lobe airlessness. There is no pneumothorax or other abnormal gas collection. Mildly enlarged cardiac silhouette redemonstrated. No definite acute skeletal or soft tissue findings. IMPRESSION: Marked interval radiographic worsening.
[2019-02-18] MEDS ORDERED: methylPREDNISolone SOD SUCCI 125 MG/2 ML VIAL IV SCH (18:00)
[2019-02-18] MEDS: SODIUM CHLORIDE 0.9% 1,000 ML IV SCH (18:43)
[2019-02-18] MEDS: methylPREDNISolone SOD SUCCI 125 MG/2 ML VIAL IV SCH ×2 (18:43→23:06)
[2019-02-18] MEDS ORDERED: ALPRAZolam 0.25 MG TAB PO PRN (20:48)
[2019-02-18] MEDS ORDERED: metFORMIN 500 MG TAB PO SCH (21:00)
[2019-02-18 21:02] LABS: Glucose,Whole Blood 450 mg/dL (75-99)
[2019-02-18 21:20] LABS: Calcium 8.3 mg/dL (8.4-10.2); Potassium 4.6 mmol/L (3.5-5.1); Total Bilirubin 0.2 mg/dL (0.2-1.3); Total Protein 6.3 g/dL (6.3-8.2)
[2019-02-18 21:33] LABS: Anisocytosis Slight; Basophils % (A) 0 %; Eosinophils # (A) 0.1 k/uL (0-0.7); Eosinophils % (A) 1 %; HCT 25.5 % (39.0-53.0); HGB 8.1 gm/dL (13.0-17.5); Hypochromasia Slight; Lymphocytes # (A) 0.1 k/uL (1.0-4.8); Lymphocytes % (A) 2 %; MCH 30.2 pg (25.0-35.0); MCHC 31.8 g/dL (31.0-37.0); MCV 94.8 fL (80.0-100.0); Macrocytosis Slight; Mean Platelet Volume 7.9; Monocytes # (A) 0.1 k/uL (0-1.0); Monocytes % (A) 1 %; Neutrophils # (A) 9.3 k/uL (1.3-7.7); Neutrophils % (A) 96 %; Platelet Count 446 k/uL (150-450); Poikilocytosis Slight; RBC 2.69 m/uL (4.30-5.90); RDW 19.8 % (11.5-15.5); WBC 9.7 k/uL (3.8-10.6)
[2019-02-18] MEDS ORDERED: INSULIN ASPART (NovoLOG) 100 UNIT/ML VIAL SQ ONE (21:51)
[2019-02-18] MEDS: FAMOTIDINE 20 MG TAB PO SCH (21:57)
[2019-02-18] MEDS: INSULIN ASPART (NovoLOG) 100 UNIT/ML VIAL SQ SCH ×2 (21:57)
[2019-02-18] MEDS: IPRATROPIUM-ALBUTEROL 3 ML NEB INHALATION SCH ×2 (22:09→23:04)
--- NOTE | 2019-02-18 22:50 | HP ---
HISTORY AND PHYSICAL DATE OF SERVICE: 02/18/2019 CHIEF COMPLAINT: Shortness of breath. HISTORY OF PRESENT ILLNESS: This 68-year-old gentleman with a past medical history of multiple medical problems including diabetes, GERD, hypertension, hyperlipidemia, supraventricular tachycardia, was recently admitted with pneumonia complicated by left-sided pleural effusion and hydropneumothorax and empyema. Patient underwent VATS. The patient also had acute hypoxic respiratory during that time. Patient went home. Subsequently patient complaining of increased shortness of breath and patient came to [facility] and found to have features of CHF. After diuresis with Lasix, the patient is feeling slightly better. Patient admitted for further evaluation and treatment. There is no history of fever, rigors or chills. No history of headaches, loss of consciousness, seizures. Patient also complaining of generalized edema also. PAST MEDICAL HISTORY: Diabetes, GERD, hypertension, history of recent pneumonia, supraventricular tachycardia. MEDICATIONS: Home medications are: 1. Metformin 1000 mg p.o. b.i.d. 2. Norvasc 10 mg p.o. daily. 3. Zantac 150 mg p.o. b.i.d. 4. Omeprazole 40 mg p.o. daily. 5. Lisinopril 40 mg p.o. daily. 6. NovoLog before meals and q.h.s. 7. Lasix 40 mg p.o. daily. 8. Prozac 20 mg p.o. 9. Ceftin 500 mg p.o. b.i.d. 10.Ecotrin 81 mg p.o. daily. ALLERGIES: CHLORZOXAZONE. FAMILY HISTORY: History of cancer in the family. SOCIAL HISTORY: No history of smoking. No alcohol intake. REVIEW OF SYSTEMS: ENT diminished vision. Diminished hearing. Cardiovascular as mentioned. RESPIRATORY: As mentioned earlier. GI no nausea or vomiting. no dysuria. Nervous system: No numbness or weakness. Allergy/Immunology: No asthma or hayfever. MUSCULOSKELETAL as mentioned earlier. HEMATOLOGY/ONCOLOGY: No history of anemia. ENDOCRINE: Diabetes. CONSTITUTIONAL: As mentioned earlier. DERMATOLOGY: Negative. RHEUMATOLOGY negative. PSYCHIATRY as mentioned earlier. PHYSICAL EXAMINATION: Alert and oriented x3. Pulse is 101. Blood pressure 147/90, respiration 22, temperature 98.4, pulse ox 94% on 6 L. HEENT is conjunctivae normal. Oral mucosa moist. Neck is jugular venous distention about 10 cm, pulsatile. Cardiovascular system: S1, S2 muffled. Ejection systolic murmur. S3 present. No S4. RESPIRATIONS: Breath sounds diminished at the bases. Bilateral scattered rhonchi and crackles. ABDOMEN: Soft, obese. Nontender. LEGS: Bilateral leg edema. Nervous system: Higher functions as mentioned earlier. Examination of the back decubitus ulcer present. NERVOUS SYSTEM: Higher functions as mentioned earlier. Moves all 4 limbs. No focal deficits. LYMPHATICS: No lymph nodes palpable in the neck, axillae or groin. SKIN as mentioned earlier. JOINTS no active deforming arthropathy. LABS: At this time shows labs are awaited. ASSESSMENT: 1. Shortness of breath, possible congestive heart failure acute exacerbation, ejection fraction unknown. 2. History of recent empyema. 3. History of recent acute respiratory failure secondary to pneumonia, empyema and pneumothorax. 4. History of recent sepsis. 5. History of recent VATS on the left side. 6. Diabetes mellitus type 2. 7. Gastroesophageal reflux disease. 8. Hypertension. 9. History of pneumonia. 10.History of supraventricular tachycardia. 11.History of hernia repair. 12.History of depression. RECOMMENDATIONS AND DISCUSSION: In this 68-year-old gentleman who presented with multiple complex medical issues, we will monitor the patient closely. We will continue the current management and will initiate diuretics. Monitor fluid and electrolytes balance closely. Complete cardiac workup including 2D echo and NT proBNP. Cardiology consultation. Otherwise, monitor closely on telemetry. I would also recommend monitor lytes closely. Repeat labs in the morning. Otherwise, DVT prophylaxis. Resume the home medications. I would also consult Infectious Disease and as well as Pulmonary also for continued workup. Overall prognosis guarded because of the multiple complex medical issues and further recommendations to follow. Discussed with the family at the bedside. A copy of dictation being forwarded to Dr. Chan who is the primary care physician. MMERIKL / SHELLYN: [id number] /
[2019-02-18] MEDS: HYDROcodone/APAP 5-325MG 1 EACH TAB PO PRN (23:05)
[2019-02-18] MEDS: FUROSEMIDE 10 MG/ML 4 ML VIAL IV SCH (23:06)
[2019-02-18] MEDS: PIPERACILLIN-TAZOBACTAM 3.375 GM in SODIUM CHLORIDE 0.9% 100 ML IVPB SCH (23:07)
[2019-02-19] MEDS: IPRATROPIUM-ALBUTEROL 3 ML NEB INHALATION SCH ×6 (03:28→22:57)
[2019-02-19] MEDS ORDERED: guaiFENesin-Coden 100-10MG/5ML 10 ML CUP PO PRN (05:00)
[2019-02-19] MEDS ORDERED: INSULIN REGULAR BOLUS (FROM DRIP BAG) IV ONE (06:00)
[2019-02-19 06:01] LABS: Glucose,Whole Blood 390 mg/dL (75-99)
[2019-02-19] MEDS: PANTOPRAZOLE 40 MG TABLET PO SCH (06:09)
[2019-02-19] MEDS: metFORMIN 500 MG TAB PO SCH ×2 (06:09→16:33)
[2019-02-19] MEDS: methylPREDNISolone SOD SUCCI 125 MG/2 ML VIAL IV SCH (06:12)
[2019-02-19] MEDS ORDERED: INSULIN REGULAR 100 UNIT in SODIUM CHLORIDE 0.9% 100 ML IV SCH (06:15)
[2019-02-19 06:32] LABS: Anisocytosis Slight; Basophils % (A) 0 %; Eosinophils # (A) 0.1 k/uL (0-0.7); Eosinophils % (A) 1 %; HCT 23.9 % (39.0-53.0); HGB 7.6 gm/dL (13.0-17.5); Hypochromasia Slight; Lymphocytes # (A) 0.2 k/uL (1.0-4.8); Lymphocytes % (A) 4 %; MCH 30.7 pg (25.0-35.0); MCHC 31.8 g/dL (31.0-37.0); MCV 96.6 fL (80.0-100.0); Macrocytosis Slight; Mean Platelet Volume 7.1; Monocytes # (A) 0.1 k/uL (0-1.0); Monocytes % (A) 1 %; Neutrophils % (A) 94 %; Platelet Count 363 k/uL (150-450); Poikilocytosis Slight; RBC 2.48 m/uL (4.30-5.90); RDW 19.2 % (11.5-15.5); WBC 5.4 k/uL (3.8-10.6)
[2019-02-19 06:38] LABS: Calcium 8.2 mg/dL (8.4-10.2)
[2019-02-19 07:00] LABS: Glucose,Whole Blood 359 mg/dL (75-99)
[2019-02-19 07:51] LABS: Glucose,Whole Blood 323 mg/dL (75-99)
[2019-02-19 08:03] LABS: Glucose,Whole Blood 332 mg/dL (75-99)
[2019-02-19 08:44] LABS: Glucose,Whole Blood 277 mg/dL (75-99)
[2019-02-19] MEDS ORDERED: FUROSEMIDE 40 MG TAB PO SCH (09:00)
[2019-02-19] MEDS ORDERED: NON FORMULARY DRUG (Omeprazole [Omeprazole] 40 MG) PO SCH (09:00)
[2019-02-19] MEDS: LISINOPRIL 20 MG TAB PO SCH (09:05)
[2019-02-19] MEDS: ASPIRIN 81 MG PO SCH (09:05)
[2019-02-19] MEDS: FAMOTIDINE 20 MG TAB PO SCH (09:05)
[2019-02-19] MEDS: FLUoxetine HCL 20 MG CAP PO SCH (09:05)
[2019-02-19] MEDS: FLUCONAZOLE 100 MG TAB PO SCH (09:05)
[2019-02-19] MEDS: HYDROCHLOROTHIAZIDE 25 MG TAB PO SCH (09:05)
[2019-02-19] MEDS: PIPERACILLIN-TAZOBACTAM 3.375 GM in SODIUM CHLORIDE 0.9% 100 ML IVPB SCH ×3 (09:09→23:04)
[2019-02-19] MEDS: FUROSEMIDE 10 MG/ML 4 ML VIAL IV SCH ×3 (09:09→23:04)
[2019-02-19 09:16] LABS: Glucose,Whole Blood 240 mg/dL (75-99)
--- NOTE | 2019-02-19 10:11 | P.CRDCN ---
History of Present Illness Consult date: 02/19/19 Chief complaint: Shortness of breath History of present illness: This is a pleasant 68-year-old gentleman with diabetes as well as hypertension p resented to the emergency room complaining of shortness of breath. The patient was admitted recently to the hospital with a pneumonia complicated by pleural effusion where the patient underwent VATS and was discharged home on oxygen. For the last 24 hours, he noticed increasing in the shortness of breath where he is requiring more oxygen. Also he noticed increasing in the edema in the lower extremities. No symptoms of chest pain or chest discomfort, dizziness or lightheadedness, or feeling of heart racing or fluttering, or syncope. No cough, sputum, fever, or chills. The patient presented to the emergency room. In the ER he was diagnosed with CHF. He was started on Lasix IV. The chest x- ray showed findings consistent with CHF. The BNP was checked and came in to be elevated. The troponin came in to be within normal limits. The patient stated that he is feeling better in terms of shortness of breath and also feeling better indeterminable of the leg edema in the lower extremities. The patient never diagnosed was congestive heart failure in the past. 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 No history of coronary artery disease or CHF or cardiac arrhythmia. Past Medical History Past Medical History: Diabetes Mellitus, GERD/Reflux, Hypertension, Pneumonia, Supraventricular Tachycardia (SVT) Additional Past Medical History / Comment(s): SVT 02/18/19 History of Any Multi-Drug Resistant Organisms: None Reported Past Surgical History: Hernia Repair Additional Past Surgical History / Comment(s): 1983 GI bleed from ulcer, lung mass removed january 2019 Past Anesthesia/Blood Transfusion Reactions: No Reported Reaction Past Psychological History: Depression Smoking Status: Never smoker Past Alcohol Use History: None Reported Past Drug Use History: None Reported - Past Family History Father Family Medical History: Cancer Mother Family Medical History: Cancer, Dementia Medications and Allergies Home Medications Medication Instructions Recorded Confirmed Type Aspirin EC [Ecotrin Low Dose] 81 mg PO DAILY 01/17/19 02/18/19 History FLUoxetine HCL [PROzac] 20 mg PO DAILY 01/17/19 02/18/19 History Lisinopril 40 mg PO DAILY 01/17/19 02/18/19 History amLODIPine [Norvasc] 10 mg PO DAILY 01/17/19 02/18/19 History metFORMIN HCL 1,000 mg PO BID 01/17/19 02/18/19 History Furosemide [Lasix] 40 mg PO DAILY #30 tab 01/30/19 02/18/19 Rx Cefuroxime Axetil [Ceftin] 500 mg PO BID 02/18/19 02/18/19 History INSULIN ASPART (NovoLOG) [NovoLOG See Protocol SQ ACHS 02/18/19 02/18/19 History (formulary)] Omeprazole 40 mg PO DAILY 02/18/19 02/18/19 History Ranitidine HCl [Zantac] 150 mg PO BID 02/18/19 02/18/19 History Allergies Allergy/AdvReac Type Severity Reaction Status Date / Time chlorzoxazone Allergy Unknown Verified 02/18/19 16:42 [From [facility]] Physical Exam Vitals: Vital Signs Temp Pulse Pulse Resp BP BP Pulse Ox 02/19/19 07:28 104 H 02/19/19 07:18 100 02/19/19 03:38 108 H 02/19/19 03:29 103 H 02/19/19 03:25 97.6 F 100 24 161/87 93 L 02/19/19 02:14 107 H 24 158/86 92 L 02/18/19 23:25 98.2 F 104 H 20 137/90 90 L 02/18/19 22:18 99 02/18/19 22:09 103 H 02/18/19 21:38 97.8 F 100 18 146/77 92 L 02/18/19 18:48 101 H 22 147/91 95 02/18/19 16:00 98.5 F 102 H 19 143/94 96 Intake and Output 02/18/19 02/19/19 02/19/19 22:59 06:59 14:59 Intake Total 13.938 41.976 Output Total 300 Balance -286.062 41.976 Intake: Intake, IV Titration 13.938 41.976 Amount Insulin Regular 100 unit 13.938 41.976 In Sodium Chloride 0.9% 100 ml @ Titrate IV .Q0M [facility] Rx#:[id number] Output: Urine 300 Other: Voiding Method Urinal Weight 60.781 kg 63 kg - Constitutional General appearance: no acute distress - Respiratory Respiratory: bilateral: rales - Cardiovascular Rhythm: regular Heart sounds: normal: S1, S2 Results 02/19/19 05:40 02/19/19 05:40 Cardiac Enzymes 02/18/19 Range/Units 17:57 AST 36 (17-59) U/L CBC 02/18/19 02/19/19 Range/Units 17:57 05:40 WBC 9.7 5.4 (3.8-10.6) k/uL RBC 2.69 L 2.48 L (4.30-5.90) m/uL Hgb 8.1 L 7.6 L (13.0-17.5) gm/dL Hct 25.5 L 23.9 L (39.0-53.0) % Plt Count 446 363 (150-450) k/uL Comprehensive Metabolic Panel 02/18/19 02/19/19 Range/Units 17:57 05:40 Sodium 136 L 133 L (137-145) mmol/L Potassium 4.6 5.0 (3.5-5.1) mmol/L Chloride 105 104 (98-107) mmol/L Carbon Dioxide 19 L 20 L (22-30) mmol/L BUN 36 H 41 H (9-20) mg/dL Creatinine 1.65 H 1.69 H (0.66-1.25) mg/dL Glucose 354 H 377 H (74-99) mg/dL Calcium 8.3 L 8.2 L (8.4-10.2) mg/dL AST 36 (17-59) U/L ALT 14 L (21-72) U/L Alkaline Phosphatase 157 H (38-126) U/L Total Protein 6.3 (6.3-8.2) g/dL Albumin 3.0 L (3.5-5.0) g/dL Current Medications Generic Name Dose Route Start Last Admin Trade Name Freq PRN Reason Stop Dose Admin Hydrocodone Bitart/Acetaminophen 1 each 02/18/19 20:48 02/18/19 23:05 [place] 5-325 PO 1 each Q6HR PRN Administration Pain Albuterol/Ipratropium 3 ml 02/18/19 20:00 02/19/19 07:18 Duoneb 0.5 Mg-3 Mg/3 Ml Soln INHALATION 3 ml RT-Q4H [facility] Administration Alprazolam 0.25 mg 02/18/19 20:48 Xanax PO TID PRN Anxiety Aspirin 81 mg 02/19/19 09:00 02/19/19 09:05 Aspirin PO 81 mg DAILY [facility] Administration Famotidine 20 mg 02/18/19 21:00 02/19/19 09:05 Pepcid PO 20 mg BID NEGRO Administration Fluconazole 200 mg 02/19/19 09:00 02/19/19 09:05 Diflucan PO 200 mg DAILY [facility] Administration Fluoxetine HCl 20 mg 02/19/19 09:00 02/19/19 09:05 Prozac PO 20 mg DAILY [facility] Administration Furosemide 40 mg 02/19/19 00:00 02/19/19 09:09 Lasix IV 40 mg Q8HR [facility]GRO Administration Guaifenesin/Codeine Phosphate 10 ml 02/19/19 05:00 02/19/19 04:25 Robitussin Ac PO 10 ml Q6H PRN Administration Cough Hydrochlorothiazide 25 mg 02/19/19 09:00 02/19/19 09:05 Hydrodiuril PO 25 mg DAILY [facility] Administration Piperacillin Sod/Tazobactam 100 mls @ 25 mls/hr 02/19/19 00:00 02/19/19 09:09 Sod 3.375 gm/ Sodium Chloride IVPB 03/01/19 00:01 25 mls/hr Q8HR [facility] Administration Sodium Chloride 1,000 mls @ 20 mls/hr 02/18/19 16:30 02/18/19 18:43 Saline 0.9% IV 20 mls/hr .Q24H [facility] Administration Insulin Human Regular 100 unit 101 mls @ 0 mls/hr 02/19/19 06:15 02/19/19 09:13 / Sodium Chloride IV 3.96 units/hr .Q0M [facility] 4 mls/hr Titration Protocol Titrate Levofloxacin 750 mg 02/19/19 18:00 Levaquin PO 02/24/19 18:01 DAILY@1800 [facility] Lisinopril 40 mg 02/19/19 09:00 02/19/19 09:05 Zestril PO 40 mg DAILY [facility] Administration Metformin HCl 1,000 mg 02/19/19 07:30 02/19/19 06:09 Glucophage PO Not Given BID-W/MEALS [facility] Methylprednisolone Sodium Succinate 125 mg 02/18/19 18:30 02/19/19 06:12 Solu-Medrol IV 125 mg Q6HR [facility] Administration Miscellaneous Information 1 each 02/18/19 16:26 Pneumonia Protocol Utilized PO ONCE PRN Per Protocol Pantoprazole Sodium 40 mg 02/19/19 07:30 02/19/19 06:09 Protonix PO Not Given AC-BRKFST [facility] Intake and Output 02/18/19 02/19/19 02/19/19 22:59 06:59 14:59 Intake Total 13.938 41.976 Output Total 300 Balance -286.062 41.976 Intake: Intake, IV Titration 13.938 41.976 Amount Insulin Regular 100 unit 13.938 41.976 In Sodium Chloride 0.9% 100 ml @ Titrate IV .Q0M [facility] Rx#:[id number] Output: Urine 300 Other: Voiding Method Urinal Weight 60.781 kg 63 kg 02/19/19 05:40 02/19/19 05:40 Assessment and Plan Assessment: Assessment #1 congestive heart failure exacerbation of unknown etiology #2 chronic hypoxic respiratory failure #3 diabetes #4 hypertension #5 dyslipidemia Plan #1 continue the current medical regimen including the current dose of Lasix IV #2 recent echocardiogram revealed normal LV function was mild MR and mild TR and normal pulmonary artery systolic pressure #3 continue monitor the kidney function and electrolytes #4 follow-up with the patient
[2019-02-19 10:31] LABS: Glucose,Whole Blood 183 mg/dL (75-99)
[2019-02-19 10:41] VITALS: BMI 21.7
--- NOTE | 2019-02-19 10:53 | P.CNPUL ---
History of Present Illness Consult date: 02/19/19 Requesting physician: Fanta Lo Reason for consult: dyspnea, abnormal CXR/CT Chief complaint: Shortness of breath History of present illness: This is a very pleasant 68-year-old gentleman who follows with Dr. Chan as his primary care physician. He has a history of diabetes mellitus, type II, hypertension, recent admission for an acute hypoxic respiratory failure secondary to left-sided Pneumonia and pleural effusion with hydropneumothorax infected with alphahemolytic streptococcus requiring initially a pigtail placement and subsequently a VATS procedure. He was discharged from here on 01/30/2019 with a PICC line in place and IV infusions with ceftriaxone daily. He presented to [facility] yesterday with worsening shortness of breath and subsequently transferred here for further care. He is seen today in consultation on the selective care unit. He is currently awake and alert in no acute distress. He is requiring 15 L high flow nasal cannula to maintain O2 saturations in the 90s. His x-ray revealed evidence of increasing left pleural effusion and associated with prominent left lower lobe air less than as. There are new large multifocal ill-defined consolidative opacities throughout the lungs bilaterally. Suggestive of multifocal bronchopneumonia. Sputum culture pending. White count 5.4. Hemoglobin 7.6. Creatinine 1.69. He is currently on Zosyn and Levaquin. He is on bronchodilators and IV Solu-Medrol. Requiring insulin drip currently at 2.5 units per hour. Review of Systems REVIEW OF SYSTEMS: CONSTITUTIONAL: Denies any recent significant weight loss or weight gain. EYES: Denies change in vision. EARS, NOSE, MOUTH, THROAT: Denies headaches, denies sore throat. CARDIOVASCULAR: Denies chest pain, palpitations or syncopal episodes. RESPIRATORY: Positive for shortness of breath, cough, congestion no hemoptysis. GASTROINTESTINAL: Denies change in appetite, denies abdominal pain GENITOURINARY: Denies hematuria, denies infections. MUSKULOSKELETAL: Denies pain, denies swelling. INTEGUMENTARY: Denies rash, denies eczema. NEUROLOGICAL: Denies recent memory loss, no recent seizure activity. PSYCHIATRIC: Denies anxiety, denies depression. HEMATOLOGIC/LYMPHATIC: Denies anemia, denies enlarged lymph nodes. Past Medical History Past Medical History: Diabetes Mellitus, GERD/Reflux, Hypertension, Pneumonia, Supraventricular Tachycardia (SVT) Additional Past Medical History / Comment(s): SVT 02/18/19 History of Any Multi-Drug Resistant Organisms: None Reported Past Surgical History: Hernia Repair Additional Past Surgical History / Comment(s): 1983 GI bleed from ulcer, lung mass removed january 2019 Past Anesthesia/Blood Transfusion Reactions: No Reported Reaction Past Psychological History: Depression Smoking Status: Never smoker Past Alcohol Use History: None Reported Past Drug Use History: None Reported - Past Family History Father Family Medical History: Cancer Mother Family Medical History: Cancer, Dementia Medications and Allergies Home Medications Medication Instructions Recorded Confirmed Type Aspirin EC [Ecotrin Low Dose] 81 mg PO DAILY 01/17/19 02/18/19 History FLUoxetine HCL [PROzac] 20 mg PO DAILY 01/17/19 02/18/19 History Lisinopril 40 mg PO DAILY 01/17/19 02/18/19 History amLODIPine [Norvasc] 10 mg PO DAILY 01/17/19 02/18/19 History metFORMIN HCL 1,000 mg PO BID 01/17/19 02/18/19 History Furosemide [Lasix] 40 mg PO DAILY #30 tab 01/30/19 02/18/19 Rx Cefuroxime Axetil [Ceftin] 500 mg PO BID 02/18/19 02/18/19 History INSULIN ASPART (NovoLOG) [NovoLOG See Protocol SQ ACHS 02/18/19 02/18/19 History (formulary)] Omeprazole 40 mg PO DAILY 02/18/19 02/18/19 History Ranitidine HCl [Zantac] 150 mg PO BID 02/18/19 02/18/19 History Allergies Allergy/AdvReac Type Severity Reaction Status Date / Time chlorzoxazone Allergy Unknown Verified 02/18/19 16:42 [From Nader Kathleen] Physical Exam Vitals: Vital Signs Temp Pulse Pulse Resp BP BP Pulse Ox 02/19/19 07:28 104 H 02/19/19 07:18 100 02/19/19 03:38 108 H 02/19/19 03:29 103 H 02/19/19 03:25 97.6 F 100 24 161/87 93 L 02/19/19 02:14 107 H 24 158/86 92 L 02/18/19 23:25 98.2 F 104 H 20 137/90 90 L 02/18/19 22:18 99 02/18/19 22:09 103 H 02/18/19 21:38 97.8 F 100 18 146/77 92 L 02/18/19 18:48 101 H 22 147/91 95 02/18/19 16:00 98.5 F 102 H 19 143/94 96 Intake and Output 02/18/19 02/19/19 02/19/19 22:59 06:59 14:59 Intake Total 13.938 46.043 Output Total 300 Balance -286.062 46.043 Intake: Intake, IV Titration 13.938 46.043 Amount Insulin Regular 100 unit 13.938 46.043 In Sodium Chloride 0.9% 100 ml @ Titrate IV .Q0M [facility] Rx#:[id number] Output: Urine 300 Other: Voiding Method Urinal Weight 60.781 kg 63 kg GENERAL EXAM: Alert, pleasant 68-year-old gentleman,, comfortable in mild respiratory distress. On 15 L high flow nasal cannula. HEAD: Normocephalic. EYES: Normal reaction of pupils, equal size. NOSE: Clear with pink turbinates. THROAT: No erythema or exudates. NECK: No masses, no JVD. CHEST: No chest wall deformity. LUNGS: Equal air entry with bilateral scattered rhonchi. CVS: S1 and S2 normal with no audible murmur, regular rhythm. ABDOMEN: No hepatosplenomegaly, normal bowel sounds, no guarding or rigidity. SPINE: No scoliosis or deformity SKIN: No rashes CENTRAL NERVOUS SYSTEM: No focal deficits, tone is normal in all 4 extremities. EXTREMITIES: There is no peripheral edema. No clubbing, no cyanosis. Peripheral pulses are intact. Results - Laboratory Findings CBC and BMP: 02/19/19 05:40 02/19/19 05:40 Abnormal lab findings: Abnormal Labs 02/18/19 02/18/19 02/18/19 17:57 17:57 18:00 RBC 2.69 L Hgb 8.1 L Hct 25.5 L RDW 19.8 H Neutrophils # 9.3 H Lymphocytes # 0.1 L Sodium 136 L Carbon Dioxide 19 L BUN 36 H Creatinine 1.65 H Glucose 354 H POC Glucose (mg/dL) Calcium 8.3 L ALT 14 L Alkaline Phosphatase 157 H Albumin 3.0 L Procalcitonin 0.23 H 02/18/19 02/19/19 02/19/19 21:00 05:40 05:40 RBC 2.48 L Hgb 7.6 L Hct 23.9 L RDW 19.2 H Neutrophils # Lymphocytes # 0.2 L Sodium 133 L Carbon Dioxide 20 L BUN 41 H Creatinine 1.69 H Glucose 377 H POC Glucose (mg/dL) 450 H Calcium 8.2 L ALT Alkaline Phosphatase Albumin Procalcitonin 02/19/19 02/19/19 02/19/19 05:44 06:58 07:39 RBC Hgb Hct RDW Neutrophils # Lymphocytes # Sodium Carbon Dioxide BUN Creatinine Glucose POC Glucose (mg/dL) 390 H 359 H 323 H Calcium ALT Alkaline Phosphatase Albumin Procalcitonin 02/19/19 02/19/19 02/19/19 08:01 08:42 09:10 RBC Hgb Hct RDW Neutrophils # Lymphocytes # Sodium Carbon Dioxide BUN Creatinine Glucose POC Glucose (mg/dL) 332 H 277 H 240 H Calcium ALT Alkaline Phosphatase Albumin Procalcitonin 02/19/19 10:10 RBC Hgb Hct RDW Neutrophils # Lymphocytes # Sodium Carbon Dioxide BUN Creatinine Glucose POC Glucose (mg/dL) 183 H Calcium ALT Alkaline Phosphatase Albumin Procalcitonin - Diagnostic Findings Chest x-ray: image reviewed Assessment and Plan Assessment: Impression: #1 Acute hypoxic respiratory failure secondary to bilateral multifocal pneumonia. #2 Recent loculated left pleural effusion status post pigtail catheter insertion and subsequent left thoracotomy with decortication on 01/23/2019. #3 Alphahemolytic streptococcus infection pleural fluid was receiving IV ceftriaxone in the outpatient setting. #4 Diabetes mellitus with steroid-induced hyperglycemia. #5 History of hypertension. #6 Lifelong nonsmoker. Plan: The patient was seen and evaluated by Dr. López. Chest x-ray and labs reviewed. He is currently on Zosyn and Levaquin. We'll discontinue the IV Solu-Medrol. Continue with bronchodilators. Continue IV diuretics. Titrate down the FiO2 as tolerated. Consult infectious disease. Continue to follow and make further recommendations based on his clinical status. I, the cosigning physician, performed a history & physical examination of the patient. Lungs sounds bilateral scattered rhonchi. Maintaining good O2 saturations in the 90s on 15 L high flow nasal cannula. I discussed the a ssessment and plan of care with my nurse practitioner, Nimo Nichols. I attest to the above consultation as dictated by her. Time with Patient: Greater than 30
[2019-02-19] MEDS: METOPROLOL TARTRATE 12.5 MG TAB PO SCH ×2 (10:59→20:38)
[2019-02-19 11:22] LABS: Glucose,Whole Blood 142 mg/dL (75-99)
[2019-02-19] MEDS ORDERED: AMIODARONE 360 MG in DEXTROSE 5% IN WATER 200 ML IV ONE ×2 (11:22)
[2019-02-19] MEDS ORDERED: DEXTROSE 5% IN WATER 100 ML with AMIODARONE 150 MG IV ONE (11:22)
[2019-02-19 12:03] LABS: Magnesium 1.5 mg/dL (1.6-2.3); Potassium 4.5 mmol/L (3.5-5.1)
[2019-02-19 12:23] LABS: Glucose,Whole Blood 129 mg/dL (75-99)
--- NOTE | 2019-02-19 12:56 | XR ---
EXAMINATION TYPE: XR chest 1V portable DATE OF EXAM: 02/19/2019 COMPARISON: Prior chest x-ray 02/18/2019 HISTORY: Congestive heart failure TECHNIQUE: Single frontal view of the chest is obtained. FINDINGS: There is some improvement in the confluence of the airspace disease seen in the perihilar locations on prior exam. No evident pneumothorax. Heart size is likely stable, patient is rotated. Po ssible bibasilar effusions. IMPRESSION: Some improvement in aeration is noted.
--- NOTE | 2019-02-19 13:00 | ECHOF ---
Referral Reason:chf MEASUREMENTS -------- HEIGHT: 170.2 cm WEIGHT: 62.6 kg BP: 161/87 IVSd: 0.7 cm (0.6 - 1.1) LVIDd: 5.1 cm (3.9 - 5.3) LVPWd: 0.7 cm (0.6 - 1.1) IVSs: 1.2 cm LVIDs: 3.2 cm LVPWs: 1.2 cm LAESV Index (A-L): 52.67 ml/m Ao Diam: 3.2 cm (2.0 - 3.7) LA Diam: 3.0 cm (2.7 - 3.8) AV Cusp: 1.7 cm (1.5 - 2.6) EPSS: 3.2 cm MV E Tiago: 1.34 m/s MV DecT: 154 ms MV A Tiago: 0.59 m/s MV E/A Ratio: 2.29 AR PHT: 192 ms RAP: 5.00 mmHg RVSP: 34.20 mmHg MV EF SLOPE: 173.96 mm/s (70 - 150) MV EXCURSION: 20.13 mm (> 18.000) FINDINGS -------- Resting tachycardia (HR>100bpm). This was a technically good study. The left ventricular size is normal. Left ventricular wall thickness is normal. Overall left vent ricular systolic function is low-normal with, an EF between 50 - 55 %. The right ventricle is normal in size. LA is severely dilated >40 ml/m2 The right atrial size is normal. Interatrial and interventricular septum intact. Aortic valve is trileaflet and is mildly thickened. There is mild aortic regurgitation. The mitral valve is normal. The mitral valve leaflets are mildly thickened. Mild mitral annular c alcification present. Severe mitral regurgitation is present. Mild tricuspid regurgitation present. Right ventricular systolic pressure is normal at < 35 mmHg. There is no pulmonic regurgitation present. The aortic root size is normal. IVC Not well visulized. There is a small, generalized pericardial effusion present. CONCLUSIONS -------- 1. Resting tachycardia (HR>100bpm). 2. This was a technically good study. 3. The left ventricular size is normal. 4. Left ventricular wall thickness is normal. 5. Overall left ventricular systolic function is low-normal with, an EF between 50 - 55 %. 6. The right ventricle is normal in size. 7. LA is severely dilated >40 ml/m2 8. The right atrial size is normal. 9. Interatrial and interventricular septum intact. 10. Aortic valve is trileaflet and is mildly thickened. 11. There is mild aortic regurgitation. 12. The mitral valve is normal. 13. The mitral valve leaflets are mildly thickened. 14. Mild mitral annular calcification present. 15. Severe mitral regurgitation is present. 16. Mild tricuspid regurgitation present. 17. Right ventricular systolic pressure is normal at < 35 mmHg. 18. There is no pulmonic regurgitation present. 19. The aortic root size is normal. 20. IVC Not well visulized. 21. There is a small, generalized pericardial effusion present. TRIM ATTACHER: Junie Pinon RDCS
[2019-02-19] MEDS: MAGNESIUM SULFATE-D5W PMX 1 GM in DEXTROSE/WATER 1 100ML.BAG IVPB SCH ×2 (14:38→15:54)
[2019-02-19] MEDS: HYDROcodone/APAP 5-325MG 1 EACH TAB PO PRN (15:24)
[2019-02-19] MEDS: SODIUM CHLORIDE 0.9% 1,000 ML IV SCH (15:57)
[2019-02-19 17:00] LABS: Glucose,Whole Blood 377 mg/dL (75-99)
[2019-02-19] MEDS: INSULIN ASPART (NovoLOG) 100 UNIT/ML VIAL SQ SCH ×2 (17:12→20:38)
[2019-02-19] MEDS: AMIODARONE 300 MG in DEXTROSE 5% IN WATER 250 ML IV SCH ×2 (17:13)
[2019-02-19] MEDS ORDERED: FUROSEMIDE 10 MG/ML 4 ML VIAL IV STA (17:21)
[2019-02-19] MEDS ORDERED: HEPARIN SODIUM,PORCINE 5,000 UNIT/ML 1 ML VIAL IV ONE (17:23)
[2019-02-19] MEDS: HEPARIN SOD,PORK IN 0.45% NACL 25,000 UNIT in 0.45% NACL 1 250ML.BAG IV SCH (17:46)
--- NOTE | 2019-02-19 19:42 | PN ---
PROGRESS NOTE DATE OF SERVICE: 02/19/2019. This 65-year-old gentleman was admitted with CHF exacerbation, also atrial fibrillation with fast ventricular rate. At this time, the patient being closely monitored at this time. Cardiology and pulmonology following the patient closely. Cardiology is recommending continue with IV Lasix. A 2D echo with Doppler was done today which showed ejection fraction about 50-55 percent and mild valvular abnormalities except severe mitral regurgitation. The patient is being closely monitored at this time. Patient also has atrial fibrillation. Multifocal pneumonia is also suspected. PAST MEDICAL HISTORY: Reviewed. REVIEW OF SYSTEMS: Cardiovascular System: As mentioned earlier. RESPIRATORY: As mentioned earlier. GI no nausea or vomiting. no dysuria. Nervous systems: No numbness or weakness. CURRENT MEDICATIONS: Current medications are reviewed and include: 1. [place] 5 mg q.6h p.r.n. 2. DuoNeb q.i.d. and p.r.n. 3. Xanax. 4. Amiodarone drip. 5. Aspirin 81 mg daily. 6. Pepcid 20 mg. 7. Diflucan 200 mg daily. 8. Prozac. 9. Lasix. 10.HydroDIURIL 25 mg daily. 11.NovoLog scale. 12.Levaquin 750 p.o. q.48h hours. 13.Zestril. 14.Protonix. 15.Zosyn 3.035 q.6. PHYSICAL EXAM: The patient is alert, oriented x3. The pulse is 159, blood pressure 127/66, respiration 20, temperature normal, pulse ox 98% on 60% high-flow oxygen. HEENT: Conjunctivae normal. Neck is jugular venous distention in the root of the neck. CARDIOVASCULAR system: S1, S2 muffled. Ejection systolic murmur preset. RESPIRATIONS: Breath sounds diminished in the bases. Bilateral scattered rhonchi and crackles. ABDOMEN: Soft, nontender. LEGS: Bilateral leg edema. CENTRAL NERVOUS SYSTEM: Diffusely weak. LABS: Accu-Cheks 377. Other labs are hemoglobin 7.6, sodium is 130, creatinine is 1.69. ASSESSMENT: 1. Shortness of breath possibly multifactorial, congestive heart failure acute exacerbation with acute on chronic diastolic dysfunction, ejection fraction 50-55 percent. 2. Atrial fibrillation with fast ventricular rate. 3. Possible multifocal pneumonia. 4. History of recent empyema. 5. History of recent acute respiratory failure secondary to pneumonia, empyema, pneumothorax on the left side. 6. History of recent sepsis. 7. History of recent VATS on the left side. 8. Diabetes type 2. 9. Gastroesophageal reflux disease. 10.Hypertension. 11.History of pneumonia. 12.History of supraventricular tachycardia. 13.History of hernia repair. 14.History of depression. 15.Diabetes type 2, uncontrolled with hyperglycemia. RECOMMENDATIONS AND DISCUSSION: In this 68-year-old gentleman who presented with multiple complex medical issues, we will monitor the patient closely, continue the current medications, management and symptomatic treatment. Otherwise, at this time, I recommend continue with current medications. We will continue the current medications. Continue with amiodarone drip. Continue with broad-spectrum IV antibiotics. Continue with cautious diuresis. Otherwise, guarded prognosis because of multiple complex medical issues. Further recommendations to follow. MMODL / IJN: [id number] /
[2019-02-19 20:46] LABS: Glucose,Whole Blood 291 mg/dL (75-99)
--- NOTE | 2019-02-19 21:34 | P.CONS ---
History of Present Illness - Reason for Consult Consult date: 02/19/19 Pneumonia Requesting physician: Fanta Lo - Chief Complaint Shortness of breath at times few hours - History of Present Illness Patient is a 68 2 male with a past medical history significant for recent admission at this facility for a left-sided pneumonia and parapneumonic effusion/empyema initial requirement of chest tube followed by wax procedure patient culture positive for alphahemolytic strep blood culture were negative patient received about 3 weeks of IV Rocephin therapy that was just discontinued this Saturday as the patient showing overall clinical improvement in his white count and CRP normalized patient has been on oral Ceftin patient presented to [facility] ER yesterday with sudden onset of increasing shortness of breath the patient denies having any chest pain when he minimal coughand production no URI symptoms no fever no chills patient was evaluated at [facility] ER was noticed to be in A. fib with RVR and respiratory distress subsequently the patient has been transferred to [facility] for further evaluation of the same chest x-ray with concern for possible multifocal pneumonia versus fluid overload in this patient who has no fever or elevated white count patient will be started on Zosyn and Levaquin infection he was considered for further recommendation regarding antibiotic therapy Review of Systems Positive points has been mentioned in HPI rest of the systems are negative Past Medical History Past Medical History: Diabetes Mellitus, GERD/Reflux, Hypertension, Pneumonia, Supraventricular Tachycardia (SVT) Additional Past Medical History / Comment(s): SVT 02/18/19 History of Any Multi-Drug Resistant Organisms: None Reported Past Surgical History: Hernia Repair Additional Past Surgical History / Comment(s): 1983 GI bleed from ulcer, lung mass removed january 2019 Past Anesthesia/Blood Transfusion Reactions: No Reported Reaction Past Psychological History: Depression Smoking Status: Never smoker Past Alcohol Use History: None Reported Past Drug Use History: None Reported - Past Family History Father Family Medical History: Cancer Mother Family Medical History: Cancer, Dementia Medications and Allergies Home Medications Medication Instructions Recorded Confirmed Type Aspirin EC [Ecotrin Low Dose] 81 mg PO DAILY 01/17/19 02/18/19 History FLUoxetine HCL [PROzac] 20 mg PO DAILY 01/17/19 02/18/19 History Lisinopril 40 mg PO DAILY 01/17/19 02/18/19 History amLODIPine [Norvasc] 10 mg PO DAILY 01/17/19 02/18/19 History metFORMIN HCL 1,000 mg PO BID 01/17/19 02/18/19 History Furosemide [Lasix] 40 mg PO DAILY #30 tab 01/30/19 02/18/19 Rx Cefuroxime Axetil [Ceftin] 500 mg PO BID 02/18/19 02/18/19 History INSULIN ASPART (NovoLOG) [NovoLOG See Protocol SQ ACHS 02/18/19 02/18/19 History (formulary)] Omeprazole 40 mg PO DAILY 02/18/19 02/18/19 History Ranitidine HCl [Zantac] 150 mg PO BID 02/18/19 02/18/19 History Allergies Allergy/AdvReac Type Severity Reaction Status Date / Time chlorzoxazone Allergy Unknown Verified 02/18/19 16:42 [From Nader Kathleen] Physical Exam Vitals: Vital Signs Temp Pulse Pulse Resp BP Pulse Ox 02/19/19 19:33 92 02/19/19 19:30 92 L 02/19/19 19:20 90 02/19/19 19:00 98.5 F 90 22 139/78 94 L 02/19/19 18:31 91 22 94 L 02/19/19 16:52 94 L 02/19/19 16:27 94 L 02/19/19 16:00 97.7 F 89 20 132/79 02/19/19 15:37 88 02/19/19 15:20 92 L 02/19/19 15:08 94 02/19/19 11:51 159 H 126/67 02/19/19 11:50 156 H 123/72 02/19/19 11:45 136/75 02/19/19 11:44 139 H 20 127/69 95 02/19/19 10:50 109 H 98 02/19/19 10:42 98 02/19/19 08:00 97.8 F 117 H 20 161/95 99 02/19/19 07:28 104 H 02/19/19 07:18 100 02/19/19 03:38 108 H 02/19/19 03:29 103 H 02/19/19 03:25 97.6 F 100 24 161/87 93 L 02/19/19 02:14 107 H 24 158/86 92 L 02/18/19 23:25 98.2 F 104 H 20 137/90 90 L 02/18/19 22:18 99 02/18/19 22:09 103 H 02/18/19 21:38 97.8 F 100 18 146/77 92 L Intake and Output 02/19/19 02/19/19 02/19/19 06:59 14:59 22:59 Intake Total 13.938 289.854 120 Output Total 300 4 100 Balance -286.062 285.854 20 Intake: Intake, IV Titration 13.938 49.854 Amount Insulin Regular 100 unit 13.938 49.854 In Sodium Chloride 0.9% 100 ml @ Titrate IV .Q0M [facility] Rx#:[id number] Oral 240 120 Output: Urine 300 100 Stool 4 Other: Voiding Method Urinal Indwelling Catheter # Voids 3 Weight 63 kg 63 kg GENERAL DESCRIPTION: Elderly male lying in bed, no distress. No tachypnea or accessory muscle of respiration use. HEENT: Shows Pallor , no scleral icterus. Oral mucous membrane is dry. No phary ngeal erythema or thrush NECK: Trachea central, no thyromegaly. LUNGS: Unlabored breathing. Decreased breath sound at the base. No wheeze or crackle. HEART: S1, S2, regular rate and rhythm. No loud murmur ABDOMEN: Soft, no tenderness , guarding or rigidity, no organomegaly EXTREMITIES: 3+ edema of feet. SKIN: No rash, no masses palpable. NEUROLOGICAL: The patient is awake, alert, oriented x3, mood and affect normal. Results CBC & Chem 7: 02/19/19 05:40 02/19/19 11:19 Labs: Abnormal Lab Results - Last 24 Hours (Table) 02/18/19 02/18/19 02/19/19 Range/Units 17:57 18:00 05:40 RBC 2.69 L 2.48 L (4.30-5.90) m/uL Hgb 8.1 L 7.6 L (13.0-17.5) gm/dL Hct 25.5 L 23.9 L (39.0-53.0) % RDW 19.8 H 19.2 H (11.5-15.5) % Neutrophils # 9.3 H (1.3-7.7) k/uL Lymphocytes # 0.1 L 0.2 L (1.0-4.8) k/uL Sodium (137-145) mmol/L Carbon Dioxide (22-30) mmol/L BUN (9-20) mg/dL Creatinine (0.66-1.25) mg/dL Glucose (74-99) mg/dL POC Glucose (mg/dL) (75-99) mg/dL Calcium (8.4-10.2) mg/dL Magnesium (1.6-2.3) mg/dL Procalcitonin 0.23 H (0.02-0.09) ng/mL 02/19/19 02/19/19 02/19/19 Range/Units 05:40 05:44 06:58 RBC (4.30-5.90) m/uL Hgb (13.0-17.5) gm/dL Hct (39.0-53.0) % RDW (11.5-15.5) % Neutrophils # (1.3-7.7) k/uL Lymphocytes # (1.0-4.8) k/uL Sodium 133 L (137-145) mmol/L Carbon Dioxide 20 L (22-30) mmol/L BUN 41 H (9-20) mg/dL Creatinine 1.69 H (0.66-1.25) mg/dL Glucose 377 H (74-99) mg/dL POC Glucose (mg/dL) 390 H 359 H (75-99) mg/dL Calcium 8.2 L (8.4-10.2) mg/dL Magnesium (1.6-2.3) mg/dL Procalcitonin (0.02-0.09) ng/mL 02/19/19 02/19/19 02/19/19 Range/Units 07:39 08:01 08:42 RBC (4.30-5.90) m/uL Hgb (13.0-17.5) gm/dL Hct (39.0-53.0) % RDW (11.5-15.5) % Neutrophils # (1.3-7.7) k/uL Lymphocytes # (1.0-4.8) k/uL Sodium (137-145) mmol/L Carbon Dioxide (22-30) mmol/L BUN (9-20) mg/dL Creatinine (0.66-1.25) mg/dL Glucose (74-99) mg/dL POC Glucose (mg/dL) 323 H 332 H 277 H (75-99) mg/dL Calcium (8.4-10.2) mg/dL Magnesium (1.6-2.3) mg/dL Procalcitonin (0.02-0.09) ng/mL 02/19/19 02/19/19 02/19/19 Range/Units 09:10 10:10 10:59 RBC (4.30-5.90) m/uL Hgb (13.0-17.5) gm/dL Hct (39.0-53.0) % RDW (11.5-15.5) % Neutrophils # (1.3-7.7) k/uL Lymphocytes # (1.0-4.8) k/uL Sodium (137-145) mmol/L Carbon Dioxide (22-30) mmol/L BUN (9-20) mg/dL Creatinine (0.66-1.25) mg/dL Glucose (74-99) mg/dL POC Glucose (mg/dL) 240 H 183 H 142 H (75-99) mg/dL Calcium (8.4-10.2) mg/dL Magnesium (1.6-2.3) mg/dL Procalcitonin (0.02-0.09) ng/mL 02/19/19 02/19/19 02/19/19 Range/Units 11:19 12:12 16:29 RBC (4.30-5.90) m/uL Hgb (13.0-17.5) gm/dL Hct (39.0-53.0) % RDW (11.5-15.5) % Neutrophils # (1.3-7.7) k/uL Lymphocytes # (1.0-4.8) k/uL Sodium (137-145) mmol/L Carbon Dioxide (22-30) mmol/L BUN (9-20) mg/dL Creatinine (0.66-1.25) mg/dL Glucose (74-99) mg/dL POC Glucose (mg/dL) 129 H 377 H (75-99) mg/dL Calcium (8.4-10.2) mg/dL Magnesium 1.5 L (1.6-2.3) mg/dL Procalcitonin (0.02-0.09) ng/mL 02/19/19 Range/Units 20:33 RBC (4.30-5.90) m/uL Hgb (13.0-17.5) gm/dL Hct (39.0-53.0) % RDW (11.5-15.5) % Neutrophils # (1.3-7.7) k/uL Lymphocytes # (1.0-4.8) k/uL Sodium (137-145) mmol/L Carbon Dioxide (22-30) mmol/L BUN (9-20) mg/dL Creatinine (0.66-1.25) mg/dL Glucose (74-99) mg/dL POC Glucose (mg/dL) 291 H (75-99) mg/dL Calcium (8.4-10.2) mg/dL Magnesium (1.6-2.3) mg/dL Procalcitonin (0.02-0.09) ng/mL Microbiology - Last 24 Hours (Table) 02/18/19 17:57 Blood Culture - Preliminary Blood No Growth after 24 hours Assessment and Plan Assessment: 1-patient presented to hospital with sudden onset of increasing shortness of breath in this patient who did have evidence of A. fib with RVR and 3+ edema feet likely representing cardiac etiology for his respiratory distress clinically doubt multifocal pneumonia in this patient will do not have significant cough or sputum production his white count is normal and is not running any fever Plan: 1-maximization of Cadiac therapy per cardiology and admitting team 2-May continue Zosyn and Levaquin while waiting for his condition is stabilized and culture finalized we will follow on clinical condition and culture to further adjust medication if needed Thank you for this consultation will follow this patient along with you Time with Patient: Greater than 30
[2019-02-20 00:49] LABS: Anisocytosis Slight; Basophils % (A) 0 %; Eosinophils # (A) 0.1 k/uL (0-0.7); Eosinophils % (A) 1 %; HCT 24.4 % (39.0-53.0); HGB 7.6 gm/dL (13.0-17.5); Hypochromasia Slight; Lymphocytes # (A) 0.3 k/uL (1.0-4.8); Lymphocytes % (A) 2 %; MCH 29.4 pg (25.0-35.0); MCHC 31.1 g/dL (31.0-37.0); MCV 94.6 fL (80.0-100.0); Macrocytosis Slight; Monocytes # (A) 0.6 k/uL (0-1.0); Monocytes % (A) 4 %; Neutrophils # (A) 14.9 k/uL (1.3-7.7); Neutrophils % (A) 93 %; Platelet Count 450 k/uL (150-450); Poikilocytosis Slight; RBC 2.58 m/uL (4.30-5.90); RDW 19.3 % (11.5-15.5)
[2019-02-20 00:57] LABS: Prothrombin Time 10.4 sec (9.0-12.0)
[2019-02-20] MEDS: HEPARIN SODIUM,PORCINE 5,000 UNIT/ML 1 ML VIAL IV PRN ×2 (01:11→08:47)
[2019-02-20] MEDS: HYDROcodone/APAP 5-325MG 1 EACH TAB PO PRN (01:58)
[2019-02-20 02:01] LABS: Glucose,Whole Blood 229 mg/dL (75-99)
[2019-02-20] MEDS: IPRATROPIUM-ALBUTEROL 3 ML NEB INHALATION SCH ×4 (03:33→16:31)
[2019-02-20] MEDS: AMIODARONE 300 MG in DEXTROSE 5% IN WATER 250 ML IV SCH ×2 (03:42)
[2019-02-20] MEDS: metFORMIN 500 MG TAB PO SCH (06:28)
[2019-02-20] MEDS: PANTOPRAZOLE 40 MG TABLET PO SCH (06:28)
[2019-02-20 06:32] LABS: Glucose,Whole Blood 272 mg/dL (75-99)
[2019-02-20] MEDS: INSULIN ASPART (NovoLOG) 100 UNIT/ML VIAL SQ SCH ×2 (06:33→13:02)
[2019-02-20] MEDS: FUROSEMIDE 10 MG/ML 4 ML VIAL IV SCH (07:33)
[2019-02-20] MEDS: PIPERACILLIN-TAZOBACTAM 3.375 GM in SODIUM CHLORIDE 0.9% 100 ML IVPB SCH (07:34)
[2019-02-20] MEDS: HYDROCHLOROTHIAZIDE 25 MG TAB PO SCH (07:34)
[2019-02-20] MEDS: FLUoxetine HCL 20 MG CAP PO SCH (07:35)
[2019-02-20] MEDS: FLUCONAZOLE 100 MG TAB PO SCH (07:35)
[2019-02-20] MEDS: LISINOPRIL 20 MG TAB PO SCH (07:35)
[2019-02-20] MEDS: ASPIRIN 81 MG PO SCH (07:35)
[2019-02-20] MEDS: METOPROLOL TARTRATE 12.5 MG TAB PO SCH (07:35)
[2019-02-20 08:25] LABS: Calcium 8.3 mg/dL (8.4-10.2); Magnesium 1.8 mg/dL (1.6-2.3); Potassium 4.5 mmol/L (3.5-5.1)
[2019-02-20 08:29] LABS: Anisocytosis Slight; Basophils % (A) 0 %; Eosinophils # (A) 0.1 k/uL (0-0.7); Eosinophils % (A) 1 %; HCT 25.1 % (39.0-53.0); Hypochromasia Slight; Lymphocytes # (A) 0.3 k/uL (1.0-4.8); Lymphocytes % (A) 2 %; MCH 30.9 pg (25.0-35.0); MCHC 31.9 g/dL (31.0-37.0); MCV 96.9 fL (80.0-100.0); Macrocytosis Slight; Mean Platelet Volume 7.1; Monocytes # (A) 0.6 k/uL (0-1.0); Monocytes % (A) 3 %; Neutrophils # (A) 15.6 k/uL (1.3-7.7); Neutrophils % (A) 94 %; Platelet Count 545 k/uL (150-450); Poikilocytosis Slight; RDW 19.6 % (11.5-15.5); WBC 16.7 k/uL (3.8-10.6)
[2019-02-20] MEDS ORDERED: FAMOTIDINE 20 MG TAB PO SCH (09:00)
[2019-02-20] MEDS ORDERED: FUROSEMIDE 100 MG in SODIUM CHLORIDE 0.9% 90 ML IV SCH (10:30)
[2019-02-20] MEDS ORDERED: AMIODARONE 200 MG TAB PO SCH (10:30)
[2019-02-20] MEDS ORDERED: AMIODARONE 300 MG in DEXTROSE 5% IN WATER 250 ML IV SCH ×2 (11:00)
[2019-02-20 11:03] LABS: ABG Base Excess -2.5 mmol/L; ABG HCO3 22 mmol/L (21-25); ABG Oxygen Saturation 93.1 % (94-97); ABG PCO2 36 mmHg (35-45); ABG PO2 67 mmHg (83-108); ABG TCO2 23 mmol/L (19-24); Allen Test Performed? Yes
--- NOTE | 2019-02-20 11:14 | P.PN ---
Subjective Progress Note Date: 02/20/19 Principal diagnosis: Congestive heart failure secondary to diastolic dysfunction Valvular heart disease with severe mitral regurgitation This is a pleasant 68-year-old gentleman with diabetes as well as hypertension presented to the emergency room complaining of shortness of breath. The patient was admitted recently to the hospital with a pneumonia complicated by pleural effusion where the patient underwent VATS and was discharged home on oxygen. For the last 24 hours, he noticed increasing in the shortness of breath where he is requiring more oxygen. Also he noticed increasing in the edema in the lower extremities. No symptoms of chest pain or chest discomfort, dizziness or lightheadedness, or feeling of heart racing or fluttering, or syncope. No cough, sputum, fever, or chills. The patient presented to the emergency room. In the ER he was diagnosed with CHF. He was started on Lasix IV. The chest x- ray showed findings consistent with CHF. The BNP was checked and came in to be elevated. The troponin came in to be within normal limits. The patient stated that he is feeling better in terms of shortness of breath and also feeling better indeterminable of the leg edema in the lower extremities. The patient never diagnosed was congestive heart failure in the past. 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 No history of coronary artery disease or CHF or cardiac arrhythmia. On follow-up with the patient today, February 202018, overall he is not doing well. Last night he went into atrial fibrillation with RVR and he was started on amiodarone IV as well as heparin IV. Beside that his oxygen saturation has been dropping down and currently he is on BiPAP. The kidney function is also slightly worse. The urine output is not that good as well. He was on Lasix IV. The echocardiogram revealed normal LV function was evidence of severe mitral regurgitation. I am going to start the patient on Lasix drip at 5 mg per hour, consult nephrology to see the patient, switch him to amiodarone by mouth, he has been maintaining normal sinus mechanism, continue IV heparin at this point. Also I will repeat the chest x-ray and repeat the BMP. We'll continue following up with him. Objective - Vital Signs Vital signs: Vital Signs Temp 98.2 F 02/20/19 03:12 Pulse 86 02/20/19 08:00 Resp 17 02/20/19 08:00 BP 150/85 02/20/19 08:00 Pulse Ox 93 L 02/20/19 08:00 Intake & Output 02/19/19 02/20/19 02/20/19 18:59 06:59 18:59 Intake Total 409.854 306.196 310.875 Output Total 4 650 Balance 405.854 -343.804 310.875 Weight 63 kg 73 kg Intake: Intake, IV Titration 49.854 306.196 70.875 Amount Amiodarone 300 mg In 250 Dextrose 5% in Water 250 ml @ 0.5 MG/MIN 25 mls/hr IV .Q10H [facility] Rx#: [id number] Heparin Sod,Pork in 0.45% 56.196 70.875 NaCl 25,000 unit In 0.45 % NaCl 1 250ml.bag @ 12 UNITS/KG/HR 7.56 mls/hr IV .Q24H [facility] Rx#: [id number] Insulin Regular 100 unit 49.854 In Sodium Chloride 0.9% 100 ml @ Titrate IV .Q0M [facility] Rx#:[id number] Oral 360 240 Output: Urine 650 Stool 4 Other: Voiding Method Indwelling Catheter Indwelling Catheter Indwelling Catheter # Voids 3 - Constitutional General appearance: Present: no acute distress - Respiratory Respiratory: bilateral: rhonchi, wheezing - Cardiovascular Rhythm: regular Heart sounds: normal: S1, S2 Abnormal Heart Sounds: Present: systolic murmur - Labs CBC & Chem 7: 02/20/19 07:51 02/20/19 07:51 Labs: Abnormal Lab Results - Last 24 Hours (Table) 02/19/19 02/19/19 02/19/19 Range/Units 10:59 11:19 12:12 WBC (3.8-10.6) k/uL RBC (4.30-5.90) m/uL Hgb (13.0-17.5) gm/dL Hct (39.0-53.0) % RDW (11.5-15.5) % Plt Count (150-450) k/uL Neutrophils # (1.3-7.7) k/uL Lymphocytes # (1.0-4.8) k/uL ABG pO2 (83-108) mmHg ABG O2 Saturation (94-97) % Sodium (137-145) mmol/L Carbon Dioxide (22-30) mmol/L BUN (9-20) mg/dL Creatinine (0.66-1.25) mg/dL Glucose (74-99) mg/dL POC Glucose (mg/dL) 142 H 129 H (75-99) mg/dL Calcium (8.4-10.2) mg/dL Magnesium 1.5 L (1.6-2.3) mg/dL 02/19/19 02/19/19 02/20/19 Range/Units 16:29 20:33 00:36 WBC 16.0 H (3.8-10.6) k/uL RBC 2.58 L (4.30-5.90) m/uL Hgb 7.6 L (13.0-17.5) gm/dL Hct 24.4 L (39.0-53.0) % RDW 19.3 H (11.5-15.5) % Plt Count (150-450) k/uL Neutrophils # 14.9 H (1.3-7.7) k/uL Lymphocytes # 0.3 L (1.0-4.8) k/uL ABG pO2 (83-108) mmHg ABG O2 Saturation (94-97) % Sodium (137-145) mmol/L Carbon Dioxide (22-30) mmol/L BUN (9-20) mg/dL Creatinine (0.66-1.25) mg/dL Glucose (74-99) mg/dL POC Glucose (mg/dL) 377 H 291 H (75-99) mg/dL Calcium (8.4-10.2) mg/dL Magnesium (1.6-2.3) mg/dL 02/20/19 02/20/19 02/20/19 Range/Units 01:59 06:31 07:51 WBC 16.7 H (3.8-10.6) k/uL RBC 2.60 L (4.30-5.90) m/uL Hgb 8.0 L (13.0-17.5) gm/dL Hct 25.1 L (39.0-53.0) % RDW 19.6 H (11.5-15.5) % Plt Count 545 H (150-450) k/uL Neutrophils # 15.6 H (1.3-7.7) k/uL Lymphocytes # 0.3 L (1.0-4.8) k/uL ABG pO2 (83-108) mmHg ABG O2 Saturation (94-97) % Sodium (137-145) mmol/L Carbon Dioxide (22-30) mmol/L BUN (9-20) mg/dL Creatinine (0.66-1.25) mg/dL Glucose (74-99) mg/dL POC Glucose (mg/dL) 229 H 272 H (75-99) mg/dL Calcium (8.4-10.2) mg/dL Magnesium (1.6-2.3) mg/dL 02/20/19 02/20/19 Range/Units 07:51 11:00 WBC (3.8-10.6) k/uL RBC (4.30-5.90) m/uL Hgb (13.0-17.5) gm/dL Hct (39.0-53.0) % RDW (11.5-15.5) % Plt Count (150-450) k/uL Neutrophils # (1.3-7.7) k/uL Lymphocytes # (1.0-4.8) k/uL ABG pO2 67 L (83-108) mmHg ABG O2 Saturation 93.1 L (94-97) % Sodium 133 L (137-145) mmol/L Carbon Dioxide 20 L (22-30) mmol/L BUN 52 H (9-20) mg/dL Creatinine 1.92 H (0.66-1.25) mg/dL Glucose 252 H (74-99) mg/dL POC Glucose (mg/dL) (75-99) mg/dL Calcium 8.3 L (8.4-10.2) mg/dL Magnesium (1.6-2.3) mg/dL Microbiology - Last 24 Hours (Table) 02/19/19 10:30 Gram Stain - Preliminary Sputum 02/19/19 Unknown Urine Culture - Preliminary Urine,Clean Catch 02/18/19 17:57 Blood Culture - Preliminary Blood No Growth after 24 hours Assessment and Plan Assessment: Assessment #1 acute hypoxic respiratory failure secondary to fluid overload #2 chronic hypoxic respiratory failure #3 diabetes #4 hypertension #5 dyslipidemia Plan #1 DC the Lasix IV and start the patient on Lasix drip #2 DC amiodarone IV and start the patient on amiodarone by mouth #3 continue heparin IV for anticoagulation #4 monitor the kidney function and electrolytes #5 monitor the hemoglobin #6 the patient need to have a THAO and heart catheterization once he is out of this acute state #7 consult nephrology to see the patient #8 transferred to ICU
--- NOTE | 2019-02-20 11:18 | XR ---
EXAMINATION TYPE: XR chest 1V portable DATE OF EXAM: 02/20/2019 COMPARISON: 02/19/2019 HISTORY: Congestive heart failure TECHNIQUE: Single frontal view of the chest is obtained. FINDINGS: Perihilar opacity, retrocardiac opacity, and right upper lobe opacity are similar to the p rior. Cardiomediastinal silhouette is enlarged. No new additional focal consolidation. No pneumothora x or right pleural effusion. Trace left pleural effusion blunts the costophrenic angle. Diffuse osseo us demineralization is seen. IMPRESSION: Persistent multifocal patchy opacities favored to represent multifocal pneumonia. Stable trace left pleural effusion.
[2019-02-20 11:47] LABS: Glucose,Whole Blood 321 mg/dL (75-99)
--- NOTE | 2019-02-20 11:47 | P.NPCON ---
History of Present Illness - Reason for Consult acute renal failure - History of Present Illness Reason for consultation: Acute kidney injury History of present illness: Patient is a 68-year-old male seen in renal consultation for acute kidney injury. Patient's creatinine as of 01/22/2019 was 0.97. Patient was admitted to the hospital in January 2019 with pneumonia which was complicated by pleural effusion and subsequently underwent VATS. Patient presented to the hospital with shortness of breath. Patient's echocardiogram reveals preserved ejection fraction with severe mitral regurgitation. Chest x-ray is suggestive of fluid overload and also concerning for pneumonia. Patient is currently maintained on Lasix 40 mg IV 3 times daily. He has a Kaur catheter. Patient is quite lethargic. Patient's creatinine was 1.65 on admission and is up to 1.92 today. Additionally he went into A. fib with RVR and is currently maintained on amiodarone drip. Cardiology is also following. No evidence of hypotension. Patient is maintained on lisinopril. He does have history of diabetes mellitus. He is also on metformin at this time. He denies use of nonsteroidals. Vital signs are stable. General: The patient appeared well nourished and normally developed. Lethargic. HEENT: Head exam is unremarkable. Neck is without jugular venous distension. LUNGS: Lungs are clear to auscultation and percussion. Breath sounds decreased. HEART: Irregular rate and rhythm. ABDOMEN: Abdominal exam reveals normal bowel sounds. Non-tender and non- distended. EXTREMITITES: 2+ edema. Past Medical History Past Medical History: Diabetes Mellitus, GERD/Reflux, Hypertension, Pneumonia, Supraventricular Tachycardia (SVT) Additional Past Medical History / Comment(s): SVT 02/18/19 History of Any Multi-Drug Resistant Organisms: None Reported Past Surgical History: Hernia Repair Additional Past Surgical History / Comment(s): 1984 GI bleed from ulcer, lung mass removed january 2019 Past Anesthesia/Blood Transfusion Reactions: No Reported Reaction Past Psychological History: Depression Smoking Status: Never smoker Past Alcohol Use History: None Reported Past Drug Use History: None Reported - Past Family History Father Family Medical History: Cancer Mother Family Medical History: Cancer, Dementia Medications and Allergies Home Medications Medication Instructions Recorded Confirmed Type Aspirin EC [Ecotrin Low Dose] 81 mg PO DAILY 01/17/19 02/18/19 History FLUoxetine HCL [PROzac] 20 mg PO DAILY 01/17/19 02/18/19 History Lisinopril 40 mg PO DAILY 01/17/19 02/18/19 History amLODIPine [Norvasc] 10 mg PO DAILY 01/17/19 02/18/19 History metFORMIN HCL 1,000 mg PO BID 01/17/19 02/18/19 History Furosemide [Lasix] 40 mg PO DAILY #30 tab 01/30/19 02/18/19 Rx Cefuroxime Axetil [Ceftin] 500 mg PO BID 02/18/19 02/18/19 History INSULIN ASPART (NovoLOG) [NovoLOG See Protocol SQ ACHS 02/18/19 02/18/19 History (formulary)] Omeprazole 40 mg PO DAILY 02/18/19 02/18/19 History Ranitidine HCl [Zantac] 150 mg PO BID 02/18/19 02/18/19 History Allergies Allergy/AdvReac Type Severity Reaction Status Date / Time chlorzoxazone Allergy Unknown Verified 02/18/19 16:42 [From [facility]] Physical Exam Vitals: Vital Signs Temp Pulse Pulse Resp BP Pulse Ox 02/20/19 11:30 76 02/20/19 08:00 86 17 150/85 93 L 02/20/19 07:31 93 02/20/19 07:28 91 L 02/20/19 07:20 87 02/20/19 03:43 85 02/20/19 03:33 75 94 L 02/20/19 03:12 98.2 F 73 20 138/86 92 L 02/19/19 23:11 91 20 02/19/19 23:00 98.4 F 89 22 150/83 92 L 02/19/19 22:57 90 20 02/19/19 19:33 92 02/19/19 19:30 92 L 02/19/19 19:20 90 02/19/19 19:00 98.5 F 90 22 139/78 94 L 02/19/19 18:31 91 22 94 L 02/19/19 16:52 94 L 02/19/19 16:27 94 L 02/19/19 16:00 97.7 F 89 20 132/79 02/19/19 15:37 88 02/19/19 15:20 92 L 02/19/19 15:08 94 02/19/19 11:51 159 H 126/67 02/19/19 11:50 156 H 123/72 02/19/19 11:45 136/75 02/19/19 11:44 139 H 20 127/69 95 Intake and Output 02/19/19 02/20/19 02/20/19 22:59 06:59 14:59 Intake Total 120 306.196 310.875 Output Total 100 550 Balance 20 -243.804 310.875 Intake: Intake, IV Titration 306.196 70.875 Amount Amiodarone 300 mg In 250 Dextrose 5% in Water 250 ml @ 0.5 MG/MIN 25 mls/hr IV .Q10H [facility] Rx#: [id number] Heparin Sod,Pork in 0.45% 56.196 70.875 NaCl 25,000 unit In 0.45 % NaCl 1 250ml.bag @ 12 UNITS/KG/HR 7.56 mls/hr IV .Q24H [facility] Rx#: [id number] Oral 120 240 Output: Urine 100 550 Other: Voiding Method Indwelling Catheter Indwelling Catheter Indwelling Catheter Weight 73 kg Results - Lab Results Most recent lab results ABG pH 7.40 (7.35-7.45) 02/20/19 11:00 ABG pCO2 36 mmHg (35-45) 02/20/19 11:00 ABG pO2 67 mmHg (83-108) L 02/20/19 11:00 ABG HCO3 22 mmol/L (21-25) 02/20/19 11:00 ABG O2 Saturation 93.1 % (94-97) L 02/20/19 11:00 Calcium 8.3 mg/dL (8.4-10.2) L 02/20/19 07:51 Magnesium 1.8 mg/dL (1.6-2.3) 02/20/19 07:51 02/20/19 07:51 02/20/19 07:51 Assessment and Plan Plan: Assessment: 1. Acute kidney injury secondary to ATN secondary to hemodynamic instability and cardiorenal syndrome. Creatinine 1.92 today. 2. Acute hypoxic respiratory failure secondary to volume overload and also concern for pneumonia. 3. Hypervolemic hyponatremia. 4. Metabolic acidosis secondary to acute kidney injury. 5. Diastolic CHF with severe mitral regurgitation. 6. Insulin-dependent diabetes mellitus. 7. Hypertension with chronic kidney disease. 8. A. fib with RVR maintain on amiodarone drip. 9. Recent pneumonia with parapneumonic effusion status post VATS in January 2019. Plan: Discontinue IV Lasix and start Lasix drip at 10 mL an hour. Hold lisinopril. Discontinue hctz. Continue to monitor renal function and urine output. Check urinalysis. Metformin will also be held. Check iron studies. Thank you for the consultation. I will continue to follow the patient with you during his hospital stay.
[2019-02-20] MEDS ORDERED: MORPHINE SULFATE 2 MG/ML SYRINGE IVP PRN (12:40)
[2019-02-20 13:57] VITALS: TEMP 95.9
--- NOTE | 2019-02-20 14:19 | DS ---
DISCHARGE SUMMARY FINAL DIAGNOSES: 1. Shortness of breath, possibly congestive heart failure acute exacerbation with acute on chronic diastolic dysfunction, ejection fraction 50% to 55%, rule out acute severe mitral regurgitation and papillary muscle rupture. 2. Possible multifocal pneumonia. 3. Possible chronic obstructive pulmonary disease acute exacerbation. 4. Atrial fibrillation with fast ventricular rate. 5. History of recent empyema and as well as multiple complications associated including sepsis, respiratory failure, pneumothorax and VATS on the left side. 6. Diabetes mellitus type 2. 7. Gastroesophageal reflux disease. 8. Renal failure possibly chronic renal failure stage 3. 9. Hypertension. 10.History of pneumonia. 11.History of supraventricular tachycardia. 12.History of hernia repair. 13.History of depression. 14.History of diabetes mellitus type 2, uncontrolled with hyperglycemia. DISCHARGE DISPOSITION: The patient will be discharged in stable condition with guarded prognosis. Total time taken 35 minutes. The patient will be transferred to [facility] for further evaluation and treatment. HISTORY OF PRESENT ILLNESS: This 68-year-old gentleman with a past medical history of multiple medical problems admitted with shortness of breath. Initially, patient thought to have respiratory illness including pneumonia. Patient on broad spectrum IV antibiotics. Subsequently the patient had significant shortness of breath and CHF was also considered and a repeat 2D echo showed significant mitral regurgitation which was not present on the 2D echo done in January, last month. Patient also had multiple other medical issues as listed above. The patient was transferred to ICU and I discussed the case with [facility] MICU fellow and the patient will be transferred to [facility] for evaluation and treatment of the multiple complex medical issues as mentioned earlier for a higher level of care. Once again, the patient is stable, but overall prognosis guarded, which I discussed at length with the family who understands and agrees. Further recommendations to follow. A copy of dictation forwarded to Dr. Chan who is the primary physician. MMODL / IJN: [id number] /
--- NOTE | 2019-02-20 14:20 | P.PN ---
Subjective Progress Note Date: 02/20/19 Principal diagnosis: Acute hypoxic respiratory failure secondary to bilateral multifocal pneumonia, severe mitral regurgitation and pulmonary edema. This is a very pleasant 68-year-old gentleman who follows with Dr. Chan as his primary care physician. He has a history of diabetes mellitus, type II, hypertension, recent admission for an acute hypoxic respiratory failure s econdary to left-sided Pneumonia and pleural effusion with hydropneumothorax infected with alphahemo lytic streptococcus requiring initially a pigtail placement and subsequently a VATS procedure. He was discharged from here on 01/30/2019 with a PICC line in place and IV infusions with ceftriaxone daily. He presented to [facility] yesterday with worsening shortness of breath and subsequently transferred here for further care. He is seen today in consultation on the selective care unit. He is currently awake and alert in no acute distress. He is requiring 15 L high flow nasal cannula to maintain O2 saturations in the 90s. His x-ray revealed evidence of increasing left pleural effusion and associated with prominent left lower lobe air less than as. There are new large multifocal ill-defined consolidative opacities throughout the lungs bilaterally. Suggestive of multifocal bronchopneumonia. Sputum culture pending. White count 5.4. Hemoglobin 7.6. Creatinine 1.69. He is currently on Zosyn and Levaquin. He is on bronchodilators and IV Solu-Medrol. Requiring insulin drip currently at 2.5 units per hour. The patient is seen today 02/20/2019 on the selective care unit. An a team had been called for worsening shortness of breath and acute hypoxic respiratory fa ilure. He is currently on BiPAP 12/5 in 100% FiO2. His chest x-ray shows persistent multifocal patchy opacities favoring multifocal pneumonia. He also developed new onset of atrial fibrillation with rapid ventricular response. Echocardiogram revealed severe mitral regurgitation. He was initiated on amiodarone drip, heparin drip and the Lasix drip at 10 mg per hour. Remains on bronchodilators, Zosyn and Levaquin. White count 16.7. Hemoglobin 8.0. Creatinine 1.92. Arterial blood gases on 100% FiO2 revealed a PaO2 of 67, pCO2 36, pH 7.40. He was subsequently transferred to the intensive care unit. Family has been updated and are present at the bedside. Objective - Vital Signs Vital signs: Vital Signs Temp 95.9 F L 02/20/19 11:22 Pulse 75 02/20/19 13:00 Resp 25 H 02/20/19 13:00 BP 140/85 02/20/19 13:00 Pulse Ox 92 L 02/20/19 13:40 Intake & Output 02/19/19 02/20/19 02/20/19 18:59 06:59 18:59 Intake Total 409.854 306.196 310.875 Output Total 4 650 450 Balance 405.854 -343.804 -139.125 Weight 63 kg 73 kg Intake: Intake, IV Titration 49.854 306.196 70.875 Amount Amiodarone 300 mg In 250 Dextrose 5% in Water 250 ml @ 0.5 MG/MIN 25 mls/hr IV .Q10H [facility] Rx#: [id number] Heparin Sod,Pork in 0.45% 56.196 70.875 NaCl 25,000 unit In 0.45 % NaCl 1 250ml.bag @ 12 UNITS/KG/HR 7.56 mls/hr IV .Q24H [facility] Rx#: [id number] Insulin Regular 100 unit 49.854 In Sodium Chloride 0.9% 100 ml @ Titrate IV .Q0M [facility] Rx#:[id number] Oral 360 240 Output: Urine 650 450 Stool 4 Other: Voiding Method Indwelling Catheter Indwelling Catheter Indwelling Catheter # Voids 3 - Exam GENERAL EXAM: Alert, pleasant 68-year-old gentleman,, comfortable in moderate respiratory distress. On BiPAP 12/500% FiO2. HEAD: Normocephalic. EYES: Normal reaction of pupils, equal size. NOSE: Clear with pink turbinates. THROAT: No erythema or exudates. NECK: No masses, no JVD. CHEST: No chest wall deformity. LUNGS: Equal air entry with bilateral scattered rhonchi with crackles in bilateral bases. CVS: S1 and S2 normal with an audible murmur, regular rhythm. ABDOMEN: No hepatosplenomegaly, normal bowel sounds, no guarding or rigidity. SPINE: No scoliosis or deformity SKIN: No rashes CENTRAL NERVOUS SYSTEM: No focal deficits, tone is normal in all 4 extremities. EXTREMITIES: There is no peripheral edema. No clubbing, no cyanosis. Peripheral pulses are intact. - Labs CBC & Chem 7: 02/20/19 07:51 02/20/19 07:51 Labs: Abnormal Lab Results - Last 24 Hours (Table) 02/19/19 02/19/19 02/20/19 Range/Units 16:29 20:33 00:36 WBC 16.0 H (3.8-10.6) k/uL RBC 2.58 L (4.30-5.90) m/uL Hgb 7.6 L (13.0-17.5) gm/dL Hct 24.4 L (39.0-53.0) % RDW 19.3 H (11.5-15.5) % Plt Count (150-450) k/uL Neutrophils # 14.9 H (1.3-7.7) k/uL Lymphocytes # 0.3 L (1.0-4.8) k/uL ABG pO2 (83-108) mmHg ABG O2 Saturation (94-97) % Sodium (137-145) mmol/L Carbon Dioxide (22-30) mmol/L BUN (9-20) mg/dL Creatinine (0.66-1.25) mg/dL Glucose (74-99) mg/dL POC Glucose (mg/dL) 377 H 291 H (75-99) mg/dL Calcium (8.4-10.2) mg/dL 02/20/19 02/20/19 02/20/19 Range/Units 01:59 06:31 07:51 WBC 16.7 H (3.8-10.6) k/uL RBC 2.60 L (4.30-5.90) m/uL Hgb 8.0 L (13.0-17.5) gm/dL Hct 25.1 L (39.0-53.0) % RDW 19.6 H (11.5-15.5) % Plt Count 545 H (150-450) k/uL Neutrophils # 15.6 H (1.3-7.7) k/uL Lymphocytes # 0.3 L (1.0-4.8) k/uL ABG pO2 (83-108) mmHg ABG O2 Saturation (94-97) % Sodium (137-145) mmol/L Carbon Dioxide (22-30) mmol/L BUN (9-20) mg/dL Creatinine (0.66-1.25) mg/dL Glucose (74-99) mg/dL POC Glucose (mg/dL) 229 H 272 H (75-99) mg/dL Calcium (8.4-10.2) mg/dL 02/20/19 02/20/19 02/20/19 Range/Units 07:51 11:00 11:43 WBC (3.8-10.6) k/uL RBC (4.30-5.90) m/uL Hgb (13.0-17.5) gm/dL Hct (39.0-53.0) % RDW (11.5-15.5) % Plt Count (150-450) k/uL Neutrophils # (1.3-7.7) k/uL Lymphocytes # (1.0-4.8) k/uL ABG pO2 67 L (83-108) mmHg ABG O2 Saturation 93.1 L (94-97) % Sodium 133 L (137-145) mmol/L Carbon Dioxide 20 L (22-30) mmol/L BUN 52 H (9-20) mg/dL Creatinine 1.92 H (0.66-1.25) mg/dL Glucose 252 H (74-99) mg/dL POC Glucose (mg/dL) 321 H (75-99) mg/dL Calcium 8.3 L (8.4-10.2) mg/dL Microbiology - Last 24 Hours (Table) 02/19/19 10:30 Gram Stain - Preliminary Sputum 02/19/19 Unknown Urine Culture - Preliminary Urine,Clean Catch 02/18/19 17:57 Blood Culture - Preliminary Blood No Growth after 24 hours Assessment and Plan Assessment: Impression: #1 Acute hypoxic respiratory failure secondary to bilateral multifocal pneumonia and severe mitral regurgitation, pulmonary edema. #2 Recent loculated left pleural effusion status post pigtail catheter insertion and subsequent left thoracotomy with decortication on 01/23/2019. #3 Alphahemolytic streptococcus infection pleural fluid was receiving IV ceftriaxone in the outpatient setting. #4 Diabetes mellitus with steroid-induced hyperglycemia. #5 History of hypertension. #6 Lifelong nonsmoker. #7 New-onset atrial fibrillation. Plan: The patient was seen and evaluated by Dr. López. Chest x-ray, ABGs and labs reviewed. He is currently on Zosyn and Levaquin. Continue with bronchodilators. Continue Lasix drip. He's been initiated on IV amiodarone and heparin drip. He has been updated and are requesting transfer to tertiary care center. Arrangements are being made for transfer to [facility] via helicopter. I, the cosigning physician, performed a history & physical examination of the patient. Lungs sounds bilateral scattered rhonchi, crackles in bilateral bases Maintaining good O2 saturations in the 90s on BiPAP 12/5 in 100% FiO2. I discussed the assessment and plan of care with my nurse practitioner, Nimo Nichols. I attest to the above progress note as dictated by her.
[2019-02-20 14:28] LABS: Amorphous Sediment,Urine Rare /hpf; Appearance,Urine Clear (Clear); Bacteria,Urine Rare /hpf; Bilirubin,Urine Negative (Negative); Blood,Urine Moderate (Negative); Color,Urine Light Yellow; Glucose,Urine (UA) Negative (Negative); Hyaline Casts,Urine 7 /lpf (0-2); Ketones,Urine Negative (Negative); Leukocyte Esterase,Urine Small (Negative); Mucus,Urine Rare /hpf; Nitrite,Urine Negative (Negative); Protein,Urine 1+ (Negative); RBC,Urine 21 /hpf (0-5); Squamous Epithelial Cell,Urine <1 /hpf (0-4); Urobilinogen,Urine <2.0 mg/dL (<2.0); WBC,Urine 4 /hpf (0-5)
[2019-02-20 14:59] LABS: Glucose,Whole Blood 188 mg/dL (75-99)
[2019-02-20 15:00] LABS: ABG Base Excess -0.8 mmol/L; ABG HCO3 24 mmol/L (21-25); ABG Oxygen Saturation 79.8 % (94-97); ABG PCO2 36 mmHg (35-45); ABG PH 7.43 (7.35-7.45); ABG TCO2 25 mmol/L (19-24); Allen Test Performed? Yes
[2019-02-20] MEDS: HEPARIN SOD,PORK IN 0.45% NACL 25,000 UNIT in 0.45% NACL 1 250ML.BAG IV SCH (15:21)
[2019-02-20] MEDS ORDERED: ROCURONIUM BROMIDE 10 MG/ML 10 ML VIAL IV ONE (15:30)
[2019-02-20] MEDS ORDERED: ETOMIDATE 2 MG/ML 10 ML VIAL ONE (15:30)
[2019-02-20] MEDS ORDERED: SUCCINYLCHOLINE CHLORIDE VIAL 200 MG/10 ML VIAL IV ONE (15:30)
[2019-02-20] MEDS ORDERED: PROPOFOL 10 MG/ML 20 ML VIAL IV ONE (15:30)
[2019-02-20] MEDS ORDERED: PROPOFOL 1,000 MG in EMPTY BAG 1 BAG IV SCH (15:30)
[2019-02-20 15:51] LABS: ABG PO2 45 mmHg (83-108)
--- NOTE | 2019-02-20 15:55 | XR ---
EXAMINATION TYPE: XR chest 1V portable DATE OF EXAM: 02/20/2019 COMPARISON: 02/20/2019 and 10:45 AM HISTORY: Endotracheal tube placement TECHNIQUE: Single frontal view of the chest is obtained. FINDINGS: The mediastinal silhouette is rotated to the left. Endotracheal tube appears to terminate at the level aortic arch approximately 4 cm from the huyen, appropriately placed. Enteric tube proje cts off in the [id number]. Postsurgical changes of the gastroesophageal junction. Lungs are subopt imally visualized given patient rotation but there appears be small pleural effusions and multifocal airspace disease as seen on the prior. Diffuse osseous demineralization. IMPRESSION: Appropriately placed endotracheal and enteric tubes. Suboptimal patient positioning to e valuate the lungs although similar to the prior exam.
[2019-02-20 16:05] VITALS: BP 110/66; PULSE 64; RESP 100
--- NOTE | 2019-02-20 16:19 | PN ---
PROGRESS NOTE DATE OF VISIT: 02/20/2019. REASON FOR FOLLOWUP VISIT: Question of multifocal pneumonia. INTERVAL HISTORY: The patient did go into acute respiratory distress just now for which the patient is going to be transferred to the ICU. Patient on 100% BiPAP. The patient is hemodynamically stable not requiring any pressor support. The patient denies having any chest pain. No cough. No nausea, no vomiting. No abdominal pain. No diarrhea. PHYSICAL EXAMINATION: Blood pressure 132/84 with a pulse of 82, temperature 98. He is 92% on BiPAP. General description is an elderly male, lying in bed, in no distress. Respiratory system: Unlabored breathing with decreased breath sounds in the bases, no wheeze. Heart S1, S2. Regular rate and rhythm. ABDOMEN: Soft, nontender. EXTREMITIES with 2+ edema of the feet. LAB: Hemoglobin 8, white count 13.7, BUN of 52, creatinine 1.92. Echocardiogram did show evidence of severe mitral regurgitation. The patient did have a comparison echocardiogram done on his last admission on January 28 that did not show any abnormality at that point except mild regurgitation. DIAGNOSTIC IMPRESSION AND PLAN: Patient admitted to hospital with acute respiratory distress with a multifocal infiltrate likely secondary to fluid and acute congestive heart failure. Clinically doubt pneumonia. The patient did have severe mitral regurgitation, but no evidence of any vegetation. This patient who was not bacteremic when he was admitted in January with his left sided empyema. The patient is currently covered with Zosyn and is being transferred to [facility] care. Currently on Zosyn continue till evaluated by the Infectious Disease Service at [facility] Overall prognosis remains to be guarded. MMODL / IJN: [id number] / MTDD
[2019-02-20] MEDS ORDERED: LEVOFLOXACIN 750 MG TAB PO SCH (18:00)
--- NOTE | 2019-02-23 13:03 | CDI ---
Documentation Clarification Form Date: 02/23/19 From: Preeti Jordan Phone: If you have a question regarding this query, please contact Minnie Angel at [phone] between 8am and 5pm. Admit Date: 02/18/2019 4:27:00 PM Patient Name: Polo Johnston Visit Number: [id number] Discharge Date: 02/20/2019 5:03:00 PM ATTENTION: The Clinical Documentation Specialists (CDI) and [facility] Coding Staff appreciate your assistance in clarifying documentation. Please respond to the clarification below the line at the bottom and electronically sign. The CDI & [facility] Coding staff will review the response and follow-up if needed. Please note: Queries are made part of the Legal Health Record. If you have any questions, please contact the author of this message via ITS. Dr. Ambrosio Murphy Atrial Fibrillation is documented in Dr. Vega's and Dr. Chau's consult note, discharge summary and progress notes. Documentation in Dr. López's 02/20 progress note, this is a new onset atrial fib. History/Risk Factors: Hypertension, CHF and severe mitral regurgitation Clinical Indicators: Worsening shortness of breath EKG/telemetry: Telemetry showed sinus tachycardia at 08:00 on 02/19 and atrial fibrillation at 12:00 on 02/19 Treatment: Amiodarone drip In your professional opinion, can you please clarify the type of Atrial Fibrillation, if known? Chronic/Permanent Paroxysmal Persistent Other, please specify Unable to determine MTDD
== END 2019-02-20 17:03 | disposition short-term general hospital (02) | DRG 291 ==
LOC: EC 15:56 → 3SCARD 16:27 → 2SICU 02-20 11:12
PROVIDERS: ADMIT Hospitalist; ATTEND Hospitalist
PROC: 5A09357 Assistance with Respiratory Ventilation, Less than 24 Consecutive Hours, Continuous Positive Airway Pressure (ICD-10-PCS; principal; 2019-02-20)
DX: I13.0 Hypertensive heart and chronic kidney disease with heart failure and stage 1 through stage 4 chronic kidney disease, or unspecified chronic kidney disease (principal); I50.33 Acute on chronic diastolic (congestive) heart failure; J18.9 Pneumonia, unspecified organism; J96.21 Acute and chronic respiratory failure with hypoxia; N17.0 Acute kidney failure with tubular necrosis; E87.1 Hypo-osmolality and hyponatremia; E87.2 Acidosis; J94.8 Other specified pleural conditions; J44.1 Chronic obstructive pulmonary disease with (acute) exacerbation; E11.22 Type 2 diabetes mellitus with diabetic chronic kidney disease; E11.65 Type 2 diabetes mellitus with hyperglycemia; E78.5 Hyperlipidemia, unspecified; I34.0 Nonrheumatic mitral (valve) insufficiency; K21.9 Gastro-esophageal reflux disease without esophagitis; F32.9 Major depressive disorder, single episode, unspecified; T38.0X5A Adverse effect of glucocorticoids and synthetic analogues, initial encounter; N18.3 Chronic kidney disease, stage 3 (moderate); Z79.82 Long term (current) use of aspirin; Z79.899 Other long term (current) drug therapy; Z88.8 Allergy status to other drugs, medicaments and biological substances; I48.91 Unspecified atrial fibrillation; Z87.01 Personal history of pneumonia (recurrent); Z79.4 Long term (current) use of insulin; Z87.11 Personal history of peptic ulcer disease; Z80.9 Family history of malignant neoplasm, unspecified; Z82.0 Family history of epilepsy and other diseases of the nervous system
CPT/HCPCS: 36415; 36600; 71045; 71046; 80048; 80053; 81001; 82805; 83735; 83880; 84132; 84145; 84484; 85025; 85610; 85730; 87040; 87070; 87086; 87205; 87324; 93306; 94640; 94660; 94760; 96365; 96375; 99285